=== PATIENT | male | born 1940 | race Caucasian/White ===

== ENCOUNTER 2016-09-30 01:44 | Inpatient (IN) ==
[2016-09-30] MEDS ORDERED: ALBUTEROL/IPRATROPIUM 3 ML NEB RESP TX STA ×2 (01:56→01:58)
[2016-09-30] MEDS ORDERED: LORazepam 2 MG/1 ML VIAL IV STA ×2 (01:56→01:58)
[2016-09-30] MEDS ORDERED: LORazepam 2 MG/1 ML VIAL ONE ×2 (01:58→02:26)
[2016-09-30 02:11] LABS: INR 1.1; PT Patient Result 11.9 SECS; Partial Thromboplastin Time 27.3 SECS (0-40)
[2016-09-30 02:20] LABS: Alanine Aminotransferase 22 U/L (16-61); Albumin 3.8 G/DL (3.4-5.0); Alkaline Phosphatase 91 U/L (45-117); Aspartate Amino Transferase 23 U/L (0-37); Blood Urea Nitrogen 17 MG/DL (7-18); Calcium 9.3 MG/DL (8.5-10.1); Glucose 285 MG/DL (74-106); Osmolality,Calculated 286.7 MOS/KG (273-304); Potassium 3.9 MMOL/L (3.5-5.1); Sodium 138 MMOL/L (136-145); Total Protein 7.8 G/DL (6.4-8.3); Troponin I Only 0.018 NG/ML (0.00-0.045)
[2016-09-30 02:24] LABS: Basophils # 0.1 10*3/uL (0.0-0.2); Basophils % 0.6 % (0.0-0.8); Eosinophils # 0.1 10*3/uL (0.0-0.87); Hematocrit 40.4 VOL% (42.0-52.0); Hemoglobin 13.7 GM/DL (14.0-18.0); Immature Granulocytes % 1.1 %; Lymphocytes # 1.4 10*3/uL (1.4-4.0); Lymphocytes % 16.1 % (21.2-54.2); Mean Corpuscular HGB Conc 33.9 GM/DL (32-36); Mean Corpuscular Hemoglobin 31 PG (27-34); Mean Corpuscular Volume 91.4 FL (87-102); Mean Platelet Volume 12.2 FL (9.6-12.0); Monocytes # 0.9 10*3/uL (0.11-0.8); Monocytes % 10.2 % (1.7-12.7); NRBC # 0.02 10*3/uL; Neutrophils # 6.2 10*3/uL (1.4-7.4); Platelet Count 105 T/CUMM (130-400); Red Blood Count 4.42 MC/CUMM (3.8-5.5); Red Cell Distribution Width 14.6 % (9.3-17.3); White Blood Count 8.8 T/CUMM (4-12)
[2016-09-30] MEDS ORDERED: ALBUTEROL NEB SOLN 5 MG/ML 20 ML/BOTTLE CONT NEB STA (02:27)
[2016-09-30] MEDS ORDERED: ETOMIDATE 20 MG/10 ML VIAL IV STA (02:44)
[2016-09-30] MEDS ORDERED: SUCCINYLCHOLINE 200 MG/10 ML VIAL IV STA (02:45)
[2016-09-30] MEDS ORDERED: PROPOFOL 1,000 MG/100 ML BOTTLE IV ONE ×2 (02:47→04:26)
[2016-09-30] MEDS: PROPOFOL 1,000 MG/100 ML BOTTLE IV SCH ×6 (02:50→22:53)
[2016-09-30] MEDS ORDERED: MORPHINE 2 MG/1 ML SYRINGE ONE (03:13)
[2016-09-30] MEDS ORDERED: ONDANSETRON 4 MG/2 ML VIAL ONE (03:13)
[2016-09-30] MEDS ORDERED: PROPOFOL 200 MG/20 ML VIAL IV STA (03:23)
[2016-09-30] MEDS ORDERED: FUROSEMIDE 40 MG/4 ML VIAL IV STA (03:35)
[2016-09-30] MEDS ORDERED: ACETAMINOPHEN 650 MG SUPP RECTAL STA (03:38)
[2016-09-30] MEDS ORDERED: cefTRIAXone 1,000 MG in SODIUM CHLORIDE 0.9% 100 ML IV STA (03:38)
[2016-09-30] MEDS ORDERED: cefTRIAXone 1,000 MG VIAL ONE (03:41)
[2016-09-30] MEDS ORDERED: ACETAMINOPHEN 650 MG SUPP RECTAL ONE (03:41)
[2016-09-30] MEDS ORDERED: SODIUM CHLORIDE 0.9% 100 ML IV ONE (03:42)
[2016-09-30] MEDS ORDERED: FUROSEMIDE 100 MG/10 ML VIAL ONE (03:42)
[2016-09-30] MEDS ORDERED: SUCCINYLCHOLINE 200 MG/10 ML VIAL ONE (03:55)
[2016-09-30] MEDS ORDERED: ETOMIDATE 20 MG/10 ML VIAL IV ONE (03:55)
[2016-09-30] MEDS ORDERED: PROPOFOL 1,000 MG/100 ML BOTTLE IV SCH (04:00)
--- NOTE | 2016-09-30 04:03 | EKG Report ---
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
--- NOTE | 2016-09-30 04:03 | EKG Report ---
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
--- NOTE | 2016-09-30 04:08 | Emergency Department Note ---
I, Haydee Reveles, am scribing for, and in the presence of, Lisette Hernandez DO 02 :08. IDavid Debra, DO, personally performed the services described in this documentation, ascribed by Haydee Reveles in my presence, and it is both accurate and complete . Arrival - Arrival Chief Complaint: Shortness of Breath Stated Complaint: SOB ED Nursing Triage Note: Patient complains of shortness of breath that has been going on since yesterday. States that his breathing got worse today. Patient has a history of CABG and HTN. Patient denies history of CHF, COPDY or asthma. History of alcohol abuse. Stridor noted upon triage with diminished breath sounds to right side. Patient report dyspnea upon exertion. Dr. Ochoa is patient's bottom brusher. Mode of Arrival: Stretcher Limitations: No Limitations Source: Patient Time Seen by Provider: 09/30/16 01:57 - History of Present Illness HPI Narrative: This is a 75 y/o white male presenting to the ED with c/o SOB that onset yesterday. He states he went to his mailbox and he has had trouble breathing. Pt states his breathing has worsened tonight. Pt has a history of CABG and HTN. He states he does not take care of himself. He is a recovering from alcohol abuse and states Dr. Philippe has taken care of him for this. 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 Pt is wheezing and trouble breathing and experiencing dyspnea upon exertion. Dr. Ochoa is the pt's bottom brusher. He denies fever, chills, nausea, vomiting, diarrhea, abdominal pain, back pain, and dysuria. Consistency: constant Severity: moderate Allergies/Adverse Reactions: Allergies Allergy/AdvReac Type Severity Reaction Status Date / Time No Known Allergies Allergy Verified 01/10/16 09:05 Home Medications: Home Medications Medication Instructions Recorded Confirmed Type Aspirin [Ecotrin] 81 mg PO DAILY 01/10/16 06/13/16 History Celecoxib [Celebrex] 200 mg PO DAILY 01/10/16 06/13/16 History Multivit-Min/FA/Lycopen/Lutein 1 each PO DAILY 01/10/16 06/13/16 History [Centrum Silver Tablet] Omeprazole 20 mg PO DAILY 01/10/16 06/13/16 History Potassium Chloride 10 meq PO DAILY 01/10/16 06/13/16 History Rosuvastatin [Crestor] 10 mg PO DAILY 01/10/16 06/13/16 History Sertraline [Zoloft] 100 mg PO DAILY 01/10/16 06/13/16 History Tamsulosin [Flomax] 0.4 mg PO DAILY 01/10/16 06/13/16 History amLODIPine [Norvasc] 10 mg PO DAILY 01/10/16 06/13/16 History metFORMIN [Glucophage] 500 mg PO BID W/MEALS 01/10/16 06/13/16 History Indomethacin Cap [Indocin Cap] 25 mg PO TID #30 capsule 06/13/16 Rx Ranitidine Tab [Zantac Tab] 150 mg PO TID #30 tablet 06/13/16 Rx predniSONE TAB [PredniSONE] 20 mg PO DAILY #15 tablet 06/13/16 Rx Review of System - Review of System 12 point system: reviewed and no additional remarkable complaints except as stated - Review of System Constitutional: Absent: chills, fever, weakness Eyes: Absent: vision change Head/Ears/Nose/Throat: Absent: nasal drainage Respiratory: Present: respiratory distress, wheezing Cardiovascular: Present: dyspnea on exertion. Absent: chest pain Gastrointestinal: Absent: abdominal pain, nausea, vomiting, diarrhea Genitourinary male: Absent: dysuria Musculoskeletal: Absent: arm pain, back pain, leg pain, neck pain Skin: Absent: rash Neurological: Absent: headache, weakness, confusion, vertigo Psychiatric: Absent: anxiety Endocrine: Absent: fatigue Hematological/Lymphatic: Absent: easy bleeding Allergic/Immunologic: Absent: facial swelling Medical,Surgical,& Family Hx - Medical History Cardio: History of: CAD, Hypertension, Pacemaker Psychological: History of: Depression, Psychiatric/Substance Abuse Tx (ETOH abuse) Endocrine: History of: Diabetes Mellitus (NIDDM), Dyslipidemia Musculoskeletal: History of: Back/Neck Problems (back pain steroid injections) - Surgical History Cardiac Surgeries: Sugical HX of: Cardiac Surgery (triple bypass surgery) - Social History Smoking Status: Never smoker Frequency of Alcohol Use: Frequently Type of Drug Use: None Exam Vital Signs: Vital Signs Temperature 100.1 F H 09/30/16 01:37 Pulse Rate 95 H 09/30/16 02:37 Respiratory Rate 30 H 09/30/16 02:37 Blood Pressure 205/90 09/30/16 01:37 O2 Sat by Pulse Oximetry 89 L 09/30/16 02:37 - General General appearance: alert, in no apparent distress, obese, other (etoh abuse ) - Head Head exam: Present: atraumatic, normocephalic, normal inspection - Eye Eye exam: Present: normal appearance, PERRL, EOMI - ENT ENT exam: Present: normal exam, normal oropharynx, mucous membranes moist, TM's normal bilaterally, normal external ear exam - Neck Neck exam: Present: normal inspection, full ROM, trachea midline. Absent: tenderness - Chest Chest inspection: Present: normal inspection, symmetric chest wall rise. Absent : tenderness - Respiratory Respiratory exam: Present: accessory muscle use, respiratory distress ( mild ), wheezes (mild expiratory wheezing ), other (decreased breath sounds to the left ). Absent: normal lung sounds bilaterally - Cardiovascular Cardiovascular exam: Present: regular rate, normal rhythm, normal heart sounds - Abdominal Exam Abdominal exam: Present: soft, normal bowel sounds, other (obese ). Absent: distention, tenderness - Extremities Exam Extremities exam: Present: normal inspection, full ROM, normal capillary refill. Absent: tenderness, pedal edema, calf tenderness - Back Exam Back exam: Present: normal inspection, full ROM. Absent: tenderness - Neurological Exam Neurological exam: Present: alert, oriented X3, CN II-XII intact, normal gait, reflexes normal - Psychiatric Psychiatric exam: Present: normal affect, normal mood - Skin Skin exam: Present: warm, dry, intact, normal color. Absent: rash Course Course Narrative: pt was subsequently intubated after developing worsening resp distress. discussed with pt before and he agreed to be intubated. Procedures - Intubation Time out performed: Yes sedative: Etomidate Mg Given: 20 paralytic: Succinylcholine Mg Given: 150 Laryngoscope: Indira ET Tube Size: 7.5 Tube Secured Depth (cm): 23 Tube Secured Location: teeth Tube Placement Confirmation: visualized tube passing through cords, equal breath sounds bilaterally, no breath sounds over epigastrium, confirmation by capnometry, confirmation detector color change Patient Tolerated Procedure: well Intubation Complications: none Results - Labs CBC & BMP: 09/30/16 01:48 09/30/16 01:48 Lab Results: I have reviewed the patients labs - Diagnostic Findings Procedure: Chest x-ray: image reviewed by me (ET tube is in place. failure noted. ) Disposition Clinical Impression: Respiratory distress Case discussed with: patient Disposition: Still a Patient Condition: Stable Time of Disposition: 03:50
--- NOTE | 2016-09-30 04:08 | Hospitalist History & Physical ---
Assessment and Plan (1) Acute respiratory failure with hypoxia Status: Acute Assessment and plan: This was a result of acute pulmonary edema. Most likely this was cardiogenic. This gentleman does have a substrate of coronary artery disease. Will repeat EKG in the morning. Do serial cardiac enzymes. Get consultation with cardiology or the patient is here. He is going to be admitted to the CCU Current Visit: Yes (2) Bronchospasm Status: Acute Assessment and plan: This could be cardiac asthma given the fact that the patient states that he does not have asthma. Encounter with some chemicals in the involvement is also possibility. Because I feel that this is cardiac asthma we should note aggressively treat his gentleman with beta-2 agonist for fear of driving the heart in the wrong direction Current Visit: Yes (3) Coronary artery disease Status: Acute Assessment and plan: Patient does have a history of coronary bypass grafting. He denies any chest pain but with acute pulmonary edema and progressive shortness of breath and exercise intolerance is worrisome for possibility of acute coronary syndrome she will be admitted to the CCU be monitored closely and have cardiology see him an echocardiogram will be ordered Current Visit: Yes Qualifiers: Coronary Disease-Associated Artery/Lesion type: bypass graft [place] vs. transplanted heart: [place] Associated angina: angina presence unspecified Qualified Code(s): I25.810 - Atherosclerosis of coronary artery bypass graft(s) without angina pectoris (4) Acute pulmonary edema Status: Acute Assessment and plan: Most likely cardiogenic plan of management as above Current Visit: Yes History of Present Illness History of present illness: Mr. Sibley is a 75 year old male, who by his own declaration to us that he is not taking care of himself well, presented to the ED with c/o SOB that onset yesterday. He states he went to his mailbox and he has had trouble breathing. Pt states his breathing has worsened tonight. Pt has a history of CABG and HTN. He states he does not take care of himself. He is a recovering from alcohol abuse and states Dr. Philippe has taken care of him for this. 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 Pt is wheezing and trouble breathing and experiencing dyspnea upon exertion. 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 He denies fever, chills, nausea, vomiting, diarrhea, abdominal pain, back pain, and dysuria. He also states that he has sleep apnea with a CPAP machine at home that he is not using Home Medications Medication Instructions Recorded Confirmed Type Aspirin [Ecotrin] 81 mg PO DAILY 01/10/16 06/13/16 History Celecoxib [Celebrex] 200 mg PO DAILY 01/10/16 06/13/16 History Multivit-Min/FA/Lycopen/Lutein 1 each PO DAILY 01/10/16 06/13/16 History [Centrum Silver Tablet] Omeprazole 20 mg PO DAILY 01/10/16 06/13/16 History Potassium Chloride 10 meq PO DAILY 01/10/16 06/13/16 History Rosuvastatin [Crestor] 10 mg PO DAILY 01/10/16 06/13/16 History Sertraline [Zoloft] 100 mg PO DAILY 01/10/16 06/13/16 History Tamsulosin [Flomax] 0.4 mg PO DAILY 01/10/16 06/13/16 History amLODIPine [Norvasc] 10 mg PO DAILY 01/10/16 06/13/16 History metFORMIN [Glucophage] 500 mg PO BID W/MEALS 01/10/16 06/13/16 History Indomethacin Cap [Indocin Cap] 25 mg PO TID #30 capsule 06/13/16 Rx Ranitidine Tab [Zantac Tab] 150 mg PO TID #30 tablet 06/13/16 Rx predniSONE TAB [PredniSONE] 20 mg PO DAILY #15 tablet 06/13/16 Rx Allergies Allergy/AdvReac Type Severity Reaction Status Date / Time No Known Allergies Allergy Verified 01/10/16 09:05 Medical,Surgical,& Family Hx - Medical History Cardio: History of: CAD, Hypertension, Pacemaker Psychological: History of: Depression, Psychiatric/Substance Abuse Tx (ETOH abuse) Endocrine: History of: Diabetes Mellitus (NIDDM), Dyslipidemia Musculoskeletal: History of: Back/Neck Problems (back pain steroid injections) - Surgical History Cardiac Surgeries: Sugical HX of: Cardiac Surgery (triple bypass surgery) - Social History Smoking Status: Never smoker Frequency of Alcohol Use: Frequently Type of Drug Use: None Review of systems: 12 point system assessment was done. By the time I came to the bedside the patient was in the process of being intubated. Could hardly speak and breathe at the same time was using accessory muscles. Because of intubation and problems breathing according it much of the history and his complaints. Review of system therefore significant for the chief complaint and history of presenting illness and past medical history Exam - Constitutional Vitals: Period Temp Pulse Resp BP Sys/Willams Pulse Ox Last 24 Hr 100.1 F-100.1 F 89-102 26-32 191-205/90-92 79-93 General appearance: morbidly obese - Head Head exam: Present: normocephalic, atraumatic, other (Right facial plethora) - Eye Eye exam: Present: EOMI Pupils: Present: ANH - ENT ENT exam: Present: normal exam, other (Difficult to see the posterior pharynx) - Neck Neck exam: Present: normal inspection - Respiratory Respiratory exam: Present: other (Patient had respiratory distress breathing about 26 200 breaths a minute with use of accessory muscles there is diffuse wheezing however he told us that he does not have asthma) - Cardiovascular Cardiovascular exam: Present: regular rate and rhythm, other (Sinus control the right bundle branch block is difficult to maintain a baseline on the EKG because of his movement of the chest) - GI/Abdominal GI/Abdominal exam: Present: other (Rotund abdomen nontender no guarding) - Extremities Exam Extremities exam: Present: full ROM, other (No edema no cyanosis) - Neurological Exam Neurological exam: Present: other (Acute respiratory distress patient is quite anxious no focal neurologic deficits noted) - Psychiatric Psychiatric exam: Present: anxious - Skin Skin exam: Present: warm, dry, other (Noted facial plethora) Results - Labs CBC & BMP: 09/30/16 01:48 09/30/16 01:48 Lab Results: I have reviewed the past 24 hour labs
[2016-09-30 06:34] LABS: ABG Base Excess -0.7 MMOL/L (-2.5-2.5); ABG Oxygen Saturation 96.8 % (95-100); ABG PH 7.325 (7.35-7.45); ABG PO2 99.1 MM HG (80-95); ABG TCO2 27.5 MMOL/L (23-27)
[2016-09-30 07:06] LABS: Troponin I Only 0.027 NG/ML (0.00-0.045)
--- NOTE | 2016-09-30 07:43 | Cardiology Consult Note ---
<Eliana Sweet - Last Filed: 09/30/16 07:41> Assessment and Plan - Time spent with patient Time spent with patient: Greater than 30 minutes (1) Respiratory failure Status: Acute Assessment and plan: See plan of care listed below. Current Visit: Yes (2) Hyperlipidemia Status: Chronic Assessment and plan: See plan of care listed below. Current Visit: Yes (3) Hypertension Status: Chronic Assessment and plan: See plan of care listed below. Current Visit: Yes (4) Atrial fibrillation with rapid ventricular response Status: Acute Assessment and plan: See plan of care listed below. Current Visit: Yes (5) Acute pulmonary edema Status: Acute Assessment and plan: See plan of care listed below. Current Visit: Yes (6) Coronary artery disease Status: Chronic Assessment and plan: See plan of care listed below. Current Visit: Yes Qualifiers: Coronary Disease-Associated Artery/Lesion type: bypass graft [place] vs. transplanted heart: [place] heart Associated angina: angina presence unspecified Qualified Code(s): I25.810 - Atherosclerosis of coronary artery bypass graft(s) without angina pectoris (7) Diabetes Status: Chronic Assessment and plan: See plan of care listed below. Current Visit: Yes History of Present Illness - Data of Consult Patient: known to practice within the last 3 years Consult date: 09/30/16 Requesting Physician: Hector Varner - Consult Narrative Reason for consult: Pulmonary edema History of present illness: Manager Drilling: Dr. Ochoa Mr. Sibley is a 75 year old male with known history of coronary artery disease , routinely followed by Dr. Ochoa. Patient presented to [facility] early this morning with complaints of shortness of breath. Patient was then placed on the ventilator. Currently, he is sedated and ventilated in the CCU. Majority of information was obtained from electronic medical record and medical personnel. He has cardiac risk factors significant for advanced age, no history of coronary artery disease, family history of coronary artery disease, hyperlipidemia, hypertension, obesity and diabetes. Patient is a lifetime non-smoker. Patient has past medical history of alcoholism, depression and palpitations. Patient underwent triple bypass in 1998 and [facility] with SPG to distal RCA, SVG to obtuse marginal and RICHTER to LAD. Patient has abdominal pacemaker, underwent pacer/generator change in 2006. Last interrogation was noted to be in 2013. Paste 1.4% of the time. Patient's most recent cardiac catheterization was performed in [address] Tegan Ochoa. At that time he was noted to have severe diffuse small vessel disease and a preserved ejection fraction of 55%. Patient last saw Dr. Ochoa in the cardiovascular clinic October 2013. Patient was in his usual state of health until yesterday when he became extremely short of breath while walking to the mailbox. His breathing progressively worsened throughout the day. Later that evening, he presented to the emergency department where he was intubated. Upon arrival to the emergency department, patient was noted to be in atrial fibrillation with rapid ventricular response, heart rate 120. Chest x-ray revealed pulmonary edema. BNP 500. Troponin negative 2 checks. Echocardiogram pending. Patient has no prior history of CHF. Most recent ejection fraction is noted to be 55%. Received 80 mg of Lasix IV in the emergency department. Patient was then admitted under hospitalist service and housed in the CCU. Cardiology has been consulted to further assist in patient's care. Patient was seen and examined in the cardiac care unit. Currently, sedated and ventilated. Unable to obtain review of systems. Suspect the cause of patient' s pulmonary edema could be secondary to atrial fibrillation with rapid ventricular response or worsening of patient's underlying coronary artery disease. Will discuss this case with Dr. Ochoa and await further recommendations. Assessment/plan: 1. PULMONARY EDEMA - Echocardiogram results pending. I have added 40 mg IV Lasix twice daily. Suspect the cause of patient's pulmonary edema could be secondary to atrial fibrillation with rapid ventricular response or worsening of patient's underlying coronary artery disease. Will discuss this case with Dr. Ochoa and await further recommendations. Daily weights. Strict I's and O' s. 2. ATRIAL FIBRILLATION WITH RAPID VENTRICULAR RESPONSE - This appears to be a new onset. Rate is now controlled. Will reinitiate patient's beta-adama and further discuss with Dr. Ochoa about the need for anticoagulation. 3. CORONARY ARTERY DISEASE - Beta-adama, lipid-lowering agent and aspirin have been continued. 4. DIABETES - Sliding scale insulin. Management per attending. 5. HYPERTENSION - Will reinitiate patient's home medications. Will adjust as needed throughout his hospital stay. 6. HYPERLIPIDEMIA - Continue current plan of care with lipid lowering agent. Lipid panel in a.m. 7. RESPIRATORY FAILURE - Management per pulmonary. Weaning protocol as tolerated. Further plan and addendum to follow per Dr. Cano. CC: Zora Wilder MD - Home Medications and Allergies Home Medications: Home Medications Medication Instructions Recorded Confirmed Type Aspirin [Ecotrin] 81 mg PO DAILY 01/10/16 06/13/16 History Celecoxib [Celebrex] 200 mg PO DAILY 01/10/16 06/13/16 History Multivit-Min/FA/Lycopen/Lutein 1 each PO DAILY 01/10/16 06/13/16 History [Centrum Silver Tablet] Omeprazole 20 mg PO DAILY 01/10/16 06/13/16 History Potassium Chloride 10 meq PO DAILY 01/10/16 06/13/16 History Rosuvastatin [Crestor] 10 mg PO DAILY 01/10/16 06/13/16 History Sertraline [Zoloft] 100 mg PO DAILY 01/10/16 06/13/16 History Tamsulosin [Flomax] 0.4 mg PO DAILY 01/10/16 06/13/16 History amLODIPine [Norvasc] 10 mg PO DAILY 01/10/16 06/13/16 History metFORMIN [Glucophage] 500 mg PO BID W/MEALS 01/10/16 06/13/16 History Indomethacin Cap [Indocin Cap] 25 mg PO TID #30 capsule 06/13/16 Rx Ranitidine Tab [Zantac Tab] 150 mg PO TID #30 tablet 06/13/16 Rx predniSONE TAB [PredniSONE] 20 mg PO DAILY #15 tablet 06/13/16 Rx Allergies/Adverse Reactions: Allergies Allergy/AdvReac Type Severity Reaction Status Date / Time No Known Allergies Allergy Verified 01/10/16 09:05 ROS unobtainable: due to endotracheal tube Medical,Surgical,& Family Hx - Medical History Cardio: History of: CAD, Hypertension, Pacemaker (Abdominal pacemaker) Psychological: History of: Depression, Psychiatric/Substance Abuse Tx (ETOH abuse) HEENT: Comment Only: HEENT Problems (Patient on vent no family present) Endocrine: History of: Diabetes Mellitus (NIDDM), Dyslipidemia Respiratory: Comment Only: Respiratory Problems (Patient on vent no family present) Gastrointestinal: Comment Only: GI Problems (Patient on vent no family present) Musculoskeletal: History of: Back/Neck Problems (back pain steroid injections) Comment Only: Musculoskeletal Problems (Patient on vent no family present) - Surgical History Cardiac Surgeries: Sugical HX of: Cardiac Surgery (triple bypass surgery) - Family History Family History: Reports;: Family Heart Disease - Social History Smoking Status: Never smoker Type of Drug Use: Unknown Physical Examination Vital Signs Temp Pulse Resp BP Pulse Ox 100.1 F H 102 H 26 H 191/92 79 L 09/30/16 01:37 09/30/16 01:37 09/30/16 01:37 09/30/16 01:37 09/30/16 01:37 General: Present: Other (Sedated and ventilated.) Neck: Present: Supple Neck, Midline Trachea Cardiac: Present: Irregularly Regular, No Murmur Lungs: Present: Bibasilar Rales, Ventilated Respirations Abdomen: Present: Soft, Active Bowel Sounds Extremities: Present: No Clubbing, No Cyanosis, No Edema, Normal Upper Extr. Pulses, Normal Lower Extr. Pulses Result/EKG - Labs CBC & BMP: 09/30/16 01:48 09/30/16 01:48 Lab Results: I have reviewed the past 24 hour labs Labs: Laboratory Results - last 24 hr 09/30/16 09/30/16 09/30/16 01:48 01:48 01:48 WBC 8.8 RBC 4.42 Hgb 13.7 L Hct 40.4 L MCV 91.4 MCH 31 MCHC 33.9 RDW 14.6 Plt Count 105 L MPV 12.2 H Neut % (Auto) 71.0 Lymph % (Auto) 16.1 L [place] % (Auto) 10.2 Eos % (Auto) 1.0 Baso % (Auto) 0.6 Neut # (Auto) 6.2 Lymph # (Auto) 1.4 [place] # (Auto) 0.9 H Eos # (Auto) 0.1 Baso # (Auto) 0.1 Immature Gran % 1.1 Nucleated RBC % 0.2 Immature Gran # 0.10 Nucleated RBCs # 0.02 INR 1.1 PT Patient/Control Mix 11.9 Circ Anticoag PTT 27.3 ABG pH ABG pCO2 ABG pO2 ABG HCO3 ABG Total CO2 ABG O2 Saturation ABG Base Excess Sodium 138 Potassium 3.9 Chloride 100 Carbon Dioxide 22 Anion Gap 19.9 H BUN 17 Creatinine 1.30 GFR Calculation 72 BUN/Creatinine Ratio 13.00 Glucose 285 H Calculated Osmolality 286.7 Lactic Acid Calcium 9.3 Total Bilirubin 1.70 H AST 23 ALT 22 Alkaline Phosphatase 91 Total Creatine Kinase 164 CK-MB (CK-2) 3.2 Troponin I 0.018 B-Natriuretic Peptide Total Protein 7.8 Albumin 3.8 Globulin 4.0 H Albumin/Globulin Ratio 0.9 L 09/30/16 09/30/16 09/30/16 01:48 01:48 06:24 WBC RBC Hgb Hct MCV MCH MCHC RDW Plt Count MPV Neut % (Auto) Lymph % (Auto) [place] % (Auto) Eos % (Auto) Baso % (Auto) Neut # (Auto) Lymph # (Auto) [place] # (Auto) Eos # (Auto) Baso # (Auto) Immature Gran % Nucleated RBC % Immature Gran # Nucleated RBCs # INR PT Patient/Control Mix Circ Anticoag PTT ABG pH ABG pCO2 ABG pO2 ABG HCO3 ABG Total CO2 ABG O2 Saturation ABG Base Excess Sodium Potassium Chloride Carbon Dioxide Anion Gap BUN Creatinine GFR Calculation BUN/Creatinine Ratio Glucose Calculated Osmolality Lactic Acid 4.3 H Calcium Total Bilirubin AST ALT Alkaline Phosphatase Total Creatine Kinase 133 CK-MB (CK-2) 2.5 Troponin I 0.027 B-Natriuretic Peptide 500 H Total Protein Albumin Globulin Albumin/Globulin Ratio 09/30/16 06:30 WBC RBC Hgb Hct MCV MCH MCHC RDW Plt Count MPV Neut % (Auto) Lymph % (Auto) [place] % (Auto) Eos % (Auto) Baso % (Auto) Neut # (Auto) Lymph # (Auto) [place] # (Auto) Eos # (Auto) Baso # (Auto) Immature Gran % Nucleated RBC % Immature Gran # Nucleated RBCs # INR PT Patient/Control Mix Circ Anticoag PTT ABG pH 7.325 L ABG pCO2 51.0 H ABG pO2 99.1 H ABG HCO3 26.0 ABG Total CO2 27.5 H ABG O2 Saturation 96.8 ABG Base Excess -0.7 Sodium Potassium Chloride Carbon Dioxide Anion Gap BUN Creatinine GFR Calculation BUN/Creatinine Ratio Glucose Calculated Osmolality Lactic Acid Calcium Total Bilirubin AST ALT Alkaline Phosphatase Total Creatine Kinase CK-MB (CK-2) Troponin I B-Natriuretic Peptide Total Protein Albumin Globulin Albumin/Globulin Ratio - EKG EKG results: interpreted by me EKG shows: atrial fibrillation <Tegan Ochoa - Last Filed: 09/30/16 08:53> Assessment and Plan - Time spent with patient Time spent with patient: Greater than 30 minutes (discussion with family, chart review, documentation and orders) (1) Alcoholism Status: Chronic Current Visit: Yes (2) Obesity (BMI 30-39.9) Status: Chronic Current Visit: Yes (3) Bradycardia Status: Chronic Assessment and plan: at last know interrogation of his abdominal cardiac pacmaker he was paced 1.4% of the time. His atrial lead has been bad for a prolonged period of time. Discussion at his last visit about explant of abdominal pacer and replace in the subclavian approach in the future. I will try to identify his pacer type and interrogate. This may play a role in rather conservative treatment of his afib with RVR to try and avoid significant bradycardia. Current Visit: Yes (4) Acute pulmonary edema Status: Acute Assessment and plan: The patient certainly has diastolic dysfunction this may be a manifestation of his A. fib with RVR. We will try to diurese and control his rate. Given his coronary artery disease and he is now 18 years post coronary bypass grafting he certainly may have recurrent or progressive disease and need further evaluation invasively. Current Visit: Yes (5) Atrial fibrillation with rapid ventricular response Status: Acute Assessment and plan: Right control and anticoagulation for now. Careful to prevent bradycardia. Current Visit: Yes (6) Coronary artery disease Status: Chronic Assessment and plan: Known coronary disease with previous coronary bypass grafting clearly in 1998 with 3 vessels. The JACOB was used. Current Visit: Yes Qualifiers: Coronary Disease-Associated Artery/Lesion type: bypass graft [place] vs. transplanted heart: [place] heart Associated angina: angina presence unspecified Qualified Code(s): I25.810 - Atherosclerosis of coronary artery bypass graft(s) without angina pectoris (7) Hyperlipidemia Status: Chronic Current Visit: Yes (8) Hypertension Status: Chronic Current Visit: Yes History of Present Illness - Consult Narrative History of present illness: Mr. Sibley is a 75 year old male patient that I have seen in the past however he is been lost to follow-up since 2013. I have talked with his son-in-law more than one occasion about how he is doing and he states that he has been doing okay they have apparently not had a lot of interaction with him since the while his is . He has a history of severe alcoholism as well as coronary artery disease. He did quit drinking for a while but I think after his he restarted his alcohol intake and has avoided his family because of this. The patient came to the emergency room with the above history of present illness. He is currently on the ventilator. He had an elevated lactate level and associated elevated anion gap. Patient had a mildly elevated BNP. Is not documented that he had chest pain. He has known coronary disease and had coronary artery bypass grafting in the past as described above in [place] in 1998. To my knowledge this atrial fibrillation is new is unclear if this is the primary problem or secondary to his respiratory distress. I reviewed his chest x-ray appears to be consistent with pulmonary edema and cardiomegaly. He needs a complete workup and evaluation for worsening cardiac status. CC: Zora Wilder MD Medical,Surgical,& Family Hx - Medical History Cardio: History of: Pacemaker (Abdominal pacemaker with know bad atrial lead chronically) - Surgical History Cardiac Surgeries: Sugical HX of: Cardiac Surgery - Social History Frequency of Alcohol Use: Frequently (with history of alcoholism and recent repeat admission for "detox") Marital Status: Lives With:: Alone Functional capacity: independent ambulation Physical Examination Vital Signs Temp Pulse Resp BP Pulse Ox 100.1 F H 102 H 26 H 191/92 79 L 09/30/16 01:37 09/30/16 01:37 09/30/16 01:37 09/30/16 01:37 09/30/16 01:37 General: Present: Other Cardiac: Absent: S3, S4 Extremities: Absent: Edema Result/EKG - Labs CBC & BMP: 09/30/16 01:48 09/30/16 01:48 Labs: Laboratory Results - last 24 hr 09/30/16 09/30/16 09/30/16 01:48 01:48 01:48 WBC 8.8 RBC 4.42 Hgb 13.7 L Hct 40.4 L MCV 91.4 MCH 31 MCHC 33.9 RDW 14.6 Plt Count 105 L MPV 12.2 H Neut % (Auto) 71.0 Lymph % (Auto) 16.1 L [place] % (Auto) 10.2 Eos % (Auto) 1.0 Baso % (Auto) 0.6 Neut # (Auto) 6.2 Lymph # (Auto) 1.4 [place] # (Auto) 0.9 H Eos # (Auto) 0.1 Baso # (Auto) 0.1 Immature Gran % 1.1 Nucleated RBC % 0.2 Immature Gran # 0.10 Nucleated RBCs # 0.02 INR 1.1 PT Patient/Control Mix 11.9 Circ Anticoag PTT 27.3 ABG pH ABG pCO2 ABG pO2 ABG HCO3 ABG Total CO2 ABG O2 Saturation ABG Base Excess Sodium 138 Potassium 3.9 Chloride 100 Carbon Dioxide 22 Anion Gap 19.9 H BUN 17 Creatinine 1.30 GFR Calculation 72 BUN/Creatinine Ratio 13.00 Glucose 285 H Calculated Osmolality 286.7 Lactic Acid Calcium 9.3 Total Bilirubin 1.70 H AST 23 ALT 22 Alkaline Phosphatase 91 Total Creatine Kinase 164 CK-MB (CK-2) 3.2 Troponin I 0.018 B-Natriuretic Peptide Total Protein 7.8 Albumin 3.8 Globulin 4.0 H Albumin/Globulin Ratio 0.9 L 09/30/16 09/30/16 09/30/16 01:48 01:48 06:24 WBC RBC Hgb Hct MCV MCH MCHC RDW Plt Count MPV Neut % (Auto) Lymph % (Auto) [place] % (Auto) Eos % (Auto) Baso % (Auto) Neut # (Auto) Lymph # (Auto) [place] # (Auto) Eos # (Auto) Baso # (Auto) Immature Gran % Nucleated RBC % Immature Gran # Nucleated RBCs # INR PT Patient/Control Mix Circ Anticoag PTT ABG pH ABG pCO2 ABG pO2 ABG HCO3 ABG Total CO2 ABG O2 Saturation ABG Base Excess Sodium Potassium Chloride Carbon Dioxide Anion Gap BUN Creatinine GFR Calculation BUN/Creatinine Ratio Glucose Calculated Osmolality Lactic Acid 4.3 H Calcium Total Bilirubin AST ALT Alkaline Phosphatase Total Creatine Kinase 133 CK-MB (CK-2) 2.5 Troponin I 0.027 B-Natriuretic Peptide 500 H Total Protein Albumin Globulin Albumin/Globulin Ratio 09/30/16 06:30 WBC RBC Hgb Hct MCV MCH MCHC RDW Plt Count MPV Neut % (Auto) Lymph % (Auto) [place] % (Auto) Eos % (Auto) Baso % (Auto) Neut # (Auto) Lymph # (Auto) [place] # (Auto) Eos # (Auto) Baso # (Auto) Immature Gran % Nucleated RBC % Immature Gran # Nucleated RBCs # INR PT Patient/Control Mix Circ Anticoag PTT ABG pH 7.325 L ABG pCO2 51.0 H ABG pO2 99.1 H ABG HCO3 26.0 ABG Total CO2 27.5 H ABG O2 Saturation 96.8 ABG Base Excess -0.7 Sodium Potassium Chloride Carbon Dioxide Anion Gap BUN Creatinine GFR Calculation BUN/Creatinine Ratio Glucose Calculated Osmolality Lactic Acid Calcium Total Bilirubin AST ALT Alkaline Phosphatase Total Creatine Kinase CK-MB (CK-2) Troponin I B-Natriuretic Peptide Total Protein Albumin Globulin Albumin/Globulin Ratio - EKG EKG results: interpreted by me EKG shows: atrial fibrillation
[2016-09-30] MEDS: AZITHROMYCIN INJ 500 MG in SODIUM CHLORIDE 0.9% 250 ML IV SCH (08:04)
[2016-09-30] MEDS ORDERED: FUROSEMIDE 40 MG/4 ML VIAL IV ONE ×2 (08:26→17:28)
[2016-09-30] MEDS: CARVEDILOL 6.25 MG TABLET PO SCH ×2 (08:30→21:34)
[2016-09-30] MEDS: ASPIRIN EC 81 MG TABLET PO SCH (08:30)
[2016-09-30] MEDS: POTASSIUM CHLORIDE 20 MEQ TABLET PO SCH (08:30)
[2016-09-30] MEDS ORDERED: metOLazone 5 MG TABLET PO SCH (09:00)
[2016-09-30] MEDS ORDERED: LISINOPRIL 5 MG TABLET PO SCH (09:00)
--- NOTE | 2016-09-30 09:16 | Pulmonology Consult Note ---
Assessment and Plan (1) Coronary artery disease Status: Chronic Current Visit: Yes Qualifiers: Coronary Disease-Associated Artery/Lesion type: bypass graft [place] vs. transplanted heart: [place] heart Associated angina: angina presence unspecified Qualified Code(s): I25.810 - Atherosclerosis of coronary artery bypass graft(s) without angina pectoris (2) Acute pulmonary edema Status: Acute Current Visit: Yes (3) Respiratory failure Status: Acute Assessment and plan: Secondary to pulmonary edema and volume overload, likely from medicaiton noncompliance and heart failure. Will optimize his vent settings but will need continued diuresis as well. Would opt for a higher PEEP strategy to improve his oxygenation for now. Once he is diuresed should be extubatable quickly.Will continue to monitor and assist with this Current Visit: Yes History of Present Illness History of present illness: Mr. Sibley is a 75 year old male with history of CAD s/p CABG, CHF and etoh abuse. He presented to the ED last night with shortness of breath. He was intubated for worsening respiratory failure. No family present to provide further history. Per the H&P, he endorsed poor compliance with medication recently and hadn't "been taking care of myself" Home Medications Medication Instructions Recorded Confirmed Type Aspirin [Ecotrin] 81 mg PO DAILY 01/10/16 06/13/16 History Celecoxib [Celebrex] 200 mg PO DAILY 01/10/16 06/13/16 History Multivit-Min/FA/Lycopen/Lutein 1 each PO DAILY 01/10/16 06/13/16 History [Centrum Silver Tablet] Omeprazole 20 mg PO DAILY 01/10/16 06/13/16 History Potassium Chloride 10 meq PO DAILY 01/10/16 06/13/16 History Rosuvastatin [Crestor] 10 mg PO DAILY 01/10/16 06/13/16 History Sertraline [Zoloft] 100 mg PO DAILY 01/10/16 06/13/16 History Tamsulosin [Flomax] 0.4 mg PO DAILY 01/10/16 06/13/16 History amLODIPine [Norvasc] 10 mg PO DAILY 01/10/16 06/13/16 History metFORMIN [Glucophage] 500 mg PO BID W/MEALS 01/10/16 06/13/16 History Indomethacin Cap [Indocin Cap] 25 mg PO TID #30 capsule 06/13/16 Rx Ranitidine Tab [Zantac Tab] 150 mg PO TID #30 tablet 06/13/16 Rx predniSONE TAB [PredniSONE] 20 mg PO DAILY #15 tablet 06/13/16 Rx Allergies Allergy/AdvReac Type Severity Reaction Status Date / Time No Known Allergies Allergy Verified 01/10/16 09:05 ROS unobtainable: due to endotracheal tube Exam (Pulmonay) H&P - Constitutional Vitals: Period Temp Pulse Resp BP Sys/Willams Pulse Ox Last 24 Hr 98.4 F-100.1 F 86-102 12-32 131-205/68-92 79-95 - Head Head exam: Present: normal inspection - Respiratory Respiratory exam: Present: rhonchi. Absent: accessory muscle use - Cardiovascular Cardiovascular exam: Present: regular rate and rhythm - GI/Abdominal GI/Abdominal exam: Present: normal bowel sounds, soft Medical,Surgical,& Family Hx - Medical History Cardio: History of: CAD, Hypertension, Pacemaker (Abdominal pacemaker with know bad atrial lead chronically) Psychological: History of: Depression, Psychiatric/Substance Abuse Tx (ETOH abuse) HEENT: Comment Only: HEENT Problems (Patient on vent no family present) Endocrine: History of: Diabetes Mellitus (NIDDM), Dyslipidemia Respiratory: Comment Only: Respiratory Problems (Patient on vent no family present) Gastrointestinal: Comment Only: GI Problems (Patient on vent no family present) Musculoskeletal: History of: Back/Neck Problems (back pain steroid injections) Comment Only: Musculoskeletal Problems (Patient on vent no family present) - Surgical History Cardiac Surgeries: Sugical HX of: Cardiac Surgery - Family History Family History: Reports;: Family Heart Disease - Social History Smoking Status: Never smoker Frequency of Alcohol Use: Frequently (with history of alcoholism and recent repeat admission for "detox") Type of Drug Use: Unknown Results - Labs CBC & BMP: 09/30/16 01:48 09/30/16 01:48 Labs: 7.32/51/99
[2016-09-30 09:31] LABS: ABG Base Excess 1.1 MMOL/L (-2.5-2.5); ABG HCO3 26.8 MMOL/L (20-26); ABG Oxygen Saturation 92.8 % (95-100); ABG PCO2 46.6 MM HG (35-48); ABG PH 7.377 (7.35-7.45); ABG TCO2 28.2 MMOL/L (23-27)
--- NOTE | 2016-09-30 09:42 | XRay Report ---
Portable chest Date: 09/30/2016 Clinical history: Shortness of breath Comparison: 06/13/2016 Technique: Portable AP sitting chest Findings: Progressive cardiomegaly in patient with prior median sternotomy. More prominent pulmonary vasculature with progressive diffuse parenchymal findings and small pleural effusions. Degenerative changes are noted. Impression: Progressive cardiomegaly with findings consistent with moderate pulmonary edema with associated atelectasis and chronic scarring in patient with prior median sternotomy. Small pleural effusions. PROCEDURE INTERPRETED AT [facility] DEPARTMENT OF RADIOLOGY Final Report Signed by: Dr. Elvira Valles
--- NOTE | 2016-09-30 09:47 | XRay Report ---
Portable chest Date: 09/30/2016 Clinical history: Tube placement Comparison: 09/30/2016 Technique: Portable AP supine chest Findings: Stable cardiomegaly with prior median sternotomy. Insertion of endotracheal tube is in satisfactory position. Reduced parenchymal findings in the lungs with small pleural effusions. Stable mediastinum and osseous structures. Impression: Endotracheal tube in satisfactory position. Status post median sternotomy with reduced atelectasis/edema with persistent small pleural effusions and underlying chronic scarring. PROCEDURE INTERPRETED AT [facility] DEPARTMENT OF RADIOLOGY Final Report Signed by: Dr. Elvira Valles
[2016-09-30] MEDS: APIXABAN 5 MG TABLET PO SCH ×2 (09:56→21:45)
[2016-09-30] MEDS: MAGNESIUM OXIDE 400 MG TABLET PO SCH ×2 (09:56→21:45)
[2016-09-30] MEDS: ASCORBIC ACID 500 MG TABLET PO SCH ×2 (09:56→21:45)
[2016-09-30] MEDS: FAMOTIDINE 8 MG/ML 50 ML/BOTTLE PO SCH ×2 (10:23→21:45)
[2016-09-30] MEDS: INSULIN REGULAR 100 UNIT/ML SUBCUT SCH ×2 (11:59→17:55)
[2016-09-30] MEDS ORDERED: DEXTROSE 50% 25 GM/50 ML VIAL IV PRN (12:45)
[2016-09-30] MEDS ORDERED: GLUCAGON 1 MG VIAL IM PRN (12:45)
[2016-09-30] MEDS ORDERED: FUROSEMIDE 40 MG/4 ML VIAL ONE (14:46)
[2016-09-30] MEDS: FUROSEMIDE 40 MG/4 ML VIAL IV SCH (15:19)
[2016-09-30] MEDS ORDERED: SODIUM CHLORIDE 0.9% 250 ML IV ONE ×2 (15:42→16:17)
[2016-09-30] MEDS: cefTRIAXone 2,000 MG in SODIUM CHLORIDE 0.9% 100 ML IV SCH (16:45)
--- NOTE | 2016-09-30 19:44 | ECHO Report ---
Al Sibley Exam Date: 09/30/2016 10:53 Referring Physician: Technologist: Giovana Gan Age: 75 Ht (in): 70 Wt (lb): 255 Gender: M Exam Location: [facility] Echo Indications: acute pul. HTN, acute resp failure, bronchospasm, CAD BP: 131 / 73 HR: 90 Rhythm: Other Technical Quality: average IMPRESSIONS EF 60% with mild LVH. Diastolic parameters are equivocal. Tricuspid regurgitation velocities suggest a PAP of 25 mmHg. There is a small posterior pericardial effusion. Mild mitral valve regurgitation. There is 3 chamber cardiac enlargement MEASUREMENTS (Male / Female) Normal Values 2D ECHO LV Diastolic Diameter PLAX 5.5 cm 4.2 - 5.9 / 3.9 - 5.3 cm LV Systolic Diameter PLAX 3.0 cm LV Fractional Shortening PLAX 45.9 % IVS Diastolic Thickness 1.3 cm 0.6 - 1.0 / 0.6 - 0.9 cm LVPW Diastolic Thickness 1.6 cm 0.6 - 1.0 / 0.6 - 0.9 cm RV Internal Dim ED PLAX 3.8 cm Aortic Root Diameter 2.4 cm LA Systolic Diameter LX 5.0 cm 3.0 - 4.0 / 2.7 - 3.8 cm DOPPLER TR Peak Velocity 191.0 cm/s TR Peak Gradient 14.6 mmHg FINDINGS Left Ventricle EF 60% with mild LVH. No clear RWMA. There is flattening of the IVS in systole suggesting right sided overload. Diastolic parameters are equivocal. Right Ventricle Mild - moderately increased right ventricular size. Right Atrium The right atrium is mildly enlarged. Left Atrium Moderately increased left atrial diameter. Mitral Valve Mild mitral valve sclerosis. Mild mitral valve regurgitation. Aortic Valve Mild aortic valve sclerosis without stenosis or regurgitation. Tricuspid Valve Morphologically normal tricuspid valve. Trace - mild tricuspid valve regurgitation. Tricuspid regurgitation velocities suggest a PAP of 25 mmHg. Pulmonic Valve Morphologically normal pulmonic valve. Pericardium There is a small posterior pericardial effusion Aorta Normal size aortic root and proximal ascending aorta. Tegan Ochoa (Electronically Signed) Final Date: 30 Sep 2016 19:43
[2016-09-30] MEDS ORDERED: SODIUM CHLORIDE 0.9% 1,000 ML IV ONE (21:37)
[2016-10-01] MEDS: INSULIN REGULAR 100 UNIT/ML SUBCUT SCH ×2 (00:18→06:21)
[2016-10-01] MEDS: PROPOFOL 1,000 MG/100 ML BOTTLE IV SCH ×5 (03:30→22:37)
[2016-10-01 05:06] LABS: Basophils % 0.6 % (0.0-0.8); Eosinophils # 0.2 10*3/uL (0.0-0.87); Eosinophils % 3.7 % (0.00-10.9); Hematocrit 39.9 VOL% (42.0-52.0); Hemoglobin 12.7 GM/DL (14.0-18.0); Immature Granulocytes % 0.6 %; Immature Granulocytes Absolute 0.04 #; Lymphocytes # 1.4 10*3/uL (1.4-4.0); Lymphocytes % 22.2 % (21.2-54.2); Mean Corpuscular HGB Conc 31.8 GM/DL (32-36); Mean Corpuscular Hemoglobin 30 PG (27-34); Mean Platelet Volume 12.4 FL (9.6-12.0); Monocytes # 0.6 10*3/uL (0.11-0.8); Monocytes % 10.3 % (1.7-12.7); Neutrophils # 3.9 10*3/uL (1.4-7.4); Neutrophils % 62.6 % (38.7-73.9); Platelet Count 97 T/CUMM (130-400); Red Cell Distribution Width 15.6 % (9.3-17.3); White Blood Count 6.2 T/CUMM (4-12)
[2016-10-01 05:28] LABS: Calcium 8.2 MG/DL (8.5-10.1); Magnesium 2.1 MG/DL (1.8-2.4); Osmolality,Calculated 288.5 MOS/KG (273-304); Potassium 3.9 MMOL/L (3.5-5.1)
[2016-10-01] MEDS: LORazepam 2 MG/1 ML VIAL IV PRN ×3 (05:33→22:28)
[2016-10-01 05:55] LABS: Phosphorous 4.3 MG/DL (2.5-4.9); Prealbumin 17.1 MG/DL (20-40)
[2016-10-01 06:48] LABS: Hypochromasia Slight; Macrocytosis 1+; Polychromasia Slight
--- NOTE | 2016-10-01 07:24 | EKG Report ---
Stationary ECG Study [facility] ER Test Date: 09/30/2016 2:56:06 AM Pat Name: MARLENE ZHANG Department: Room: 122 Gender: M Ballast Inspector: : 1940 Requested by: Lisette Hernandez Order Number: [id number] Reading MD: DAVID MICHELLE Intervals [place]ullen Rate: 120 P: 999 [place]: 0 QRS: 129 QRSD: 145 T: 51 QT: 353 QTc: 424 Interpretive Statements ATRIAL FIBRILLATION WITH RAPID VENTRICULAR RESPONSE RIGHT BUNDLE BRANCH BLOCK LEFT POSTERIOR FASCICULAR BLOCK Electronically Signed On 10-02-16 20:21:36 CDT by DAVID MICHELLE [email or web address]
--- NOTE | 2016-10-01 07:53 | Cardiology Progress Note ---
Assessment and Plan (1) Alcoholism Status: Chronic Current Visit: Yes (2) Obesity (BMI 30-39.9) Status: Chronic Current Visit: Yes (3) Bradycardia Status: Chronic Assessment and plan: He is currently paced. Will interrogate device today. Current Visit: Yes (4) Acute pulmonary edema Status: Acute Assessment and plan: The patient certainly has diastolic dysfunction this may be a manifestation of his A. fib with RVR. We will try to diurese and control his rate. Given his coronary artery disease and he is now 18 years post coronary bypass grafting he certainly may have recurrent or progressive disease and need further evaluation invasively. Current Visit: Yes (5) Atrial fibrillation with rapid ventricular response Status: Acute Assessment and plan: Currently paced Current Visit: Yes (6) Coronary artery disease Status: Chronic Assessment and plan: Known coronary disease with previous coronary bypass grafting clearly in 1998 with 3 vessels. The JACOB was used. 2 sets of biomarkers are negative Current Visit: Yes Qualifiers: Coronary Disease-Associated Artery/Lesion type: bypass graft [place] vs. transplanted heart: [place] heart Associated angina: angina presence unspecified Qualified Code(s): I25.810 - Atherosclerosis of coronary artery bypass graft(s) without angina pectoris (7) Hyperlipidemia Status: Chronic Current Visit: Yes (8) Hypertension Status: Chronic Current Visit: Yes (9) Acute renal insufficiency Status: Acute Current Visit: Yes (10) Pericardial effusion Status: Acute Current Visit: Yes Cardiology - PN: Subj Interval history: Mr. Sibley remains intubated. He is paced this morning. His chest x-ray is underpenetrated but still shows what may be some layering pulmonary edema. Transthoracic echo yesterday shows small posterior pericardial effusion. Today on his chest x-ray he appears to have an enlarged or double cardiac silhouette. This is concerning for worsening effusion. I will repeat a simple 2D to assess his effusion today. He is positive fluid balance from yesterday. His ejection fraction was normal he had normal right-sided pressures but 3 chamber cardiac enlargement. The left ventricle is small with LVH. Both atria and the right ventricle were enlarged. Exam (Progress Note) - Constitutional Vitals: Period Temp Pulse Resp BP Sys/Willams Pulse Ox Last 24 Hr 96.4 F-98.1 F 64-101 13-26 83-186/43-82 90-100 General appearance: morbidly obese - Head Head exam: Present: normal inspection - Eye Eye exam: Present: EOMI Pupils: Present: ANH - Neck Neck exam: Present: normal inspection - Respiratory Respiratory exam: Present: clear to auscultation bilaterally (No wheezing today) - Cardiovascular Cardiovascular exam: Present: regular rate and rhythm (He is paced) - GI/Abdominal GI/Abdominal exam: Present: normal bowel sounds - Extremities Exam Extremities exam: Present: normal inspection. Absent: edema - Back Exam Back exam: Present: normal inspection - Skin Skin exam: Present: normal color, warm, dry Result/EKG - Labs CBC & BMP: 10/01/16 04:40 10/01/16 04:40 Labs: Laboratory Results - last 24 hr 09/30/16 09/30/16 09/30/16 09:20 11:00 17:36 WBC RBC Hgb Hct MCV MCH MCHC RDW Plt Count MPV Neut % (Auto) Lymph % (Auto) [place] % (Auto) Eos % (Auto) Baso % (Auto) Neut # (Auto) Lymph # (Auto) [place] # (Auto) Eos # (Auto) Baso # (Auto) Immature Gran % Nucleated RBC % Immature Gran # Nucleated RBCs # Polychromasia Hypochromasia Macrocytosis Morphology Comment ABG pH 7.377 ABG pCO2 46.6 ABG pO2 68.0 L ABG HCO3 26.8 H ABG Total CO2 28.2 H ABG O2 Saturation 92.8 L ABG Base Excess 1.1 Sodium Potassium Chloride Carbon Dioxide Anion Gap BUN Creatinine GFR Calculation BUN/Creatinine Ratio Glucose POC Glucose 327 H 310 H Calculated Osmolality Calcium Phosphorus Magnesium Prealbumin Triglycerides Cholesterol LDL Cholesterol VLDL Cholesterol HDL Cholesterol Heart Disease Risk Ratio 10/01/16 10/01/16 10/01/16 00:08 04:40 04:40 WBC 6.2 RBC 4.20 Hgb 12.7 L Hct 39.9 L MCV 95.0 MCH 30 MCHC 31.8 L RDW 15.6 Plt Count 97 L MPV 12.4 H Neut % (Auto) 62.6 Lymph % (Auto) 22.2 [place] % (Auto) 10.3 Eos % (Auto) 3.7 Baso % (Auto) 0.6 Neut # (Auto) 3.9 Lymph # (Auto) 1.4 [place] # (Auto) 0.6 Eos # (Auto) 0.2 Baso # (Auto) 0.0 Immature Gran % 0.6 Nucleated RBC % 0.0 Immature Gran # 0.04 Nucleated RBCs # 0.00 Polychromasia Slight Hypochromasia Slight Macrocytosis 1+ Morphology Comment ABG pH ABG pCO2 ABG pO2 ABG HCO3 ABG Total CO2 ABG O2 Saturation ABG Base Excess Sodium 139 Potassium 3.9 Chloride 102 Carbon Dioxide 23 Anion Gap 17.9 H BUN 31 H Creatinine 2.40 H GFR Calculation 35 BUN/Creatinine Ratio 12.00 Glucose 181 H POC Glucose 213 H Calculated Osmolality 288.5 Calcium 8.2 L Phosphorus Magnesium 2.1 Prealbumin Triglycerides Cholesterol LDL Cholesterol VLDL Cholesterol HDL Cholesterol Heart Disease Risk Ratio 10/01/16 10/01/16 10/01/16 04:40 04:40 06:12 WBC RBC Hgb Hct MCV MCH MCHC RDW Plt Count MPV Neut % (Auto) Lymph % (Auto) [place] % (Auto) Eos % (Auto) Baso % (Auto) Neut # (Auto) Lymph # (Auto) [place] # (Auto) Eos # (Auto) Baso # (Auto) Immature Gran % Nucleated RBC % Immature Gran # Nucleated RBCs # Polychromasia Hypochromasia Macrocytosis Morphology Comment ABG pH ABG pCO2 ABG pO2 ABG HCO3 ABG Total CO2 ABG O2 Saturation ABG Base Excess Sodium Potassium Chloride Carbon Dioxide Anion Gap BUN Creatinine GFR Calculation BUN/Creatinine Ratio Glucose POC Glucose 211 H Calculated Osmolality Calcium Phosphorus 4.3 Magnesium Prealbumin 17.1 L Triglycerides 155 H Cholesterol 128 LDL Cholesterol 56.0 VLDL Cholesterol 31.0 HDL Cholesterol 64 H Heart Disease Risk Ratio 2.00
--- NOTE | 2016-10-01 07:56 | XRay Report ---
XR chest 1V portable Indication: Shortness of breath Comparison: Chest x-ray 09/30/2016 Technique: Portable AP chest was performed. Findings: Haziness is increased bilaterally within the lung bases suggesting dependent atelectasis and/or dependent pleural fluid. Interval insertion of NG tube has occurred. The lower portion of the tube terminates within the gastric fundus. Endotracheal tube is stable. Heart size is stable. Bones and soft tissues demonstrate no significant abnormalities. Impression: 1. Dependent atelectasis and/or dependent pleural fluid are suggested within the lower chest. 2. Interval insertion of NG tube. 10/01/2016 7:53 AM PROCEDURE INTERPRETED AT [facility] DEPARTMENT OF RADIOLOGY Final Report Signed by: Dr. Shashi Martínez
[2016-10-01 08:00] LABS: Allen Test Positive; Pt O2 Delivery Device Ventilator
[2016-10-01 08:01] LABS: ABG Base Excess 1.3 MMOL/L (-2.5-2.5); ABG HCO3 25.3 MMOL/L (20-26); ABG Oxygen Saturation 95.2 % (95-100); ABG PH 7.441 (7.35-7.45); ABG PO2 76.5 MM HG (80-95); ABG TCO2 26.5 MMOL/L (23-27)
[2016-10-01] MEDS: FUROSEMIDE 40 MG/4 ML VIAL IV SCH (09:25)
[2016-10-01] MEDS: ASCORBIC ACID 500 MG TABLET PO SCH ×2 (09:27→21:34)
[2016-10-01] MEDS: MAGNESIUM OXIDE 400 MG TABLET PO SCH ×2 (09:28→21:33)
[2016-10-01] MEDS: ASPIRIN EC 81 MG TABLET PO SCH (09:28)
[2016-10-01] MEDS: POTASSIUM CHLORIDE 20 MEQ TABLET PO SCH (09:28)
[2016-10-01] MEDS: INSULIN LISPRO 100 UNIT/ML SUBCUT SCH ×4 (09:29→21:34)
[2016-10-01] MEDS: FAMOTIDINE 8 MG/ML 50 ML/BOTTLE PO SCH ×2 (09:29→21:34)
[2016-10-01] MEDS: APIXABAN 5 MG TABLET PO SCH ×2 (09:29→21:34)
[2016-10-01] MEDS: CARVEDILOL 6.25 MG TABLET PO SCH ×2 (09:34→21:35)
[2016-10-01] MEDS: AZITHROMYCIN INJ 500 MG in SODIUM CHLORIDE 0.9% 250 ML IV SCH (09:34)
[2016-10-01] MEDS: SODIUM CHLORIDE 0.45% 1,000 ML IV SCH ×2 (10:17→20:30)
--- NOTE | 2016-10-01 10:19 | Hospitalist Progress Note ---
Assessment and Plan (1) Acute respiratory failure with hypoxia Status: Acute Assessment and plan: 1)acute respiratory failure- due to pulmonary edema. he has high O2 requirements and is on PEEP of 10. Despite positive fluid balance, his lung exam is improved. He has had hypotension following lasix. I think he is intravascualrly dry. Perhaps he is developing ARDS? hold lasix this morning. begin IVF. He is covered for CAP also, though no fever, cultures negative so far. Dr Anaya has seen him- will follow up on his note. 2)a fib- rate ok. some diastolic dysfunction related to rhythm. 3)SUSAN- creatinine rising with diuresis 4)nutrition- tolerated initiation of tube feeds, but last residual high. 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 If he does not tolerate may need TPN. KUB pending. 5)hypotension- relative- home meds list prednisone- add hydrocortisone to regimen to cover adrenal insufficiency. home meds not confirmed, but he was on it last admission. monitor glucose. 6)hyperglycemia- no known history of diabetes- increase accucheck frequency to q4h and increase to high intensity SSI. check hgba1c. 7)ppx- pepcid, SCDs- platelets low. Current Visit: Yes (2) Acute pulmonary edema Status: Acute Current Visit: Yes (3) Hyperlipidemia Status: Chronic Current Visit: Yes (4) Hypertension Status: Chronic Current Visit: Yes (5) Atrial fibrillation with rapid ventricular response Status: Acute Current Visit: Yes (6) Diabetes Status: Chronic Current Visit: Yes (7) Alcoholism Status: Chronic Current Visit: Yes (8) Obesity (BMI 30-39.9) Status: Chronic Current Visit: Yes (9) Acute renal insufficiency Status: Acute Current Visit: Yes (10) Pericardial effusion Status: Acute Current Visit: Yes Hospitalist: Subjective Interval history: Mr Sibley required further boluses last night when his BP dropped after lasix and he is in positive fluid balance. He has had little UOP and his creatinine has climbed. He is on FIO2 of 70%. He does not have dependent peripheral edema. His lung exam is much better today. His CXR shows small effusion with atelectasis at left base. Exam - Constitutional Vitals: Period Temp Pulse Resp BP Sys/Willams Pulse Ox Last 24 Hr 96.4 F-98.1 F 64-72 12-26 83-145/43-82 90-100 General appearance: no acute distress (sedated), over weight - Respiratory Respiratory exam: Present: rales (much improved exam today with clearing anteriorly and few rales posterior encinas.) - Cardiovascular Cardiovascular exam: Present: regular rate and rhythm - GI/Abdominal GI/Abdominal exam: Present: normal bowel sounds, soft. Absent: tenderness - Extremities Exam Extremities exam: Absent: edema - Skin Skin exam: Present: warm, dry Results - Labs CBC & BMP: 10/01/16 04:40 10/01/16 04:40 Lab Results: I have reviewed the past 24 hour labs
[2016-10-01] MEDS: HYDROCORTISONE 100 MG VIAL IV SCH ×2 (10:38→18:11)
--- NOTE | 2016-10-01 11:06 | XRay Report ---
XR KUB Indication: Increased residuals. Comparison: Flat and erect images of the abdomen September 29, 2011. Technique: Supine AP image of the abdomen was obtained. Findings: Lung bases are clear. There is no evidence of organomegaly. Bowel gas pattern is unremarkable. Renal contours are bilaterally symmetric. Bones and soft tissues demonstrate no significant abnormalities. Pacemaker generator in the left upper abdomen is unchanged in position. Multiple calcified phleboliths are present bilaterally within the pelvis. Impression: 1. No active process is demonstrated within the abdomen or pelvis. 10/01/2016 11:03 AM PROCEDURE INTERPRETED AT [facility] DEPARTMENT OF RADIOLOGY Final Report Signed by: Dr. Shashi Martínez
--- NOTE | 2016-10-01 12:59 | Ultrasound Report ---
US renal Bilateral Indication: Rule out obstruction. Comparison: None. Technique: Using transcutaneous probe, routine renal ultrasound was performed. Ultrasound images were captured and stored. Findings: Right kidney measures 11.3 cm in craniocaudal dimension. Left kidney measures 12.4 cm in craniocaudal dimension. Neither kidney demonstrates evidence of hydronephrosis or perinephric fluid. No solid masses are clearly demonstrated. Impression: 1. No evidence of hydronephrosis or findings to suggest obstruction. 10/01/2016 12:14 PM PROCEDURE INTERPRETED AT [facility] DEPARTMENT OF RADIOLOGY Final Report Signed by: Dr. Shashi Martínez
--- NOTE | 2016-10-01 14:06 | Pulmonology Progress Note ---
Pulmonary - PN: Subj Interval history: This 75-year-old man apparently has history of alcohol abuse. History of coronary artery disease congestive heart failure. Came in with respiratory failure is on the ventilator. The chest x-ray looks wet with increased interstitial markings and pleural effusions however his creatinine has gone up from about 1.2-2.4 and 1 day after trying to diurese him and his weight really has not fallen. Urine output is low. He has not had fever. He is on empiric antibiotics and may have had aspiration pneumonia. He still has a widened A-a O2 difference and may well have ARDS. Exam (Progress Note) - Constitutional Vitals: Period Temp Pulse Resp BP Sys/Willams Pulse Ox Last 24 Hr 97.4 F-98.1 F 64-72 13-26 83-145/43-79 91-100 Exam: Patient sedated on the ventilator. Vital signs normal. Pupils react to light. Orotracheal tube in place. Neck is supple. Chest reveals some rales. He does have some jugular venous distention. Heart normal rate and rhythm no murmurs. Abdomen soft no masses. Bowel sounds present. Extremities no clubbing cyanosis or edema. Calves nontender Results - Labs CBC & BMP: 10/01/16 04:40 10/01/16 04:40 Lab Results: I have reviewed the past 24 hour labs - Diagnostic Findings Procedure: Chest x-ray: image reviewed by me (Increased interstitial markings and small pleural effusions. ET tube good position. Little change from yesterday.) Assessment and Plan (1) Acute respiratory failure with hypoxia Status: Acute Assessment and plan: ABGs acceptable. Still requiring relatively high PEEP. Certainly may be an element of ARDS. Not clear whether he had aspiration or not. Current Visit: Yes (2) Coronary artery disease Status: Chronic Assessment and plan: As normal LV ejection fraction. Current Visit: Yes Qualifiers: Coronary Disease-Associated Artery/Lesion type: bypass graft [place] vs. transplanted heart: [place] heart Associated angina: angina presence unspecified Qualified Code(s): I25.810 - Atherosclerosis of coronary artery bypass graft(s) without angina pectoris (3) Acute pulmonary edema Status: Acute Assessment and plan: Not clear whether this is cardiac or noncardiac. Normal LV ejection fraction and failure to respond to diuretics would point toward noncardiac. Current Visit: Yes (4) Acute renal insufficiency Status: Acute Assessment and plan: Creatinine is risen to 2.4. We will cut back on diuretics. Agree with adding Solu-Cortef in patient with history of taking oral prednisone. Current Visit: Yes
--- NOTE | 2016-10-01 15:53 | ECHO Report ---
Al Sibley 10/01/2016 Exam Date: 09:16 Referring Physician: Giovana Gan Technologist: ELIJAH Age: 75 Ht (in): Wt (lb): MExam Location: [facility] Gender: Echo [id number]: evaluate PEIndications: BP: 51358 / 55 HR: 67 SinusRhythm: averageTechnical Quality: IMPRESSIONS This is a limited study to rule out worsening pericardial effusion. The patient continues to have no significant change from yesterday except there is a septal bounce most likely because he is paced. Has no significant pericardial effusion he has 3 chamber enlargement. Ejection fraction remains unchanged. MEASUREMENTS (Male / Female) Normal Values FINDINGS Left Ventricle Right Ventricle Right Atrium Left Atrium Mitral Valve Aortic Valve Tricuspid Valve Pulmonic Valve Pericardium Aorta Tegan Ochoa (Electronically Signed) 01 Oct 2016 15:52Final Date:
[2016-10-01] MEDS: cefTRIAXone 2,000 MG in SODIUM CHLORIDE 0.9% 100 ML IV SCH (17:55)
[2016-10-02] MEDS: INSULIN LISPRO 100 UNIT/ML SUBCUT SCH ×6 (02:30→21:16)
[2016-10-02] MEDS: HYDROCORTISONE 100 MG VIAL IV SCH ×4 (02:30→21:11)
[2016-10-02] MEDS: PROPOFOL 1,000 MG/100 ML BOTTLE IV SCH ×5 (03:53→22:28)
[2016-10-02 05:14] LABS: ABG Base Excess -1.5 MMOL/L (-2.5-2.5); ABG HCO3 22.8 MMOL/L (20-26); ABG Oxygen Saturation 95.9 % (95-100); ABG PCO2 36.9 MM HG (35-48); ABG PH 7.408 (7.35-7.45); ABG PO2 82.1 MM HG (80-95); ABG TCO2 23.9 MMOL/L (23-27); Allen Test Positive; Pt O2 Delivery Device Ventilator
[2016-10-02 05:17] LABS: Basophils % 0.2 % (0.0-0.8); Hematocrit 34.9 VOL% (42.0-52.0); Hemoglobin 11.7 GM/DL (14.0-18.0); Immature Granulocytes Absolute 0.06 #; Lymphocytes # 0.4 10*3/uL (1.4-4.0); Lymphocytes % 6.9 % (21.2-54.2); Mean Corpuscular HGB Conc 33.5 GM/DL (32-36); Mean Corpuscular Hemoglobin 31 PG (27-34); Mean Corpuscular Volume 93.3 FL (87-102); Mean Platelet Volume 13.1 FL (9.6-12.0); Monocytes # 0.3 10*3/uL (0.11-0.8); Monocytes % 4.9 % (1.7-12.7); Platelet Count 104 T/CUMM (130-400); Red Blood Count 3.74 MC/CUMM (3.8-5.5); Red Cell Distribution Width 15.2 % (9.3-17.3); White Blood Count 5.8 T/CUMM (4-12)
[2016-10-02 05:53] LABS: Calcium 7.6 MG/DL (8.5-10.1); Calcium 7.8 MG/DL (8.5-10.1); Magnesium 2.5 MG/DL (1.8-2.4); Osmolality,Calculated 287.5 MOS/KG (273-304); Osmolality,Calculated 290.4 MOS/KG (273-304); Potassium 4.1 MMOL/L (3.5-5.1)
--- NOTE | 2016-10-02 06:08 | XRay Report ---
XR chest 1V portable Indication: Intubation. Comparison: Chest x-ray 10/01/2016. Technique: Portable AP chest was performed. Findings: The heart is minimally enlarged, stable. Prior sternotomy is again demonstrated. Multiple tubes and medical support devices appear stable. Pulmonary vasculature demonstrates no specific abnormality. Hilar structures demonstrate fairly symmetric appearance. The lungs change in appearance the lung parenchyma has occurred. There may be minimal airspace opacification in the right cardiophrenic angle. The appearance of the left cardiophrenic angle as well as haziness overlying each hemidiaphragm remain present. The upper lungs are clear. Bones and soft tissues demonstrate no significant interval change. Impression: 1. Haziness noted bilaterally within the lung bases may in part be influenced by chest wall soft tissues and represent beam attenuation. Other considerations could include minimal dependent pleural fluid and/or atelectatic change. 2. More focal opacity of the left cardiophrenic angle likely reflects a component of left lower lobe atelectatic change. 3. Minimal airspace opacification in the right cardiophrenic angle may reflect minimal edema or atelectasis. 10/02/2016 6:04 AM PROCEDURE INTERPRETED AT [facility] DEPARTMENT OF RADIOLOGY Final Report Signed by: Dr. Shashi Martínez
[2016-10-02] MEDS: SODIUM CHLORIDE 0.45% 1,000 ML IV SCH ×2 (06:13→16:29)
[2016-10-02] MEDS: LORazepam 2 MG/1 ML VIAL IV PRN (06:14)
--- NOTE | 2016-10-02 07:10 | Pulmonology Progress Note ---
Pulmonary - PN: Subj Interval history: This 75-year-old man apparently has history of alcohol abuse. History of coronary artery disease congestive heart failure. Came in with respiratory failure is on the ventilator. The chest x-ray looks wet with increased interstitial markings and pleural effusions however his creatinine has gone up from about 1.2-2.4 and 1 day after trying to diurese him and his weight really has not fallen. Urine output is low. He has not had fever. He is on empiric antibiotics and may have had aspiration pneumonia. He still has a widened A-a O2 difference and may well have ARDS. 10/02/2016 PO2 now is in the 80s on 70% with 10 of PEEP. It does appear that the patient has ARDS. He did respond well to diuretics and his creatinine [place]. He has been given some IV fluids and his chest x-ray is actually better. When patient wakes up he is combative. Difficult to wean under the circumstances. We will start him on Haldol which hopefully will calm him down without suppressing his respirations. When we get ready to do CPAP trials, would like to change from propofol to Precedex along with Haldol. May be an element of alcohol withdrawal Exam (Progress Note) - Constitutional Vitals: Period Temp Pulse Resp BP Sys/Willams Pulse Ox Last 24 Hr 96.9 F-97.8 F 65-74 16-25 92-134/51-89 92-98 Exam: Patient waving his hands despite being on propofol, on the ventilator. Vital signs normal. Pupils react to light. Orotracheal tube in place. Neck is supple. Chest reveals some rales. He does have some jugular venous distention. Heart normal rate and rhythm no murmurs. Abdomen soft no masses. Bowel sounds present. Extremities no clubbing cyanosis or edema. Calves nontender Results - Labs CBC & BMP: 10/02/16 04:40 10/02/16 04:40 Lab Results: I have reviewed the past 24 hour labs Assessment and Plan (1) Acute respiratory failure with hypoxia Status: Acute Assessment and plan: ABGs acceptable. Still requiring relatively high PEEP. Certainly may be an element of ARDS. Not clear whether he had aspiration or not. 10/02/2016 ABGs do fit the criteria for ARDS. Still requiring fairly high PEEP. Will try to reduce PEEP and FiO2 to reach a point where we can start CPAP. Current Visit: Yes (2) Coronary artery disease Status: Chronic Assessment and plan: has normal LV ejection fraction. 10/02/2016 no active angina. Current Visit: Yes Qualifiers: Coronary Disease-Associated Artery/Lesion type: bypass graft [place] vs. transplanted heart: [place] heart Associated angina: angina presence unspecified Qualified Code(s): I25.810 - Atherosclerosis of coronary artery bypass graft(s) without angina pectoris (3) Acute pulmonary edema Status: Acute Assessment and plan: Not clear whether this is cardiac or noncardiac. Normal LV ejection fraction and failure to respond to diuretics would point toward noncardiac. 10/02/2016 this appears to be primarily noncardiac (ARDS). Might take a couple of days to get his PEEP levels down to where we can do weaning trials. Current Visit: Yes (4) Acute renal insufficiency Status: Acute Assessment and plan: Creatinine is risen to 2.4. We will cut back on diuretics. Agree with adding Solu-Cortef in patient with history of taking oral prednisone. 10/02/2016 creatinine remains at 2.4 today. Holding diuretics and giving Solu- Cortef with some IV fluids seems to be effective. Weight has not gone up. Chest x-ray actually looks better. Current Visit: Yes
[2016-10-02] MEDS: AZITHROMYCIN INJ 500 MG in SODIUM CHLORIDE 0.9% 250 ML IV SCH (08:20)
[2016-10-02] MEDS: HALOPERIDOL 5 MG/ML AMP IV PRN ×2 (09:04→21:12)
[2016-10-02] MEDS: ASPIRIN EC 81 MG TABLET PO SCH (09:04)
[2016-10-02] MEDS: CARVEDILOL 6.25 MG TABLET PO SCH ×2 (09:05→21:15)
[2016-10-02] MEDS: APIXABAN 5 MG TABLET PO SCH (09:05)
[2016-10-02] MEDS: MAGNESIUM OXIDE 400 MG TABLET PO SCH ×2 (09:05→21:13)
[2016-10-02] MEDS: ASCORBIC ACID 500 MG TABLET PO SCH ×2 (09:05→21:12)
[2016-10-02] MEDS: POTASSIUM CHLORIDE 20 MEQ TABLET PO SCH (09:05)
[2016-10-02] MEDS: FAMOTIDINE 8 MG/ML 50 ML/BOTTLE PO SCH ×2 (09:15→09:26)
[2016-10-02] MEDS ORDERED: ceFAZolin 1,000 MG VIAL IRRIG ONE (10:18)
--- NOTE | 2016-10-02 10:25 | Cardiology Progress Note ---
Assessment and Plan (1) Alcoholism Status: Chronic Current Visit: Yes (2) Obesity (BMI 30-39.9) Status: Chronic Current Visit: Yes (3) Bradycardia Status: Chronic Assessment and plan: He is currently paced intermittently. As per HPI Current Visit: Yes (4) Atrial fibrillation with rapid ventricular response Status: Acute Assessment and plan: Currently paced intermittently Current Visit: Yes (5) Coronary artery disease Status: Chronic Assessment and plan: Known coronary disease with previous coronary bypass grafting clearly in 1998 with 3 vessels. The JACOB was used. 2 sets of biomarkers are negative Current Visit: Yes Qualifiers: Coronary Disease-Associated Artery/Lesion type: bypass graft [place] vs. transplanted heart: [place] heart Associated angina: angina presence unspecified Qualified Code(s): I25.810 - Atherosclerosis of coronary artery bypass graft(s) without angina pectoris (6) Hyperlipidemia Status: Chronic Current Visit: Yes (7) Hypertension Status: Chronic Current Visit: Yes (8) Acute renal insufficiency Status: Acute Current Visit: Yes (9) Pericardial effusion Status: Acute Current Visit: Yes Cardiology - PN: Subj Interval history: Mr. Sibley continues to require high flow O2 he is sedated. He is somewhat agitated when he awakens. I spent a significant amount of time on 2 different occasions briefly talking with the patient's son-in-law Dr. Graham. The patient has no next of kin except his daughter Karol Graham. He had verbalized in the past to Dr. Graham but he wanted Dr. Graham to be his medical decision-maker. I have seen and examined the patient and also discussed with the [employer] liability claims representative about interrogation of his pacemaker. I discussed with Dr. Beasley. Also discussed with surgery. This patient had epicardial leads placed at the time of coronary bypass grafting clear like in 1998 he subsequent had a generator change in 2006. I do not have the records from internal medicine clinic is have not seen the patient since 2013 but my memory suggest that there was problems with the atrial lead at that time. We do not have those records I will try to obtain them. The patient's generator tripped GREY in June. He continues to have some V pacing we do not see any atrial pacing however. Because he is GREY we would not see any and is not possible to interrogate this lead. His pacemaker is in the left upper quadrant on his abdominal wall is very difficult to palpate. I think he needs to have his generator change as we are some 4 months out from the time he tripped GREY and he is a danger of having complete failure of his device and he does require some pacing. I think we should have a coordinated effort with general surgery to help reach the current generator. At that time anticipate checking the leads if they are in fact fine we could do a generator change and close the pocket. If his atrial lead is not functioning I would recommend that we These leads abandon this site and perform a subclavian in the standard fashion on the nondominant side. I discussed with Dr. Beasley the [employer] liability claims representative and Dr. Vicente. I also discussed in detail with Dr. Graham. Exam (Progress Note) - Constitutional Vitals: Period Temp Pulse Resp BP Sys/Willams Pulse Ox Last 24 Hr 97.2 F-97.8 F 65-74 16-24 100-128/51-82 92-98 General appearance: morbidly obese - Head Head exam: Present: normal inspection - ENT ENT exam: Present: other (Intubated) - Neck Neck exam: Present: normal inspection - Respiratory Respiratory exam: Present: clear to auscultation bilaterally - Cardiovascular Cardiovascular exam: Present: irregular rhythm (atrial fibrillation (has been paroxysmal)) - GI/Abdominal GI/Abdominal exam: Present: normal bowel sounds - Back Exam Back exam: Present: normal inspection - Neurological Exam Neurological exam: Present: other (sedated) Result/EKG - Labs CBC & BMP: 10/02/16 04:40 10/02/16 04:40 Labs: Laboratory Results - last 24 hr 10/01/16 10/01/16 10/01/16 04:33 15:13 17:48 WBC RBC Hgb Hct MCV MCH MCHC RDW Plt Count MPV Neut % (Auto) Lymph % (Auto) [place] % (Auto) Eos % (Auto) Baso % (Auto) Neut # (Auto) Lymph # (Auto) [place] # (Auto) Eos # (Auto) Baso # (Auto) Immature Gran % Nucleated RBC % Immature Gran # Nucleated RBCs # ABG pH ABG pCO2 ABG pO2 ABG HCO3 ABG Total CO2 ABG O2 Saturation ABG Base Excess FiO2 Sodium Potassium Chloride Carbon Dioxide Anion Gap BUN Creatinine GFR Calculation BUN/Creatinine Ratio Glucose POC Glucose 229 H 284 H Hemoglobin A1c 11.8 H Calculated Osmolality Calcium Magnesium 10/01/16 10/02/16 10/02/16 21:20 02:10 04:40 WBC 5.8 RBC 3.74 L Hgb 11.7 L Hct 34.9 L MCV 93.3 MCH 31 MCHC 33.5 RDW 15.2 Plt Count 104 L MPV 13.1 H Neut % (Auto) 87.0 H Lymph % (Auto) 6.9 L [place] % (Auto) 4.9 Eos % (Auto) 0.0 Baso % (Auto) 0.2 Neut # (Auto) 5.0 Lymph # (Auto) 0.4 L [place] # (Auto) 0.3 Eos # (Auto) 0.0 Baso # (Auto) 0.0 Immature Gran % 1.0 Nucleated RBC % 0.0 Immature Gran # 0.06 Nucleated RBCs # 0.00 ABG pH ABG pCO2 ABG pO2 ABG HCO3 ABG Total CO2 ABG O2 Saturation ABG Base Excess FiO2 Sodium Potassium Chloride Carbon Dioxide Anion Gap BUN Creatinine GFR Calculation BUN/Creatinine Ratio Glucose POC Glucose 290 H 332 H Hemoglobin A1c Calculated Osmolality Calcium Magnesium 10/02/16 10/02/16 10/02/16 04:40 04:40 04:50 WBC RBC Hgb Hct MCV MCH MCHC RDW Plt Count MPV Neut % (Auto) Lymph % (Auto) [place] % (Auto) Eos % (Auto) Baso % (Auto) Neut # (Auto) Lymph # (Auto) [place] # (Auto) Eos # (Auto) Baso # (Auto) Immature Gran % Nucleated RBC % Immature Gran # Nucleated RBCs # ABG pH 7.408 ABG pCO2 36.9 ABG pO2 82.1 ABG HCO3 22.8 ABG Total CO2 23.9 ABG O2 Saturation 95.9 ABG Base Excess -1.5 FiO2 70.00 Sodium 133 L 132 L Potassium 4.1 4.1 Chloride 98 98 Carbon Dioxide 23 22 Anion Gap 16.1 H 16.1 H BUN 44 H D 43 H Creatinine 2.40 H 2.40 H GFR Calculation 35 35 BUN/Creatinine Ratio 18.00 17.00 Glucose 347 H 333 H POC Glucose Hemoglobin A1c Calculated Osmolality 290.4 287.5 Calcium 7.6 L 7.8 L Magnesium 2.5 H 10/02/16 10/02/16 06:06 09:59 WBC RBC Hgb Hct MCV MCH MCHC RDW Plt Count MPV Neut % (Auto) Lymph % (Auto) [place] % (Auto) Eos % (Auto) Baso % (Auto) Neut # (Auto) Lymph # (Auto) [place] # (Auto) Eos # (Auto) Baso # (Auto) Immature Gran % Nucleated RBC % Immature Gran # Nucleated RBCs # ABG pH ABG pCO2 ABG pO2 ABG HCO3 ABG Total CO2 ABG O2 Saturation ABG Base Excess FiO2 Sodium Potassium Chloride Carbon Dioxide Anion Gap BUN Creatinine GFR Calculation BUN/Creatinine Ratio Glucose POC Glucose 351 H 414 H Hemoglobin A1c Calculated Osmolality Calcium Magnesium
--- NOTE | 2016-10-02 10:55 | Hospitalist Progress Note ---
Assessment and Plan (1) Acute respiratory failure with hypoxia Status: Acute Assessment and plan: 1)acute respiratory failure- ARDS. On steroids, antibiotics to cover in case of aspiration. Dr Anaya weaning PEEP. Nebs.High FIO2 requirement. 2)afib- rate ok, now primarily paced as heart rate has slowed down. anticoagulation per cardiology. platelets 104. 3)SUSAN- creatinine has come down since yesterday once diuretics held and he was given IVF. 4)nutrition- tolerating tube feeds 5)hypotension- resolved. It was due to hypovolemia. 6)hyperglycemia- on SSI. no history of diabetes. Despite SSI, glucose 441 this morning. Add lantus and increase to high intensity SSI. watch once steroids tapered. 7)ppx- pepcid, SCDs. platelets low. 8)potential adrenal insufficiency- steroids on home meds list, so I started hydrocortisone yesterday. BP better. decrease to 50mg q8h today. further tapering to take into consideration pulmonary needs also. Current Visit: Yes (2) Acute pulmonary edema Status: Acute Current Visit: Yes (3) Hyperlipidemia Status: Chronic Current Visit: Yes (4) Hypertension Status: Chronic Current Visit: Yes (5) Atrial fibrillation with rapid ventricular response Status: Acute Current Visit: Yes (6) Diabetes Status: Chronic Current Visit: Yes (7) Alcoholism Status: Chronic Current Visit: Yes (8) Obesity (BMI 30-39.9) Status: Chronic Current Visit: Yes (9) Acute renal insufficiency Status: Acute Current Visit: Yes (10) Pericardial effusion Status: Acute Current Visit: Yes Hospitalist: Subjective Interval history: Mr Sibley has made some improvements since yesterday. His UOP increased with IVF bolus and increased IVF rate. His oxygenation is improved and his PEEP has been weaned. His heart rate has slowed down after volume resuscitation. No fever. He is combative when his diprivan is decreased. He is day 3 without alcohol and may be withdrawing. He is back to tolerating tube feeds. Exam - Constitutional Vitals: Period Temp Pulse Resp BP Sys/Willams Pulse Ox Last 24 Hr 97.2 F-97.8 F 65-74 16-24 100-128/51-82 92-98 General appearance: normal weight, over weight - Eye Eye exam: Present: EOMI. Absent: scleral icterus - Respiratory Respiratory exam: Present: clear to auscultation bilaterally (anterior encinas) - Cardiovascular Cardiovascular exam: Present: regular rate and rhythm - GI/Abdominal GI/Abdominal exam: Present: normal bowel sounds, soft - Extremities Exam Extremities exam: Absent: edema Results - Labs CBC & BMP: 10/02/16 04:40 10/02/16 04:40 Lab Results: I have reviewed the past 24 hour labs
[2016-10-02] MEDS ORDERED: INSULIN GLARGINE 100 UNIT/ML SUBCUT SCH (11:30)
--- NOTE | 2016-10-02 15:18 | General Surgery Consult Note ---
Assessment and Plan (1) Pacemaker Status: Acute Assessment and plan: Pacemakers requiring access by cardiology. He has been requested that general surgery assisted the procedure considering the placement of the device in the left upper quadrant. He agreed to do so. The family will be attempted to be contacted to discuss risks and benefits as well as to obtain consent. Current Visit: Yes History of Present Illness Chief complaint: Pacemaker in abd wall History of present illness: Mr. 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 Can Dr. Henao has been consulted for assistance in the procedure. And the patient is intubated and there is no family at bedside. Apparently he has been living at that can which is being contacted and Mrs. Graham. Home Medications Medication Instructions Recorded Confirmed Type Aspirin [Ecotrin] 81 mg PO DAILY 01/10/16 06/13/16 History Celecoxib [Celebrex] 200 mg PO DAILY 01/10/16 06/13/16 History Multivit-Min/FA/Lycopen/Lutein 1 each PO DAILY 01/10/16 06/13/16 History [Centrum Silver Tablet] Omeprazole 20 mg PO DAILY 01/10/16 06/13/16 History Potassium Chloride 10 meq PO DAILY 01/10/16 06/13/16 History Rosuvastatin [Crestor] 10 mg PO DAILY 01/10/16 06/13/16 History Sertraline [Zoloft] 100 mg PO DAILY 01/10/16 06/13/16 History Tamsulosin [Flomax] 0.4 mg PO DAILY 01/10/16 06/13/16 History amLODIPine [Norvasc] 10 mg PO DAILY 01/10/16 06/13/16 History metFORMIN [Glucophage] 500 mg PO BID W/MEALS 01/10/16 06/13/16 History Indomethacin Cap [Indocin Cap] 25 mg PO TID #30 capsule 06/13/16 Rx Ranitidine Tab [Zantac Tab] 150 mg PO TID #30 tablet 06/13/16 Rx predniSONE TAB [PredniSONE] 20 mg PO DAILY #15 tablet 06/13/16 Rx Allergies Allergy/AdvReac Type Severity Reaction Status Date / Time No Known Allergies Allergy Verified 01/10/16 09:05 Medical,Surgical,& Family Hx - Medical History Cardio: History of: CAD, Hypertension, Pacemaker (Abdominal pacemaker with know bad atrial lead chronically) Psychological: History of: Depression, Psychiatric/Substance Abuse Tx (ETOH abuse) HEENT: Comment Only: HEENT Problems (Patient on vent no family present) Endocrine: History of: Diabetes Mellitus (NIDDM), Dyslipidemia Respiratory: Comment Only: Respiratory Problems (Patient on vent no family present) Gastrointestinal: Comment Only: GI Problems (Patient on vent no family present) Musculoskeletal: History of: Back/Neck Problems (back pain steroid injections) Comment Only: Musculoskeletal Problems (Patient on vent no family present) - Surgical History Cardiac Surgeries: Sugical HX of: Cardiac Surgery - Family History Family History: Reports;: Family Heart Disease - Social History Smoking Status: Never smoker Frequency of Alcohol Use: Frequently (with history of alcoholism and recent repeat admission for "detox") Type of Drug Use: Unknown Exam - Constitutional Vitals: Period Temp Pulse Resp BP Sys/Willams Pulse Ox Last 24 Hr 97.3 F-98.3 F 65-78 16-23 100-128/53-82 91-97 General appearance: other (Intubated and sedated) - Head Head exam: Present: normal inspection, other (NG tube and endotracheal tube in place) - Respiratory Respiratory exam: Present: rales (Bilateral) - Cardiovascular Cardiovascular exam: Present: irregular rhythm - GI/Abdominal GI/Abdominal exam: Present: hypoactive bowel sounds, soft, other (Foreign body likely had a pacemaker palpable in the left upper quadrant). Absent: firm - Extremities Exam Extremities exam: Absent: calf tenderness, edema - Neurological Exam Neurological exam: Present: alert, oriented X3 Speech: Present: normal - Skin Skin exam: Present: normal color, warm Results - Labs CBC & BMP: 10/02/16 04:40 10/02/16 04:40 - Diagnostic Findings Procedure: KUB x-ray: image reviewed by me, report reviewed by me (Pacemaker noted in the left upper quadrant)
[2016-10-02] MEDS: cefTRIAXone 2,000 MG in SODIUM CHLORIDE 0.9% 100 ML IV SCH (18:01)
[2016-10-03] MEDS: INSULIN LISPRO 100 UNIT/ML SUBCUT SCH ×7 (00:15→20:35)
[2016-10-03] MEDS: PROPOFOL 1,000 MG/100 ML BOTTLE IV SCH ×6 (01:42→23:16)
[2016-10-03] MEDS: SODIUM CHLORIDE 0.45% 1,000 ML IV SCH ×2 (02:21→13:15)
[2016-10-03 03:10] LABS: ABG Base Excess -1.8 MMOL/L (-2.5-2.5); ABG Oxygen Saturation 87.8 % (95-100); ABG PCO2 39.4 MM HG (35-48); ABG PH 7.384 (7.35-7.45); ABG PO2 55.6 MM HG (80-95); ABG TCO2 24.2 MMOL/L (23-27); Allen Test Positive; Pt O2 Delivery Device Ventilator
[2016-10-03] MEDS: HYDROCORTISONE 100 MG VIAL IV SCH ×3 (04:12→20:35)
[2016-10-03 05:31] LABS: Basophils % 0.3 % (0.0-0.8); Eosinophils % 0.2 % (0.00-10.9); Hemoglobin 11.8 GM/DL (14.0-18.0); Immature Granulocytes % 0.5 %; Immature Granulocytes Absolute 0.03 #; Lymphocytes # 0.7 10*3/uL (1.4-4.0); Lymphocytes % 10.5 % (21.2-54.2); Mean Corpuscular HGB Conc 32.8 GM/DL (32-36); Mean Corpuscular Hemoglobin 30 PG (27-34); Mean Corpuscular Volume 92.8 FL (87-102); Mean Platelet Volume 12.4 FL (9.6-12.0); Monocytes # 0.6 10*3/uL (0.11-0.8); Monocytes % 9.2 % (1.7-12.7); NRBC # 0.02 10*3/uL; Neutrophils # 5.1 10*3/uL (1.4-7.4); Neutrophils % 79.3 % (38.7-73.9); Platelet Count 120 T/CUMM (130-400); Red Blood Count 3.88 MC/CUMM (3.8-5.5); Red Cell Distribution Width 15.2 % (9.3-17.3); White Blood Count 6.4 T/CUMM (4-12)
[2016-10-03 06:09] LABS: Calcium 7.9 MG/DL (8.5-10.1); Osmolality,Calculated 294.2 MOS/KG (273-304); Potassium 4.4 MMOL/L (3.5-5.1)
[2016-10-03 06:10] LABS: Calcium 7.8 MG/DL (8.5-10.1); Magnesium 3.1 MG/DL (1.8-2.4); Osmolality,Calculated 296.1 MOS/KG (273-304); Potassium 4.4 MMOL/L (3.5-5.1)
--- NOTE | 2016-10-03 06:49 | XRay Report ---
XR chest 1V portable Indication: Intubation. Comparison: Chest x-ray 10/02/2016. Technique: Portable AP chest was performed. Findings: The cardiomediastinal silhouette has changed little since comparison study. Mild cardiomegaly is again present. Multiple tubes and medical support devices appear stable. Scattered airspace opacities in the lung bases changed little since comparison study. Central vasculature is minimally prominent. Partial atelectasis of the left lower lobe is suggested. Bones and soft tissues are stable. Impression: 1. There has been little change in the appearance of the chest since comparison study. 10/03/2016 6:41 AM PROCEDURE INTERPRETED AT [facility] Final Report Signed by: Dr. Shashi Martínez
--- NOTE | 2016-10-03 07:06 | Pulmonology Progress Note ---
Pulmonary - PN: Subj Interval history: This 75-year-old man apparently has history of alcohol abuse. History of coronary artery disease congestive heart failure. Came in with respiratory failure is on the ventilator. The chest x-ray looks wet with increased interstitial markings and pleural effusions however his creatinine has gone up from about 1.2-2.4 and 1 day after trying to diurese him and his weight really has not fallen. Urine output is low. He has not had fever. He is on empiric antibiotics and may have had aspiration pneumonia. He still has a widened A-a O2 difference and may well have ARDS. 10/02/2016 PO2 now is in the 80s on 70% with 10 of PEEP. It does appear that the patient has ARDS. He did respond well to diuretics and his creatinine [place]. He has been given some IV fluids and his chest x-ray is actually better. When patient wakes up he is combative. Difficult to wean under the circumstances. We will start him on Haldol which hopefully will calm him down without suppressing his respirations. When we get ready to do CPAP trials, would like to change from propofol to Precedex along with Haldol. May be an element of alcohol withdrawal 10/03/2016 PO2 is 55 on 60% with 8 of PEEP. Will increase the PEEP back to 10. Difficult to do CPAP at this level. He also gets combative when he wakes up. Probably having some alcohol withdrawal. He was started on Haldol yesterday. I am going to try changing him from propofol to Precedex today. Weaning trials can be attempted while on Precedex. Exam (Progress Note) - Constitutional Vitals: Period Temp Pulse Resp BP Sys/Willams Pulse Ox Last 24 Hr 97.2 F-98.3 F 65-78 16-26 89-128/45-73 90-94 Exam: Patient sedated, on the ventilator. Vital signs normal. Pupils react to light. Orotracheal tube in place. Neck is supple. Chest reveals some rales. He does have some jugular venous distention. Heart normal rate and rhythm no murmurs. Abdomen soft no masses. Bowel sounds present. Extremities no clubbing cyanosis or edema. Calves nontender Results - Labs CBC & BMP: 10/03/16 04:46 10/03/16 04:46 Lab Results: I have reviewed the past 24 hour labs - Diagnostic Findings Procedure: Chest x-ray: image reviewed by me (Chest x-ray looks a little bit better this morning.) Assessment and Plan (1) Acute respiratory failure with hypoxia Status: Acute Assessment and plan: ABGs acceptable. Still requiring relatively high PEEP. Certainly may be an element of ARDS. Not clear whether he had aspiration or not. 10/02/2016 ABGs do fit the criteria for ARDS. Still requiring fairly high PEEP. Will try to reduce PEEP and FiO2 to reach a point where we can start CPAP. 10/03/2016 PO2 55 on 60% with 8 of PEEP. Would like to get his PO2 in the 60s. Will increase PEEP to 10. Current Visit: Yes (2) Coronary artery disease Status: Chronic Assessment and plan: has normal LV ejection fraction. 10/02/2016 no active angina. Current Visit: Yes Qualifiers: Coronary Disease-Associated Artery/Lesion type: bypass graft [place] vs. transplanted heart: [place] heart Associated angina: angina presence unspecified Qualified Code(s): I25.810 - Atherosclerosis of coronary artery bypass graft(s) without angina pectoris (3) Acute pulmonary edema Status: Acute Assessment and plan: Not clear whether this is cardiac or noncardiac. Normal LV ejection fraction and failure to respond to diuretics would point toward noncardiac. 10/02/2016 this appears to be primarily noncardiac (ARDS). Might take a couple of days to get his PEEP levels down to where we can do weaning trials. 10/03/2016 patient has ARDS. Probably not cardiogenic pulmonary edema. Current Visit: Yes (4) Acute renal insufficiency Status: Acute Assessment and plan: Creatinine is risen to 2.4. We will cut back on diuretics. Agree with adding Solu-Cortef in patient with history of taking oral prednisone. 10/02/2016 creatinine remains at 2.4 today. Holding diuretics and giving Solu- Cortef with some IV fluids seems to be effective. Weight has not gone up. Chest x-ray actually looks better. 10/03/2016 creatinine stable at 2.4 Current Visit: Yes (5) Diabetes Status: Chronic Assessment and plan: Glucoses are running in the 300s. We will increase sliding scale, also increased baseline insulin Current Visit: Yes
--- NOTE | 2016-10-03 08:18 | Event Note ---
The patient needs a new pacemaker. He has an abdominal pacemaker with epicardial leads. However the atrial lead is not functioning. I discussed the case with Dr. Ochoa and with Dr. Graham, his wradze-[id number]. We are going to plan for a dual-chamber pacemaker implant in the left upper chest in the usual manner and abandon use of the abdominal pacemaker for now. The abdominal device can be explanted at a later time if necessary.
--- NOTE | 2016-10-03 08:34 | Cardiology Progress Note ---
Assessment and Plan (1) Alcoholism Status: Chronic Current Visit: Yes (2) Obesity (BMI 30-39.9) Status: Chronic Current Visit: Yes (3) Bradycardia Status: Chronic Assessment and plan: He is currently paced intermittently. As per HPI Current Visit: Yes (4) Atrial fibrillation with rapid ventricular response Status: Acute Assessment and plan: Currently paced intermittently Current Visit: Yes (5) Coronary artery disease Status: Chronic Assessment and plan: Known coronary disease with previous coronary bypass grafting clearly in 1998 with 3 vessels. Current Visit: Yes Qualifiers: Coronary Disease-Associated Artery/Lesion type: bypass graft [place] vs. transplanted heart: [place] heart Associated angina: angina presence unspecified Qualified Code(s): I25.810 - Atherosclerosis of coronary artery bypass graft(s) without angina pectoris (6) Hyperlipidemia Status: Chronic Current Visit: Yes (7) Hypertension Status: Chronic Current Visit: Yes (8) Acute renal insufficiency Status: Acute Current Visit: Yes (9) Pericardial effusion Status: Acute Current Visit: Yes Cardiology - PN: Subj Interval history: The patient has had no significant change overnight. I discussed with Dr. Beasley about the pacemaker is noted help is appreciated. The patient is requiring pacemaker more as he has become more ill. We will try to minimize morbidity while the patient is acutely ill. Plan is to place a subclavian pacemaker and deactivate the device with epicardial leads previously placed. This may need to be explanted at some point. Exam (Progress Note) - Constitutional Vitals: Period Temp Pulse Resp BP Sys/Willams Pulse Ox Last 24 Hr 97.2 F-98.3 F 65-78 16-26 89-128/45-73 90-93 General appearance: morbidly obese - Eye Eye exam: Present: EOMI - Respiratory Respiratory exam: Present: rhonchi - Cardiovascular Cardiovascular exam: Present: irregular rhythm - GI/Abdominal GI/Abdominal exam: Present: normal bowel sounds - Neurological Exam Neurological exam: Present: other (Sedated but arousable) Result/EKG - Labs CBC & BMP: 10/03/16 04:46 10/03/16 04:46 Labs: Laboratory Results - last 24 hr 10/02/16 10/02/16 10/02/16 09:59 12:49 14:21 WBC RBC Hgb Hct MCV MCH MCHC RDW Plt Count MPV Neut % (Auto) Lymph % (Auto) [place] % (Auto) Eos % (Auto) Baso % (Auto) Neut # (Auto) Lymph # (Auto) [place] # (Auto) Eos # (Auto) Baso # (Auto) Immature Gran % Nucleated RBC % Immature Gran # Nucleated RBCs # ABG pH ABG pCO2 ABG pO2 ABG HCO3 ABG Total CO2 ABG O2 Saturation ABG Base Excess FiO2 Sodium Potassium Chloride Carbon Dioxide Anion Gap BUN Creatinine GFR Calculation BUN/Creatinine Ratio Glucose POC Glucose 414 H 376 H 363 H Calculated Osmolality Calcium Magnesium 10/02/16 10/03/16 10/03/16 19:59 00:08 02:50 WBC RBC Hgb Hct MCV MCH MCHC RDW Plt Count MPV Neut % (Auto) Lymph % (Auto) [place] % (Auto) Eos % (Auto) Baso % (Auto) Neut # (Auto) Lymph # (Auto) [place] # (Auto) Eos # (Auto) Baso # (Auto) Immature Gran % Nucleated RBC % Immature Gran # Nucleated RBCs # ABG pH 7.384 ABG pCO2 39.4 ABG pO2 55.6 L ABG HCO3 23.0 ABG Total CO2 24.2 ABG O2 Saturation 87.8 L ABG Base Excess -1.8 FiO2 60.00 Sodium Potassium Chloride Carbon Dioxide Anion Gap BUN Creatinine GFR Calculation BUN/Creatinine Ratio Glucose POC Glucose 381 H 350 H Calculated Osmolality Calcium Magnesium 10/03/16 10/03/16 10/03/16 04:03 04:46 04:46 WBC 6.4 RBC 3.88 Hgb 11.8 L Hct 36.0 L MCV 92.8 MCH 30 MCHC 32.8 RDW 15.2 Plt Count 120 L MPV 12.4 H Neut % (Auto) 79.3 H Lymph % (Auto) 10.5 L [place] % (Auto) 9.2 Eos % (Auto) 0.2 Baso % (Auto) 0.3 Neut # (Auto) 5.1 Lymph # (Auto) 0.7 L [place] # (Auto) 0.6 Eos # (Auto) 0.0 Baso # (Auto) 0.0 Immature Gran % 0.5 Nucleated RBC % 0.3 Immature Gran # 0.03 Nucleated RBCs # 0.02 ABG pH ABG pCO2 ABG pO2 ABG HCO3 ABG Total CO2 ABG O2 Saturation ABG Base Excess FiO2 Sodium 135 L Potassium 4.4 Chloride 100 Carbon Dioxide 22 Anion Gap 17.4 H BUN 58 H Creatinine 2.40 H GFR Calculation 35 BUN/Creatinine Ratio 24.00 H Glucose 299 H POC Glucose 316 H Calculated Osmolality 296.1 Calcium 7.8 L Magnesium 3.1 H 10/03/16 04:46 WBC RBC Hgb Hct MCV MCH MCHC RDW Plt Count MPV Neut % (Auto) Lymph % (Auto) [place] % (Auto) Eos % (Auto) Baso % (Auto) Neut # (Auto) Lymph # (Auto) [place] # (Auto) Eos # (Auto) Baso # (Auto) Immature Gran % Nucleated RBC % Immature Gran # Nucleated RBCs # ABG pH ABG pCO2 ABG pO2 ABG HCO3 ABG Total CO2 ABG O2 Saturation ABG Base Excess FiO2 Sodium 134 L Potassium 4.4 Chloride 99 Carbon Dioxide 22 Anion Gap 17.4 H BUN 58 H Creatinine 2.40 H GFR Calculation 35 BUN/Creatinine Ratio 24.00 H Glucose 294 H POC Glucose Calculated Osmolality 294.2 Calcium 7.9 L Magnesium
[2016-10-03] MEDS: FAMOTIDINE 8 MG/ML 50 ML/BOTTLE PO SCH (08:46)
[2016-10-03] MEDS: POTASSIUM CHLORIDE 20 MEQ TABLET PO SCH (08:46)
[2016-10-03] MEDS: MAGNESIUM OXIDE 400 MG TABLET PO SCH ×2 (08:46→20:35)
[2016-10-03] MEDS: ASCORBIC ACID 500 MG TABLET PO SCH ×2 (08:46→20:35)
[2016-10-03] MEDS: ASPIRIN EC 81 MG TABLET PO SCH (08:46)
[2016-10-03] MEDS: CARVEDILOL 6.25 MG TABLET PO SCH ×2 (08:46→20:35)
[2016-10-03] MEDS: INSULIN GLARGINE 100 UNIT/ML SUBCUT SCH (08:46)
[2016-10-03] MEDS ORDERED: LIDOCAINE 1%/EPI INJ 20 ML VIAL ONE (08:59)
[2016-10-03] MEDS ORDERED: ceFAZolin 1,000 MG VIAL ONE (09:00)
[2016-10-03] MEDS ORDERED: TISSUE ADHESIVE 1 EACH APPLICATOR TOP ONE (09:00)
--- NOTE | 2016-10-03 10:11 | Hospitalist Progress Note ---
Assessment and Plan (1) Acute respiratory failure with hypoxia Status: Acute Assessment and plan: 1)acute respiratory failure due to ARDS- on steroids, antibiotics. Dr Anaya adjusting vent to optimize oxygenation. 2)afib- paced most of hte time now with failing abdominal pacemaker that has passed "end of life"signal by a few months. New pacer to be placed today. platelets 104, not anticoagulated per cardiology 3)SUSAN-creatinine stable at 2.4, this may be his baseline. UOP better now after hydration. 4)nutrition- tolerating tube feeds 5)hypotension- resolved for a few days. 6)hyperglycemia- lantus added yesterday with increase in SSI to high intensity but blood sugars remain in 300s. Increase lantus and increase frequency of accuchecks. decreasing steroids. 7)ppx- SCDs, pepcid 8)potential adrenal insufficiency- on hydrocortisone, decrease dose today. Current Visit: Yes (2) Acute pulmonary edema Status: Acute Current Visit: Yes (3) Hyperlipidemia Status: Chronic Current Visit: Yes (4) Hypertension Status: Chronic Current Visit: Yes (5) Atrial fibrillation with rapid ventricular response Status: Acute Current Visit: Yes (6) Diabetes Status: Chronic Current Visit: Yes (7) Alcoholism Status: Chronic Current Visit: Yes (8) Obesity (BMI 30-39.9) Status: Chronic Current Visit: Yes (9) Acute renal insufficiency Status: Acute Current Visit: Yes (10) Pericardial effusion Status: Acute Current Visit: Yes Hospitalist: Subjective Interval history: Mr Sibley is on vent, agitated when sedation decreased, requiring high FIO2 and PEEP, not ready for CPAP. Dr Anaya changing him to Presedex. He is going to have new pacemaker placed today. Tolerating tube feeds. Exam - Constitutional Vitals: Period Temp Pulse Resp BP Sys/Willams Pulse Ox Last 24 Hr 97.2 F-98.3 F 65-68 16-26 89-128/45-73 90-93 General appearance: mild distress (when sedation decreased, moves all 4, but left arm weaker on today's exam), over weight - Eye Eye exam: Present: EOMI. Absent: scleral icterus - Respiratory Respiratory exam: Present: rales, rhonchi - Cardiovascular Cardiovascular exam: Present: regular rate and rhythm (paced on tele ) - GI/Abdominal GI/Abdominal exam: Present: normal bowel sounds, soft. Absent: tenderness - Extremities Exam Extremities exam: Absent: edema - Neurological Exam Neurological exam: Present: alert - Skin Skin exam: Present: warm, dry Results - Labs CBC & BMP: 10/03/16 04:46 10/03/16 04:46 Lab Results: I have reviewed the past 24 hour labs
[2016-10-03] MEDS ORDERED: PROPOFOL 1,000 MG/100 ML BOTTLE IV ONE (11:20)
--- NOTE | 2016-10-03 11:35 | Cardiac Pacemaker ---
- Preoperative diagnosis Date of Procedure:: 10/03/16 Preoperative Diagnosis: Documented nonreversible symptomatic bradycardia due to , sinus node dysfunction, third degree atrioventricular block Procedure: Patient has a history of a pacemaker with epicardial leads that is placed in the abdomen. This was done years ago at the time of cardiac surgery. This device has reached GREY/EOL. He is now undergoing placement of a new dual- chamber pacemaker in the left upper chest using a subclavian route. Procedures performed 1. Percutaneous left subclavian venotomy with sheath placement 2. Placement of atrial and ventricular leads with threshold testing 3. Placement of dual-chamber permanent (note, this is an MRI compatible pacemaker system) After informed consent was obtained was taken to catheter prepped and draped in usual sterile manner. The patient was already intubated on a ventilator at the time of this procedure and we simply continued his existing sedation for this case. We placed 2 J-tipped wires in the left subclavian vein using a modified Seldinger technique in the usual fashion. With then a pocket approximately 2 cm below the left clavicular border using blunt and sharp dissection as well as electrocautery. We then pulled our leads into the pocket from below. Using safe sheaths, we placed a Medtronic 5076-58 centimeter ventricular lead into the right ventricular apex and secured it with a helical coil. Serial number on the ventricular lead is [id number]. Excellent capture and sensing thresholds were achieved. We then used a Medtronic 5076-52 centimeter lead in the atrium. Serial number on the atrial lead was [id number]. Excellent capture and sensing thresholds were achieved. After the sheaths had been removed, we sutured the leads to the pocket floor using Ethibond suture. We then rinsed the pocket with antibiotic solution and then connected the leads to a Medtronic Adapta DR pacemaker model ADDR01. Serial number on the pacemaker is [id number]. After the device give been connected to the leads, it was placed in the pocket and sutured pocket floor with Ethibond suture. We then closed the pocket 3 layers using Vicryl suture. We then applied a topical adhesive followed by Steri-Strips and a dressing. There were no apparent complications during the procedure. The patient remained stable throughout the procedure and will now be transferred back to his room for recovery. During the case, we also reduce the outputs on the epicardial/abdominal pacemaker and there was no evidence of any interference from this device. Anesthesia: other Surgeon / Physician: Mario Beasley Estimated blood loss: minimal Condition: stable Disposition: ICU/CCU - Medications / Follow-up
--- NOTE | 2016-10-03 12:12 | XRay Report ---
XR chest 1V portable Indication: Lead placement Comparison: Chest x-ray 10/03/2016. Technique: Portable AP chest was performed. Findings: There has been interval insertion of cardiac pacemaker leads appearing to terminate in the region of the right atrium and right ventricle. Heart size is minimally enlarged, stable. Endotracheal tube and NG tube appear stable. The lung parenchyma demonstrates little change from comparison. If any change is some improvement in visualization of the left hemidiaphragm. Impression: 1. Stable chest status post placement of cardiac pacemaker. There may be some minimal improvement in aeration in the left lung base. 10/03/2016 12:08 PM PROCEDURE INTERPRETED AT [facility] DEPARTMENT OF RADIOLOGY Final Report Signed by: Dr. Shashi Martínez
[2016-10-03] MEDS: AZITHROMYCIN INJ 500 MG in SODIUM CHLORIDE 0.9% 250 ML IV SCH (13:14)
--- NOTE | 2016-10-03 13:14 | EKG Report ---
Stationary ECG Study 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
[2016-10-03] MEDS: cefTRIAXone 2,000 MG in SODIUM CHLORIDE 0.9% 100 ML IV SCH (17:52)
[2016-10-04] MEDS: INSULIN LISPRO 100 UNIT/ML SUBCUT SCH ×9 (02:24→23:40)
[2016-10-04] MEDS: PROPOFOL 1,000 MG/100 ML BOTTLE IV SCH ×5 (02:26→21:49)
[2016-10-04] MEDS: SODIUM CHLORIDE 0.45% 1,000 ML IV SCH ×3 (03:12→18:01)
[2016-10-04 03:56] LABS: Allen Test Positive; Pt O2 Delivery Device Ventilator
[2016-10-04 03:58] LABS: ABG Base Excess -2.9 MMOL/L (-2.5-2.5); ABG HCO3 21.9 MMOL/L (20-26); ABG Oxygen Saturation 92.6 % (95-100); ABG PCO2 37.4 MM HG (35-48); ABG PH 7.375 (7.35-7.45); ABG PO2 67.5 MM HG (80-95); ABG TCO2 19.3 MMOL/L (23-27)
[2016-10-04] MEDS: HYDROCORTISONE 100 MG VIAL IV SCH (05:00)
[2016-10-04 05:26] LABS: Basophils % 0.2 % (0.0-0.8); Eosinophils % 0.2 % (0.00-10.9); Hemoglobin 10.7 GM/DL (14.0-18.0); Immature Granulocytes % 0.7 %; Immature Granulocytes Absolute 0.04 #; Lymphocytes # 0.8 10*3/uL (1.4-4.0); Mean Corpuscular HGB Conc 32.4 GM/DL (32-36); Mean Corpuscular Hemoglobin 31 PG (27-34); Mean Corpuscular Volume 95.1 FL (87-102); Mean Platelet Volume 12.1 FL (9.6-12.0); Monocytes # 0.8 10*3/uL (0.11-0.8); Monocytes % 13.7 % (1.7-12.7); Neutrophils # 4.4 10*3/uL (1.4-7.4); Neutrophils % 72.2 % (38.7-73.9); Platelet Count 103 T/CUMM (130-400); Red Blood Count 3.47 MC/CUMM (3.8-5.5); Red Cell Distribution Width 15.2 % (9.3-17.3); White Blood Count 6.1 T/CUMM (4-12)
[2016-10-04 06:01] LABS: Calcium 6.9 MG/DL (8.5-10.1); Magnesium 2.9 MG/DL (1.8-2.4); Osmolality,Calculated 282.7 MOS/KG (273-304); Potassium 3.9 MMOL/L (3.5-5.1)
--- NOTE | 2016-10-04 06:13 | XRay Report ---
XR chest 1V portable Indication: Intubation Comparison: Chest x-ray 10/03/2016 Technique: Portable AP chest was performed. Findings: Multiple tubes and medical support devices appear stable. Heart size remains minimally enlarged. Worsened opacification of the left cardiophrenic angle suggests worsening left lower lobe atelectasis. Fine linear interstitial markings are present bilaterally within the lung bases with scattered airspace opacities additional superimposed. Upper lungs remain clear. Bones and soft tissues are stable. Impression: 1. Worsened left lower lobe atelectasis is suggested. 2. Faint bibasilar interstitial stranding with superimposed scattered airspace opacity suggests minimal edema and/or atelectasis. 10/04/2016 6:10 AM PROCEDURE INTERPRETED AT [facility] DEPARTMENT OF RADIOLOGY Final Report Signed by: Dr. Shashi Martínez
--- NOTE | 2016-10-04 06:47 | Pulmonology Progress Note ---
Pulmonary - PN: Subj Interval history: This 75-year-old man apparently has history of alcohol abuse. History of coronary artery disease congestive heart failure. Came in with respiratory failure is on the ventilator. The chest x-ray looks wet with increased interstitial markings and pleural effusions however his creatinine has gone up from about 1.2-2.4 and 1 day after trying to diurese him and his weight really has not fallen. Urine output is low. He has not had fever. He is on empiric antibiotics and may have had aspiration pneumonia. He still has a widened A-a O2 difference and may well have ARDS. 10/02/2016 PO2 now is in the 80s on 70% with 10 of PEEP. It does appear that the patient has ARDS. He did respond well to diuretics and his creatinine [place]. He has been given some IV fluids and his chest x-ray is actually better. When patient wakes up he is combative. Difficult to wean under the circumstances. We will start him on Haldol which hopefully will calm him down without suppressing his respirations. When we get ready to do CPAP trials, would like to change from propofol to Precedex along with Haldol. May be an element of alcohol withdrawal 10/03/2016 PO2 is 55 on 60% with 8 of PEEP. Will increase the PEEP back to 10. Difficult to do CPAP at this level. He also gets combative when he wakes up. Probably having some alcohol withdrawal. He was started on Haldol yesterday. I am going to try changing him from propofol to Precedex today. Weaning trials can be attempted while on Precedex. 10/04/16 PO2 is in the 60s on 60% and 10 of PEEP. Cannot really back off at this point. He has ARDS. He is starting to produce urine. He had his pacemaker changed out yesterday. There may be an element of alcohol abuse/withdrawal involved so going careful with holding sedation for weaning trials. Exam (Progress Note) - Constitutional Vitals: Period Temp Pulse Resp BP Sys/Willams Pulse Ox Last 24 Hr 97.3 F-98.1 F 55-77 15-21 89-126/48-83 90-100 Exam: Patient sedated, on the ventilator. Vital signs normal. Pupils react to light. Orotracheal tube in place. Neck is supple. Chest reveals some rales. He does have some jugular venous distention. Heart normal rate and rhythm no murmurs. Abdomen soft no masses. Bowel sounds present. Extremities no clubbing cyanosis or edema. Calves nontender. Little change from yesterday. Results - Labs CBC & BMP: 10/04/16 05:04 10/04/16 05:04 Lab Results: I have reviewed the past 24 hour labs - Diagnostic Findings Procedure: Chest x-ray: image reviewed by me (Chest x-ray does look slightly better. Still has bilateral infiltrates. ET tube good position.) Assessment and Plan (1) Acute respiratory failure with hypoxia Status: Acute Assessment and plan: ABGs acceptable. Still requiring relatively high PEEP. Certainly may be an element of ARDS. Not clear whether he had aspiration or not. 10/02/2016 ABGs do fit the criteria for ARDS. Still requiring fairly high PEEP. Will try to reduce PEEP and FiO2 to reach a point where we can start CPAP. 10/03/2016 PO2 55 on 60% with 8 of PEEP. Would like to get his PO2 in the 60s. Will increase PEEP to 10. 10/04/16 PO2 in the 60s on 60% with 10 of PEEP. Not ready to do CPAP as yet. Need to repeat down a little further. Patient has ARDS. Current Visit: Yes (2) Coronary artery disease Status: Chronic Assessment and plan: has normal LV ejection fraction. 10/02/2016 no active angina. Current Visit: Yes Qualifiers: Coronary Disease-Associated Artery/Lesion type: bypass graft [place] vs. transplanted heart: [place] heart Associated angina: angina presence unspecified Qualified Code(s): I25.810 - Atherosclerosis of coronary artery bypass graft(s) without angina pectoris (3) Acute pulmonary edema Status: Acute Assessment and plan: Not clear whether this is cardiac or noncardiac. Normal LV ejection fraction and failure to respond to diuretics would point toward noncardiac. 10/02/2016 this appears to be primarily noncardiac (ARDS). Might take a couple of days to get his PEEP levels down to where we can do weaning trials. 10/03/2016 patient has ARDS. Probably not cardiogenic pulmonary edema. 10/04/16 he has responded to diuretics. Starting to make more urine. Current Visit: Yes (4) Acute renal insufficiency Status: Acute Assessment and plan: Creatinine is risen to 2.4. We will cut back on diuretics. Agree with adding Solu-Cortef in patient with history of taking oral prednisone. 10/02/2016 creatinine remains at 2.4 today. Holding diuretics and giving Solu- Cortef with some IV fluids seems to be effective. Weight has not gone up. Chest x-ray actually looks better. 10/03/2016 creatinine stable at 2.4 negative 10/04/16 creatinine down to 1.8. Will diurese a little. Reduce IV fluids a little Current Visit: Yes (5) Diabetes Status: Chronic Assessment and plan: Glucoses are running in the 300s. We will increase sliding scale, also increased baseline insulin 10/05/15 glucoses in low 200s. Current Visit: Yes
[2016-10-04] MEDS ORDERED: FUROSEMIDE 40 MG/4 ML VIAL IV ONE (06:50)
--- NOTE | 2016-10-04 07:19 | EKG Report ---
Stationary ECG Study [facility] Test Date: 10/04/2016 7:17:27 AM Pat Name: MARLENE ZHANG Department: Room: 122 Gender: M Computator: JAYDA : 1940 Requested by: Miracle Martin Order Number: [id number] Reading MD: MARIA ELENA CHAVIS Intervals [place] Rate: 60 P: 999 CO: 0 QRS: -41 QRSD: 164 T: 119 QT: 475 QTc: 475 Interpretive Statements ELECTRONIC VENTRICULAR PACEMAKER Electronically Signed On 10-04-16 09:10:56 CDT by MARIA ELENA CHAVIS [id number]
--- NOTE | 2016-10-04 08:15 | Cardiology Progress Note ---
Assessment and Plan - Time spent with patient Time spent with patient: Less than 30 minutes (1) Alcoholism Status: Chronic Current Visit: Yes (2) Obesity (BMI 30-39.9) Status: Chronic Current Visit: Yes (3) Bradycardia Status: Chronic Assessment and plan: He is currently paced. Current Visit: Yes (4) Coronary artery disease Status: Chronic Assessment and plan: Known coronary disease with previous coronary bypass grafting clearly in 1998 with 3 vessels. Current Visit: Yes Qualifiers: Coronary Disease-Associated Artery/Lesion type: bypass graft [place] vs. transplanted heart: [place] heart Associated angina: angina presence unspecified Qualified Code(s): I25.810 - Atherosclerosis of coronary artery bypass graft(s) without angina pectoris (5) Hyperlipidemia Status: Chronic Current Visit: Yes (6) Hypertension Status: Chronic Current Visit: Yes (7) Acute renal insufficiency Status: Acute Current Visit: Yes (8) Pericardial effusion Status: Acute Current Visit: Yes (9) Atrial fibrillation Status: Acute Current Visit: Yes Qualifiers: Atrial fibrillation type: paroxysmal Qualified Code(s): I48.0 - Paroxysmal atrial fibrillation Cardiology - PN: Subj Interval history: Mr. Sibley status post dual-chamber pacemaker placement yesterday. He is currently paced. He is making urine and his vital signs are stable. The patient is still requiring a significant amount of FiO2. His creatinine is declining as we would like to see. No real change in his chest x-ray that I can appreciate except is slightly better penetrated today. Pacing leads look good. Exam (Progress Note) - Constitutional Vitals: Period Temp Pulse Resp BP Sys/Willams Pulse Ox Last 24 Hr 97.3 F-97.9 F 55-77 15-20 89-126/48-83 90-100 General appearance: normal weight - Head Head exam: Present: normal inspection - Eye Eye exam: Present: EOMI Pupils: Present: ANH - Respiratory Respiratory exam: Present: clear to auscultation bilaterally - Cardiovascular Cardiovascular exam: Present: regular rate and rhythm - GI/Abdominal GI/Abdominal exam: Present: normal bowel sounds - Neurological Exam Neurological exam: Present: other (sedated) - Skin Skin exam: Present: normal color, warm Result/EKG - Labs CBC & BMP: 10/04/16 05:04 10/04/16 05:04 Labs: Laboratory Results - last 24 hr 10/03/16 10/03/16 10/03/16 12:49 14:19 17:35 WBC RBC Hgb Hct MCV MCH MCHC RDW Plt Count MPV Neut % (Auto) Lymph % (Auto) [place] % (Auto) Eos % (Auto) Baso % (Auto) Neut # (Auto) Lymph # (Auto) [place] # (Auto) Eos # (Auto) Baso # (Auto) Immature Gran % Nucleated RBC % Immature Gran # Nucleated RBCs # ABG pH ABG pCO2 ABG pO2 ABG HCO3 ABG Total CO2 ABG O2 Saturation ABG Base Excess FiO2 Sodium Potassium Chloride Carbon Dioxide Anion Gap BUN Creatinine GFR Calculation BUN/Creatinine Ratio Glucose POC Glucose 343 H 299 H 263 H Calculated Osmolality Calcium Magnesium 10/03/16 10/03/16 10/04/16 20:06 23:10 02:13 WBC RBC Hgb Hct MCV MCH MCHC RDW Plt Count MPV Neut % (Auto) Lymph % (Auto) [place] % (Auto) Eos % (Auto) Baso % (Auto) Neut # (Auto) Lymph # (Auto) [place] # (Auto) Eos # (Auto) Baso # (Auto) Immature Gran % Nucleated RBC % Immature Gran # Nucleated RBCs # ABG pH ABG pCO2 ABG pO2 ABG HCO3 ABG Total CO2 ABG O2 Saturation ABG Base Excess FiO2 Sodium Potassium Chloride Carbon Dioxide Anion Gap BUN Creatinine GFR Calculation BUN/Creatinine Ratio Glucose POC Glucose 256 H 230 H 240 H Calculated Osmolality Calcium Magnesium 10/04/16 10/04/16 10/04/16 03:35 05:01 05:04 WBC RBC Hgb Hct MCV MCH MCHC RDW Plt Count MPV Neut % (Auto) Lymph % (Auto) [place] % (Auto) Eos % (Auto) Baso % (Auto) Neut # (Auto) Lymph # (Auto) [place] # (Auto) Eos # (Auto) Baso # (Auto) Immature Gran % Nucleated RBC % Immature Gran # Nucleated RBCs # ABG pH 7.375 ABG pCO2 37.4 ABG pO2 67.5 L ABG HCO3 21.9 ABG Total CO2 19.3 L ABG O2 Saturation 92.6 L ABG Base Excess -2.9 L FiO2 60.00 Sodium 131 L Potassium 3.9 Chloride 98 Carbon Dioxide 19 L Anion Gap 17.9 H BUN 56 H Creatinine 1.80 H GFR Calculation 50 BUN/Creatinine Ratio 31.00 H Glucose 188 H POC Glucose 255 H Calculated Osmolality 282.7 Calcium 6.9 L Magnesium 2.9 H 10/04/16 05:04 WBC 6.1 RBC 3.47 L Hgb 10.7 L Hct 33.0 L MCV 95.1 MCH 31 MCHC 32.4 RDW 15.2 Plt Count 103 L MPV 12.1 H Neut % (Auto) 72.2 Lymph % (Auto) 13.0 L [place] % (Auto) 13.7 H Eos % (Auto) 0.2 Baso % (Auto) 0.2 Neut # (Auto) 4.4 Lymph # (Auto) 0.8 L [place] # (Auto) 0.8 Eos # (Auto) 0.0 Baso # (Auto) 0.0 Immature Gran % 0.7 Nucleated RBC % 0.0 Immature Gran # 0.04 Nucleated RBCs # 0.00 ABG pH ABG pCO2 ABG pO2 ABG HCO3 ABG Total CO2 ABG O2 Saturation ABG Base Excess FiO2 Sodium Potassium Chloride Carbon Dioxide Anion Gap BUN Creatinine GFR Calculation BUN/Creatinine Ratio Glucose POC Glucose Calculated Osmolality Calcium Magnesium - EKG EKG results: interpreted by me (atrial fibrillation with ventricular pacing)
[2016-10-04] MEDS: INSULIN GLARGINE 100 UNIT/ML SUBCUT SCH (08:51)
[2016-10-04] MEDS: MAGNESIUM OXIDE 400 MG TABLET PO SCH ×2 (08:52→21:48)
[2016-10-04] MEDS: CARVEDILOL 6.25 MG TABLET PO SCH ×2 (08:52→21:48)
[2016-10-04] MEDS: ASCORBIC ACID 500 MG TABLET PO SCH ×2 (08:52→21:48)
[2016-10-04] MEDS: ASPIRIN EC 81 MG TABLET PO SCH (08:52)
[2016-10-04] MEDS: POTASSIUM CHLORIDE 20 MEQ TABLET PO SCH (08:52)
[2016-10-04] MEDS: FAMOTIDINE 8 MG/ML 50 ML/BOTTLE PO SCH (08:53)
[2016-10-04] MEDS: APIXABAN 2.5 MG TABLET PO SCH ×2 (08:56→21:48)
--- NOTE | 2016-10-04 09:53 | Hospitalist Progress Note ---
Assessment and Plan (1) Acute respiratory failure with hypoxia Status: Acute Assessment and plan: 1)acute respiratory failure due to ARDS- on steroids, antibiotics. Dr Anaya adjusting vent to optimize oxygenation. change to solumedrol and taper as he improves. GIving lasix this morning now that he is no longer dehydrated/septic. 2)afib- new pacer working well, not anticoagulated per cardiology 3)SUSAN-creatinine now 1.8- it has come down this morning. this may be his baseline. UOP better now after hydration. giving lasix this morning. 4)nutrition- tolerating tube feeds 5)hypotension- resolved for the last 4 days. 6)hyperglycemia- lantus increased yesterday and on SSI high intensity q3h and consequently his blood sugars are down to 250s. Increase lantus to 35 U today. Will likely not need as much once steroids off. 7)ppx- SCDs, pepcid 8)potential adrenal insufficiency-out of window for secondary adrenal insufficiency. Use steroids for ARDS. Current Visit: Yes (2) Acute pulmonary edema Status: Acute Current Visit: Yes (3) Hyperlipidemia Status: Chronic Current Visit: Yes (4) Hypertension Status: Chronic Current Visit: Yes (5) Atrial fibrillation with rapid ventricular response Status: Acute Current Visit: Yes (6) Diabetes Status: Chronic Current Visit: Yes (7) Alcoholism Status: Chronic Current Visit: Yes (8) Obesity (BMI 30-39.9) Status: Chronic Current Visit: Yes (9) Acute renal insufficiency Status: Acute Current Visit: Yes (10) Pericardial effusion Status: Acute Current Visit: Yes Hospitalist: Subjective Interval history: Mr Sibley is stable on vent still requiring high FIO2 (60%) and PEEP of 10 with sats 92%. Paced rhythm on tele. UOP improved. Tolerating tube feeds. Comfortably sedated at my exam. Exam - Constitutional Vitals: Period Temp Pulse Resp BP Sys/Willams Pulse Ox Last 24 Hr 97.3 F-97.9 F 55-77 15-21 89-126/48-83 90-100 General appearance: no acute distress, over weight - Head Head exam: Present: normocephalic, atraumatic - Eye Eye exam: Present: EOMI. Absent: scleral icterus Pupils: Present: ANH - Respiratory Respiratory exam: Present: rales (at bases bilaterally) - Cardiovascular Cardiovascular exam: Present: regular rate and rhythm - GI/Abdominal GI/Abdominal exam: Present: normal bowel sounds, soft. Absent: tenderness - Extremities Exam Extremities exam: Present: edema (some puffiness in hands and LE) - Neurological Exam Neurological exam: Absent: alert (sedated, still some agitation when diprivan decreased per nurses) Results - Labs CBC & BMP: 10/04/16 05:04 10/04/16 05:04 Lab Results: I have reviewed the past 24 hour labs
[2016-10-04] MEDS ORDERED: INSULIN GLARGINE 100 UNIT/ML SUBCUT SCH (10:03)
[2016-10-04] MEDS: methylPREDNISolone SOD SUC 40 MG/1 ML VIAL IV SCH ×2 (10:24→21:48)
[2016-10-04] MEDS ORDERED: INSULIN GLARGINE 100 UNIT/ML SUBCUT ONE (10:30)
[2016-10-04] MEDS: cefTRIAXone 2,000 MG in SODIUM CHLORIDE 0.9% 100 ML IV SCH (18:00)
[2016-10-05] MEDS: PROPOFOL 1,000 MG/100 ML BOTTLE IV SCH ×7 (01:04→22:14)
[2016-10-05] MEDS: INSULIN LISPRO 100 UNIT/ML SUBCUT SCH ×7 (02:58→21:01)
[2016-10-05 05:57] LABS: Hematocrit 34.8 VOL% (42.0-52.0); Hemoglobin 11.6 GM/DL (14.0-18.0); Immature Granulocytes % 1.1 %; Immature Granulocytes Absolute 0.05 #; Lymphocytes # 0.5 10*3/uL (1.4-4.0); Lymphocytes % 10.1 % (21.2-54.2); Mean Corpuscular HGB Conc 33.3 GM/DL (32-36); Mean Corpuscular Hemoglobin 31 PG (27-34); Mean Corpuscular Volume 93.8 FL (87-102); Mean Platelet Volume 12.3 FL (9.6-12.0); Monocytes # 0.4 10*3/uL (0.11-0.8); Monocytes % 7.8 % (1.7-12.7); Neutrophils # 3.8 10*3/uL (1.4-7.4); Red Blood Count 3.71 MC/CUMM (3.8-5.5); Red Cell Distribution Width 14.9 % (9.3-17.3); White Blood Count 4.6 T/CUMM (4-12)
[2016-10-05 05:58] LABS: Platelet Count 102 T/CUMM (130-400)
[2016-10-05 06:19] LABS: Hypochromasia Slight; Ovalocytes Slight; Platelet Estimate Decreased
[2016-10-05 06:26] LABS: Calcium 7.8 MG/DL (8.5-10.1); Osmolality,Calculated 295.2 MOS/KG (273-304); Potassium 4.1 MMOL/L (3.5-5.1)
--- NOTE | 2016-10-05 07:06 | Cardiology Progress Note ---
Assessment and Plan (1) Alcoholism Status: Chronic Current Visit: Yes (2) Obesity (BMI 30-39.9) Status: Chronic Current Visit: Yes (3) Bradycardia Status: Chronic Assessment and plan: He is currently paced. Current Visit: Yes (4) Coronary artery disease Status: Chronic Assessment and plan: Known coronary disease with previous coronary bypass grafting clearly in 1998 with 3 vessels. Current Visit: Yes Qualifiers: Coronary Disease-Associated Artery/Lesion type: bypass graft [place] vs. transplanted heart: [place] heart Associated angina: angina presence unspecified Qualified Code(s): I25.810 - Atherosclerosis of coronary artery bypass graft(s) without angina pectoris (5) Hyperlipidemia Status: Chronic Current Visit: Yes (6) Hypertension Status: Chronic Current Visit: Yes (7) Acute renal insufficiency Status: Acute Assessment and plan: Creatinine is slowly improving Current Visit: Yes (8) Pericardial effusion Status: Acute Current Visit: Yes (9) Atrial fibrillation Status: Acute Assessment and plan: He is not in A. fib at this time Current Visit: Yes Qualifiers: Atrial fibrillation type: paroxysmal Qualified Code(s): I48.0 - Paroxysmal atrial fibrillation Cardiology - PN: Subj Interval history: Mr. Sibley remains on high flow O2 60% with tense centimeters water of PEEP. He is primarily paced but has intermittent rhythm looks like it is sinus. The pacer seems to be functioning well he is postop day 2 status post placement of the sub-clavian pacemaker. The intra-abdominal pacemaker with epicardial leads remains and appears to be adequately suppressed Exam (Progress Note) - Constitutional Vitals: Period Temp Pulse Resp BP Sys/[place] Pulse Ox Last 24 Hr 97.4 F-98.4 F 55-69 15-28 110-146/60-87 91-96 General appearance: morbidly obese - Head Head exam: Present: normal inspection - Eye Pupils: Present: ANH - ENT ENT exam: Present: other (ET tube is in place) - Respiratory Respiratory exam: Present: clear to auscultation bilaterally (His lungs are quite clear on the vent) - Cardiovascular Cardiovascular exam: Present: regular rate and rhythm (Tones are distant. Cannot delineate much and ambient noise of the ICU.) - GI/Abdominal GI/Abdominal exam: Present: normal bowel sounds - Neurological Exam Neurological exam: Present: other (Sedated) - Psychiatric Psychiatric exam: Present: other (Sedated) Result/EKG - Labs CBC & BMP: 10/05/16 05:28 10/05/16 05:28 Labs: Laboratory Results - last 24 hr 10/04/16 10/04/16 10/04/16 07:21 11:19 14:09 WBC RBC Hgb Hct MCV MCH MCHC RDW Plt Count MPV Neut % (Auto) Lymph % (Auto) [place] % (Auto) Eos % (Auto) Baso % (Auto) Neut # (Auto) Lymph # (Auto) [place] # (Auto) Eos # (Auto) Baso # (Auto) Immature Gran % Nucleated RBC % Immature Gran # Nucleated RBCs # Platelet Estimate Hypochromasia Ovalocytes Morphology Comment Sodium Potassium Chloride Carbon Dioxide Anion Gap BUN Creatinine GFR Calculation BUN/Creatinine Ratio Glucose POC Glucose 245 H 194 H 230 H Calculated Osmolality Calcium 10/04/16 10/04/16 10/04/16 17:39 20:43 23:40 WBC RBC Hgb Hct MCV MCH MCHC RDW Plt Count MPV Neut % (Auto) Lymph % (Auto) [place] % (Auto) Eos % (Auto) Baso % (Auto) Neut # (Auto) Lymph # (Auto) [place] # (Auto) Eos # (Auto) Baso # (Auto) Immature Gran % Nucleated RBC % Immature Gran # Nucleated RBCs # Platelet Estimate Hypochromasia Ovalocytes Morphology Comment Sodium Potassium Chloride Carbon Dioxide Anion Gap BUN Creatinine GFR Calculation BUN/Creatinine Ratio Glucose POC Glucose 254 H 280 H 252 H Calculated Osmolality Calcium 10/05/16 10/05/16 10/05/16 02:50 05:03 05:28 WBC 4.6 RBC 3.71 L Hgb 11.6 L Hct 34.8 L MCV 93.8 MCH 31 MCHC 33.3 RDW 14.9 Plt Count 102 L MPV 12.3 H Neut % (Auto) 81.0 H Lymph % (Auto) 10.1 L [place] % (Auto) 7.8 Eos % (Auto) 0.0 Baso % (Auto) 0.0 Neut # (Auto) 3.8 Lymph # (Auto) 0.5 L [place] # (Auto) 0.4 Eos # (Auto) 0.0 Baso # (Auto) 0.0 Immature Gran % 1.1 Nucleated RBC % 0.0 Immature Gran # 0.05 Nucleated RBCs # 0.00 Platelet Estimate Decreased Hypochromasia Slight Ovalocytes Slight Morphology Comment Sodium Potassium Chloride Carbon Dioxide Anion Gap BUN Creatinine GFR Calculation BUN/Creatinine Ratio Glucose POC Glucose 279 H 280 H Calculated Osmolality Calcium 10/05/16 05:28 WBC RBC Hgb Hct MCV MCH MCHC RDW Plt Count MPV Neut % (Auto) Lymph % (Auto) [place] % (Auto) Eos % (Auto) Baso % (Auto) Neut # (Auto) Lymph # (Auto) [place] # (Auto) Eos # (Auto) Baso # (Auto) Immature Gran % Nucleated RBC % Immature Gran # Nucleated RBCs # Platelet Estimate Hypochromasia Ovalocytes Morphology Comment Sodium 134 L Potassium 4.1 Chloride 98 Carbon Dioxide 21 Anion Gap 19.1 H BUN 67 H Creatinine 1.80 H GFR Calculation 50 BUN/Creatinine Ratio 37.00 H Glucose 260 H POC Glucose Calculated Osmolality 295.2 Calcium 7.8 L
[2016-10-05 07:52] LABS: Pt O2 Delivery Device Ventilator
[2016-10-05 07:53] LABS: ABG Base Excess -0.7 MMOL/L (-2.5-2.5); ABG HCO3 23.3 MMOL/L (20-26); ABG Oxygen Saturation 90.8 % (95-100); ABG PCO2 36.3 MM HG (35-48); ABG PH 7.425 (7.35-7.45); ABG PO2 59.8 MM HG (80-95); ABG TCO2 24.4 MMOL/L (23-27)
--- NOTE | 2016-10-05 08:30 | Pulmonology Progress Note ---
Pulmonary - PN: Subj Interval history: This is a 75-year-old male with heart failure and adult respiratory distress syndrome. He is starting to improve from a pulmonary standpoint and weaning trials are being begun. He has required high levels of PEEP. Today's chest x-ray shows cardiomegaly. A small amount of fluid in the major fissures bilaterally Microbiology. No positive cultures ABGs. Mechanical ventilation. FiO2 60%. PH 7.425, PCO2 36.3, PO2 59.8 bicarb 23.3. Lab. Electrolytes are normal. Creatinine is 1.8 with a BUN of 67. White blood cell count is 4600. H&H 11.6/34.8 and platelets are 102,000. Physical exam. Vital signs. See below Face. Symmetrical. Lips and tongue are normal. Neck. Symmetrical. No meningismus. Lymphatics. No submandibular cervical supraclavicular adenopathy Chest. Mild loose large airway congestion. Heart. Lateral PMI Abdomen. Nondistended. Only rare bowel sounds Extremities nothing to suggest deep venous thrombophlebitis Neurologic is unchanged from previous descriptions The remainder the physical exam is negative. Plan. Continue present red Exam (Progress Note) - Constitutional Vitals: Period Temp Pulse Resp BP Sys/Willams Pulse Ox Last 24 Hr 97.8 F-98.4 F 55-69 15- 110-146/60-87 91-96 Results - Labs CBC & BMP: 10/05/16 05:28 10/05/16 05:28
[2016-10-05] MEDS ORDERED: INSULIN GLARGINE 100 UNIT/ML SUBCUT SCH ×2 (09:00→10:53)
[2016-10-05] MEDS: ASCORBIC ACID 500 MG TABLET PO SCH ×2 (09:22→21:05)
[2016-10-05] MEDS: POTASSIUM CHLORIDE 20 MEQ TABLET PO SCH (09:23)
[2016-10-05] MEDS: APIXABAN 2.5 MG TABLET PO SCH ×2 (09:23→21:05)
[2016-10-05] MEDS: FAMOTIDINE 8 MG/ML 50 ML/BOTTLE PO SCH (09:24)
[2016-10-05] MEDS: ASPIRIN EC 81 MG TABLET PO SCH (09:24)
[2016-10-05] MEDS: MAGNESIUM OXIDE 400 MG TABLET PO SCH ×2 (09:24→21:05)
[2016-10-05] MEDS: CARVEDILOL 6.25 MG TABLET PO SCH ×2 (09:24→21:05)
--- NOTE | 2016-10-05 11:00 | Hospitalist Progress Note ---
Assessment and Plan (1) Acute respiratory failure with hypoxia Status: Acute Assessment and plan: 1)acute respiratory failure due to ARDS- on steroids, antibiotics. Dr Anaya adjusting vent to optimize oxygenation. Decrease solumedrol, repeat lasix this morning now that he is no longer dehydrated/septic, nad has peripheral edema. edema is noncardiogenic. 2)afib- new pacer working well, not anticoagulated per cardiology 3)SUSAN-creatinine now 1.8- his baseline most likely. 4)nutrition- tolerating tube feeds 5)hypotension- resolved for the last 5 days. 6)hyperglycemia- glucose remains high despite initiating and increasing lantus, SSI, and q3h SSI. Increase lantus to 45U daily, conitnue SSI at q3h. give 10 more of lantus now to reach 45 for today. watch with decrease in steroids. 7)ppx- SCDs, pepcid Current Visit: Yes (2) Acute pulmonary edema Status: Acute Current Visit: Yes (3) Hyperlipidemia Status: Chronic Current Visit: Yes (4) Hypertension Status: Chronic Current Visit: Yes (5) Atrial fibrillation with rapid ventricular response Status: Acute Current Visit: Yes (6) Diabetes Status: Chronic Current Visit: Yes (7) Alcoholism Status: Chronic Current Visit: Yes (8) Obesity (BMI 30-39.9) Status: Chronic Current Visit: Yes (9) Acute renal insufficiency Status: Acute Current Visit: Yes (10) Pericardial effusion Status: Acute Current Visit: Yes Hospitalist: Subjective Interval history: Mr Sibley is stable on vent, still requiring increased FIO2 and PEEP. sedated comfortably. He has started CPAP trials. Exam - Constitutional Vitals: Period Temp Pulse Resp BP Sys/Willams Pulse Ox Last 24 Hr 97.8 F-98.4 F 55-69 15-28 110-137/60-81 91-96 General appearance: no acute distress, morbidly obese - Eye Eye exam: Present: EOMI. Absent: scleral icterus Pupils: Present: ANH - Respiratory Respiratory exam: Present: rales (at bases) - Cardiovascular Cardiovascular exam: Present: regular rate and rhythm - GI/Abdominal GI/Abdominal exam: Present: normal bowel sounds, soft. Absent: tenderness - Extremities Exam Extremities exam: Present: edema (hands and LE puffy) Results - Labs CBC & BMP: 10/05/16 05:28 10/05/16 05:28 Lab Results: I have reviewed the past 24 hour labs
[2016-10-05] MEDS ORDERED: INSULIN GLARGINE 100 UNIT/ML SUBCUT ONE (11:01)
--- NOTE | 2016-10-05 11:01 | XRay Report ---
Exam: XR chest 1V portable Indication: Intubated, respiratory failure Comparison study: 10/04/2016 Findings: Endotracheal tube is in similar position. Esophagogastric tube travels below the field of view. Left chest pacemaker device is in similar position. Median sternotomy wiring is again noted. Conus medullaris enlarged, similar to prior. There is no focal consolidation. There are patchy basilar opacities right worse than left which are slightly worsened from prior. There is no pneumothorax. Impression: Stable position of endotracheal and esophagogastric tubes. Slight worsening of right basilar opacities may represent developing atelectasis and/or pleural fluid. Developing infectious/inflammatory infiltrates are difficult to exclude. No pneumothorax. PROCEDURE INTERPRETED AT [facility] DEPARTMENT OF RADIOLOGY Final Report Signed by: Ashok Foster
[2016-10-05] MEDS: methylPREDNISolone SOD SUC 40 MG/1 ML VIAL IV SCH ×3 (11:17→22:15)
[2016-10-05] MEDS: MULTIVITAMIN LIQUID (CENTRUM) 60 ML BOTTLE PER TUBE SCH (11:18)
[2016-10-05] MEDS: SODIUM CHLORIDE 0.45% 1,000 ML IV SCH (14:54)
[2016-10-05] MEDS: LORazepam 2 MG/1 ML VIAL IV PRN (16:20)
[2016-10-05] MEDS: FUROSEMIDE 40 MG/4 ML VIAL IV SCH (17:19)
[2016-10-05] MEDS: cefTRIAXone 2,000 MG in SODIUM CHLORIDE 0.9% 100 ML IV SCH (17:22)
[2016-10-06] MEDS: INSULIN LISPRO 100 UNIT/ML SUBCUT SCH ×8 (00:34→21:11)
[2016-10-06] MEDS: PROPOFOL 1,000 MG/100 ML BOTTLE IV SCH ×6 (01:40→21:02)
[2016-10-06 04:39] LABS: Hematocrit 36.6 VOL% (42.0-52.0); Hemoglobin 12.3 GM/DL (14.0-18.0); Immature Granulocytes Absolute 0.05 #; Lymphocytes # 0.4 10*3/uL (1.4-4.0); Lymphocytes % 9.2 % (21.2-54.2); Mean Corpuscular HGB Conc 33.6 GM/DL (32-36); Mean Corpuscular Hemoglobin 31 PG (27-34); Mean Corpuscular Volume 92.2 FL (87-102); Mean Platelet Volume 12.2 FL (9.6-12.0); Monocytes # 0.5 10*3/uL (0.11-0.8); Monocytes % 10.4 % (1.7-12.7); Neutrophils # 3.8 10*3/uL (1.4-7.4); Neutrophils % 79.4 % (38.7-73.9); Platelet Count 121 T/CUMM (130-400); Red Blood Count 3.97 MC/CUMM (3.8-5.5); Red Cell Distribution Width 14.8 % (9.3-17.3); White Blood Count 4.8 T/CUMM (4-12)
[2016-10-06 05:03] LABS: Calcium 8.5 MG/DL (8.5-10.1); Potassium 4.3 MMOL/L (3.5-5.1)
[2016-10-06 07:17] LABS: ABG Base Excess 1.1 MMOL/L (-2.5-2.5); ABG HCO3 25.7 MMOL/L (20-26); ABG Oxygen Saturation 92.6 % (95-100); ABG PCO2 40.6 MM HG (35-48); ABG PH 7.419 (7.35-7.45); ABG PO2 65.6 MM HG (80-95); ABG TCO2 26.9 MMOL/L (23-27); Allen Test Positive; Pt O2 Delivery Device Ventilator
[2016-10-06] MEDS: FUROSEMIDE 40 MG/4 ML VIAL IV SCH ×2 (08:11→15:41)
--- NOTE | 2016-10-06 08:35 | Cardiology Progress Note ---
Assessment and Plan (1) Alcoholism Status: Chronic Current Visit: Yes (2) Obesity (BMI 30-39.9) Status: Chronic Current Visit: Yes (3) Bradycardia Status: Chronic Assessment and plan: He is currently paced. Current Visit: Yes (4) Coronary artery disease Status: Chronic Assessment and plan: Known coronary disease with previous coronary bypass grafting clearly in 1998 with 3 vessels. Current Visit: Yes Qualifiers: Coronary Disease-Associated Artery/Lesion type: bypass graft [place] vs. transplanted heart: [place] heart Associated angina: angina presence unspecified Qualified Code(s): I25.810 - Atherosclerosis of coronary artery bypass graft(s) without angina pectoris (5) Hyperlipidemia Status: Chronic Current Visit: Yes (6) Hypertension Status: Chronic Current Visit: Yes (7) Acute renal insufficiency Status: Acute Assessment and plan: Creatinine is slowly improving. There is no real change today Current Visit: Yes (8) Pericardial effusion Status: Acute Current Visit: Yes (9) Atrial fibrillation Status: Acute Assessment and plan: He is not in A. fib at this time. Current Visit: Yes Qualifiers: Atrial fibrillation type: paroxysmal Qualified Code(s): I48.0 - Paroxysmal atrial fibrillation Cardiology - PN: Subj Interval history: The patient appears to be in and out of atrial fibrillation. He is intermittently paced. The new the transplanted pacemaker appears to be functioning well without interference from the old abdominal pacemaker. I would recommend that we continue this until he gets off the respirator and then consider removal or not of his abdominal pacemaker. He will eventually . It was GREY in June. Of course now it is not being used it could have some battery capability for significant amount of time. I do not think there is anything to be gained at this time from removal until he is well and extubated. The patient is on the ventilator still requiring 60% FiO2 10 cm water PEEP. Cardio vascular standpoint not much to change. Exam (Progress Note) - Constitutional Vitals: Period Temp Pulse Resp BP Sys/Willams Pulse Ox Last 24 Hr 96.7 F-99.6 F 54-68 15-29 109-160/52-81 92-100 General appearance: morbidly obese - Head Head exam: Present: normal inspection - Eye Eye exam: Present: other (Mild exophthalmos) Pupils: Present: ANH - Respiratory Respiratory exam: Present: clear to auscultation bilaterally (Lungs are actually pretty clear on the ventilator) - Cardiovascular Cardiovascular exam: Present: irregular rhythm (His rhythm is slightly irregular is intermittently paced. Sometimes P waves are seen but they are not consistently seen.) - GI/Abdominal GI/Abdominal exam: Present: normal bowel sounds - Back Exam Back exam: Present: normal inspection - Neurological Exam Neurological exam: Present: other (sedated) - Psychiatric Psychiatric exam: Present: other (sedated) - Skin Skin exam: Present: normal color, warm, dry Result/EKG - Labs CBC & BMP: 10/06/16 03:39 10/06/16 03:39 Labs: Laboratory Results - last 24 hr 10/05/16 10/05/16 10/05/16 07:21 11:06 14:24 WBC RBC Hgb Hct MCV MCH MCHC RDW Plt Count MPV Neut % (Auto) Lymph % (Auto) [place] % (Auto) Eos % (Auto) Baso % (Auto) Neut # (Auto) Lymph # (Auto) [place] # (Auto) Eos # (Auto) Baso # (Auto) Immature Gran % Nucleated RBC % Immature Gran # Nucleated RBCs # ABG pH ABG pCO2 ABG pO2 ABG HCO3 ABG Total CO2 ABG O2 Saturation ABG Base Excess FiO2 Sodium Potassium Chloride Carbon Dioxide Anion Gap BUN Creatinine GFR Calculation BUN/Creatinine Ratio Glucose POC Glucose 284 H 259 H 256 H Calculated Osmolality Calcium 10/05/16 10/05/16 10/06/16 17:10 20:29 02:14 WBC RBC Hgb Hct MCV MCH MCHC RDW Plt Count MPV Neut % (Auto) Lymph % (Auto) [place] % (Auto) Eos % (Auto) Baso % (Auto) Neut # (Auto) Lymph # (Auto) [place] # (Auto) Eos # (Auto) Baso # (Auto) Immature Gran % Nucleated RBC % Immature Gran # Nucleated RBCs # ABG pH ABG pCO2 ABG pO2 ABG HCO3 ABG Total CO2 ABG O2 Saturation ABG Base Excess FiO2 Sodium Potassium Chloride Carbon Dioxide Anion Gap BUN Creatinine GFR Calculation BUN/Creatinine Ratio Glucose POC Glucose 270 H 242 H 292 H Calculated Osmolality Calcium 10/06/16 10/06/16 10/06/16 03:39 03:39 04:51 WBC 4.8 RBC 3.97 Hgb 12.3 L Hct 36.6 L MCV 92.2 MCH 31 MCHC 33.6 RDW 14.8 Plt Count 121 L MPV 12.2 H Neut % (Auto) 79.4 H Lymph % (Auto) 9.2 L [place] % (Auto) 10.4 Eos % (Auto) 0.0 Baso % (Auto) 0.0 Neut # (Auto) 3.8 Lymph # (Auto) 0.4 L [place] # (Auto) 0.5 Eos # (Auto) 0.0 Baso # (Auto) 0.0 Immature Gran % 1.0 Nucleated RBC % 0.0 Immature Gran # 0.05 Nucleated RBCs # 0.00 ABG pH ABG pCO2 ABG pO2 ABG HCO3 ABG Total CO2 ABG O2 Saturation ABG Base Excess FiO2 Sodium 136 Potassium 4.3 Chloride 98 Carbon Dioxide 26 Anion Gap 16.3 H BUN 82 H D Creatinine 1.90 H GFR Calculation 47 BUN/Creatinine Ratio 43.00 H Glucose 237 H POC Glucose 244 H Calculated Osmolality 304.0 Calcium 8.5 10/06/16 10/06/16 07:10 08:00 WBC RBC Hgb Hct MCV MCH MCHC RDW Plt Count MPV Neut % (Auto) Lymph % (Auto) [place] % (Auto) Eos % (Auto) Baso % (Auto) Neut # (Auto) Lymph # (Auto) [place] # (Auto) Eos # (Auto) Baso # (Auto) Immature Gran % Nucleated RBC % Immature Gran # Nucleated RBCs # ABG pH 7.419 ABG pCO2 40.6 ABG pO2 65.6 L ABG HCO3 25.7 ABG Total CO2 26.9 ABG O2 Saturation 92.6 L ABG Base Excess 1.1 FiO2 60.00 Sodium Potassium Chloride Carbon Dioxide Anion Gap BUN Creatinine GFR Calculation BUN/Creatinine Ratio Glucose POC Glucose 258 H Calculated Osmolality Calcium
[2016-10-06] MEDS: LORazepam 2 MG/1 ML VIAL IV PRN (09:52)
--- NOTE | 2016-10-06 09:56 | XRay Report ---
Exam: XR chest 1V portable Indication: Intubated, respiratory failure Comparison study: 10/05/2016 radiograph Findings: Endotracheal esophagogastric tubes are in similar position. Again, the esophagogastric tube travels below the field of view. Left-sided pacemaker device and wire leads appear unchanged. Cardiac silhouette is mildly enlarged, similar to prior. Right more so than left basilar opacities are similar to slightly increased from prior likely representing atelectasis and pleural effusions. There is no pneumothorax. Impression: Stable position of endotracheal and esophagogastric tubes. Slight worsening of basilar opacities, right more so than left, may represent atelectasis/infiltrates and pleural effusions. PROCEDURE INTERPRETED AT [facility] DEPARTMENT OF RADIOLOGY Final Report Signed by: Ashok Foster
--- NOTE | 2016-10-06 10:09 | Hospitalist Progress Note ---
Assessment and Plan (1) Acute respiratory failure with hypoxia Status: Acute Assessment and plan: 1)acute respiratory failure due to ARDS- on steroids, antibiotics. Oxygenation improved over last few days but pO2 still low for FIO2 of 60. I discussed this case with Dr Madrid who recommends continuing low doses of steroids for now so I will leave dose as it is. Continue IV lasix BID this to address peripheral edema. His pulmonary edema is noncardiogenic. No fever, no WBC, no positive cultures. He has had 7 days of ceftriaxone- stop today. 2)afib- new pacer working well, not anticoagulated per cardiology 3)SUSAN-creatinine now 1.9- his baseline most likely. 4)nutrition- tolerating tube feeds 5)hyperglycemia- glucose remains high despite initiating and increasing lantus, SSI, and q3h SSI. Increase lantus to 55U daily, conitnue SSI at q3h. give 10 more of lantus now to reach 55 for today. watch once steroids decreased 7)ppx- SCDs, pepcid Current Visit: Yes (2) Acute pulmonary edema Status: Acute Current Visit: Yes (3) Hyperlipidemia Status: Chronic Current Visit: Yes (4) Hypertension Status: Chronic Current Visit: Yes (5) Atrial fibrillation with rapid ventricular response Status: Acute Current Visit: Yes (6) Diabetes Status: Chronic Current Visit: Yes (7) Alcoholism Status: Chronic Current Visit: Yes (8) Obesity (BMI 30-39.9) Status: Chronic Current Visit: Yes (9) Acute renal insufficiency Status: Acute Current Visit: Yes (10) Pericardial effusion Status: Acute Current Visit: Yes Hospitalist: Subjective Interval history: Mr Sibley is stable on the vent and CPAPed for 3 hours yesterday. He is tolerating his tube feeds, has good UOP. He is more alert on less Diprivan and occasionally requires additional Ativan when he gets agitated. No fever. Exam - Constitutional Vitals: Period Temp Pulse Resp BP Sys/Willams Pulse Ox Last 24 Hr 96.7 F-99.6 F 54-64 15-29 109-160/52-78 92-99 General appearance: mild distress (frustrated while trying to communicate with us, we can't understand what he is gesturing to. ), morbidly obese - Head Head exam: Present: normocephalic, atraumatic - Eye Eye exam: Present: EOMI. Absent: scleral icterus Pupils: Present: ANH - Respiratory Respiratory exam: Present: clear to auscultation bilaterally - Cardiovascular Cardiovascular exam: Present: regular rate and rhythm - GI/Abdominal GI/Abdominal exam: Present: normal bowel sounds, soft. Absent: tenderness - Extremities Exam Extremities exam: Present: edema (less than yesterday.) Results - Labs CBC & BMP: 10/06/16 03:39 10/06/16 03:39 Lab Results: I have reviewed the past 24 hour labs
[2016-10-06] MEDS: SODIUM CHLORIDE 0.45% 1,000 ML IV SCH (10:11)
[2016-10-06] MEDS ORDERED: FUROSEMIDE 40 MG/4 ML VIAL IV ONE (10:12)
[2016-10-06] MEDS ORDERED: INSULIN GLARGINE 100 UNIT/ML SUBCUT ONE (10:13)
[2016-10-06] MEDS ORDERED: INSULIN GLARGINE 100 UNIT/ML SUBCUT SCH (10:14)
[2016-10-06] MEDS: MAGNESIUM OXIDE 400 MG TABLET PO SCH ×2 (10:35→21:11)
[2016-10-06] MEDS: ASCORBIC ACID 500 MG TABLET PO SCH ×2 (10:35→21:11)
[2016-10-06] MEDS: ASPIRIN EC 81 MG TABLET PO SCH (10:35)
[2016-10-06] MEDS: APIXABAN 2.5 MG TABLET PO SCH ×2 (10:35→21:11)
[2016-10-06] MEDS: POTASSIUM CHLORIDE 20 MEQ TABLET PO SCH (10:36)
[2016-10-06] MEDS: FAMOTIDINE 8 MG/ML 50 ML/BOTTLE PO SCH (10:36)
[2016-10-06] MEDS: MULTIVITAMIN LIQUID (CENTRUM) 60 ML BOTTLE PER TUBE SCH (10:36)
[2016-10-06] MEDS: CARVEDILOL 6.25 MG TABLET PO SCH ×2 (10:36→21:12)
[2016-10-06] MEDS: methylPREDNISolone SOD SUC 40 MG/1 ML VIAL IV SCH ×2 (13:01→21:01)
[2016-10-06] MEDS: ALBUTEROL/IPRATROPIUM 3 ML NEB RESP TX SCH ×3 (13:45→19:25)
--- NOTE | 2016-10-06 14:14 | Pulmonology Progress Note ---
Pulmonary - PN: Subj Interval history: This is a 75-year-old male with heart failure and adult respiratory distress syndrome. He is starting to improve from a pulmonary standpoint and weaning trials are being begun. He has required high levels of PEEP. Today's chest x-ray shows cardiomegaly. A small amount of fluid in the major fissures bilaterally Microbiology. No positive cultures ABGs. Mechanical ventilation. FiO2 60%. PH 7.425, PCO2 36.3, PO2 59.8 bicarb 23.3. Lab. Electrolytes are normal. Creatinine is 1.8 with a BUN of 67. White blood cell count is 4600. H&H 11.6/34.8 and platelets are 102,000. 10/06/2016. Chest x-ray shows cardiomegaly. There is a background of increased interstitial markings which are most prominent from the mid lung encinas inferiorly. These areas contain confluent areas of alveolar filling. ABGs on FiO2 of 60% show a pH of 7.419, PCO2 40.6, PO2 65.6 and a bicarb of 25.7. CBC is stable. Electrolytes are normal. Creatinine is 1.90 with a BUN of 82. There are no positive cultures. This patient had a stable night. His adult respiratory distress syndrome is at a plateau at the present time. Physical exam. Vital signs. See below Face. Symmetrical. Lips and tongue are normal. Neck. Symmetrical. No meningismus. Lymphatics. No submandibular cervical supraclavicular adenopathy Chest. Mild loose large airway congestion. Heart. Lateral PMI Abdomen. Nondistended. Only rare bowel sounds Extremities nothing to suggest deep venous thrombophlebitis Neurologic is unchanged from previous descriptions The remainder the physical exam is negative. Plan. Continue present regimen. No ventilator changes were made. Exam (Progress Note) - Constitutional Vitals: Period Temp Pulse Resp BP Sys/[place] Pulse Ox Last 24 Hr 97.2 F-99.6 F 52-64 15-25 109-160/52-78 92-99 Results - Labs CBC & BMP: 10/06/16 03:39 10/06/16 03:39
[2016-10-07] MEDS: PROPOFOL 1,000 MG/100 ML BOTTLE IV SCH ×5 (00:11→23:18)
[2016-10-07] MEDS: ALBUTEROL/IPRATROPIUM 3 ML NEB RESP TX SCH ×7 (00:45→23:39)
[2016-10-07] MEDS: INSULIN LISPRO 100 UNIT/ML SUBCUT SCH ×9 (03:24→23:27)
[2016-10-07 03:53] LABS: ABG Base Excess 5.3 MMOL/L (-2.5-2.5); ABG HCO3 29.8 MMOL/L (20-26); ABG PCO2 43.2 MM HG (35-48); ABG PH 7.456 (7.35-7.45); ABG PO2 107.6 MM HG (80-95); ABG TCO2 31.1 MMOL/L (23-27); Allen Test Positive; Pt O2 Delivery Device Ventilator
[2016-10-07 04:33] LABS: Hematocrit 35.4 VOL% (42.0-52.0); Hemoglobin 12.7 GM/DL (14.0-18.0); Immature Granulocytes % 1.3 %; Immature Granulocytes Absolute 0.06 #; Lymphocytes # 0.4 10*3/uL (1.4-4.0); Lymphocytes % 8.2 % (21.2-54.2); Mean Corpuscular HGB Conc 35.9 GM/DL (32-36); Mean Corpuscular Hemoglobin 33 PG (27-34); Mean Corpuscular Volume 91.9 FL (87-102); Mean Platelet Volume 12.2 FL (9.6-12.0); Monocytes # 0.7 10*3/uL (0.11-0.8); Monocytes % 14.1 % (1.7-12.7); Neutrophils # 3.6 10*3/uL (1.4-7.4); Neutrophils % 76.4 % (38.7-73.9); Platelet Count 133 T/CUMM (130-400); Red Blood Count 3.85 MC/CUMM (3.8-5.5); Red Cell Distribution Width 14.9 % (9.3-17.3); White Blood Count 4.7 T/CUMM (4-12)
[2016-10-07 08:07] LABS: Calcium 8.4 MG/DL (8.5-10.1); Osmolality,Calculated 308.7 MOS/KG (273-304); Potassium 4.3 MMOL/L (3.5-5.1)
[2016-10-07] MEDS ORDERED: LACTULOSE 20 GM/30 ML UDCUP PO PRN (08:30)
[2016-10-07 08:42] LABS: Magnesium 3.4 MG/DL (1.8-2.4); Phosphorous 5.4 MG/DL (2.5-4.9); Prealbumin 41.8 MG/DL (20-40)
--- NOTE | 2016-10-07 08:48 | Pulmonology Progress Note ---
Pulmonary - PN: Subj Interval history: This 75-year-old man apparently has history of alcohol abuse. History of coronary artery disease congestive heart failure. Came in with respiratory failure is on the ventilator. The chest x-ray looks wet with increased interstitial markings and pleural effusions however his creatinine has gone up from about 1.2-2.4 and 1 day after trying to diurese him and his weight really has not fallen. Urine output is low. He has not had fever. He is on empiric antibiotics and may have had aspiration pneumonia. He still has a widened A-a O2 difference and may well have ARDS. 10/02/2016 PO2 now is in the 80s on 70% with 10 of PEEP. It does appear that the patient has ARDS. He did respond well to diuretics and his creatinine domingo. He has been given some IV fluids and his chest x-ray is actually better. When patient wakes up he is combative. Difficult to wean under the circumstances. We will start him on Haldol which hopefully will calm him down without suppressing his respirations. When we get ready to do CPAP trials, would like to change from propofol to Precedex along with Haldol. May be an element of alcohol withdrawal 10/03/2016 PO2 is 55 on 60% with 8 of PEEP. Will increase the PEEP back to 10. Difficult to do CPAP at this level. He also gets combative when he wakes up. Probably having some alcohol withdrawal. He was started on Haldol yesterday. I am going to try changing him from propofol to Precedex today. Weaning trials can be attempted while on Precedex. 10/04/16 PO2 is in the 60s on 60% and 10 of PEEP. Cannot really back off at this point. He has ARDS. He is starting to produce urine. He had his pacemaker changed out yesterday. There may be an element of alcohol abuse/withdrawal involved so going careful with holding sedation for weaning trials. 10/07/2016 ABGs improved. Will reduce PEEP. Will try to wean with less propofol. Give Haldol regularly. Exam (Progress Note) - Constitutional Vitals: Period Temp Pulse Resp BP Sys/Willams Pulse Ox Last 24 Hr 97.5 F-99.1 F 54-70 10-28 106-167/52-89 93-100 Exam: Patient sedated, on the ventilator. Vital signs normal. Pupils react to light. Orotracheal tube in place. Neck is supple. Chest reveals some rales. He does have some jugular venous distention. Heart normal rate and rhythm no murmurs. Abdomen soft no masses. Bowel sounds present. Extremities no clubbing cyanosis or edema. Calves nontender. Patient does get combative when propofol is held. Results - Labs CBC & BMP: 10/07/16 04:22 10/07/16 04:22 Lab Results: I have reviewed the past 24 hour labs Assessment and Plan (1) Acute respiratory failure with hypoxia Status: Acute Assessment and plan: ABGs acceptable. Still requiring relatively high PEEP. Certainly may be an element of ARDS. Not clear whether he had aspiration or not. 10/02/2016 ABGs do fit the criteria for ARDS. Still requiring fairly high PEEP. Will try to reduce PEEP and FiO2 to reach a point where we can start CPAP. 10/03/2016 PO2 55 on 60% with 8 of PEEP. Would like to get his PO2 in the 60s. Will increase PEEP to 10. 10/04/16 PO2 in the 60s on 60% with 10 of PEEP. Not ready to do CPAP as yet. Need to repeat down a little further. Patient has ARDS. 10/07/2016 PO2 is improved. Will reduce PEEP a little. If ABGs look okay on 60% and 8 of PEEP we may start CPAP later today. Current Visit: Yes (2) Coronary artery disease Status: Chronic Assessment and plan: has normal LV ejection fraction. 10/02/2016 no active angina. Current Visit: Yes Qualifiers: Coronary Disease-Associated Artery/Lesion type: bypass graft [place] vs. transplanted heart: [place] heart Associated angina: angina presence unspecified Qualified Code(s): I25.810 - Atherosclerosis of coronary artery bypass graft(s) without angina pectoris (3) Acute pulmonary edema Status: Acute Assessment and plan: Not clear whether this is cardiac or noncardiac. Normal LV ejection fraction and failure to respond to diuretics would point toward noncardiac. 10/02/2016 this appears to be primarily noncardiac (ARDS). Might take a couple of days to get his PEEP levels down to where we can do weaning trials. 10/03/2016 patient has ARDS. Probably not cardiogenic pulmonary edema. 10/04/16 he has responded to diuretics. Starting to make more urine. 10/07/2016 x-ray has improved somewhat. Current Visit: Yes (4) Acute renal insufficiency Status: Acute Assessment and plan: Creatinine is risen to 2.4. We will cut back on diuretics. Agree with adding Solu-Cortef in patient with history of taking oral prednisone. 10/02/2016 creatinine remains at 2.4 today. Holding diuretics and giving Solu- Cortef with some IV fluids seems to be effective. Weight has not gone up. Chest x-ray actually looks better. 10/03/2016 creatinine stable at 2.4 negative 10/04/16 creatinine down to 1.8. Will diurese a little. Reduce IV fluids a little 10/07/2016 creatinine is around 1.8 still. Current Visit: Yes (5) Diabetes Status: Chronic Assessment and plan: Glucoses are running in the 300s. We will increase sliding scale, also increased baseline insulin 10/04/16 glucoses in low 200s. 10/07/2016 increase insulin a little. Current Visit: Yes
--- NOTE | 2016-10-07 08:59 | Cardiology Progress Note ---
Assessment and Plan (1) Respiratory failure Status: Acute Assessment and plan: See plan of care listed below. Current Visit: Yes (2) Hyperlipidemia Status: Chronic Assessment and plan: See plan of care listed below. Current Visit: Yes (3) Hypertension Status: Chronic Assessment and plan: See plan of care listed below. Current Visit: Yes (4) Atrial fibrillation with rapid ventricular response Status: Acute Assessment and plan: See plan of care listed below. Current Visit: Yes (5) Acute pulmonary edema Status: Acute Assessment and plan: See plan of care listed below. Current Visit: Yes (6) Coronary artery disease Status: Chronic Assessment and plan: See plan of care listed below. Current Visit: Yes Qualifiers: Coronary Disease-Associated Artery/Lesion type: bypass graft [place] vs. transplanted heart: [place] heart Associated angina: angina presence unspecified Qualified Code(s): I25.810 - Atherosclerosis of coronary artery bypass graft(s) without angina pectoris (7) Diabetes Status: Chronic Assessment and plan: See plan of care listed below. Current Visit: Yes (8) Pacemaker Status: Acute Assessment and plan: See plan of care listed below. Current Visit: Yes (9) Pericardial effusion Status: Acute Assessment and plan: See plan of care listed below. Current Visit: Yes (10) Alcoholism Status: Chronic Assessment and plan: See plan of care listed below. Current Visit: Yes (11) Obesity (BMI 30-39.9) Status: Chronic Assessment and plan: See plan of care listed below. Current Visit: Yes (12) Acute renal insufficiency Status: Acute Assessment and plan: See plan of care listed below. Current Visit: Yes Cardiology - PN: Subj Interval history: Salvage Winder And Inspector: Dr. Ochoa Mr. Sibley is a 75 year old male with known history of coronary artery disease , routinely followed by Dr. Ochoa. Patient presented to [facility] early this morning with complaints of shortness of breath. Patient was then placed on the ventilator. Currently, he is sedated and ventilated in the CCU. Majority of information was obtained from electronic medical record and medical personnel. He has cardiac risk factors significant for advanced age, no history of coronary artery disease, family history of coronary artery disease, hyperlipidemia, hypertension, obesity and diabetes. Patient has past medical history of alcoholism, depression and palpitations. Patient underwent triple bypass in 1998 and [facility] with SVG to distal RCA, SVG to obtuse marginal and RICHTER to LAD. Patient has abdominal pacemaker, underwent pacer/generator change in 2006. Last interrogation was noted to be in 2013. Paste 1.4% of the time. Patient's most recent cardiac catheterization was performed in [address] Tegan Ochoa. At that time he was noted to have severe diffuse small vessel disease and a preserved ejection fraction of 55%. Patient presented to [facility] with shortness of breath. Chest x-ray was consistent with pulmonary edema. Subsequently, he required intubation and was then transferred to the cardiac care unit for close observation. Echocardiogram this admission revealed ejection fraction of 60% with mild LVH. Small posterior pericardial effusion noted. Mild MR and 3 chamber cardiac enlargement noted. October 03, 2016 patient underwent placement of permanent dual-chamber pacemaker. The new the transplanted pacemaker appears to be functioning well without interference from the old abdominal pacemaker. Dr. Ochoa recommends that we continue this until he gets off the respirator and then consider removal or not of his abdominal pacemaker. It will eventually . It was in near end of life in June. Of course now it is not being used it could have some battery capability for significant amount of time. Patient continues to be sedated and ventilated in the cardiac care unit. October UPDATE - Patient was seen and examined in the cardiac care unit. Remains sedated and ventilated. Patient has been going in and out of atrial fibrillation with a controlled ventricular response. Intermittently pacing. Currently, patient is atrial fibrillation with a heart rate of 69. Left upper chest pacer pocket incision looks good. Creatinine is improving, today 1.8. Vital signs stable. Further plan and recommendations to follow per Dr. Huitron. Assessment/plan: 1. PULMONARY EDEMA - Echocardiogram revealed preserved ejection fraction, 60%. Chest x-ray improving. Continue to diurese with Lasix, monitor creatinine closely. Daily weights. Strict I's and O's. 2. ATRIAL FIBRILLATION WITH RAPID VENTRICULAR RESPONSE - This appears to be a new onset. Paroxysmal. Rate controlled. Currently anticoagulated with Eliquis. Intermittently pacing. Continue current plan of care with beta- adama and Eliquis. 3. CORONARY ARTERY DISEASE - Stable at present. History of CABG 1998 with SVG to distal RCA, SVG to obtuse marginal and RICHTER to LAD. Cardiac biomarkers negative 2. Continue beta-adama, lipid-lowering agent and aspirin. When patient's status improves, he will need a complete workup and evaluation for his worsening cardiac status. 4. DIABETES - Sliding scale insulin. Management per attending. 5. HYPERTENSION - Clinically stable at present. Continue current plan of care at this time and will adjust as needed throughout his hospital stay. 6. HYPERLIPIDEMIA - Continue current plan of care with lipid lowering agent. 7. RESPIRATORY FAILURE - Management per pulmonary. Weaning protocol as tolerated. 8. RENAL INSUFFICIENCY - Improving. Creatinine today 1.8. Will continue to monitor creatinine closely as patient is being diuresed. Daily BMP. 9. ALCOHOLISM - Clinically stable. Continue current plan of care with as needed Ativan. 10. OBESITY - We will licensed mental health counselor patient on importance of weight loss once he is extubated from the ventilator. 11. PERICARDIAL EFFUSION - Small posterior pericardial effusion was noted on echocardiogram this admission. This is clinically stable at present. No clinical evidence of tamponade at this time. Hemodynamically stable. Continue current plan of care. 12. STATUS POST PACEMAKER - Clinically stable. Intermittently pacing. Further plan and addendum to follow per Dr. Huitron. Exam (Progress Note) - Constitutional Vitals: Period Temp Pulse Resp BP Sys/Willams Pulse Ox Last 24 Hr 97.5 F-99.1 F 54-70 10-28 106-167/52-89 93-100 Exam: General: Appears comfortable on the ventilator. Sedated. Obese. HEENT: PERRL, normocephalic, atraumatic. Mucous membranes moist. No jaundice noted. Conjunctiva moist and clear, sclerae anicteric Neck: No JVD/HJR, no thyromegaly or lymphadenopathy noted. No carotid bruit appreciated Cardiac: Irregular rhythm. No murmur rub or gallop. Lungs: Coarse ventilator lung sounds. Abdomen: Soft, bowel sounds normoactive. Nnondistended. Extremities: No clubbing, cyanosis noted. No edema noted. Upper extremity pulses 2+. Lower extremity pulses 2+. Capillary refill less than 3 seconds. Skin: No unusual lesions or rashes. No skin breakdown appreciated. Neuro: Unable to fully assess as patient is sedated on the ventilator. Result/EKG - Labs CBC & BMP: 10/07/16 04:22 10/07/16 04:22 Lab Results: I have reviewed the past 24 hour labs Labs: Laboratory Results - last 24 hr 10/06/16 10/06/16 10/06/16 13:00 15:34 17:55 WBC RBC Hgb Hct MCV MCH MCHC RDW Plt Count MPV Neut % (Auto) Lymph % (Auto) Dawson % (Auto) Eos % (Auto) Baso % (Auto) Neut # (Auto) Lymph # (Auto) Dawson # (Auto) Eos # (Auto) Baso # (Auto) Immature Gran % Nucleated RBC % Immature Gran # Nucleated RBCs # ABG pH ABG pCO2 ABG pO2 ABG HCO3 ABG Total CO2 ABG O2 Saturation ABG Base Excess FiO2 Sodium Potassium Chloride Carbon Dioxide Anion Gap BUN Creatinine GFR Calculation BUN/Creatinine Ratio Glucose POC Glucose 221 H 270 H 242 H Calculated Osmolality Calcium Phosphorus Magnesium Prealbumin 10/06/16 10/06/16 10/07/16 20:04 23:43 03:05 WBC RBC Hgb Hct MCV MCH MCHC RDW Plt Count MPV Neut % (Auto) Lymph % (Auto) Dawson % (Auto) Eos % (Auto) Baso % (Auto) Neut # (Auto) Lymph # (Auto) Dawson # (Auto) Eos # (Auto) Baso # (Auto) Immature Gran % Nucleated RBC % Immature Gran # Nucleated RBCs # ABG pH 7.456 H ABG pCO2 43.2 ABG pO2 107.6 H ABG HCO3 29.8 H ABG Total CO2 31.1 H ABG O2 Saturation 98.0 ABG Base Excess 5.3 H FiO2 60.00 Sodium Potassium Chloride Carbon Dioxide Anion Gap BUN Creatinine GFR Calculation BUN/Creatinine Ratio Glucose POC Glucose 262 H 241 H Calculated Osmolality Calcium Phosphorus Magnesium Prealbumin 10/07/16 10/07/16 10/07/16 04:22 04:22 04:22 WBC 4.7 RBC 3.85 Hgb 12.7 L Hct 35.4 L MCV 91.9 MCH 33 MCHC 35.9 RDW 14.9 Plt Count 133 MPV 12.2 H Neut % (Auto) 76.4 H Lymph % (Auto) 8.2 L Dawson % (Auto) 14.1 H Eos % (Auto) 0.0 Baso % (Auto) 0.0 Neut # (Auto) 3.6 Lymph # (Auto) 0.4 L Dawson # (Auto) 0.7 Eos # (Auto) 0.0 Baso # (Auto) 0.0 Immature Gran % 1.3 Nucleated RBC % 0.0 Immature Gran # 0.06 Nucleated RBCs # 0.00 ABG pH ABG pCO2 ABG pO2 ABG HCO3 ABG Total CO2 ABG O2 Saturation ABG Base Excess FiO2 Sodium 138 Potassium 4.3 Chloride 97 L Carbon Dioxide 29 Anion Gap 16.3 H BUN 89 H Creatinine 1.80 H GFR Calculation 51 BUN/Creatinine Ratio 49.00 H Glucose 226 H POC Glucose Calculated Osmolality 308.7 H Calcium 8.4 L Phosphorus 5.4 H Magnesium 3.4 H Prealbumin 41.8 H 10/07/16 10/07/16 05:57 08:35 WBC RBC Hgb Hct MCV MCH MCHC RDW Plt Count MPV Neut % (Auto) Lymph % (Auto) Dawson % (Auto) Eos % (Auto) Baso % (Auto) Neut # (Auto) Lymph # (Auto) Dawson # (Auto) Eos # (Auto) Baso # (Auto) Immature Gran % Nucleated RBC % Immature Gran # Nucleated RBCs # ABG pH ABG pCO2 ABG pO2 ABG HCO3 ABG Total CO2 ABG O2 Saturation ABG Base Excess FiO2 Sodium Potassium Chloride Carbon Dioxide Anion Gap BUN Creatinine GFR Calculation BUN/Creatinine Ratio Glucose POC Glucose 239 H 228 H Calculated Osmolality Calcium Phosphorus Magnesium Prealbumin
[2016-10-07 09:30] LABS: ABG Base Excess 4.6 MMOL/L (-2.5-2.5); ABG HCO3 28.5 MMOL/L (20-26); ABG PCO2 44.5 MM HG (35-48); ABG PH 7.431 (7.35-7.45); ABG TCO2 25.6 MMOL/L (23-27); Allen Test Positive; Pt O2 Delivery Device Ventilator
[2016-10-07] MEDS: INSULIN GLARGINE 100 UNIT/ML SUBCUT SCH (09:33)
[2016-10-07] MEDS: FUROSEMIDE 40 MG/4 ML VIAL IV SCH ×2 (09:33→15:05)
--- NOTE | 2016-10-07 09:38 | Hospitalist Progress Note ---
Assessment and Plan (1) Acute respiratory failure with hypoxia Status: Acute Assessment and plan: 1)acute respiratory failure due to ARDS- on steroids, antibiotics. PEEP decreased with ABG pending. Continue IV lasix BID this to address peripheral edema. His pulmonary edema is noncardiogenic. No fever, no WBC, no positive cultures. He has had 7 days of ceftriaxone- stop today. 2)afib- new pacer working well, not anticoagulated per cardiology 3)SUSAN-creatinine now 1.8- his baseline most likely. 4)nutrition- tolerating tube feeds 5)hyperglycemia- glucose remains high despite initiating and increasing lantus, SSI, and q3h SSI. Increase lantus to 60U daily, continue SSI at q3h. watch once steroids decreased 7)ppx- SCDs, pepcid Current Visit: Yes (2) Acute pulmonary edema Status: Acute Current Visit: Yes (3) Hyperlipidemia Status: Chronic Current Visit: Yes (4) Hypertension Status: Chronic Current Visit: Yes (5) Atrial fibrillation with rapid ventricular response Status: Acute Current Visit: Yes (6) Diabetes Status: Chronic Current Visit: Yes (7) Alcoholism Status: Chronic Current Visit: Yes (8) Obesity (BMI 30-39.9) Status: Chronic Current Visit: Yes (9) Acute renal insufficiency Status: Acute Current Visit: Yes (10) Pericardial effusion Status: Acute Current Visit: Yes Hospitalist: Subjective Interval history: Mr Sibley is stable on the vent. Dr Anaya was able to decrease his PEEP this morning. He did CPAP for 8 hours yesterday. He is intermittently agitated and combative. At the time I saw him he was calm and nodded his head and followed commands. Exam - Constitutional Vitals: Period Temp Pulse Resp BP Sys/Willams Pulse Ox Last 24 Hr 97.5 F-99.1 F 54-70 10-30 106-167/52-89 93-100 General appearance: no acute distress, over weight - Head Head exam: Present: normocephalic, atraumatic - Eye Eye exam: Present: EOMI. Absent: scleral icterus - Respiratory Respiratory exam: Present: clear to auscultation bilaterally - Cardiovascular Cardiovascular exam: Present: regular rate and rhythm - GI/Abdominal GI/Abdominal exam: Present: normal bowel sounds, soft. Absent: tenderness - Extremities Exam Extremities exam: Present: edema (improved) Results - Labs CBC & BMP: 10/07/16 04:22 10/07/16 04:22 Lab Results: I have reviewed the past 24 hour labs
[2016-10-07 09:39] LABS: Free T4 (Free Thyroxine) 0.69 NG/DL (0.76-1.46); Thyroid Stimulating Hormone 0.4 uIU/ml (0.358-3.74)
[2016-10-07] MEDS: HALOPERIDOL 5 MG/ML AMP IV SCH ×3 (09:55→21:45)
[2016-10-07] MEDS: ASPIRIN EC 81 MG TABLET PO SCH (09:55)
[2016-10-07] MEDS: POTASSIUM CHLORIDE 20 MEQ TABLET PO SCH (09:55)
[2016-10-07] MEDS: FAMOTIDINE 8 MG/ML 50 ML/BOTTLE PO SCH (09:55)
[2016-10-07] MEDS: APIXABAN 2.5 MG TABLET PO SCH ×2 (09:55→21:44)
[2016-10-07] MEDS: MAGNESIUM OXIDE 400 MG TABLET PO SCH ×2 (09:55→21:45)
[2016-10-07] MEDS: MULTIVITAMIN LIQUID (CENTRUM) 60 ML BOTTLE PER TUBE SCH (09:55)
[2016-10-07] MEDS: CARVEDILOL 6.25 MG TABLET PO SCH ×2 (09:55→21:45)
[2016-10-07] MEDS: methylPREDNISolone SOD SUC 40 MG/1 ML VIAL IV SCH ×2 (09:56→23:21)
[2016-10-07] MEDS: ASCORBIC ACID 500 MG TABLET PO SCH ×2 (09:56→21:49)
[2016-10-07] MEDS: LORazepam 2 MG/1 ML VIAL IV PRN (14:10)
[2016-10-08] MEDS: ALBUTEROL/IPRATROPIUM 3 ML NEB RESP TX SCH ×6 (02:32→23:06)
[2016-10-08] MEDS: INSULIN LISPRO 100 UNIT/ML SUBCUT SCH ×7 (03:04→21:51)
[2016-10-08] MEDS: HALOPERIDOL 5 MG/ML AMP IV SCH ×4 (03:04→18:47)
[2016-10-08 04:03] LABS: Allen Test Positive; Pt O2 Delivery Device Ventilator
[2016-10-08 04:07] LABS: ABG Base Excess 9.5 MMOL/L (-2.5-2.5); ABG HCO3 33.8 MMOL/L (20-26); ABG Oxygen Saturation 95.1 % (95-100); ABG PCO2 44.3 MM HG (35-48); ABG PO2 72.6 MM HG (80-95); ABG TCO2 35.1 MMOL/L (23-27)
[2016-10-08] MEDS: PROPOFOL 1,000 MG/100 ML BOTTLE IV SCH ×3 (05:27→19:49)
[2016-10-08 07:09] LABS: Basophils % 0.2 % (0.0-0.8); Hematocrit 39.5 VOL% (42.0-52.0); Hemoglobin 13.2 GM/DL (14.0-18.0); Immature Granulocytes % 0.9 %; Immature Granulocytes Absolute 0.05 #; Lymphocytes # 0.4 10*3/uL (1.4-4.0); Mean Corpuscular HGB Conc 33.4 GM/DL (32-36); Mean Corpuscular Hemoglobin 31 PG (27-34); Mean Corpuscular Volume 92.1 FL (87-102); Mean Platelet Volume 11.8 FL (9.6-12.0); Monocytes # 0.8 10*3/uL (0.11-0.8); Monocytes % 14.8 % (1.7-12.7); Neutrophils # 4.2 10*3/uL (1.4-7.4); Neutrophils % 76.1 % (38.7-73.9); Platelet Count 148 T/CUMM (130-400); Red Blood Count 4.29 MC/CUMM (3.8-5.5); Red Cell Distribution Width 14.8 % (9.3-17.3); White Blood Count 5.5 T/CUMM (4-12)
--- NOTE | 2016-10-08 07:24 | XRay Report ---
XR chest 1V portable Indication: Ventilator Comparison: Chest x-ray dated October 06, 2016 Technique: Single frontal view of the chest. Findings: Endotracheal tube stable in positioning. Continued cardiomegaly status post sternotomy. Cardiac pacemaker apparatus again noted. Considering change in technique, there has been no significant change in bilateral mid and lower lung atelectasis/consolidation as well as bilateral pleural fluid. Visualized osseous and surrounding soft tissue structures appear grossly unchanged. IMPRESSION: No significant interval change. PROCEDURE INTERPRETED AT [facility] DEPARTMENT OF RADIOLOGY Final Report Signed by: Dr Jack Ann
--- NOTE | 2016-10-08 07:32 | Pulmonology Progress Note ---
Pulmonary - PN: Subj Interval history: This 75-year-old man apparently has history of alcohol abuse. History of coronary artery disease congestive heart failure. Came in with respiratory failure is on the ventilator. The chest x-ray looks wet with increased interstitial markings and pleural effusions however his creatinine has gone up from about 1.2-2.4 and 1 day after trying to diurese him and his weight really has not fallen. Urine output is low. He has not had fever. He is on empiric antibiotics and may have had aspiration pneumonia. He still has a widened A-a O2 difference and may well have ARDS. 10/02/2016 PO2 now is in the 80s on 70% with 10 of PEEP. It does appear that the patient has ARDS. He did respond well to diuretics and his creatinine domingo. He has been given some IV fluids and his chest x-ray is actually better. When patient wakes up he is combative. Difficult to wean under the circumstances. We will start him on Haldol which hopefully will calm him down without suppressing his respirations. When we get ready to do CPAP trials, would like to change from propofol to Precedex along with Haldol. May be an element of alcohol withdrawal 10/03/2016 PO2 is 55 on 60% with 8 of PEEP. Will increase the PEEP back to 10. Difficult to do CPAP at this level. He also gets combative when he wakes up. Probably having some alcohol withdrawal. He was started on Haldol yesterday. I am going to try changing him from propofol to Precedex today. Weaning trials can be attempted while on Precedex. 10/04/16 PO2 is in the 60s on 60% and 10 of PEEP. Cannot really back off at this point. He has ARDS. He is starting to produce urine. He had his pacemaker changed out yesterday. There may be an element of alcohol abuse/withdrawal involved so going careful with holding sedation for weaning trials. 10/07/2016 ABGs improved. Will reduce PEEP. Will try to wean with less propofol. Give Haldol regularly. 10/08/2016 ABGs acceptable. Still requiring a good bit of oxygen and PEEP. He still is being combative when propofol is held. Will increase Haldol to 5 mg every 6 hours. Proceed with weaning. It does appear that this will take a while. May want to consider LTAC referral. Exam (Progress Note) - Constitutional Vitals: Period Temp Pulse Resp BP Sys/Willams Pulse Ox Last 24 Hr 97.2 F-98.6 F 60-75 15-30 124-161/62-85 89-97 Exam: Patient sedated, on the ventilator. Vital signs normal. Pupils react to light. Orotracheal tube in place. Neck is supple. Chest reveals some rales. He does have some jugular venous distention. Heart normal rate and rhythm no murmurs. Abdomen soft no masses. Bowel sounds present. Extremities no clubbing cyanosis or edema. Calves nontender. Results - Labs CBC & BMP: 10/08/16 06:43 10/07/16 04:22 Lab Results: I have reviewed the past 24 hour labs - Diagnostic Findings Procedure: Chest x-ray: image reviewed by me (Interstitial edema both lower lobes) Assessment and Plan (1) Acute respiratory failure with hypoxia Status: Acute Assessment and plan: ABGs acceptable. Still requiring relatively high PEEP. Certainly may be an element of ARDS. Not clear whether he had aspiration or not. 10/02/2016 ABGs do fit the criteria for ARDS. Still requiring fairly high PEEP. Will try to reduce PEEP and FiO2 to reach a point where we can start CPAP. 10/03/2016 PO2 55 on 60% with 8 of PEEP. Would like to get his PO2 in the 60s. Will increase PEEP to 10. 10/04/16 PO2 in the 60s on 60% with 10 of PEEP. Not ready to do CPAP as yet. Need to repeat down a little further. Patient has ARDS. 10/07/2016 PO2 is improved. Will reduce PEEP a little. If ABGs look okay on 60% and 8 of PEEP we may start CPAP later today. 10/08/2016 trying to get PEEP and FiO2 down to where we can proceed with CPAP. PO2 was 72 earlier this morning. We can accept a PO2 of around 60. Current Visit: Yes (2) Coronary artery disease Status: Chronic Assessment and plan: has normal LV ejection fraction. 10/02/2016 no active angina. 10/08/2016 no EKG changes. Current Visit: Yes Qualifiers: Coronary Disease-Associated Artery/Lesion type: bypass graft [place] vs. transplanted heart: [place] heart Associated angina: angina presence unspecified Qualified Code(s): I25.810 - Atherosclerosis of coronary artery bypass graft(s) without angina pectoris (3) Acute pulmonary edema Status: Acute Assessment and plan: Not clear whether this is cardiac or noncardiac. Normal LV ejection fraction and failure to respond to diuretics would point toward noncardiac. 10/02/2016 this appears to be primarily noncardiac (ARDS). Might take a couple of days to get his PEEP levels down to where we can do weaning trials. 10/03/2016 patient has ARDS. Probably not cardiogenic pulmonary edema. 10/04/16 he has responded to diuretics. Starting to make more urine. 10/07/2016 x-ray has improved somewhat. 10/08/2016 chest x-ray looks a little wet. Current Visit: Yes (4) Acute renal insufficiency Status: Acute Assessment and plan: Creatinine is risen to 2.4. We will cut back on diuretics. Agree with adding Solu-Cortef in patient with history of taking oral prednisone. 10/02/2016 creatinine remains at 2.4 today. Holding diuretics and giving Solu- Cortef with some IV fluids seems to be effective. Weight has not gone up. Chest x-ray actually looks better. 10/03/2016 creatinine stable at 2.4 negative 10/04/16 creatinine down to 1.8. Will diurese a little. Reduce IV fluids a little 10/07/2016 creatinine is around 1.8 still. 10/08/2016 need to recheck renal function. Current Visit: Yes (5) Diabetes Status: Chronic Assessment and plan: Glucoses are running in the 300s. We will increase sliding scale, also increased baseline insulin 10/04/16 glucoses in low 200s. 10/07/2016 increase insulin a little. 10/08/2016 glucose is a little better. Current Visit: Yes
[2016-10-08 07:40] LABS: Calcium 9.5 MG/DL (8.5-10.1); Magnesium 3.6 MG/DL (1.8-2.4); Osmolality,Calculated 320.8 MOS/KG (273-304); Potassium 4.1 MMOL/L (3.5-5.1)
--- NOTE | 2016-10-08 08:02 | Cardiology Progress Note ---
Assessment and Plan (1) Respiratory failure Status: Acute Assessment and plan: See plan of care listed below. Current Visit: Yes (2) Hyperlipidemia Status: Chronic Assessment and plan: See plan of care listed below. Current Visit: Yes (3) Hypertension Status: Chronic Assessment and plan: See plan of care listed below. Current Visit: Yes (4) Atrial fibrillation with rapid ventricular response Status: Acute Assessment and plan: See plan of care listed below. Current Visit: Yes (5) Acute pulmonary edema Status: Acute Assessment and plan: See plan of care listed below. Current Visit: Yes (6) Coronary artery disease Status: Chronic Assessment and plan: See plan of care listed below. Current Visit: Yes Qualifiers: Coronary Disease-Associated Artery/Lesion type: bypass graft [place] vs. transplanted heart: [place] heart Associated angina: angina presence unspecified Qualified Code(s): I25.810 - Atherosclerosis of coronary artery bypass graft(s) without angina pectoris (7) Diabetes Status: Chronic Assessment and plan: See plan of care listed below. Current Visit: Yes (8) Pacemaker Status: Acute Assessment and plan: See plan of care listed below. Current Visit: Yes (9) Pericardial effusion Status: Acute Assessment and plan: See plan of care listed below. Current Visit: Yes (10) Alcoholism Status: Chronic Assessment and plan: See plan of care listed below. Current Visit: Yes (11) Obesity (BMI 30-39.9) Status: Chronic Assessment and plan: See plan of care listed below. Current Visit: Yes (12) Acute renal insufficiency Status: Acute Assessment and plan: See plan of care listed below. Current Visit: Yes Cardiology - PN: Subj Interval history: Engineering Analyst: Dr. Ochoa Mr. Sibley is a 75 year old male with known history of coronary artery disease , routinely followed by Dr. Ochoa. Patient presented to [facility] early this morning with complaints of shortness of breath. Patient was then placed on the ventilator. Currently, he is sedated and ventilated in the CCU. Majority of information was obtained from electronic medical record and medical personnel. He has cardiac risk factors significant for advanced age, no history of coronary artery disease, family history of coronary artery disease, hyperlipidemia, hypertension, obesity and diabetes. Patient has past medical history of alcoholism, depression and palpitations. Patient underwent triple bypass in 1998 and [facility] with SVG to distal RCA, SVG to obtuse marginal and RICHTER to LAD. Patient has abdominal pacemaker, underwent pacer/generator change in 2006. Last interrogation was noted to be in 2013. Paste 1.4% of the time. Patient's most recent cardiac catheterization was performed in [address] Tegan Ochoa. At that time he was noted to have severe diffuse small vessel disease and a preserved ejection fraction of 55%. Patient presented to [facility] with shortness of breath. Chest x-ray was consistent with pulmonary edema. Subsequently, he required intubation and was then transferred to the cardiac care unit for close observation. Echocardiogram this admission revealed ejection fraction of 60% with mild LVH. Small posterior pericardial effusion noted. Mild MR and 3 chamber cardiac enlargement noted. October 03, 2016 patient underwent placement of permanent dual-chamber pacemaker. The new the transplanted pacemaker appears to be functioning well without interference from the old abdominal pacemaker. Dr. Ochoa recommends that we continue this until he gets off the respirator and then consider removal or not of his abdominal pacemaker. It will eventually . It was in near end of life in June. Of course now it is not being used it could have some battery capability for significant amount of time. Patient continues to be sedated and ventilated in the cardiac care unit. October UPDATE - Patient was seen and examined in the cardiac care unit. Patient is currently on CPAP trial, tolerating well. Sedation is being held. Patient is awake and alert and able to follow commands appropriately. Patient is currently in atrial fibrillation with a controlled ventricular response, heart rate in the 60s. Intermittently pacing. Left upper chest pacer pocket incision looks good. Creatinine is unchanged from yesterday at 1.8. According to patient's I's and O's, weight is down 2 pounds overnight. Patient is diuresing well with IV Lasix. Vital signs stable. Further plan and recommendations to follow per Dr. Huitron. Assessment/plan: 1. PULMONARY EDEMA - Echocardiogram revealed preserved ejection fraction, 60%. Chest x-ray was reviewed. Continue to diurese with Lasix, monitor creatinine closely. Daily weights. Strict I's and O's. 2. ATRIAL FIBRILLATION WITH RAPID VENTRICULAR RESPONSE - This appears to be a new onset. Paroxysmal. Rate controlled. Currently anticoagulated with Eliquis. Intermittently pacing. Continue current plan of care with beta- adama and Eliquis. 3. CORONARY ARTERY DISEASE - Stable at present. History of CABG 1998 with SVG to distal RCA, SVG to obtuse marginal and RICHTER to LAD. Cardiac biomarkers negative 2. Continue beta-adama, lipid-lowering agent and aspirin. When patient's status improves, he will need a complete workup and evaluation for his worsening cardiac status. 4. DIABETES - Sliding scale insulin. Management per attending. 5. HYPERTENSION - Clinically stable at present. Continue current plan of care at this time and will adjust as needed throughout his hospital stay. 6. HYPERLIPIDEMIA - Continue current plan of care with lipid lowering agent. 7. RESPIRATORY FAILURE - ARDS is suspected. Management per pulmonary. Weaning protocol as tolerated. 8. RENAL INSUFFICIENCY - Improving. Creatinine today 1.8. Will continue to monitor creatinine closely as patient is being diuresed. Daily BMP. 9. ALCOHOLISM - Clinically stable. Continue current plan of care with as needed Ativan. 10. OBESITY - We will pastoral counselor patient on importance of weight loss once he is extubated from the ventilator. 11. PERICARDIAL EFFUSION - Small posterior pericardial effusion was noted on echocardiogram this admission. This is clinically stable at present. No clinical evidence of tamponade at this time. Hemodynamically stable. Continue current plan of care. 12. STATUS POST PACEMAKER - Clinically stable. Intermittently pacing. Further plan and addendum to follow per Dr. Huitron. Exam (Progress Note) - Constitutional Vitals: Period Temp Pulse Resp BP Sys/Willams Pulse Ox Last 24 Hr 97.2 F-98.6 F 60-75 15-30 124-161/62-85 89-97 Exam: General: Appears comfortable on the ventilator. Currently on CPAP trial, sedation Hua patient is awake and alert and able to follow commands. Obese. HEENT: PERRL, normocephalic, atraumatic. Mucous membranes moist. No jaundice noted. Conjunctiva moist and clear, sclerae anicteric Neck: No JVD/HJR, no thyromegaly or lymphadenopathy noted. Cardiac: Irregular rhythm. No murmur rub or gallop. Chest wall: Pacer pocket looks good. Lungs: Coarse ventilator lung sounds. Abdomen: Soft, bowel sounds normoactive. Nnondistended. Extremities: No clubbing, cyanosis noted. No edema noted. Upper extremity pulses 2+. Lower extremity pulses 2+. Capillary refill less than 3 seconds. Skin: No unusual lesions or rashes. No skin breakdown appreciated. Neuro: Patient is currently on hold for CPAP trial, patient is awake and alert and able to follow all commands. Result/EKG - Labs CBC & BMP: 10/08/16 06:43 10/08/16 06:43 Lab Results: I have reviewed the past 24 hour labs Labs: Laboratory Results - last 24 hr 10/07/16 10/07/16 10/07/16 04:22 04:22 08:35 WBC RBC Hgb Hct MCV MCH MCHC RDW Plt Count MPV Neut % (Auto) Lymph % (Auto) [place] % (Auto) Eos % (Auto) Baso % (Auto) Neut # (Auto) Lymph # (Auto) [place] # (Auto) Eos # (Auto) Baso # (Auto) Immature Gran % Nucleated RBC % Immature Gran # Nucleated RBCs # ABG pH ABG pCO2 ABG pO2 ABG HCO3 ABG Total CO2 ABG O2 Saturation ABG Base Excess FiO2 Sodium 138 Potassium 4.3 Chloride 97 L Carbon Dioxide 29 Anion Gap 16.3 H BUN 89 H Creatinine 1.80 H GFR Calculation 51 BUN/Creatinine Ratio 49.00 H Glucose 226 H POC Glucose 228 H Calculated Osmolality 308.7 H Calcium 8.4 L Phosphorus 5.4 H Magnesium 3.4 H Prealbumin 41.8 H Free T4 TSH 3rd Generation 10/07/16 10/07/16 10/07/16 09:30 11:13 13:55 WBC RBC Hgb Hct MCV MCH MCHC RDW Plt Count MPV Neut % (Auto) Lymph % (Auto) [place] % (Auto) Eos % (Auto) Baso % (Auto) Neut # (Auto) Lymph # (Auto) [place] # (Auto) Eos # (Auto) Baso # (Auto) Immature Gran % Nucleated RBC % Immature Gran # Nucleated RBCs # ABG pH 7.431 ABG pCO2 44.5 ABG pO2 101.0 H ABG HCO3 28.5 H ABG Total CO2 25.6 ABG O2 Saturation 98.0 ABG Base Excess 4.6 H FiO2 60.00 Sodium Potassium Chloride Carbon Dioxide Anion Gap BUN Creatinine GFR Calculation BUN/Creatinine Ratio Glucose POC Glucose 223 H 186 H Calculated Osmolality Calcium Phosphorus Magnesium Prealbumin Free T4 TSH 3rd Generation 10/07/16 10/07/16 10/07/16 16:05 21:32 23:23 WBC RBC Hgb Hct MCV MCH MCHC RDW Plt Count MPV Neut % (Auto) Lymph % (Auto) [place] % (Auto) Eos % (Auto) Baso % (Auto) Neut # (Auto) Lymph # (Auto) [place] # (Auto) Eos # (Auto) Baso # (Auto) Immature Gran % Nucleated RBC % Immature Gran # Nucleated RBCs # ABG pH ABG pCO2 ABG pO2 ABG HCO3 ABG Total CO2 ABG O2 Saturation ABG Base Excess FiO2 Sodium Potassium Chloride Carbon Dioxide Anion Gap BUN Creatinine GFR Calculation BUN/Creatinine Ratio Glucose POC Glucose 176 H 161 H 180 H Calculated Osmolality Calcium Phosphorus Magnesium Prealbumin Free T4 TSH 3rd Generation 10/07/16 10/08/16 10/08/16 Unknown 02:59 03:45 WBC RBC Hgb Hct MCV MCH MCHC RDW Plt Count MPV Neut % (Auto) Lymph % (Auto) [place] % (Auto) Eos % (Auto) Baso % (Auto) Neut # (Auto) Lymph # (Auto) [place] # (Auto) Eos # (Auto) Baso # (Auto) Immature Gran % Nucleated RBC % Immature Gran # Nucleated RBCs # ABG pH 7.500 H ABG pCO2 44.3 ABG pO2 72.6 L ABG HCO3 33.8 H ABG Total CO2 35.1 H ABG O2 Saturation 95.1 ABG Base Excess 9.5 H FiO2 70.00 Sodium Potassium Chloride Carbon Dioxide Anion Gap BUN Creatinine GFR Calculation BUN/Creatinine Ratio Glucose POC Glucose 184 H Calculated Osmolality Calcium Phosphorus Magnesium Prealbumin Free T4 0.69 L TSH 3rd Generation 0.400 10/08/16 10/08/16 10/08/16 06:14 06:43 06:43 WBC 5.5 RBC 4.29 Hgb 13.2 L Hct 39.5 L MCV 92.1 MCH 31 MCHC 33.4 RDW 14.8 Plt Count 148 MPV 11.8 Neut % (Auto) 76.1 H Lymph % (Auto) 8.0 L [place] % (Auto) 14.8 H Eos % (Auto) 0.0 Baso % (Auto) 0.2 Neut # (Auto) 4.2 Lymph # (Auto) 0.4 L [place] # (Auto) 0.8 Eos # (Auto) 0.0 Baso # (Auto) 0.0 Immature Gran % 0.9 Nucleated RBC % 0.0 Immature Gran # 0.05 Nucleated RBCs # 0.00 ABG pH ABG pCO2 ABG pO2 ABG HCO3 ABG Total CO2 ABG O2 Saturation ABG Base Excess FiO2 Sodium 144 Potassium 4.1 Chloride 100 Carbon Dioxide 33 H Anion Gap 15.1 H BUN 96 H Creatinine 1.80 H GFR Calculation 50 BUN/Creatinine Ratio 53.00 H Glucose 181 H POC Glucose 164 H Calculated Osmolality 320.8 H Calcium 9.5 Phosphorus Magnesium 3.6 H Prealbumin Free T4 TSH 3rd Generation
[2016-10-08 08:18] LABS: Allen Test Positive; Pt O2 Delivery Device Ventilator
[2016-10-08 08:19] LABS: ABG Base Excess 7.3 MMOL/L (-2.5-2.5); ABG Oxygen Saturation 95.7 % (95-100); ABG PCO2 51.9 MM HG (35-48); ABG PH 7.419 (7.35-7.45); ABG PO2 83.5 MM HG (80-95); ABG TCO2 28.9 MMOL/L (23-27)
[2016-10-08] MEDS: LORazepam 2 MG/1 ML VIAL IV PRN ×2 (09:30→17:15)
[2016-10-08] MEDS: MULTIVITAMIN LIQUID (CENTRUM) 60 ML BOTTLE PER TUBE SCH (09:51)
[2016-10-08] MEDS: FUROSEMIDE 40 MG/4 ML VIAL IV SCH (09:51)
[2016-10-08] MEDS: ASPIRIN EC 81 MG TABLET PO SCH (09:51)
[2016-10-08] MEDS: INSULIN GLARGINE 100 UNIT/ML SUBCUT SCH (09:52)
[2016-10-08] MEDS: MAGNESIUM OXIDE 400 MG TABLET PO SCH ×2 (09:52→21:57)
[2016-10-08] MEDS: POTASSIUM CHLORIDE 20 MEQ TABLET PO SCH (09:52)
[2016-10-08] MEDS: APIXABAN 2.5 MG TABLET PO SCH ×2 (09:52→21:57)
[2016-10-08] MEDS: ASCORBIC ACID 500 MG TABLET PO SCH ×2 (09:52→21:56)
[2016-10-08] MEDS: CARVEDILOL 6.25 MG TABLET PO SCH ×2 (09:52→21:57)
[2016-10-08] MEDS: FAMOTIDINE 8 MG/ML 50 ML/BOTTLE PO SCH (09:52)
[2016-10-08] MEDS: methylPREDNISolone SOD SUC 40 MG/1 ML VIAL IV SCH ×2 (11:11→21:57)
--- NOTE | 2016-10-08 12:23 | Hospitalist Progress Note ---
Hospitalist: Subjective Interval history: Pt is reportedly less combative. Moves all extremities. Intubated on the vent. No fever. Exam - Constitutional Vitals: Period Temp Pulse Resp BP Sys/Willams Pulse Ox Last 24 Hr 97.2 F-98.6 F 60-74 15-28 124-163/62-85 89-96 Exam: GEN: Sedated and intubated, NAD HEENT: PERRL, sclera clear, ETT in place NECK: no LAD, no JVD, trachea midline CV: RRR no M LUNGS: CTAB nonlabored ABD; soft, NT, ND, +BS EXT: Warm no c/c/e NEURO: moves all extremities to tactile stimulation Results - Labs CBC & BMP: 10/08/16 06:43 10/08/16 06:43 - Impressions 1) Acute respiratory failure with hypoxia Status: Acute Assessment and plan: 1)Acute respiratory failure due to ARDS and +/- CHF exacerbation- on low dose IV q12h and Rocephin dc'd 10/07 after 7 days of treatment - Vent management per Pulm - Probably can change IV lasix to per FT as peripheral edema is resolved and BUN is 90 (also on steroids) - No fever, no WBC, no positive cultures. 2)Acute on chronic diastolic CHF (dilated) with perserved EF - better compensated on exam - Change lasix to po. Watch I and Os. Cardiology following 3)Afib-s/p new pacer working well, on Eliquis per cardiology 4)Acute renal failure on suspected CKD stage 3-creatinine stable around 1.8- was 1.3 on admission 5)Nutrition- Cont tube feeds per nutrition recs 6)Hyperglycemia- likely steroid induced in a patient with known DM. BS better controlled. - Cont Lantus daily and continue SSI at q3h. - watch once steroids decreased - Check HgbA1c 7) Hyperlipidemia Status: Chronic Current Visit: Yes 8) Hypertension Status: Chronic Current Visit: Yes 9) Alcoholism Status: Chronic Current Visit: Yes 10) Obesity (BMI 30-39.9) Status: Chronic Current Visit: Yes 11) Pericardial effusion Status: Acute Current Visit: Yes - Mgt per cardiology. Last ECHO 10/01 12)ppx- SCDs/ Eliquis, pepcid Pt is critically ill on the vent. D/W nurse and d/w daughter Lamar Bonilla ) and updated. All questions answered. It is taking me 41 minutes to evaluate this patient
[2016-10-08] MEDS: FUROSEMIDE 40 MG/5 ML UDCUP PO SCH (15:47)
[2016-10-08] MEDS ORDERED: LORazepam 2 MG/1 ML VIAL IV PRN (17:32)
[2016-10-09] MEDS: INSULIN LISPRO 100 UNIT/ML SUBCUT SCH ×5 (00:33→11:54)
[2016-10-09] MEDS: HALOPERIDOL 5 MG/ML AMP IV SCH ×3 (01:44→13:13)
[2016-10-09] MEDS: ALBUTEROL/IPRATROPIUM 3 ML NEB RESP TX SCH ×3 (03:05→10:45)
[2016-10-09 05:14] LABS: Basophils % 0.2 % (0.0-0.8); Hematocrit 41.9 VOL% (42.0-52.0); Hemoglobin 13.5 GM/DL (14.0-18.0); Immature Granulocytes % 1.2 %; Immature Granulocytes Absolute 0.07 #; Lymphocytes # 0.4 10*3/uL (1.4-4.0); Lymphocytes % 5.9 % (21.2-54.2); Mean Corpuscular HGB Conc 32.2 GM/DL (32-36); Mean Corpuscular Hemoglobin 30 PG (27-34); Mean Corpuscular Volume 93.3 FL (87-102); Mean Platelet Volume 12.1 FL (9.6-12.0); Monocytes # 0.6 10*3/uL (0.11-0.8); Monocytes % 9.7 % (1.7-12.7); Platelet Count 158 T/CUMM (130-400); Red Blood Count 4.49 MC/CUMM (3.8-5.5); Red Cell Distribution Width 14.7 % (9.3-17.3)
[2016-10-09] MEDS: PROPOFOL 1,000 MG/100 ML BOTTLE IV SCH ×2 (05:49→13:21)
[2016-10-09 05:51] LABS: Calcium 9.1 MG/DL (8.5-10.1); Magnesium 3.4 MG/DL (1.8-2.4); Osmolality,Calculated 330.6 MOS/KG (273-304); Potassium 4.3 MMOL/L (3.5-5.1)
--- NOTE | 2016-10-09 07:33 | XRay Report ---
Referring Physician: Sly Anaya MD Exam: XR chest 1V portable Date: October 09, 2016 at 3:21 AM Reason: Ventilator Comparison: Chest one view portable October 08, 2016 Findings: An endotracheal tube, feeding tube and cardiac pacing device are again in place. The distal tip at the endotracheal tube is partially obscured, but it appears to be located at the level of the aortic arch. The cardiac silhouette is again enlarged, and the patient is status post sternotomy. There are opacities within the right mid and lower lung zones and within the left lower lung zone. This could represent pulmonary edema, pneumonia and/or atelectasis. No pneumothorax is identified, but there is moderate right pleural fluid and mild left pleural fluid. The osseous structures appear stable. Impression: There is slight decreased opacification/pleural fluid at the left lower lung zone. The study is otherwise similar to before. PROCEDURE INTERPRETED AT [facility] DEPARTMENT OF RADIOLOGY Final Report Signed by: Dr. Fannie Sykes
--- NOTE | 2016-10-09 07:48 | Hospitalist Progress Note ---
Hospitalist: Subjective Interval history: No new significant overnight events noted/reported. Weaning on vent. No fever. Tolerating tubefeeds. Exam - Constitutional Vitals: Period Temp Pulse Resp BP Sys/Willams Pulse Ox Last 24 Hr 97.4 F-98.4 F 60-73 12-28 118-163/58-85 90-96 Exam: GEN: Sedated and intubated, NAD HEENT: sclera clear, ETT in place NECK: no LAD, no JVD, trachea midline CV: RRR no M LUNGS: CTAB nonlabored, diminished at the bases ABD; soft, NT, ND, +BS EXT: Warm no c/c/e NEURO: moves all extremities to tactile stimulation Results - Labs CBC & BMP: 10/09/16 04:35 10/09/16 04:35 - Impressions 1) Acute respiratory failure with hypoxia Status: Acute Assessment and plan: 1)Acute respiratory failure due to ARDS and +/- CHF exacerbation- on low dose IV q12h and Rocephin dc'd 10/07 after 7 days of treatment - Vent management per Pulm - On Lasix per FT as peripheral edema is resolved and BUN is 100 (also on steroids) - No fever, no WBC, no positive cultures. 2)Acute on chronic diastolic CHF (dilated) with preserved EF - better compensated on exam - Lasix per FT. Watch I and Os. Cardiology following 3) Afib-s/p new pacer working well, on Eliquis per cardiology 4) Acute renal failure on suspected CKD stage 3-creatinine stable around 1.8- 1.9 (was 1.3 on admission) -BUN >100 and Na 146. 5) Nutrition- Cont tube feeds per nutrition recs but ask to increase free water. BUN >100 and Na 146. 6) DM2 uncontrolled with HgbA1c 11.4- recent hyperglycemia likely steroid induced. BS better controlled. - Cont Lantus daily and continue SSI at q3h. - watch once steroids decreased 7) Hyperlipidemia Status: Chronic Current Visit: Yes 8) Hypertension Status: Chronic Current Visit: Yes 9) Alcoholism Status: Chronic Current Visit: Yes 10) Obesity (BMI 30-39.9) Status: Chronic Current Visit: Yes 11) Pericardial effusion Status: Acute Current Visit: Yes - Mgt per cardiology. Last ECHO 10/01 12)ppx- SCDs/ Eliquis, pepcid Pt is critically ill on the vent. D/W nurse today and updated daughter Lamar Bonilla ([phone]) 10/08. All questions answered. It is taking me 36 minutes to evaluate this patient - Diagnostic Findings Procedure: X-ray: other (increased aeration at LL base)
--- NOTE | 2016-10-09 07:53 | Pulmonology Progress Note ---
Pulmonary - PN: Subj Interval history: This 75-year-old man apparently has history of alcohol abuse. History of coronary artery disease congestive heart failure. Came in with respiratory failure is on the ventilator. The chest x-ray looks wet with increased interstitial markings and pleural effusions however his creatinine has gone up from about 1.2-2.4 and 1 day after trying to diurese him and his weight really has not fallen. Urine output is low. He has not had fever. He is on empiric antibiotics and may have had aspiration pneumonia. He still has a widened A-a O2 difference and may well have ARDS. 10/02/2016 PO2 now is in the 80s on 70% with 10 of PEEP. It does appear that the patient has ARDS. He did respond well to diuretics and his creatinine [place]. He has been given some IV fluids and his chest x-ray is actually better. When patient wakes up he is combative. Difficult to wean under the circumstances. We will start him on Haldol which hopefully will calm him down without suppressing his respirations. When we get ready to do CPAP trials, would like to change from propofol to Precedex along with Haldol. May be an element of alcohol withdrawal 10/03/2016 PO2 is 55 on 60% with 8 of PEEP. Will increase the PEEP back to 10. Difficult to do CPAP at this level. He also gets combative when he wakes up. Probably having some alcohol withdrawal. He was started on Haldol yesterday. I am going to try changing him from propofol to Precedex today. Weaning trials can be attempted while on Precedex. 10/04/16 PO2 is in the 60s on 60% and 10 of PEEP. Cannot really back off at this point. He has ARDS. He is starting to produce urine. He had his pacemaker changed out yesterday. There may be an element of alcohol abuse/withdrawal involved so going careful with holding sedation for weaning trials. 10/07/2016 ABGs improved. Will reduce PEEP. Will try to wean with less propofol. Give Haldol regularly. 10/08/2016 ABGs acceptable. Still requiring a good bit of oxygen and PEEP. He still is being combative when propofol is held. Will increase Haldol to 5 mg every 6 hours. Proceed with weaning. It does appear that this will take a while. May want to consider LTAC referral. 10/09/2016 ABGs pending. Patient has been much more comfortable with CPAP since we went up on his Haldol. Patient being evaluated for LTAC transfer. Likely will require tracheostomy in a few days if we do not make further progress with weaning. Exam (Progress Note) - Constitutional Vitals: Period Temp Pulse Resp BP Sys/Willams Pulse Ox Last 24 Hr 97.4 F-98.4 F 60-73 12-28 118-163/58-85 90-96 Exam: Patient more responsive, on the ventilator. Squeezes fingers on command. Vital signs normal. Pupils react to light. Orotracheal tube in place. Neck is supple. Chest reveals some rales. He does have some jugular venous distention. Heart normal rate and rhythm no murmurs. Abdomen soft no masses. Bowel sounds present. Extremities no clubbing cyanosis or edema. Calves nontender. Results - Labs CBC & BMP: 10/09/16 04:35 10/09/16 04:35 Lab Results: I have reviewed the past 24 hour labs - Diagnostic Findings Procedure: Chest x-ray: image reviewed by me (Right lower lobe infiltrate and right pleural effusion.) Assessment and Plan (1) Acute respiratory failure with hypoxia Status: Acute Assessment and plan: ABGs acceptable. Still requiring relatively high PEEP. Certainly may be an element of ARDS. Not clear whether he had aspiration or not. 10/02/2016 ABGs do fit the criteria for ARDS. Still requiring fairly high PEEP. Will try to reduce PEEP and FiO2 to reach a point where we can start CPAP. 10/03/2016 PO2 55 on 60% with 8 of PEEP. Would like to get his PO2 in the 60s. Will increase PEEP to 10. 10/04/16 PO2 in the 60s on 60% with 10 of PEEP. Not ready to do CPAP as yet. Need to repeat down a little further. Patient has ARDS. 10/07/2016 PO2 is improved. Will reduce PEEP a little. If ABGs look okay on 60% and 8 of PEEP we may start CPAP later today. 10/08/2016 trying to get PEEP and FiO2 down to where we can proceed with CPAP. PO2 was 72 earlier this morning. We can accept a PO2 of around 60. 10/09/2016 ABGs are pending. O2 sat 96% on 60% oxygen. Continuing with weaning trials. Current Visit: Yes (2) Coronary artery disease Status: Chronic Assessment and plan: has normal LV ejection fraction. 10/02/2016 no active angina. 10/08/2016 no EKG changes. Current Visit: Yes Qualifiers: Coronary Disease-Associated Artery/Lesion type: bypass graft [place] vs. transplanted heart: [place] heart Associated angina: angina presence unspecified Qualified Code(s): I25.810 - Atherosclerosis of coronary artery bypass graft(s) without angina pectoris (3) Acute pulmonary edema Status: Acute Assessment and plan: Not clear whether this is cardiac or noncardiac. Normal LV ejection fraction and failure to respond to diuretics would point toward noncardiac. 10/02/2016 this appears to be primarily noncardiac (ARDS). Might take a couple of days to get his PEEP levels down to where we can do weaning trials. 10/03/2016 patient has ARDS. Probably not cardiogenic pulmonary edema. 10/04/16 he has responded to diuretics. Starting to make more urine. 10/07/2016 x-ray has improved somewhat. 10/08/2016 chest x-ray looks a little wet. 10/09/2016 diuresing a little. Has ARDS. Current Visit: Yes (4) Acute renal insufficiency Status: Acute Assessment and plan: Creatinine is risen to 2.4. We will cut back on diuretics. Agree with adding Solu-Cortef in patient with history of taking oral prednisone. 10/02/2016 creatinine remains at 2.4 today. Holding diuretics and giving Solu- Cortef with some IV fluids seems to be effective. Weight has not gone up. Chest x-ray actually looks better. 10/03/2016 creatinine stable at 2.4 negative 10/04/16 creatinine down to 1.8. Will diurese a little. Reduce IV fluids a little 10/07/2016 creatinine is around 1.8 still. 10/08/2016 need to recheck renal function. 10/09/2016 renal function stable. Creatinine 1.9 with prerenal azotemia, BUN up to 104. Will reduce Solu-Cortef. Current Visit: Yes (5) Diabetes Status: Chronic Assessment and plan: Glucoses are running in the 300s. We will increase sliding scale, also increased baseline insulin 10/04/16 glucoses in low 200s. 10/07/2016 increase insulin a little. 10/08/2016 glucose is a little better. 10/09/2016 glucoses fairly well controlled. Current Visit: Yes
[2016-10-09] MEDS ORDERED: methylPREDNISolone SOD SUC 40 MG/1 ML VIAL IV SCH (08:00)
[2016-10-09 08:19] LABS: ABG Base Excess 11.6 MMOL/L (-2.5-2.5); ABG HCO3 36.9 MMOL/L (20-26); ABG PCO2 50.1 MM HG (35-48); ABG PH 7.485 (7.35-7.45); ABG PO2 74.3 MM HG (80-95); ABG TCO2 38.4 MMOL/L (23-27); Allen Test Positive; Pt O2 Delivery Device Ventilator
[2016-10-09] MEDS: INSULIN GLARGINE 100 UNIT/ML SUBCUT SCH (09:43)
[2016-10-09] MEDS: APIXABAN 2.5 MG TABLET PO SCH (09:51)
[2016-10-09] MEDS: POTASSIUM CHLORIDE 20 MEQ TABLET PO SCH (09:52)
[2016-10-09] MEDS: ASCORBIC ACID 500 MG TABLET PO SCH (09:52)
[2016-10-09] MEDS: ASPIRIN EC 81 MG TABLET PO SCH (09:52)
[2016-10-09] MEDS: CARVEDILOL 6.25 MG TABLET PO SCH (09:52)
[2016-10-09] MEDS: FAMOTIDINE 8 MG/ML 50 ML/BOTTLE PO SCH (09:53)
[2016-10-09] MEDS: MAGNESIUM OXIDE 400 MG TABLET PO SCH (09:53)
[2016-10-09] MEDS: FUROSEMIDE 40 MG/5 ML UDCUP PO SCH (10:15)
--- NOTE | 2016-10-09 11:20 | Cardiology Progress Note ---
Assessment and Plan (1) Respiratory failure Status: Acute Assessment and plan: See plan of care listed below. Current Visit: Yes (2) Hyperlipidemia Status: Chronic Assessment and plan: See plan of care listed below. Current Visit: Yes (3) Hypertension Status: Chronic Assessment and plan: See plan of care listed below. Current Visit: Yes (4) Atrial fibrillation with rapid ventricular response Status: Acute Assessment and plan: See plan of care listed below. Current Visit: Yes (5) Acute pulmonary edema Status: Acute Assessment and plan: See plan of care listed below. Current Visit: Yes (6) Coronary artery disease Status: Chronic Assessment and plan: See plan of care listed below. Current Visit: Yes Qualifiers: Coronary Disease-Associated Artery/Lesion type: bypass graft [place] vs. transplanted heart: knik heart Associated angina: angina presence unspecified Qualified Code(s): I25.810 - Atherosclerosis of coronary artery bypass graft(s) without angina pectoris (7) Diabetes Status: Chronic Assessment and plan: See plan of care listed below. Current Visit: Yes (8) Pacemaker Status: Acute Assessment and plan: See plan of care listed below. Current Visit: Yes (9) Pericardial effusion Status: Acute Assessment and plan: See plan of care listed below. Current Visit: Yes (10) Alcoholism Status: Chronic Assessment and plan: See plan of care listed below. Current Visit: Yes (11) Obesity (BMI 30-39.9) Status: Chronic Assessment and plan: See plan of care listed below. Current Visit: Yes (12) Acute renal insufficiency Status: Acute Assessment and plan: See plan of care listed below. Current Visit: Yes Cardiology - PN: Subj Interval history: [employer] Manager: Dr. Ochoa Mr. Sibley is a 75 year old male with known history of coronary artery disease , routinely followed by Dr. Ochoa. Patient presented to [facility] early this morning with complaints of shortness of breath. Patient was then placed on the ventilator. Currently, he is sedated and ventilated in the CCU. Majority of information was obtained from electronic medical record and medical personnel. He has cardiac risk factors significant for advanced age, no history of coronary artery disease, family history of coronary artery disease, hyperlipidemia, hypertension, obesity and diabetes. Patient has past medical history of alcoholism, depression and palpitations. Patient underwent triple bypass in 1998 and [facility] with SVG to distal RCA, SVG to obtuse marginal and RICHTER to LAD. Patient has abdominal pacemaker, underwent pacer/generator change in 2006. Last interrogation was noted to be in 2013. Paste 1.4% of the time. Patient's most recent cardiac catheterization was performed in [address] Tegan Ochoa. At that time he was noted to have severe diffuse small vessel disease and a preserved ejection fraction of 55%. Patient presented to [facility] with shortness of breath. Chest x-ray was consistent with pulmonary edema. Subsequently, he required intubation and was then transferred to the cardiac care unit for close observation. Echocardiogram this admission revealed ejection fraction of 60% with mild LVH. Small posterior pericardial effusion noted. Mild MR and 3 chamber cardiac enlargement noted. October 03, 2016 patient underwent placement of permanent dual-chamber pacemaker. The new the transplanted pacemaker appears to be functioning well without interference from the old abdominal pacemaker. Dr. Ochoa recommends that we continue this until he gets off the respirator and then consider removal or not of his abdominal pacemaker. It will eventually . It was in near end of life in June. Of course now it is not being used it could have some battery capability for significant amount of time. Patient continues to be sedated and ventilated in the cardiac care unit. October UPDATE - Patient was seen and examined in the cardiac care unit. Patient remains sedated and ventilated. Nurse is at bedside, she reports that he is able to respond appropriately and follow commands. Patient is currently in atrial fibrillation with a controlled ventricular response, heart rate in the 60s. Intermittently pacing. Left upper chest pacer pocket incision looks good. Creatinine this morning is 1.9. According to patient's I' s and O's, weight is unchanged overnight. Patient is diuresing well with IV Lasix. Blood pressure suboptimally controlled, beta-adama dose has been increased. Vital signs are stable. Patient is being evaluated for LTAC transfer. Likely will require tracheostomy. Further plan and recommendations to follow per Dr. Huitron. Assessment/plan: 1. PULMONARY EDEMA - ARDS in suspected. Echocardiogram revealed preserved ejection fraction, 60%. Chest x-ray was reviewed. Continue to diurese with Lasix, monitor creatinine closely. Daily weights. Strict I's and O's. 2. ATRIAL FIBRILLATION WITH RAPID VENTRICULAR RESPONSE - This appears to be a new onset. Paroxysmal. Rate controlled. Currently anticoagulated with Eliquis. Intermittently pacing. Continue current plan of care with beta- adama and Eliquis. 3. CORONARY ARTERY DISEASE - Stable at present. History of CABG 1998 with SVG to distal RCA, SVG to obtuse marginal and RICHTER to LAD. Cardiac biomarkers negative 2. Continue beta-adama, lipid-lowering agent and aspirin. When patient's status improves, he will need a complete workup and evaluation for his worsening cardiac status. 4. DIABETES - Sliding scale insulin. Management per attending. 5. HYPERTENSION - Suboptimally controlled today. I will increase patient's beta-adama dose. Will further adjust as needed throughout his hospital stay. 6. HYPERLIPIDEMIA - Continue current plan of care with lipid lowering agent. 7. RESPIRATORY FAILURE - ARDS is suspected. Patient is a evaluated for LTAC transfer. Likely will require tracheostomy. Continue weaning per protocol. Management per pulmonary. 8. RENAL INSUFFICIENCY - Creatinine today 1.9. Will continue to monitor creatinine closely as patient is being diuresed. Daily BMP. 9. ALCOHOLISM - Clinically stable. Continue current plan of care with as needed Ativan. 10. OBESITY - We will breastfeeding peer counselor patient on importance of weight loss once he is extubated from the ventilator. 11. PERICARDIAL EFFUSION - Small posterior pericardial effusion was noted on echocardiogram this admission. This is clinically stable at present. No clinical evidence of tamponade at this time. Hemodynamically stable. Continue current plan of care. 12. STATUS POST PACEMAKER - Clinically stable. Intermittently pacing. Further plan and addendum to follow per Dr. Huitron. Exam (Progress Note) - Constitutional Vitals: Period Temp Pulse Resp BP Sys/Willams Pulse Ox Last 24 Hr 97.4 F-98.4 F 60-80 12-33 118-164/58-83 90-96 Exam: General: Appears comfortable on the ventilator. Sedated. Obese. HEENT: PERRL, normocephalic, atraumatic. Mucous membranes moist. No jaundice noted. Conjunctiva moist and clear, sclerae anicteric Neck: No JVD/HJR, no thyromegaly or lymphadenopathy noted. Cardiac: Irregular rhythm. No murmur rub or gallop. Chest wall: Pacer pocket looks good. Lungs: Coarse ventilator lung sounds. Abdomen: Soft, bowel sounds normoactive. Nnondistended. Extremities: No clubbing, cyanosis noted. No edema noted. Upper extremity pulses 2+. Lower extremity pulses 2+. Capillary refill less than 3 seconds. Skin: No unusual lesions or rashes. No skin breakdown appreciated. Neuro: Unable to fully assess as patient is sedated on the ventilator. Result/EKG - Labs CBC & BMP: 10/09/16 04:35 10/09/16 04:35 Lab Results: I have reviewed the past 24 hour labs Labs: Laboratory Results - last 24 hr 10/08/16 10/08/16 10/08/16 06:39 11:14 14:38 WBC RBC Hgb Hct MCV MCH MCHC RDW Plt Count MPV Neut % (Auto) Lymph % (Auto) [place] % (Auto) Eos % (Auto) Baso % (Auto) Neut # (Auto) Lymph # (Auto) [place] # (Auto) Eos # (Auto) Baso # (Auto) Immature Gran % Nucleated RBC % Immature Gran # Nucleated RBCs # ABG pH ABG pCO2 ABG pO2 ABG HCO3 ABG Total CO2 ABG O2 Saturation ABG Base Excess FiO2 Sodium Potassium Chloride Carbon Dioxide Anion Gap BUN Creatinine GFR Calculation BUN/Creatinine Ratio Glucose POC Glucose 213 H 214 H Hemoglobin A1c 11.4 H Calculated Osmolality Calcium Magnesium 10/08/16 10/08/16 10/09/16 17:28 21:25 00:27 WBC RBC Hgb Hct MCV MCH MCHC RDW Plt Count MPV Neut % (Auto) Lymph % (Auto) [place] % (Auto) Eos % (Auto) Baso % (Auto) Neut # (Auto) Lymph # (Auto) [place] # (Auto) Eos # (Auto) Baso # (Auto) Immature Gran % Nucleated RBC % Immature Gran # Nucleated RBCs # ABG pH ABG pCO2 ABG pO2 ABG HCO3 ABG Total CO2 ABG O2 Saturation ABG Base Excess FiO2 Sodium Potassium Chloride Carbon Dioxide Anion Gap BUN Creatinine GFR Calculation BUN/Creatinine Ratio Glucose POC Glucose 182 H 132 H 148 H Hemoglobin A1c Calculated Osmolality Calcium Magnesium 10/09/16 10/09/16 10/09/16 03:18 04:35 04:35 WBC 6.0 RBC 4.49 Hgb 13.5 L Hct 41.9 L MCV 93.3 MCH 30 MCHC 32.2 RDW 14.7 Plt Count 158 MPV 12.1 H Neut % (Auto) 83.0 H Lymph % (Auto) 5.9 L [place] % (Auto) 9.7 Eos % (Auto) 0.0 Baso % (Auto) 0.2 Neut # (Auto) 5.0 Lymph # (Auto) 0.4 L [place] # (Auto) 0.6 Eos # (Auto) 0.0 Baso # (Auto) 0.0 Immature Gran % 1.2 Nucleated RBC % 0.0 Immature Gran # 0.07 Nucleated RBCs # 0.00 ABG pH ABG pCO2 ABG pO2 ABG HCO3 ABG Total CO2 ABG O2 Saturation ABG Base Excess FiO2 Sodium 146 H Potassium 4.3 Chloride 101 Carbon Dioxide 36 H Anion Gap 13.3 BUN 104 H Creatinine 1.90 H GFR Calculation 47 BUN/Creatinine Ratio 54.00 H Glucose 241 H POC Glucose 211 H Hemoglobin A1c Calculated Osmolality 330.6 H Calcium 9.1 Magnesium 3.4 H 10/09/16 10/09/16 10/09/16 06:07 08:10 09:33 WBC RBC Hgb Hct MCV MCH MCHC RDW Plt Count MPV Neut % (Auto) Lymph % (Auto) [place] % (Auto) Eos % (Auto) Baso % (Auto) Neut # (Auto) Lymph # (Auto) [place] # (Auto) Eos # (Auto) Baso # (Auto) Immature Gran % Nucleated RBC % Immature Gran # Nucleated RBCs # ABG pH 7.485 H ABG pCO2 50.1 H ABG pO2 74.3 L ABG HCO3 36.9 H ABG Total CO2 38.4 H ABG O2 Saturation 95.0 ABG Base Excess 11.6 H FiO2 60.00 Sodium Potassium Chloride Carbon Dioxide Anion Gap BUN Creatinine GFR Calculation BUN/Creatinine Ratio Glucose POC Glucose 190 H 180 H Hemoglobin A1c Calculated Osmolality Calcium Magnesium
[2016-10-09] MEDS ORDERED: CARVEDILOL 12.5 MG TABLET PO SCH (11:24)
--- NOTE | 2016-10-09 11:39 | Discharge Summary ---
Hospital Course - Hospital Course Hospital Course: Patient is a 75-year-old male with a history of alcoholism, diabetes mellitus type 2, atrial fibrillation and chronic kidney disease stage III who presented to the hospital 09/30 with a chief complaint of shortness of breath and weakness 1 day. He was found to have acute hypoxic respiratory failure due to ARDS and congestive heart failure exacerbation. He was intubated due to respiratory distress and pulmonology was consulted for vent management. He also was thought to possibly have pneumonia so he was started on IV Rocephin, IV steroids, bronchodilators. Patient's antibiotics were discontinued on 2016 after 7 days of treatment. He was treated for IV Lasix for acute on chronic diastolic/dilated congestive heart failure. Echo was done and showed an EF of greater than 55% but dilated chambers. IV Lasix was able to be converted to oral. Blood and sputum cultures showed no growth. According to cardiology, Dr. cOhoa, "October 03, 2016 patient underwent placement of permanent dual-chamber pacemaker. The new the transplanted pacemaker appears to be functioning well without interference from the old abdominal pacemaker.... and recommends that we continue this until he gets off the respirator and then consider removal or not of his abdominal pacemaker. It will eventually . It was in near end of life in June. Of course now it is not being used it could have some battery capability for significant amount of time." Once extubated, this can be addressed. He was also noted to have a pericardial effusion and a repeat echo showed stability of this. He was treated with Eliquis as anticoagulation for his history of atrial fibrillation. Patient developed acute renal failure on suspected chronic kidney disease stage III, of which creatinine peaked around 2.4. It has improved to 1.8-1.9 ( baseline was around 1.3). Home BPH medications were held since boyer was placed. Patient was treated with tube feeds for nutrition during hospitalization and nutrition was consulted for recommendations for free water replacement. For uncontrolled diabetes, hemoglobin A1c was noted to be 11.4. He was noted to have some hyperglycemia related to steroid use and scheduled insulin was instituted with better control of his blood sugars. Due to slow weaning LTAC was consulted. Once evaluated, bed was available and family agreed, patient was transferred to LTAC for vent weaning, therapy, nutritional support, monitoring of labs. - Time spent with patient Time with patient DS: Greater than 30 minutes (44 minutes) Diagnosis - Discharge Diagnosis (1) Acute pulmonary edema Status: Resolved (2) Acute renal insufficiency Status: Acute (3) Acute respiratory failure with hypoxia Status: Acute (4) Atrial fibrillation Status: Chronic (5) Bronchospasm Status: Acute (6) Pacemaker Status: Acute (7) Pericardial effusion Status: Acute (8) Alcoholism Status: Chronic (9) Bradycardia Status: Chronic (10) Coronary artery disease Status: Chronic (11) Diabetes Status: Chronic (12) Hyperlipidemia Status: Chronic (13) Hypertension Status: Chronic (14) Obesity (BMI 30-39.9) Status: Chronic Specialty Discharge - Follow Up or Referrals Follow up with: Tegan Ochoa DO [Physician] - 1 Month (After discharge from LTAC) md, pcp [Other] - 2 Weeks (After discharge from LTAC) Discharge Plan - Discharge Data Disposition: Disch/Xfer to [facility] Condition at Discharge: Stable Discharge Diet: other (Tube feeds per nutrition recommendations with frequent water replacement) Activity: as per physical therapy - Discharge Medications New Albuterol/Ipratropium Neb [Duoneb] 3 ml RESP TX RT Q4H Apixaban [Eliquis] 2.5 mg PO BID tablet Ascorbic Acid Tab [Vitamin C Tab] 1,000 mg PO BID tablet Carvedilol [Coreg] 12.5 mg PO BID tablet Dextrose 50% [D50] 25 gm IV PRN PRN vial PRN Reason: Hypoglycemia with IV access Furosemide Liquid [Lasix Liquid] 40 mg PO BID DIURETIC Glucagon 1 mg IM PRN PRN vial PRN Reason: Hypoglycemia w/o IV access Haloperidol Inj [Haldol Inj] 5 mg IV Q6H Insulin Lispro [HumaLOG] See Protocol SUBCUT Q3H unit LORazepam INJ [Ativan Inj] 2 mg IV Q4H PRN vial PRN Reason: Agitation Lactulose Liquid [Chronulac] 20 gm PO BID PRN PRN Reason: Constipation Multivitamin Liquid (Centrum) [Centrum Liquid] 15 ml PER TUBE DAILY bottle methylPREDNISolone SOD SUC INJ [SoluMEDROL] 20 mg IV Q24H vial Famotidine Liquid [Pepcid Liquid] 20 mg PO DAILY bottle Insulin Glargine [Lantus] 60 unit SUBCUT DAILY unit Potassium Chloride Cap/Tab [K Dur] 20 meq PO DAILY tablet Continue Aspirin [Ecotrin] 81 mg PO DAILY Discontinued Tamsulosin [Flomax] 0.4 mg PO DAILY Omeprazole 20 mg PO DAILY amLODIPine [Norvasc] 10 mg PO DAILY Sertraline [Zoloft] 100 mg PO DAILY Potassium Chloride 10 meq PO DAILY Rosuvastatin [Crestor] 10 mg PO DAILY metFORMIN [Glucophage] 500 mg PO BID W/MEALS Celecoxib [Celebrex] 200 mg PO DAILY Multivit-Min/FA/Lycopen/Lutein [Centrum Silver Tablet] 1 each PO DAILY Ranitidine Tab [Zantac Tab] 150 mg PO TID #30 tablet Doxepin [SINEquan] 10 mg PO BEDTIME Indomethacin Cap [Indocin Cap] 25 mg PO TID #30 capsule predniSONE TAB [PredniSONE] 20 mg PO DAILY #15 tablet Finasteride 5 mg PO DAILY Dutasteride 0.5 mg PO DAILY - Follow Up or Referral - Forms/Instructions Exam - Constitutional Vitals: Period Temp Pulse Resp BP Sys/Willams Pulse Ox Last 24 Hr 97.4 F-98.4 F 60-80 12-33 118-164/58-83 90-96 Exam: See progress note for today's physical exam Discharge Results Procedures and tests throughout hospitalization: Pending Orders 10/09/16 10:22 Occult Blood, Stool Stat 10/10/16 04:00 XR chest 1V portable IN AM Arterial Blood Gas IN AM BMP w/ Mg [Basic Metabolic Panel w/Mg] IN AM Basic Metabolic Panel MOTH CBC [Comp Blood Count Auto Diff] IN AM Magnesium MOTH Phosphorous MOTH Prealbumin MOTH 10/11/16 04:00 XR chest 1V portable IN AM BMP w/ Mg [Basic Metabolic Panel w/Mg] IN AM CBC [Comp Blood Count Auto Diff] IN AM Labs on day of discharge: Labs from last 24 hours 10/09/16 10/09/16 10/09/16 09:33 08:10 06:07 WBC RBC Hgb Hct MCV MCH MCHC RDW Plt Count MPV Neut % (Auto) Lymph % (Auto) [place] % (Auto) Eos % (Auto) Baso % (Auto) Neut # (Auto) Lymph # (Auto) [place] # (Auto) Eos # (Auto) Baso # (Auto) Immature Gran % Nucleated RBC % Immature Gran # Nucleated RBCs # ABG pH 7.485 H ABG pCO2 50.1 H ABG pO2 74.3 L ABG HCO3 36.9 H ABG Total CO2 38.4 H ABG O2 Saturation 95.0 ABG Base Excess 11.6 H FiO2 60.00 Sodium Potassium Chloride Carbon Dioxide Anion Gap BUN Creatinine GFR Calculation BUN/Creatinine Ratio Glucose POC Glucose 180 H 190 H Hemoglobin A1c Calculated Osmolality Calcium Magnesium 10/09/16 10/09/16 10/09/16 04:35 04:35 03:18 WBC 6.0 RBC 4.49 Hgb 13.5 L Hct 41.9 L MCV 93.3 MCH 30 MCHC 32.2 RDW 14.7 Plt Count 158 MPV 12.1 H Neut % (Auto) 83.0 H Lymph % (Auto) 5.9 L [place] % (Auto) 9.7 Eos % (Auto) 0.0 Baso % (Auto) 0.2 Neut # (Auto) 5.0 Lymph # (Auto) 0.4 L [place] # (Auto) 0.6 Eos # (Auto) 0.0 Baso # (Auto) 0.0 Immature Gran % 1.2 Nucleated RBC % 0.0 Immature Gran # 0.07 Nucleated RBCs # 0.00 ABG pH ABG pCO2 ABG pO2 ABG HCO3 ABG Total CO2 ABG O2 Saturation ABG Base Excess FiO2 Sodium 146 H Potassium 4.3 Chloride 101 Carbon Dioxide 36 H Anion Gap 13.3 BUN 104 H Creatinine 1.90 H GFR Calculation 47 BUN/Creatinine Ratio 54.00 H Glucose 241 H POC Glucose 211 H Hemoglobin A1c Calculated Osmolality 330.6 H Calcium 9.1 Magnesium 3.4 H 10/09/16 10/08/16 10/08/16 00:27 21:25 17:28 WBC RBC Hgb Hct MCV MCH MCHC RDW Plt Count MPV Neut % (Auto) Lymph % (Auto) [place] % (Auto) Eos % (Auto) Baso % (Auto) Neut # (Auto) Lymph # (Auto) [place] # (Auto) Eos # (Auto) Baso # (Auto) Immature Gran % Nucleated RBC % Immature Gran # Nucleated RBCs # ABG pH ABG pCO2 ABG pO2 ABG HCO3 ABG Total CO2 ABG O2 Saturation ABG Base Excess FiO2 Sodium Potassium Chloride Carbon Dioxide Anion Gap BUN Creatinine GFR Calculation BUN/Creatinine Ratio Glucose POC Glucose 148 H 132 H 182 H Hemoglobin A1c Calculated Osmolality Calcium Magnesium 10/08/16 10/08/16 14:38 06:39 WBC RBC Hgb Hct MCV MCH MCHC RDW Plt Count MPV Neut % (Auto) Lymph % (Auto) [place] % (Auto) Eos % (Auto) Baso % (Auto) Neut # (Auto) Lymph # (Auto) [place] # (Auto) Eos # (Auto) Baso # (Auto) Immature Gran % Nucleated RBC % Immature Gran # Nucleated RBCs # ABG pH ABG pCO2 ABG pO2 ABG HCO3 ABG Total CO2 ABG O2 Saturation ABG Base Excess FiO2 Sodium Potassium Chloride Carbon Dioxide Anion Gap BUN Creatinine GFR Calculation BUN/Creatinine Ratio Glucose POC Glucose 214 H Hemoglobin A1c 11.4 H Calculated Osmolality Calcium Magnesium DS: Provider Date of admission: 09/30/16 03:53 Primary care physician: . No PCP Attending physician on admission: Hector Varner MD Consults: 09/30/16 03:58 Consult to Physician [CONS] Routine Comment: On-call physician/respiratory failure/intubated Consulting Provider: Consult to Specialist Group: Pulmonology When should Consulting Provider be notified: In am Person Notified: dr briscoe Date Notified: 09/30/16 Time Notified: 09:00 09/30/16 04:00 Consult to Physician [CONS] Routine Comment: On-call physician/pulmonary edema/abnormal EKG Consulting Provider: Tegan Ochoa Consult to Specialist Group: Cardiology When should Consulting Provider be notified: In am Person Notified: Eliana Sweet Date Notified: 09/30/16 Time Notified: 07:25 09/30/16 06:15 Consult to Dietitian [CONS] Routine Reason for Dietitian: Dietary Consult 09/30/16 12:45 Consult to Dietitian [CONS] Routine Reason for Dietitian: TF-Initiate/Manage 10/08/16 12:21 Consult to Case Mgmt/Social Srvs [CONS] Routine Reason for Case Mgmt/Social Srvs: LTAC 10/09/16 10:23 Consult to Dietitian [CONS] Routine Reason for Dietitian: Other Consult Comment: please increase free water in tubefeeds. Pt w/ high sodium and BUN Discharging clinician: Harriet Valadez MD
[2016-10-09] MEDS: MULTIVITAMIN LIQUID (CENTRUM) 60 ML BOTTLE PER TUBE SCH (11:54)
[2016-10-09 15:00] VITALS: BP 128/73
== END 2016-10-09 14:15 | DRG 207 ==
LOC: N.ED 01:44 → SUATTDRO 03:53 → N.EDINP 03:53 → N.CC 05:47
PROVIDERS: ADMIT Internal Medicine Infectious Disease; ATTEND Pediatrics

== ENCOUNTER 2017-01-10 08:50 | Inpatient (IN) ==
--- NOTE | 2017-01-10 09:18 | CT Report ---
Exam: CT head without intravenous contrast Clinical History: 76-year-old male with altered mental status, confusion and disorientation Technique: Axial computed tomography images of the head/brain without intravenous contrast Comparison: June 13, 2016 Findings: Brain: Mild senescent microangiopathic small vessel ischemic changes are stable in the interim. [place]-white matter distinction maintained. No mass effect. No intra or extra-axial hemorrhage. Ventricles: Unremarkable. No ventriculomegaly. Bones/joints: Calvarium is intact Soft tissues: Unremarkable Sinuses: No active paranasal sinus process Mastoid air cells: Unremarkable visualized. Impression: 1. Stable senescent microangiopathic small vessel ischemic changes. No acute intracranial abnormality PROCEDURE INTERPRETED AT [facility] DEPARTMENT OF RADIOLOGY Final Report Signed by: Shashi Hills
--- NOTE | 2017-01-10 09:21 | Emergency Department Note ---
Jackelin Leslie Hilary, am scribing for, and in the presence of, Hollis Spencer MD 09: 18. Johanna Leslie James D, MD, personally performed the services described in this documentation, ascribed by Gill Benítez in my presence, and it is both accurate and complete . Arrival - Arrival Chief Complaint: Altered Mental Status Stated Complaint: AMS ED Nursing Triage Note: c/o altered mental status that started around 8:00. When patient woke up this morning he was normal. Patient does have some left side facial droop and some right side weakness with right side arm drift. Patient is having hard time keeping his eyes open. Mode of Arrival: Stretcher Limitations: No Limitations Source: RN Notes Reviewed Time Seen by Provider: 01/10/17 09:08 - History of Present Illness HPI Narrative: Pt is a 76 y/o male brought to the ED via EMS for c/o AMS which onset at 0800. According to nurse records when patient woke up this morning he was normal. Pt confirms eating and drinking okay. Pt is a poor historian due to his AMS. No other complaints or problems stated in the ED. Onset (ago): hour(s) Consistency: constant Severity: moderate Severity scale (1-10): 3 Allergies/Adverse Reactions: Allergies Allergy/AdvReac Type Severity Reaction Status Date / Time No Known Allergies Allergy Verified 01/10/17 09:03 Home Medications: Home Medications Medication Instructions Recorded Confirmed Type Albuterol Sulfate [Albuterol Neb] 1 inhaler PO RT Q6H PRN 12/17/16 01/01/17 History Carvedilol [Coreg] 25 mg PO BID 12/17/16 01/01/17 History Docusate Sodium Cap [Colace Cap] 100 mg PO BID 12/17/16 01/01/17 History Erythromycin Base 250 mg PO DAILY W/BREAKFAST 12/17/16 01/01/17 History Furosemide Tab [Lasix Tab] 20 mg PO DAILY 12/17/16 01/01/17 History Haloperidol Tab [Haldol Tab] 2 mg PO BEDTIME 12/17/16 01/01/17 History Insulin Glargine [Lantus] 10 unit SUBCUT AC SUPPER 12/17/16 01/01/17 History Lactulose 40 gm PO BID PRN 12/17/16 01/01/17 History Pantoprazole Tab [Protonix Tab] 40 mg PO BID 12/17/16 01/01/17 History Polyethylene Glycol Powder 17 gm PO DAILY 12/17/16 01/01/17 History [Miralax] Sertraline HCl 150 mg PO BEDTIME 12/17/16 01/01/17 History glyBURIDE MICRONIZED [Glynase] 1.5 mg PO DAILY W/BREAKFAST tablet 01/01/17 Rx Review of System - Review of System ROS unobtainable: due to mental status 12 point system: reviewed and no additional remarkable complaints except as stated Medical,Surgical,& Family Hx - Medical History Cardio: History of: CAD, Hypertension, Pacemaker (Abdominal pacemaker with know bad atrial lead chronically), Cardiovascular Problems (open heart surgery 1997) Psychological: History of: Depression, Psychiatric/Substance Abuse Tx (ETOH abuse) Neurology: History of: Vertigo HEENT: History of: Eye Problem (sarahi cataract surgery x2), Dental Problems (has permanent upper teeth) Comment Only: HEENT Problems (Patient on vent no family present) Endocrine: History of: Diabetes Mellitus (NIDDM), Dyslipidemia Respiratory: History of: COPD, Intubation, Obstructive Sleep Apnea (has cpap at home), Pneumonia Comment Only: Respiratory Problems (Patient on vent no family present) Renal: History of: Renal Problems (pt on vent no family present, renal insufficiency) Gastrointestinal: History of: Hemorrhoids Comment Only: GI Problems (Patient on vent no family present) Musculoskeletal: History of: Back/Neck Problems (back pain steroid injections), Herniated Disk Comment Only: Musculoskeletal Problems (Patient on vent no family present) Other: Comment Only: Miscellaneous Medical Problems (pt on vent no family present) - Surgical History Cardiac Surgeries: Sugical HX of: Cardiac Catheterization, Cardiac Surgery Neurologic Surgeries: Patient denies: Neurologic Surgery Abdominal Surgeries: Surgical HX of: Abdominal Surgery (placed pacemaker 1998), Colonoscopy Orthopedic Surgeries: Surgical HX of;: Implanted Devices (pacemaker) - Family History Family History: Reports;: Family Heart Disease (gradmother-maternal), Family Hypertension, Family Stroke - Social History Smoking Status: Never smoker Frequency of Alcohol Use: Unknown Type of Drug Use: Unknown Exam Physical Examination: GENERAL: This is a chronically ill-appearing white male male in no apparent distress. Follows commands but slow to react. VITAL SIGNS: Temperature: 97.4 Pulse: 76 Respiratory: 22 Blood Pressure: 118/ 60 O2 Sat: 90 HEENT: Head is normocephalic and atraumatic. Pupils are equally round and reactive to light. Extraocular movement are intact. Oropharynx is benign with Dry mucous membranes. NECK: Neck is soft and supple without tenderness. There are no masses. There is no lymphadenopathy. LUNGS: Lungs are clear to auscultation bilaterally. Chest rises symmetrically. There is no chest wall tenderness. CV: Heart is irregularly irregular without murmurs, rubs, or gallops. ABDOMEN: Abdomen is soft, non-tender to palpation. There are no abnormal masses palpated. There is no organomegaly. Bowel sounds are present and active. SKIN: Skin is warm and dry. No rash. EXTREMITIES: Patient has full range of motion without tenderness. There is no pedal edema. NEUROLOGIC: Awake, alert, oriented to person and place. Cranial nerves II through XII are grossly grossly intact. Generalized motor weakness of all extremities approximately 3-4/5. Vital Signs: Vital Signs Temperature 97.4 F L 01/10/17 08:50 Pulse Rate 76 01/10/17 08:50 Respiratory Rate 22 01/10/17 09:15 Blood Pressure 118/60 01/10/17 08:50 O2 Sat by Pulse Oximetry 100 01/10/17 08:50 Course - Consultations Consultation #1: Discussed with hospitalist. Patient will be admitted to their service. Time: 10:21 Results - Labs CBC & BMP: 01/10/17 09:38 01/10/17 09:38 Lab Results: I have reviewed the patients labs Labs: Laboratory Tests 01/10/17 09:15 Urine pH 5.0 Ur Specific [place] 1.014 Urine Nitrate Positive H Urine Urobilinogen < 2.0 H Urine RBC <1 Urine WBC 2 Laboratory Tests 01/10/17 09:38 WBC 6.5 RBC 3.14 L Hgb 9.9 L Hct 30.5 L Plt Count 152 Lymph % (Auto) 14.0 L Lymph # (Auto) 0.9 L Laboratory Tests 01/10/17 01/10/17 09:38 09:38 INR 1.1 Sodium 143 Potassium 3.6 Chloride 107 Carbon Dioxide 31 BUN 17 Total Bilirubin 0.90 ALT 15 L Alkaline Phosphatase 123 H Troponin I < 0.015 Total Protein 6.7 Albumin 3.3 L Albumin/Globulin Ratio 0.9 L Laboratory Tests 01/10/17 09:15 Urine Nitrate Positive H - EKG EKG results: interpreted by ERMD - Impressions EKG: Atrial fib with a rate of 72, right axis deviation, right bundle branch block - Diagnostic Findings Procedure: Chest x-ray: image reviewed by me, report reviewed by me (1. Cardiomegaly with mild interstitial edema CHF 2. Previous sternotomy and cardiac pacing device. 3. Small calcified granuloma right base), CT: report reviewed by me, image reviewed by me (CT HEAD: 1. Stable senescent microangiopathic small vessel ischemic changes No acute intracranial abnormality ) Disposition Clinical Impression: Altered mental status, Chronic atrial fibrillation, Debility, Diabetes mellitus , UTI (urinary tract infection) Case discussed with: patient Disposition: Still a Patient Condition: Stable Time of Disposition: 10:21
--- NOTE | 2017-01-10 09:26 | EKG Report ---
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
--- NOTE | 2017-01-10 09:31 | XRay Report ---
Exam: XR chest 1V portable Date: 01/10/2017 9:09 AM Indication: Altered mental status Comparison: 12/19/2016 Technical: AP Findings: Cardiomegaly is present previous sternotomy with a cardiac pacing device with atrial ventricular leads. Sternotomy wires are present. Oxygen tubing is present. Low volume effusions are present with mild interstitial edema. No pneumothorax Impression: 1. Cardiomegaly with mild interstitial edema CHF 2. Previous sternotomy and cardiac pacing device. 3. Small calcified granuloma right base PROCEDURE INTERPRETED AT [facility] DEPARTMENT OF RADIOLOGY Final Report Signed by: Dr. Mata Oreilly
[2017-01-10 09:36] LABS: Apearance,Urine Slightly Hazy (Clear); Bacteria,Urine Few /HPF (Few); Bilirubin,Urine Negative (Negative); Blood, Urine Negative (Negative); Glucose,Urine (UA) Negative (Negative); Ketones,Urine Negative (Negative); Mucus,Urine Occasional /LPF (Occasional); Nitrite,Urine Positive (Negative); Protein,Urine Negative; RBC,Urine <1 /HPF (0-4); Squamous Epithelial Cell,Urine Occasional /HPF (0-10); Urine Color Yellow (Yellow); Urine Specific Gravity 1.014 (1.001-1.035); Urine Urobilinogen < 2.0 EU/DL (0.2-1.0); WBC,Urine 2 /HPF (0-6)
[2017-01-10 09:45] LABS: Basophils % 0.6 % (0.0-0.8); Eosinophils # 0.3 10*3/uL (0.0-0.87); Eosinophils % 4.8 % (0.00-10.9); Hematocrit 30.5 VOL% (42.0-52.0); Hemoglobin 9.9 GM/DL (14.0-18.0); Immature Granulocytes % 0.5 %; Immature Granulocytes Absolute 0.03 #; Lymphocytes # 0.9 10*3/uL (1.4-4.0); Mean Corpuscular HGB Conc 32.5 GM/DL (32-36); Mean Corpuscular Hemoglobin 32 PG (27-34); Mean Corpuscular Volume 97.1 FL (87-102); Mean Platelet Volume 11.3 FL (9.6-12.0); Monocytes # 0.7 10*3/uL (0.11-0.8); Monocytes % 11.2 % (1.7-12.7); Neutrophils # 4.5 10*3/uL (1.4-7.4); Neutrophils % 68.9 % (38.7-73.9); Platelet Count 152 T/CUMM (130-400); Red Blood Count 3.14 MC/CUMM (3.8-5.5); Red Cell Distribution Width 16.1 % (9.3-17.3); White Blood Count 6.5 T/CUMM (4-12)
[2017-01-10 10:06] LABS: Alanine Aminotransferase 15 U/L (16-61); Albumin 3.3 G/DL (3.4-5.0); Alkaline Phosphatase 123 U/L (45-117); Aspartate Amino Transferase 18 U/L (0-37); Blood Urea Nitrogen 17 MG/DL (7-18); Calcium 8.9 MG/DL (8.5-10.1); Glucose 95 MG/DL (74-106); Potassium 3.6 MMOL/L (3.5-5.1); Sodium 143 MMOL/L (136-145); Total Protein 6.7 G/DL (6.4-8.3); Troponin I Only < 0.015 NG/ML (0.00-0.045)
[2017-01-10 10:12] LABS: INR 1.1; PT Patient Result 12.1 SECS; Partial Thromboplastin Time 26.8 SECS (0-40)
[2017-01-10] MEDS ORDERED: cefTRIAXone 1,000 MG in SODIUM CHLORIDE 0.9% 100 ML IV STA (10:25)
[2017-01-10] MEDS ORDERED: cefTRIAXone 1,000 MG VIAL ONE (10:25)
[2017-01-10] MEDS ORDERED: LACTULOSE 20 GM/30 ML UDCUP PO PRN (10:42)
[2017-01-10] MEDS ORDERED: DEXTROSE 50% 25 GM/50 ML VIAL IV PRN (10:45)
[2017-01-10] MEDS ORDERED: GLUCAGON 1 MG VIAL IM PRN ×2 (10:45→10:49)
[2017-01-10] MEDS ORDERED: DEXTROSE 50% 25 GM/50 ML SYRINGE IV PRN (10:49)
[2017-01-10] MEDS ORDERED: LEVOFLOXACIN INJ 500 MG in PREMIX 1 EACH IV SCH (11:00)
--- NOTE | 2017-01-10 11:28 | Hospitalist History & Physical ---
<Victoria Sheikhda - Last Filed: 01/10/17 11:17> Assessment and Plan (1) Urinary tract infection Status: Resolved Current Visit: No (2) Altered mental status Status: Acute Current Visit: Yes History of Present Illness Chief complaint: Altered mental status History of present illness: This is a chronically ill 76-year-old male that presented to the ED at [facility] via EMS from [facility] further evaluation of altered mental status. Patient has a medical history significant for coronary artery disease, atrial fibrillation, hypertension, depression, alcohol abuse, vertigo, insulin-dependent diabetes mellitus, dyslipidemia, chronic obstructive pulmonary disease, obstructive sleep apnea, pneumonia, hemorrhoids, chronic back pain, herniated disc disease, and gastroesophageal reflux disease. Patient surgical history significant for cardiac catheterization, coronary artery bypass graft, abdominal pacemaker placement, colonoscopy, and tracheostomy. Prior to presentation, the patient was undergoing rehabilitation at [facility] as a result of medical debility secondary to a prolonged hospitalization here at [facility]. During the previous encounter here at [place], the patient had experienced acute respiratory failure requiring prolonged mechanical ventilation and subsequent tracheostomy placement. The patient had been discharged to [facility] on October 09, 2016 for continuation of care. According to EMS report, the patient experienced a change in his mental status this morning around 8:00. The staff reported that the patient was his normal self upon awakening this morning. They noted that the patient was experiencing some left-sided facial droop and right-sided weakness with right-sided arm drift. In addition, they noted that the patient was lethargic. They became alarmed and notified EMS for emergency assistance. The patient was subsequently transported to [facility] for further evaluation. The patient was assessed at the time of ED presentation. The patient was noted to be slightly lethargic however arousable upon verbal stimuli. Labs were obtained which were significant for hemoglobin 9.9, hematocrit 30.9, platelet count 153, prothrombin time 12, ALT 15, alkaline phosphatase 120, albumin 3.3, globulin 3.9. Urinalysis was essentially remarkable for positive findings of nitrate, urine urobilinogen greater than 2.0, urine WBC 2, occasional squamous epithelial cells, few bacteria, and occasional mucus was noted. CT head reported stable senescent microangiopathic small vessel ischemic changes however , no acute intracranial abnormalities were noted. Chest x-ray reported cardiomegaly with mild interstitial edema congestive heart failure, previous sternotomy and cardiac pacing device, and small calcified granuloma is noted at the right base. After brief discussion with both and Dr. Dumont, the patient will be admitted to the hospitalist service for continuation of care. Due to the complexity of the patient's comorbidities, cardiology, and pulmonology consultations have been requested to evaluate and assist during the clinical encounter. Home medications have been reviewed and reconciled. CODE STATUS discussed; the patient is a DO NOT RESUSCITATE. Home Medications Medication Instructions Recorded Confirmed Type Albuterol Sulfate [Albuterol Neb] 1 inhaler PO RT Q6H PRN 12/17/16 01/10/17 History Carvedilol [Coreg] 25 mg PO BID 12/17/16 01/10/17 History Docusate Sodium Cap [Colace Cap] 100 mg PO BID 12/17/16 01/10/17 History Erythromycin Base 250 mg PO DAILY W/BREAKFAST 12/17/16 01/10/17 History Furosemide Tab [Lasix Tab] 20 mg PO DAILY 12/17/16 01/10/17 History Insulin Glargine [Lantus] 10 unit SUBCUT AC SUPPER 12/17/16 01/10/17 History Lactulose 40 gm PO BID PRN 12/17/16 01/10/17 History Pantoprazole Tab [Protonix Tab] 40 mg PO BID 12/17/16 01/10/17 History Polyethylene Glycol Powder 17 gm PO DAILY 12/17/16 01/10/17 History [Miralax] Sertraline HCl 150 mg PO BEDTIME 12/17/16 01/10/17 History glyBURIDE MICRONIZED [Glynase] 1.5 mg PO DAILY W/BREAKFAST tablet 01/01/1712/19 Rx Albuterol Neb [Proventil Neb] 2.5 mg RESP TX Q6H PRN 01/10/17 01/10/17 History Aspirin EC Tab 81 mg PO DAILY 01/10/17 01/10/17 History Quetiapine Fumarate 25 mg PO BEDTIME 01/10/17 01/10/17 History Zaleplon [Sonata] 5 mg PO BEDTIME PRN 01/10/17 01/10/17 History Allergies Allergy/AdvReac Type Severity Reaction Status Date / Time No Known Allergies Allergy Verified 01/10/17 09:03 Medical,Surgical,& Family Hx - Medical History Cardio: History of: CAD, Hypertension, Pacemaker (Abdominal pacemaker with know bad atrial lead chronically), Cardiovascular Problems (open heart surgery 1997) Psychological: History of: Depression, Psychiatric/Substance Abuse Tx (ETOH abuse) Neurology: History of: Vertigo HEENT: History of: Eye Problem (sarahi cataract surgery x2), Dental Problems (has permanent upper teeth) Comment Only: HEENT Problems (Patient on vent no family present) Endocrine: History of: Diabetes Mellitus (NIDDM), Dyslipidemia Respiratory: History of: COPD, Intubation, Obstructive Sleep Apnea (has cpap at home), Pneumonia Comment Only: Respiratory Problems (Patient on vent no family present) Renal: History of: Renal Problems (pt on vent no family present, renal insufficiency) Gastrointestinal: History of: Hemorrhoids Comment Only: GI Problems (Patient on vent no family present) Musculoskeletal: History of: Back/Neck Problems (back pain steroid injections), Herniated Disk Comment Only: Musculoskeletal Problems (Patient on vent no family present) Other: Comment Only: Miscellaneous Medical Problems (pt on vent no family present) - Surgical History Cardiac Surgeries: Sugical HX of: Cardiac Catheterization, Cardiac Surgery Neurologic Surgeries: Patient denies: Neurologic Surgery Abdominal Surgeries: Surgical HX of: Abdominal Surgery (placed pacemaker 1998), Colonoscopy Orthopedic Surgeries: Surgical HX of;: Implanted Devices (pacemaker) - Family History Family History: Reports;: Family Heart Disease (gradmother-maternal), Family Hypertension, Family Stroke - Social History Smoking Status: Never smoker Frequency of Alcohol Use: None (Patient has a medical history significant for alcohol abuse however; the patient has been sober since October of this year after his subsequent hospitalization and extensive current rehab admission.) Type of Drug Use: Unknown Marital Status: Single Lives With:: Alone Functional capacity: wheelchair bound 12 point system: reviewed and no additional remarkable complaints except as stated Exam - Constitutional Vitals: Period Temp Pulse Resp BP Sys/Willams Pulse Ox Last 24 Hr 97.4 F-97.4 F 76-76 22-22 118-118/60-60 90-100 General appearance: no acute distress, morbidly obese - Head Head exam: Present: normal inspection, normocephalic, atraumatic - Eye Eye exam: Present: EOMI. Absent: conjunctival injection, nystagmus Pupils: Present: ANH, normal accommodation - ENT ENT exam: Present: normal exam, normal external ear exam, normal oropharynx - Neck Neck exam: Present: normal inspection. Absent: lymphadenopathy, meningismus, thyromegaly - Respiratory Respiratory exam: Present: clear to auscultation bilaterally. Absent: rales, rhonchi, stridor, wheezes - Cardiovascular Cardiovascular exam: Present: irregular rhythm. Absent: carotid bruit, diastolic murmur, gallop, JVD, rubs, systolic murmur - GI/Abdominal GI/Abdominal exam: Present: normal bowel sounds, soft - Extremities Exam Extremities exam: Present: normal inspection, normal capillary refill, full ROM. Absent: edema - Back Exam Back exam: Present: normal inspection - Neurological Exam Neurological exam: Present: alert, altered, CN II-XII intact, other ( Generalized weakness to bilateral upper and lower extremities) - Psychiatric Psychiatric exam: Present: normal affect - Skin Skin exam: Present: normal color, warm, dry Results - Labs CBC & BMP: 01/10/17 09:38 01/10/17 09:38 Lab Results: I have reviewed the past 24 hour labs <Calderon Dumont - Last Filed: 01/10/17 12:12> History of Present Illness History of present illness: Mr. Sibley is a 76 year old male is being admitted to the hospital with altered mental status. According to the available EMS reports, the patient experienced an alteration of his mental status, left facial droop, and right arm weakness earlier today. He remains confused at the present time but there is no discernible droop of the left side of his face. A CT scan of his head has demonstrated no acute abnormalities. I have interviewed the patient, examined the patient, and reviewed all available laboratory and radiographic test results. I agree with the assessment and plans of nurse practitioner Suzi Sheikh. Patient will be admitted to the hospital for further evaluation and treatment. Cardiology, pulmonary, and neurology have been consulted. Exam - Constitutional Vitals: Period Temp Pulse Resp BP Sys/Willams Pulse Ox Last 24 Hr 97.4 F-97.4 F 76-76 22-22 118-118/60-60 90-100 Results - Labs CBC & BMP: 01/10/17 09:38 01/10/17 09:38
[2017-01-10 11:49] LABS: Ammonia 40 UMOL/L (11-32)
[2017-01-10] MEDS ORDERED: ALBUTEROL 2.5 MG/3 ML NEB RESP TX PRN (12:14)
[2017-01-10] MEDS: INSULIN LISPRO 100 UNIT/ML SUBCUT SCH ×3 (14:52→20:31)
[2017-01-10] MEDS: cefTRIAXone 1,000 MG in SODIUM CHLORIDE 0.9% 100 ML IV SCH (15:00)
--- NOTE | 2017-01-10 17:19 | Cardiology Consult Note ---
Assessment and Plan - Time spent with patient Time spent with patient: Greater than 30 minutes (1) Altered mental status Status: Acute Assessment and plan: Differential diagnoses include some metabolic cause, a TIA, hypoxemia, hypercapnia, hepatic encephalopathy, some other cause Plan/recommendation: EKG every morning x 2 Review home meds, see if some might be causing his symptoms Agree with neuro consult Agree with pulmonary consult We will check ammonia level, if is not already been done We will encourage patient to use his CPAP I will follow along with you. He had an echo done in 10/2016 which showed good LV function. I will defer to neurology if they want to repeat this or not. Thank you for allowing me to participate in this patient's care Current Visit: Yes (2) Obstructive sleep apnea Status: Acute Current Visit: Yes (3) Depression Status: Acute Current Visit: Yes (4) Chronic atrial fibrillation Status: Acute Current Visit: Yes (5) Debility Status: Acute Current Visit: Yes (6) Diabetes mellitus Status: Acute Current Visit: Yes (7) UTI (urinary tract infection) Status: Acute Current Visit: Yes (8) Renal insufficiency Status: Acute Current Visit: No (9) Alcoholism Status: Chronic Current Visit: No (10) Coronary artery disease Status: Chronic Current Visit: No Qualifiers: Coronary Disease-Associated Artery/Lesion type: bypass graft [place] vs. transplanted heart: [place] heart Associated angina: angina presence unspecified Qualified Code(s): I25.810 - Atherosclerosis of coronary artery bypass graft(s) without angina pectoris (11) Hypertension Status: Chronic Current Visit: No (12) Obesity (BMI 30-39.9) Status: Chronic Current Visit: No History of Present Illness - Data of Consult Patient: known to practice within the last 3 years Consult date: 01/10/17 Requesting Physician: Calderon Dumont - Consult Narrative Reason for consult: Evaluate cardiac status, acute mental status changes History of present illness: Mr. Sibley is a 76 year old male PCP:? 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 Tegan Cano This is a chronically ill 76-year-old male that presented to the ED at [facility] via EMS from [facility] further evaluation of altered mental status. Patient has a medical history significant for coronary artery disease, atrial fibrillation, hypertension, depression, alcohol abuse, vertigo, insulin-dependent diabetes mellitus, dyslipidemia, chronic obstructive pulmonary disease, obstructive sleep apnea, pneumonia, hemorrhoids, chronic back pain, herniated disc disease, and gastroesophageal reflux disease. Patient surgical history significant for cardiac catheterization, coronary artery bypass graft, abdominal pacemaker placement, colonoscopy, and tracheostomy. Prior to presentation, the patient was undergoing rehabilitation at [facility] as a result of medical debility secondary to a prolonged hospitalization here at [facility]. During the previous encounter here at [place], the patient had experienced acute respiratory failure requiring prolonged mechanical ventilation and subsequent tracheostomy placement. The patient had been discharged to [facility] on October 09, 2016 for continuation of care. According to EMS report, the patient experienced a change in his mental status this morning around 8:00. The staff reported that the patient was his normal self upon awakening this morning. They noted that the patient was experiencing some left-sided facial droop and right-sided weakness with right-sided arm drift. In addition, they noted that the patient was lethargic. They became alarmed and notified EMS for emergency assistance. The patient was subsequently transported to [facility] for further evaluation. Currently no orthopnea, PND, edema, palpitations, syncope, cough wheezing or phlegm. Review of systems is remarkable for depression but his own therapy. It seems to be treated Does have obstructive sleep apnea, he says he plans to use his CPAP CC: Coretta Field MD - Home Medications and Allergies Home Medications: Home Medications Medication Instructions Recorded Confirmed Type Albuterol Sulfate [Albuterol Neb] 1 inhaler PO RT Q6H PRN 12/17/16 01/10/17 History Carvedilol [Coreg] 25 mg PO BID 12/17/16 01/10/17 History Docusate Sodium Cap [Colace Cap] 100 mg PO BID 12/17/16 01/10/17 History Erythromycin Base 250 mg PO DAILY W/BREAKFAST 12/17/16 01/10/17 History Furosemide Tab [Lasix Tab] 20 mg PO DAILY 12/17/16 01/10/17 History Insulin Glargine [Lantus] 10 unit SUBCUT AC SUPPER 12/17/16 01/10/17 History Lactulose 40 gm PO BID PRN 12/17/16 01/10/17 History Pantoprazole Tab [Protonix Tab] 40 mg PO BID 12/17/16 01/10/17 History Polyethylene Glycol Powder 17 gm PO DAILY 12/17/16 01/10/17 History [Miralax] Sertraline HCl 150 mg PO BEDTIME 12/17/16 01/10/17 History glyBURIDE MICRONIZED [Glynase] 1.5 mg PO DAILY W/BREAKFAST tablet 01/01/1712/19 Rx Albuterol Neb [Proventil Neb] 2.5 mg RESP TX Q6H PRN 01/10/17 01/10/17 History Aspirin EC Tab 81 mg PO DAILY 01/10/17 01/10/17 History Quetiapine Fumarate 25 mg PO BEDTIME 01/10/17 01/10/17 History Zaleplon [Sonata] 5 mg PO BEDTIME PRN 01/10/17 01/10/17 History Allergies/Adverse Reactions: Allergies Allergy/AdvReac Type Severity Reaction Status Date / Time No Known Allergies Allergy Verified 01/10/17 09:03 12 point system: reviewed and no additional remarkable complaints except as stated (A 12 point review of systems is negative except for as mentioned in HPI) Medical,Surgical,& Family Hx - Medical History Cardio: History of: Cardiac Dysrhythmia, CAD, Hypertension, Pacemaker ( Abdominal pacemaker with know bad atrial lead chronically), Cardiovascular Problems (open heart surgery 1997) Psychological: History of: Depression, Psychiatric/Substance Abuse Tx (ETOH abuse) Neurology: History of: Vertigo HEENT: History of: Eye Problem (sarahi cataract surgery x2), Dental Problems (has permanent upper teeth) Comment Only: HEENT Problems (Patient on vent no family present) Endocrine: History of: Diabetes Mellitus (IDDM), Diabetes Mellitus (NIDDM), Dyslipidemia Respiratory: History of: COPD, Intubation, Obstructive Sleep Apnea (has cpap at home), Pneumonia Comment Only: Respiratory Problems (Patient on vent no family present) Renal: History of: Renal Problems (pt on vent no family present, renal insufficiency) Gastrointestinal: History of: Hemorrhoids Comment Only: GI Problems (Patient on vent no family present) Musculoskeletal: History of: Back/Neck Problems (back pain steroid injections), Herniated Disk Comment Only: Musculoskeletal Problems (Patient on vent no family present) Other: Comment Only: Miscellaneous Medical Problems (pt on vent no family present) - Surgical History Cardiac Surgeries: Sugical HX of: Cardiac Catheterization, Cardiac Surgery ( triple bypass) Neurologic Surgeries: Patient denies: Neurologic Surgery Abdominal Surgeries: Surgical HX of: Abdominal Surgery (placed pacemaker 1998), Colonoscopy Orthopedic Surgeries: Surgical HX of;: Implanted Devices (pacemaker) - Family History Family History: Reports;: Family Heart Disease (gradmother-maternal), Family Hypertension, Family Stroke - Social History Smoking Status: Never smoker Frequency of Alcohol Use: None Type of Drug Use: Unknown Physical Examination Vital Signs Temp Pulse Resp BP Pulse Ox 97.4 F L 76 22 118/60 100 01/10/17 08:50 01/10/17 08:50 01/10/17 08:50 01/10/17 08:50 01/10/17 08:50 Exam: HEENT: Pupils equal, reactive to light and accommodation Neck: NoJVD or bruit Lungs clear to auscultation Heart: Regular rhythm rate with normal S1 and S2. Apical S4 Abdomen: No hepatosplenomegaly Spine/extremities: No clubbing, cyanosis, or edema Neuro: Appears to be somewhat dazed. Psych: No depression or anxiety Result/EKG - Labs CBC & BMP: 01/10/17 09:38 01/10/17 09:38 Labs: Laboratory Results - last 24 hr 01/10/17 01/10/17 01/10/17 09:15 09:38 09:38 WBC 6.5 RBC 3.14 L Hgb 9.9 L Hct 30.5 L MCV 97.1 MCH 32 MCHC 32.5 RDW 16.1 Plt Count 152 MPV 11.3 Neut % (Auto) 68.9 Lymph % (Auto) 14.0 L [place] % (Auto) 11.2 Eos % (Auto) 4.8 Baso % (Auto) 0.6 Neut # (Auto) 4.5 Lymph # (Auto) 0.9 L [place] # (Auto) 0.7 Eos # (Auto) 0.3 Baso # (Auto) 0.0 Immature Gran % 0.5 Nucleated RBC % 0.0 Immature Gran # 0.03 Nucleated RBCs # 0.00 Immature Plt Fraction 0.0 INR 1.1 PT Patient/Control Mix 12.1 Circ Anticoag PTT 26.8 Sodium Potassium Chloride Carbon Dioxide Anion Gap BUN Creatinine GFR Calculation BUN/Creatinine Ratio Glucose POC Glucose Hemoglobin A1c Calculated Osmolality Calcium Total Bilirubin AST ALT Alkaline Phosphatase Ammonia Troponin I Total Protein Albumin Globulin Albumin/Globulin Ratio Urine Color Yellow Urine Appearance Slightly hazy Urine pH 5.0 Ur Specific [place] 1.014 Urine Protein Negative Urine Glucose (UA) Negative Urine Ketones Negative Urine Blood Negative Urine Nitrate Positive H Urine Bilirubin Negative Urine Urobilinogen < 2.0 H Urine Leukocytes Negative Urine RBC <1 Urine WBC 2 Ur Squamous Epith Cells Occasional Urine Bacteria Few Urine Mucus Occasional Ur Culture Indicated? Results to follow 01/10/17 01/10/17 01/10/17 09:38 10:53 14:34 WBC RBC Hgb Hct MCV MCH MCHC RDW Plt Count MPV Neut % (Auto) Lymph % (Auto) [place] % (Auto) Eos % (Auto) Baso % (Auto) Neut # (Auto) Lymph # (Auto) [place] # (Auto) Eos # (Auto) Baso # (Auto) Immature Gran % Nucleated RBC % Immature Gran # Nucleated RBCs # Immature Plt Fraction INR PT Patient/Control Mix Circ Anticoag PTT Sodium 143 Potassium 3.6 Chloride 107 Carbon Dioxide 31 Anion Gap 8.6 BUN 17 Creatinine 1.20 GFR Calculation 77 BUN/Creatinine Ratio 14.00 Glucose 95 POC Glucose 82 Hemoglobin A1c 5.4 Calculated Osmolality 286.0 Calcium 8.9 Total Bilirubin 0.90 AST 18 ALT 15 L Alkaline Phosphatase 123 H Ammonia 40 H Troponin I < 0.015 Total Protein 6.7 Albumin 3.3 L Globulin 3.4 Albumin/Globulin Ratio 0.9 L Urine Color Urine Appearance Urine pH Ur Specific [place] Urine Protein Urine Glucose (UA) Urine Ketones Urine Blood Urine Nitrate Urine Bilirubin Urine Urobilinogen Urine Leukocytes Urine RBC Urine WBC Ur Squamous Epith Cells Urine Bacteria Urine Mucus Ur Culture Indicated? Specialty Discharge - Follow Up or Referrals Follow up with: Tegan Ochoa DO [Physician] -
[2017-01-10] MEDS: INSULIN GLARGINE 100 UNIT/ML SUBCUT SCH (19:00)
[2017-01-10] MEDS: LACTULOSE 20 GM/30 ML UDCUP PO SCH ×2 (19:23→21:01)
[2017-01-10] MEDS: PANTOPRAZOLE 40 MG TABLET PO SCH (21:00)
[2017-01-10] MEDS: DOCUSATE SODIUM 100 MG CAPSULE PO SCH (21:01)
[2017-01-10] MEDS: QUEtiapine 25 MG TABLET PO SCH (21:01)
[2017-01-10] MEDS: CARVEDILOL 25 MG TABLET PO SCH (21:01)
[2017-01-10] MEDS: SERTRALINE 50 MG TABLET PO SCH (21:01)
--- NOTE | 2017-01-11 08:57 | EKG Report ---
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
[2017-01-11] MEDS ORDERED: POLYETHYLENE GLYCOL POWDER 17 GM PACK PO SCH (09:00)
[2017-01-11] MEDS: PANTOPRAZOLE 40 MG TABLET PO SCH ×2 (09:38→21:00)
[2017-01-11] MEDS: ASPIRIN EC 81 MG TABLET PO SCH (09:39)
[2017-01-11] MEDS: FUROSEMIDE 20 MG TABLET PO SCH (09:39)
[2017-01-11] MEDS: CARVEDILOL 25 MG TABLET PO SCH ×2 (09:39→21:00)
[2017-01-11] MEDS: LACTULOSE 20 GM/30 ML UDCUP PO SCH ×3 (09:42→21:00)
[2017-01-11] MEDS: DOCUSATE SODIUM 100 MG CAPSULE PO SCH (09:44)
[2017-01-11] MEDS: cefTRIAXone 1,000 MG in SODIUM CHLORIDE 0.9% 100 ML IV SCH (10:30)
--- NOTE | 2017-01-11 10:40 | Pulmonology Consult Note ---
Assessment and Plan (1) COPD (chronic obstructive pulmonary disease) Status: Acute Assessment and plan: Patient has a long history of COPD and will continue with bronchodilator therapy Current Visit: Yes (2) Urinary tract infection Status: Resolved Assessment and plan: The patient has gram-negative rods on his urine and is getting treatment. Current Visit: No (3) Altered mental status Status: Acute Assessment and plan: Patient apparently had some confusion yesterday but he seemed okay today. Current Visit: Yes (4) Chronic atrial fibrillation Status: Acute Assessment and plan: His heart rate is under good control. Current Visit: Yes (5) Debility Status: Acute Assessment and plan: The patient has been extremely ill recently and is getting some improvement with physical therapy. Current Visit: Yes (6) Diabetes mellitus Status: Acute Assessment and plan: His glucose is 138 today. Current Visit: Yes (7) Obstructive sleep apnea Status: Acute Assessment and plan: The patient will continue with CPAP at night. Current Visit: Yes History of Present Illness Chief complaint: Confusion and weakness History of present illness: Mr. Sibley is a 76 year old white male that has had a very complicated past hospital course. He has been at [facility] for quite some time with respiratory failure on the ventilator. He has a long history of multiple problems including COPD, coronary artery disease, hypertension, diabetes, alcohol abuse, sleep apnea, chronic pain problems. He was on the ventilator and had a tracheostomy tube. He ultimately was weaned from the ventilator and went to rehab. He had been doing well and was almost completely his course at rehab. Yesterday he apparently came in because he had some confusion and altered mental status. There was a question of left-sided facial weakness along with some arm weakness. He has evaluated in the emergency room and found to have a UTI. He has been started on some antibiotics. He says his breathing has been doing reasonably well. Overall he has been reasonably stable. Home Medications Medication Instructions Recorded Confirmed Type Albuterol Sulfate [Albuterol Neb] 1 inhaler PO RT Q6H PRN 12/17/16 01/10/17 History Carvedilol [Coreg] 25 mg PO BID 12/17/16 01/10/17 History Docusate Sodium Cap [Colace Cap] 100 mg PO BID 12/17/16 01/10/17 History Erythromycin Base 250 mg PO DAILY W/BREAKFAST 12/17/16 01/10/17 History Furosemide Tab [Lasix Tab] 20 mg PO DAILY 12/17/16 01/10/17 History Insulin Glargine [Lantus] 10 unit SUBCUT AC SUPPER 12/17/16 01/10/17 History Lactulose 40 gm PO BID PRN 12/17/16 01/10/17 History Pantoprazole Tab [Protonix Tab] 40 mg PO BID 12/17/16 01/10/17 History Polyethylene Glycol Powder 17 gm PO DAILY 12/17/16 01/10/17 History [Miralax] Sertraline HCl 150 mg PO BEDTIME 12/17/16 01/10/17 History glyBURIDE MICRONIZED [Glynase] 1.5 mg PO DAILY W/BREAKFAST tablet 01/01/1712/19 Rx Albuterol Neb [Proventil Neb] 2.5 mg RESP TX Q6H PRN 01/10/17 01/10/17 History Aspirin EC Tab 81 mg PO DAILY 01/10/17 01/10/17 History Quetiapine Fumarate 25 mg PO BEDTIME 01/10/17 01/10/17 History Zaleplon [Sonata] 5 mg PO BEDTIME PRN 01/10/17 01/10/17 History Allergies Allergy/AdvReac Type Severity Reaction Status Date / Time No Known Allergies Allergy Verified 01/10/17 09:03 - Constitutional Constitutional: Present: fatigue. Absent: chills, fever(s) - EENT Eyes: Absent: loss of vision Ears: Absent: decreased hearing Nose, mouth and throat: Present: hoarseness, other (He still has trouble with his speech.) - Cardiovascular Cardiovascular: Present: dyspnea on exertion. Absent: chest pain at rest - Respiratory Respiratory: Present: wheezing. Absent: cough, change in phlegm color - Gastrointestinal Gastrointestinal: Present: dysphagia. Absent: abdominal pain, change in bowel habits, nausea, vomiting - Genitourinary Genitourinary: Present: dysuria, urinary frequency - Musculoskeletal Musculoskeletal: Present: arthralgias, muscle weakness - Neurological Neurological: Present: abnormal speech. Absent: focal weakness Exam (Pulmonay) H&P - Constitutional Vitals: Period Temp Pulse Resp BP Sys/Willams Pulse Ox Last 24 Hr 97.2 F-98.1 F 70-81 17-22 98-162/55-78 91-96 General appearance: no acute distress (He is alert and talking this morning. He has only mild respiratory difficulties.), over weight - Head Head exam: Present: normal inspection, normocephalic - Eye Eye exam: Present: EOMI. Absent: scleral icterus Pupils: Present: ANH - ENT ENT exam: Present: normal exam - Neck Neck exam: Present: other (His tracheostomy site is healing.). Absent: lymphadenopathy, thyromegaly - Respiratory Respiratory exam: Present: decreased breath sounds, prolonged expiratory phase, rhonchi - Cardiovascular Cardiovascular exam: Present: regular rate and rhythm. Absent: gallop, systolic murmur - GI/Abdominal GI/Abdominal exam: Present: normal bowel sounds, soft. Absent: organomegaly, tenderness - Extremities Exam Extremities exam: Absent: calf tenderness, edema - Neurological Exam Neurological exam: Present: alert, oriented X3, other (He does have trouble with his speech. He is moving his arms and legs okay.) - Psychiatric Psychiatric exam: Absent: anxious - Skin Skin exam: Present: warm, dry Medical,Surgical,& Family Hx - Medical History Cardio: History of: Cardiac Dysrhythmia, CAD, Hypertension, Pacemaker ( Abdominal pacemaker with know bad atrial lead chronically), Cardiovascular Problems (open heart surgery 1997) Psychological: History of: Depression, Psychiatric/Substance Abuse Tx (ETOH abuse) Neurology: History of: Vertigo HEENT: History of: Eye Problem (sarahi cataract surgery x2), Dental Problems (has permanent upper teeth) Comment Only: HEENT Problems (Patient on vent no family present) Endocrine: History of: Diabetes Mellitus (IDDM), Diabetes Mellitus (NIDDM), Dyslipidemia Respiratory: History of: COPD, Intubation, Obstructive Sleep Apnea (has cpap at home), Pneumonia Comment Only: Respiratory Problems (Patient on vent no family present) Renal: History of: Renal Problems (pt on vent no family present, renal insufficiency) Gastrointestinal: History of: Hemorrhoids Comment Only: GI Problems (Patient on vent no family present) Musculoskeletal: History of: Back/Neck Problems (back pain steroid injections), Herniated Disk Comment Only: Musculoskeletal Problems (Patient on vent no family present) Other: Comment Only: Miscellaneous Medical Problems (pt on vent no family present) - Surgical History Cardiac Surgeries: Sugical HX of: Cardiac Catheterization, Cardiac Surgery ( triple bypass) Neurologic Surgeries: Patient denies: Neurologic Surgery Abdominal Surgeries: Surgical HX of: Abdominal Surgery (placed pacemaker 1998), Colonoscopy Orthopedic Surgeries: Surgical HX of;: Implanted Devices (pacemaker) - Family History Family History: Reports;: Family Heart Disease (gradmother-maternal), Family Hypertension, Family Stroke - Social History Smoking Status: Never smoker Frequency of Alcohol Use: None Type of Drug Use: Unknown Results - Labs CBC & BMP: 01/10/17 09:38 01/10/17 09:38 - Diagnostic Findings Procedure: Chest x-ray: image reviewed by me, report reviewed by me (Chest x- ray shows cardiomegaly but no definite infiltrates.), CT: report reviewed by me (CT of his head shows small vessel disease but no acute changes.) Specialty Discharge - Follow Up or Referrals Follow up with: Tegan Ochoa DO [Physician] -
[2017-01-11] MEDS: INSULIN LISPRO 100 UNIT/ML SUBCUT SCH ×4 (11:27→20:59)
--- NOTE | 2017-01-11 11:33 | Hospitalist Progress Note ---
Assessment and Plan (1) Altered mental status Status: Resolved Assessment and plan: Metabolic encephalopathy related to infection. This has improved with treatment of urinary tract infection. Current Visit: Yes (2) Chronic atrial fibrillation Status: Chronic Current Visit: Yes (3) Diabetes mellitus Status: Chronic Current Visit: Yes Qualifiers: Diabetes mellitus type: type 2 (4) UTI (urinary tract infection) Status: Acute Assessment and plan: Continue Rocephin. Follow-up cultures Current Visit: Yes Qualifiers: Urinary tract infection type: acute cystitis Hematuria presence: without hematuria Qualified Code(s): N30.00 - Acute cystitis without hematuria (5) COPD (chronic obstructive pulmonary disease) Status: Chronic Current Visit: Yes Qualifiers: COPD type: unspecified COPD Qualified Code(s): J44.9 - Chronic obstructive pulmonary disease, unspecified Hospitalist: Subjective Interval history: Patient seen and examined. No acute events overnight. Case discussed with nursing staff. Labs reviewed. He reports improvement. He is conversationally dyspneic. He reports that this is baseline for him. He also reports diarrhea. Exam - Constitutional Vitals: Period Temp Pulse Resp BP Sys/Willams Pulse Ox Last 24 Hr 97.2 F-98.1 F 70-81 17-22 98-162/55-78 91-96 Exam: Constitutional System: Mild distress. No tremulousness. Short of breath with conversation. Head: Normocephalic, atraumatic. Ears, Nose and Throat System: No pain or tenderness. No epistaxis or discharge Eyes System: Pupils equal, round, and reactive. Extraocular muscles intact. Neck: Supple, without adenopathy, No jugular venous distention. No thyromegaly, neck mass, or prior surgery apparent. Respiratory System: Chest clear to auscultation. Tracheostomy scar noted. Cardiovascular System: Heart with irregular rate and rhythm. No murmur. GI System: Abdomen soft, nontender. Normo active bowel sounds present. Musculoskeletal System: limbs with no pedal edema. Full distal pulses. Normal capillary refill. Neurological System: No discernable sensory deficit. No aphasia Psychiatric System: Conversation is rational Results - Labs CBC & BMP: 01/10/17 09:38 01/10/17 09:38 Lab Results: I have reviewed the past 24 hour labs Specialty Discharge - Follow Up or Referrals Follow up with: Tegan Ochoa DO [Physician] -
[2017-01-11] MEDS: ALBUTEROL/IPRATROPIUM 3 ML NEB RESP TX SCH ×2 (13:46→19:37)
--- NOTE | 2017-01-11 15:09 | Cardiology Progress Note ---
Assessment and Plan (1) Altered mental status Status: Resolved Assessment and plan: Differential diagnoses include some metabolic cause, a TIA, hypoxemia, hypercapnia, hepatic encephalopathy, some other cause Plan/recommendation: EKG every morning x 2 Review home meds, see if some might be causing his symptoms Agree with neuro consult Agree with pulmonary consult We will check ammonia level, if is not already been done We will encourage patient to use his CPAP I will follow along with you. He had an echo done in 10/2016 which showed good LV function. I will defer to neurology if they want to repeat this or not. Thank you for allowing me to participate in this patient's care 01/11/17: AMS may be multifactorial. Possibly related to the UTI, but possibly some hepatic encephalopathy with elevated ammonia level Continue treatment with antibiotics Continue using lactulose twice daily, reduce to twice daily because his diarrhea Stop stool softener and MiraLAX Recheck ammonia level in the a.m. Current Visit: Yes (2) Obstructive sleep apnea Status: Acute Current Visit: Yes (3) Depression Status: Acute Current Visit: Yes (4) Chronic atrial fibrillation Status: Chronic Current Visit: Yes (5) Debility Status: Acute Current Visit: Yes (6) Diabetes mellitus Status: Chronic Current Visit: Yes Qualifiers: Diabetes mellitus type: type 2 (7) UTI (urinary tract infection) Status: Acute Current Visit: Yes Qualifiers: Urinary tract infection type: acute cystitis Hematuria presence: without hematuria Qualified Code(s): N30.00 - Acute cystitis without hematuria (8) Renal insufficiency Status: Acute Current Visit: No (9) Alcoholism Status: Chronic Current Visit: No (10) Coronary artery disease Status: Chronic Current Visit: No Qualifiers: Coronary Disease-Associated Artery/Lesion type: bypass graft [place] vs. transplanted heart: [place] heart Associated angina: angina presence unspecified Qualified Code(s): I25.810 - Atherosclerosis of coronary artery bypass graft(s) without angina pectoris (11) Hypertension Status: Chronic Current Visit: No (12) Obesity (BMI 30-39.9) Status: Chronic Current Visit: No (13) Increased ammonia level Status: Acute Current Visit: Yes (14) Hepatic encephalopathy Problem details: ??? Status: Acute Current Visit: Yes Cardiology - PN: Subj Interval history: No chest pain or shortness of breath. Complains of diarrhea. Exam (Progress Note) - Constitutional Vitals: Period Temp Pulse Resp BP Sys/Willams Pulse Ox Last 24 Hr 97.6 F-98.1 F 70-81 20-22 98-147/55-62 91-96 Exam: HEENT: Pupils equal, reactive to light and accommodation Neck: NoJVD or bruit Lungs clear to auscultation Heart: Regular rhythm rate with normal S1 and S2. Apical S4 Abdomen: No hepatosplenomegaly Spine/extremities: No clubbing, cyanosis, or edema Neuro: Nonfocal Psych: No depression or anxiety Seems alert and oriented. Result/EKG - Labs CBC & BMP: 01/10/17 09:38 01/10/17 09:38 Labs: Laboratory Results - last 24 hr 01/10/17 01/11/17 20:13 11:12 POC Glucose 138 H 171 H Specialty Discharge - Follow Up or Referrals Follow up with: Tegan Ochoa DO [Physician] -
[2017-01-11] MEDS: INSULIN GLARGINE 100 UNIT/ML SUBCUT SCH (16:34)
[2017-01-11] MEDS: SERTRALINE 50 MG TABLET PO SCH (21:00)
[2017-01-11] MEDS: QUEtiapine 25 MG TABLET PO SCH (21:00)
[2017-01-12] MEDS: ALBUTEROL/IPRATROPIUM 3 ML NEB RESP TX SCH ×4 (00:22→19:32)
[2017-01-12 04:51] LABS: Calcium 9.1 MG/DL (8.5-10.1)
[2017-01-12] MEDS: INSULIN LISPRO 100 UNIT/ML SUBCUT SCH ×4 (07:20→20:42)
[2017-01-12] MEDS: ASPIRIN EC 81 MG TABLET PO SCH (09:23)
--- NOTE | 2017-01-12 09:23 | EKG Report ---
Stationary ECG Study [facility] Test Date: 01/12/2017 8:40:15 AM Pat Name: MARLENE ZHANG Department: Room: 430 Gender: M [employer]: EWELINA : 1940 Requested by: Elder Arriola Order Number: [id number] Reading MD: ELDER ARRIOLA Intervals [place] Rate: 80 P: 999 AR: 0 QRS: 204 QRSD: 140 T: 70 QT: 448 QTc: 484 Interpretive Statements ATRIAL FIBRILLATION ? With some V pacing INDETERMINATE AXIS RIGHT BUNDLE BRANCH BLOCK INTERPRETATION BASED ON A DEFAULT AGE OF 40 YEARS Electronically Signed On 01-12-17 11:47:51 CDT by ELDER ARRIOLA [email or web address]
[2017-01-12] MEDS: CARVEDILOL 25 MG TABLET PO SCH ×2 (09:24→20:57)
[2017-01-12] MEDS: PANTOPRAZOLE 40 MG TABLET PO SCH ×2 (09:24→20:57)
[2017-01-12] MEDS: FUROSEMIDE 20 MG TABLET PO SCH (09:24)
[2017-01-12] MEDS: LACTULOSE 20 GM/30 ML UDCUP PO SCH ×2 (09:27→20:57)
[2017-01-12] MEDS: cefTRIAXone 1,000 MG in SODIUM CHLORIDE 0.9% 100 ML IV SCH ×2 (09:33→15:00)
--- NOTE | 2017-01-12 10:17 | Pulmonology Progress Note ---
Pulmonary - PN: Subj Interval history: The patient is a 76-year-old white male has had an extremely complicated hospital course in the recent past. He apparently came back in for confusion and possibly a CVA. However his symptoms have cleared fairly well. He still gets a little confused. His ammonia level is elevated despite having loose stools. He does have a history of cirrhosis. He says he coughs some but his breathing is doing okay. He seems to be eating quite well. He looks reasonably comfortable today. He is not having any fever. Exam (Progress Note) - Constitutional Vitals: Period Temp Pulse Resp BP Sys/Willams Pulse Ox Last 24 Hr 97.7 F-98.7 F 70-95 17-26 126-153/57-75 93-99 Exam: General appearance: no acute distress (He is alert and talking this morning. He looks like he is breathing comfortably and seems to be fairly stable.), over weight - Head Head exam: Present: normal inspection, normocephalic - Eye Eye exam: Present: EOMI. Absent: scleral icterus Pupils: Present: ANH - ENT ENT exam: Present: normal exam - Neck Neck exam: Present: other (His tracheostomy site is healing.). Absent: lymphadenopathy, thyromegaly - Respiratory Respiratory exam: Present: He has good air movement bilaterally without any definite wheezing. - Cardiovascular Cardiovascular exam: Present: regular rate and rhythm. Absent: gallop, systolic murmur - GI/Abdominal GI/Abdominal exam: Present: normal bowel sounds, soft. Absent: organomegaly, tenderness - Extremities Exam Extremities exam: Absent: calf tenderness, edema - Neurological Exam Neurological exam: Present: alert, oriented X3, other (He does have trouble with his speech. He is moving his arms and legs okay. He apparently gets confused easily) - Psychiatric Psychiatric exam: Absent: anxious - Skin Skin exam: Present: warm, dry Results - Labs CBC & BMP: 01/10/17 09:38 01/12/17 02:01 Assessment and Plan (1) COPD (chronic obstructive pulmonary disease) Status: Chronic Assessment and plan: Patient has a long history of COPD and will continue with bronchodilator therapy. He is breathing comfortably at present. Current Visit: Yes Qualifiers: COPD type: unspecified COPD Qualified Code(s): J44.9 - Chronic obstructive pulmonary disease, unspecified (2) Altered mental status Status: Resolved Assessment and plan: Patient apparently had some confusion yesterday but he seemed okay today. His confusion apparently comes and goes. His ammonia level is a little elevated. He is getting lactulose. Current Visit: Yes (3) Chronic atrial fibrillation Status: Chronic Assessment and plan: His heart rate is under good control. Current Visit: Yes (4) Debility Status: Acute Assessment and plan: The patient has been extremely ill recently and is getting some improvement with physical therapy. He will need to continue with rehab. Current Visit: Yes (5) Diabetes mellitus Status: Chronic Assessment and plan: His glucose is 89 today. Current Visit: Yes Qualifiers: Diabetes mellitus type: type 2 (6) Obstructive sleep apnea Status: Acute Assessment and plan: The patient will continue with CPAP at night. Current Visit: Yes (7) Urinary tract infection Status: Acute Assessment and plan: The patient has gram-negative rods on his urine and is getting treatment. He seems to be relatively stable Current Visit: Yes (8) Hepatic encephalopathy Problem details: ??? Status: Acute Assessment and plan: He has a long history of alcohol abuse with likely cirrhosis. Some of his confusion may be his encephalopathy. Current Visit: Yes Specialty Discharge - Follow Up or Referrals Follow up with: Tegan Ochoa DO [Physician] -
--- NOTE | 2017-01-12 11:18 | Hospitalist Progress Note ---
Assessment and Plan (1) Altered mental status Status: Resolved Assessment and plan: Metabolic encephalopathy related to infection. This is improving with treatment of urinary tract infection. Hepatic encephalopathy also in the differential. The patient has a history of cirrhosis and has an elevated ammonia level. He is on lactulose at home and I have added Xifaxan. Current Visit: Yes (2) Chronic atrial fibrillation Status: Chronic Assessment and plan: Followed by cardiology. Rate controlled. Current Visit: Yes (3) Diabetes mellitus Status: Chronic Current Visit: Yes Qualifiers: Diabetes mellitus type: type 2 (4) UTI (urinary tract infection) Status: Acute Assessment and plan: Continue Rocephin. Follow-up cultures Current Visit: Yes Qualifiers: Urinary tract infection type: acute cystitis Hematuria presence: without hematuria Qualified Code(s): N30.00 - Acute cystitis without hematuria (5) COPD (chronic obstructive pulmonary disease) Status: Chronic Current Visit: Yes Qualifiers: COPD type: unspecified COPD Qualified Code(s): J44.9 - Chronic obstructive pulmonary disease, unspecified Hospitalist: Subjective Interval history: Patient seen and examined. No acute events overnight. Case discussed with nursing staff. Labs reviewed. Nursing reports the patient continues to have episodes and periods of confusion. His ammonia level has increased despite use of lactulose. I will add Xifaxan. Urine culture not final. Continue Rocephin. Case discussed with Dr. Arriola. The patient denies any complaints. Exam - Constitutional Vitals: Period Temp Pulse Resp BP Sys/Willams Pulse Ox Last 24 Hr 97.7 F-98.7 F 70-95 17-26 126-153/57-75 93-99 Exam: Constitutional System: Mild distress with conversation. No tremulousness. Short of breath with conversation. No distress at rest Head: Normocephalic, atraumatic. Ears, Nose and Throat System: No pain or tenderness. No epistaxis or discharge Eyes System: Pupils equal, round, and reactive. Extraocular muscles intact. Neck: Supple, without adenopathy, No jugular venous distention. No thyromegaly, neck mass, or prior surgery apparent. Respiratory System: Chest clear to auscultation. Tracheostomy scar noted. Cardiovascular System: Heart with irregular rate and rhythm. No murmur. GI System: Abdomen soft, nontender. Normo active bowel sounds present. Musculoskeletal System: limbs with no pedal edema. Full distal pulses. Normal capillary refill. Neurological System: No discernable sensory deficit. No aphasia Psychiatric System: Conversation is rational Results - Labs CBC & BMP: 01/10/17 09:38 01/12/17 02:01 Lab Results: I have reviewed the past 24 hour labs Specialty Discharge - Follow Up or Referrals Follow up with: Tegan Ochoa DO [Physician] -
--- NOTE | 2017-01-12 12:44 | Neurology Consult Note ---
History of Present Illness History of present illness: Mr. Sibley is a 76 year old white male chronically ill patient who has been admitted to the hospital with change in mental status. Patient has had a very complicated past hospital course. He has been at [facility] for quite some time with respiratory failure on the ventilator. He has a long history of multiple problems including COPD, coronary artery disease, hypertension, diabetes, alcohol abuse, sleep apnea, chronic pain problems. He was on the ventilator and had a tracheostomy tube. He ultimately was weaned from the ventilator and went to rehab. He had been doing well and was almost completed his course at rehab. This time he apparently came in because he had some confusion and altered mental status. There was a question of left-sided facial weakness along with some arm weakness. He has evaluated in the emergency room and found to have a UTI. He has been started on some antibiotics. He says his breathing has been doing reasonably well. CT of the head is unremarkable. Ammonia level is high at 86. Home Medications Medication Instructions Recorded Confirmed Type Albuterol Sulfate [Albuterol Neb] 1 inhaler PO RT Q6H PRN 12/17/16 01/10/17 History Carvedilol [Coreg] 25 mg PO BID 12/17/16 01/10/17 History Docusate Sodium Cap [Colace Cap] 100 mg PO BID 12/17/16 01/10/17 History Erythromycin Base 250 mg PO DAILY W/BREAKFAST 12/17/16 01/10/17 History Furosemide Tab [Lasix Tab] 20 mg PO DAILY 12/17/16 01/10/17 History Insulin Glargine [Lantus] 10 unit SUBCUT AC SUPPER 12/17/16 01/10/17 History Lactulose 40 gm PO BID PRN 12/17/16 01/10/17 History Pantoprazole Tab [Protonix Tab] 40 mg PO BID 12/17/16 01/10/17 History Polyethylene Glycol Powder 17 gm PO DAILY 12/17/16 01/10/17 History [Miralax] Sertraline HCl 150 mg PO BEDTIME 12/17/16 01/10/17 History glyBURIDE MICRONIZED [Glynase] 1.5 mg PO DAILY W/BREAKFAST tablet 01/01/1712/19 Rx Albuterol Neb [Proventil Neb] 2.5 mg RESP TX Q6H PRN 01/10/17 01/10/17 History Aspirin EC Tab 81 mg PO DAILY 01/10/17 01/10/17 History Quetiapine Fumarate 25 mg PO BEDTIME 01/10/17 01/10/17 History Zaleplon [Sonata] 5 mg PO BEDTIME PRN 01/10/17 01/10/17 History Allergies Allergy/AdvReac Type Severity Reaction Status Date / Time No Known Allergies Allergy Verified 01/10/17 09:03 12 point system: reviewed and no additional remarkable complaints except as stated Medical,Surgical,& Family Hx - Medical History Cardio: History of: Cardiac Dysrhythmia, CAD, Hypertension, Pacemaker ( Abdominal pacemaker with know bad atrial lead chronically), Cardiovascular Problems (open heart surgery 1997) Psychological: History of: Depression, Psychiatric/Substance Abuse Tx (ETOH abuse) Neurology: History of: Vertigo HEENT: History of: Eye Problem (sarahi cataract surgery x2), Dental Problems (has permanent upper teeth) Comment Only: HEENT Problems (Patient on vent no family present) Endocrine: History of: Diabetes Mellitus (IDDM), Diabetes Mellitus (NIDDM), Dyslipidemia Respiratory: History of: COPD, Intubation, Obstructive Sleep Apnea (has cpap at home), Pneumonia Comment Only: Respiratory Problems (Patient on vent no family present) Renal: History of: Renal Problems (pt on vent no family present, renal insufficiency) Gastrointestinal: History of: Hemorrhoids Comment Only: GI Problems (Patient on vent no family present) Musculoskeletal: History of: Back/Neck Problems (back pain steroid injections), Herniated Disk Comment Only: Musculoskeletal Problems (Patient on vent no family present) Other: Comment Only: Miscellaneous Medical Problems (pt on vent no family present) - Surgical History Cardiac Surgeries: Sugical HX of: Cardiac Catheterization, Cardiac Surgery ( triple bypass) Neurologic Surgeries: Patient denies: Neurologic Surgery Abdominal Surgeries: Surgical HX of: Abdominal Surgery (placed pacemaker 1998), Colonoscopy Orthopedic Surgeries: Surgical HX of;: Implanted Devices (pacemaker) - Family History Family History: Reports;: Family Heart Disease (gradmother-maternal), Family Hypertension, Family Stroke - Social History Smoking Status: Never smoker Frequency of Alcohol Use: None Type of Drug Use: Unknown Exam - Constitutional Vitals: Period Temp Pulse Resp BP Sys/Willams Pulse Ox Last 24 Hr 97.7 F-98.7 F 70-95 17- 126-153/57-75 94-99 Exam: GENERAL: Patient is in no acute distress. NECK: Neck is supple. There is no JVD. No carotid bruits present. No thyroid masses. CVS: First and second heart sounds are normal. There is no S3 present. Regular rate and rhythm. RESPIRATORY: Lungs are clear to auscultation without any rales or rhonchi. ABDOMEN: Soft and non-tender. Bowel sounds are present. There is no hepatosplenomegaly. EXT: There is no palpable edema. Peripheral pulses are present. Skin: No rashes Central Nervous system: General: Alert, awake and Oriented x 3 Speech: Fluent Comprehension: Intact and normal Facial expressions: Normal Cranial Nerves: CN1/Olfactory: Normal CN II/ Optic: Normal, Visual Reveles unreliable CN III, and : ANH & EOMI CN V: Normal & intact CN VII: face is symmetric CNVIII: Normal CN XI/X/XI/XII: Intact and Normal Motor: Bulk and Tone is normal. Strength in the right 3/5 Strength in the left 3/5 Sensory: Grossly intact for all the modalities of PP, LT and temp sense Reflexes: 1+ and symmetrical Cerebellar function: Normal finger to nose and heel to stroud testing. Toes: Equivocal Gait: Able to get up and walk with min to mod assist Results - Labs CBC & BMP: 01/10/17 09:38 01/12/17 02:01 Assessment and Plan (1) Altered mental status Status: Resolved Assessment and plan: This is likely metabolic in origin. No evidence of a stroke, TIAs, epilepsy or seizures Continue supportive management. No new recommendations from neuro standpoint His mental status is back to baseline now Thank you for the consult Sign off please call as needed Current Visit: Yes Specialty Discharge - Follow Up or Referrals Follow up with: Tegan Ochoa DO [Physician] -
[2017-01-12] MEDS: RIFAXIMIN 550 MG TABLET PO SCH ×2 (12:51→20:57)
--- NOTE | 2017-01-12 16:18 | Cardiology Progress Note ---
Assessment and Plan (1) Altered mental status Status: Resolved Assessment and plan: Differential diagnoses include some metabolic cause, a TIA, hypoxemia, hypercapnia, hepatic encephalopathy, some other cause Plan/recommendation: EKG every morning x 2 Review home meds, see if some might be causing his symptoms Agree with neuro consult Agree with pulmonary consult We will check ammonia level, if is not already been done We will encourage patient to use his CPAP I will follow along with you. He had an echo done in 10/2016 which showed good LV function. I will defer to neurology if they want to repeat this or not. Thank you for allowing me to participate in this patient's care 01/11/17: AMS may be multifactorial. Possibly related to the UTI, but possibly some hepatic encephalopathy with elevated ammonia level Continue treatment with antibiotics Continue using lactulose twice daily, reduce to twice daily because his diarrhea Stop stool softener and MiraLAX Recheck ammonia level in the a.m. 01/12/17: Assessment/plan/recommendation: More transient confusion Neuro believes it is metabolic I suppose it could be hepatic encephalopathy, as his ammonia level has increased Dr. Lee says he has a history of cirrhosis, could be due to [place] Agree with a trial of the Xifaxan, 500 mg p.o. twice daily The patient's nurse, Dr. Field, and I conferred care The lactulose apparently does not work well with him Current Visit: Yes (2) Obstructive sleep apnea Status: Acute Current Visit: Yes (3) Depression Status: Acute Current Visit: Yes (4) Chronic atrial fibrillation Status: Chronic Current Visit: Yes (5) Debility Status: Acute Current Visit: Yes (6) Diabetes mellitus Status: Chronic Current Visit: Yes Qualifiers: Diabetes mellitus type: type 2 (7) UTI (urinary tract infection) Status: Acute Current Visit: Yes Qualifiers: Urinary tract infection type: acute cystitis Hematuria presence: without hematuria Qualified Code(s): N30.00 - Acute cystitis without hematuria (8) Renal insufficiency Status: Acute Current Visit: No (9) Alcoholism Status: Chronic Current Visit: No (10) Coronary artery disease Status: Chronic Current Visit: No Qualifiers: Coronary Disease-Associated Artery/Lesion type: bypass graft [place] vs. transplanted heart: [place] heart Associated angina: angina presence unspecified Qualified Code(s): I25.810 - Atherosclerosis of coronary artery bypass graft(s) without angina pectoris (11) Hypertension Status: Chronic Current Visit: No (12) Obesity (BMI 30-39.9) Status: Chronic Current Visit: No (13) Increased ammonia level Status: Acute Current Visit: Yes (14) Hepatic encephalopathy Problem details: ??? Status: Acute Current Visit: Yes Cardiology - PN: Subj Interval history: No chest pain or shortness of breath. Was transiently confused this morning. Exam (Progress Note) - Constitutional Vitals: Period Temp Pulse Resp BP Sys/Willams Pulse Ox Last 24 Hr 97.7 F-98.7 F 68-95 17-26 124-153/57-75 94-99 Exam: HEENT: Pupils equal, reactive to light and accommodation Neck: NoJVD or bruit Lungs clear to auscultation Heart: Regular rhythm rate with normal S1 and S2. Apical S4 Abdomen: No hepatosplenomegaly Spine/extremities: No clubbing, cyanosis, or edema Neuro: Nonfocal Psych: No depression or anxiety Seems alert and oriented. Result/EKG - Labs CBC & BMP: 01/10/17 09:38 01/12/17 02:01 Labs: Laboratory Results - last 24 hr 01/11/17 01/12/17 01/12/17 20:54 02:01 07:43 Sodium 143 Potassium 4.0 Chloride 108 H Carbon Dioxide 30 Anion Gap 9.0 BUN 16 Creatinine 1.20 GFR Calculation 75 BUN/Creatinine Ratio 13.00 Glucose 79 POC Glucose 165 H 89 Calculated Osmolality 284.0 Calcium 9.1 Magnesium 2.0 Ammonia 86 H 01/12/17 11:41 Sodium Potassium Chloride Carbon Dioxide Anion Gap BUN Creatinine GFR Calculation BUN/Creatinine Ratio Glucose POC Glucose 93 Calculated Osmolality Calcium Magnesium Ammonia Specialty Discharge - Follow Up or Referrals Follow up with: Tegan Ochoa DO [Physician] -
[2017-01-12] MEDS: INSULIN GLARGINE 100 UNIT/ML SUBCUT SCH (16:37)
[2017-01-12] MEDS: QUEtiapine 25 MG TABLET PO SCH (20:57)
[2017-01-12] MEDS: SERTRALINE 50 MG TABLET PO SCH (20:57)
[2017-01-13] MEDS: ALBUTEROL/IPRATROPIUM 3 ML NEB RESP TX SCH ×4 (01:10→19:26)
--- NOTE | 2017-01-13 09:26 | Pulmonology Progress Note ---
Pulmonary - PN: Subj Interval history: This 76-year-old white male is a patient that I had an [facility] for couple of months respiratory failure. He has hepatic cirrhosis and a long history of alcoholism. He has not had any alcohol in a couple of months. He was at the [facility] following that doing physical therapy and developed a urinary tract infection. He had decreased level of consciousness which has improved after treating the UTI. However his ammonia level is elevated. It may be worthwhile to have GI to see him. Patient tells me that he is anxious to get back to doing physical therapy. However earlier he would frequently decline doing exercise when they came to get him. Exam (Progress Note) - Constitutional Vitals: Period Temp Pulse Resp BP Sys/Willams Pulse Ox Last 24 Hr 97.8 F-98.0 F 68-95 16-22 124-165/61-95 89-100 Exam: Patient responsive fairly alert. Answers questions. Vital signs normal. Pupils react to light. Throat is clear. Neck supple no bruits. Chest sounds clear. Heart normal rate rhythm no murmurs. Abdomen soft nontender. Liver edge is palpable. Extremities no clubbing cyanosis edema. Calves nontender. Results - Labs CBC & BMP: 01/10/17 09:38 01/12/17 02:01 Lab Results: I have reviewed the past 24 hour labs - Diagnostic Findings Procedure: Chest x-ray: image reviewed by me (May have slight increased interstitial markings) Assessment and Plan (1) Coronary artery disease Status: Chronic Assessment and plan: No signs of active angina Current Visit: No Qualifiers: Coronary Disease-Associated Artery/Lesion type: bypass graft [place] vs. transplanted heart: [place] heart Associated angina: angina presence unspecified Qualified Code(s): I25.810 - Atherosclerosis of coronary artery bypass graft(s) without angina pectoris (2) UTI (urinary tract infection) Status: Acute Assessment and plan: This is been treated with Rocephin and it is sensitive. E. coli grew from the culture. Current Visit: Yes Qualifiers: Urinary tract infection type: acute cystitis Hematuria presence: without hematuria Qualified Code(s): N30.00 - Acute cystitis without hematuria (3) COPD (chronic obstructive pulmonary disease) Status: Chronic Assessment and plan: This appears to be stable. I do not think he has hypercarbia. Current Visit: Yes Qualifiers: COPD type: unspecified COPD Qualified Code(s): J44.9 - Chronic obstructive pulmonary disease, unspecified (4) Hepatic encephalopathy Problem details: ??? Status: Acute Assessment and plan: Likely due to his liver disease exacerbated by the UTI. Would suggest having GI to see him. Current Visit: Yes Specialty Discharge - Follow Up or Referrals Follow up with: Tegan Ochoa DO [Physician] -
[2017-01-13] MEDS: ASPIRIN EC 81 MG TABLET PO SCH (09:31)
[2017-01-13] MEDS: INSULIN LISPRO 100 UNIT/ML SUBCUT SCH ×4 (09:31→20:23)
[2017-01-13] MEDS: FUROSEMIDE 20 MG TABLET PO SCH (09:31)
[2017-01-13] MEDS: RIFAXIMIN 550 MG TABLET PO SCH ×2 (09:31→20:22)
[2017-01-13] MEDS: PANTOPRAZOLE 40 MG TABLET PO SCH ×2 (09:31→20:22)
[2017-01-13] MEDS: CARVEDILOL 25 MG TABLET PO SCH ×2 (09:31→20:22)
[2017-01-13] MEDS: LACTULOSE 20 GM/30 ML UDCUP PO SCH ×2 (09:33→20:22)
[2017-01-13] MEDS: cefTRIAXone 1,000 MG in SODIUM CHLORIDE 0.9% 100 ML IV SCH (11:59)
--- NOTE | 2017-01-13 14:54 | Hospitalist Progress Note ---
Assessment and Plan (1) Altered mental status Status: Acute Assessment and plan: Metabolic encephalopathy related to infection. This is improving with treatment of urinary tract infection-E. coli sensitive to Rocephin. Hepatic encephalopathy also in the differential. The patient has a history of cirrhosis and has an elevated ammonia level. He is on lactulose at home and I have added Xifaxan. Current Visit: Yes (2) Chronic atrial fibrillation Status: Chronic Assessment and plan: Followed by cardiology. Rate controlled. Current Visit: Yes (3) Diabetes mellitus Status: Chronic Current Visit: Yes Qualifiers: Diabetes mellitus type: type 2 (4) UTI (urinary tract infection) Status: Acute Assessment and plan: Continue Rocephin. E. coli sensitive to Rocephin Current Visit: Yes Qualifiers: Urinary tract infection type: acute cystitis Hematuria presence: without hematuria Qualified Code(s): N30.00 - Acute cystitis without hematuria (5) COPD (chronic obstructive pulmonary disease) Status: Chronic Current Visit: Yes Qualifiers: COPD type: unspecified COPD Qualified Code(s): J44.9 - Chronic obstructive pulmonary disease, unspecified Hospitalist: Subjective Interval history: Patient seen and examined. No acute events overnight. Case discussed with nursing staff. Labs reviewed. Case discussed with Dr. Anaya on rounds. Patient appears to be improving. Mental status clearing. Urine culture shows E. coli sensitive to Rocephin. Exam - Constitutional Vitals: Period Temp Pulse Resp BP Sys/Willams Pulse Ox Last 24 Hr 97.6 F-98.2 F 71-95 16-24 128-165/70-95 89-100 Exam: Constitutional System: Mild distress with conversation. No tremulousness. Short of breath with conversation. No distress at rest Head: Normocephalic, atraumatic. Ears, Nose and Throat System: No pain or tenderness. No epistaxis or discharge Eyes System: Pupils equal, round, and reactive. Extraocular muscles intact. Neck: Supple, without adenopathy, No jugular venous distention. Previous tracheostomy scar noted Respiratory System: Chest clear to auscultation. Tracheostomy scar noted. Cardiovascular System: Heart with irregular rate and rhythm. No murmur. GI System: Abdomen soft, nontender. Normo active bowel sounds present. Musculoskeletal System: limbs with no pedal edema. Full distal pulses. Normal capillary refill. Neurological System: No discernable sensory deficit. No aphasia. Pleasant and cooperative Psychiatric System: Conversation is rational Results - Labs CBC & BMP: 01/10/17 09:38 01/12/17 02:01 Lab Results: I have reviewed the past 24 hour labs Specialty Discharge - Follow Up or Referrals Follow up with: Tegan Ochoa DO [Physician] -
--- NOTE | 2017-01-13 15:14 | Cardiology Progress Note ---
Moy Leslie April, RN, am scribing for, and in the presence of, Richard Kenny MD 15:14. Assessment and Plan (1) Altered mental status Status: Acute Current Visit: Yes (2) Increased ammonia level Status: Acute Current Visit: Yes (3) Obstructive sleep apnea Status: Chronic Current Visit: Yes (4) Debility Status: Chronic Current Visit: Yes (5) Pacemaker Status: Chronic Current Visit: Yes (6) Atrial fibrillation Status: Chronic Current Visit: Yes Qualifiers: Atrial fibrillation type: paroxysmal Qualified Code(s): I48.0 - Paroxysmal atrial fibrillation (7) Coronary artery disease Status: Chronic Current Visit: Yes Qualifiers: Coronary Disease-Associated Artery/Lesion type: bypass graft [place] vs. transplanted heart: [place] heart Associated angina: angina presence unspecified Qualified Code(s): I25.810 - Atherosclerosis of coronary artery bypass graft(s) without angina pectoris (8) Diabetes Status: Chronic Current Visit: Yes (9) Hyperlipidemia Status: Chronic Current Visit: Yes (10) Hypertension Status: Chronic Current Visit: Yes (11) Obesity (BMI 30-39.9) Status: Chronic Current Visit: Yes Cardiology - PN: Subj Interval history: Fertilizing Machine Operator: Dr. Tegan Caon Summary: This is a chronically ill 76-year-old male that presented to the ED at [facility] via EMS from [facility] further evaluation of altered mental status. Patient has a medical history significant for coronary artery disease, atrial fibrillation, hypertension, depression, alcohol abuse, vertigo, insulin-dependent diabetes mellitus, dyslipidemia, chronic obstructive pulmonary disease, obstructive sleep apnea, pneumonia, hemorrhoids, chronic back pain, herniated disc disease, and gastroesophageal reflux disease. Patient surgical history significant for cardiac catheterization, coronary artery bypass graft, abdominal pacemaker placement, colonoscopy, and tracheostomy. Prior to presentation, the patient was undergoing rehabilitation at [facility] as a result of medical debility secondary to a prolonged hospitalization here at [facility]. During the previous encounter here at [place], the patient had experienced acute respiratory failure requiring prolonged mechanical ventilation and subsequent tracheostomy placement. The patient had been discharged to [facility] on October 09, 2016 for continuation of care. According to EMS report, the patient experienced a change in his mental status on the morning of January 10. The staff reported that the patient was his normal self upon awakening this morning. They noted that the patient was experiencing some left-sided facial droop and right-sided weakness with right- sided arm drift. In addition, they noted that the patient was lethargic. Dr. Landis was consulted has been evaluating. Ammonia level has been elevated this admission. CT of the head showed no acute intracranial abnormality. January 13, 2017: Mr. Sibley is seen housed and 40s. He denies any chest pain or shortness of breath. He seems tachypneic with speaking and is somewhat hard to understand, but he says this is related to him having had a tracheostomy. He is currently alert and oriented 3, but says he is confused at times. He says he is aware when he is confused. monitor technician currently shows atrial fibrillation with heart rates in the 70s. I have reviewed the chart and discussed the patient's evaluation and management with Sanjana Winter RN. I agree with her assessment and plan and I have evaluated the patient personally and examined him. Exam (Progress Note) - Constitutional Vitals: Period Temp Pulse Resp BP Sys/Willams Pulse Ox Last 24 Hr 97.6 F-98.2 F 68-95 16-24 128-165/70-95 89-100 General appearance: over weight, other (Chronically ill-appearing) - Head Head exam: Absent: abrasion, hematoma - Eye Eye exam: Absent: periorbital swelling, laceration to eyelids - Neck Neck exam: Absent: lymphadenopathy, tenderness - Respiratory Respiratory exam: Present: clear to auscultation bilaterally, other (Oxygen use intermittently via nasal cannula). Absent: accessory muscle use, chest wall tenderness - Cardiovascular Cardiovascular exam: Present: irregular rhythm. Absent: bradycardia, tachycardia - GI/Abdominal GI/Abdominal exam: Present: normal bowel sounds, soft. Absent: distended, tenderness - Extremities Exam Extremities exam: Absent: calf tenderness, edema - Neurological Exam Neurological exam: Present: alert, oriented X3, other (Has intermittent confusion) - Psychiatric Psychiatric exam: Present: normal affect, normal mood - Skin Skin exam: Present: warm, dry Result/EKG - Labs CBC & BMP: 01/10/17 09:38 01/12/17 02:01 Lab Results: I have reviewed the past 24 hour labs Labs: Laboratory Results - last 24 hr 01/12/17 01/12/17 01/12/17 16:48 17:33 20:37 POC Glucose 48 L* 83 116 H 01/13/17 01/13/17 08:17 11:53 POC Glucose 76 116 H - Diagnostic Findings Procedure: Chest x-ray: report reviewed by me - EKG EKG results: interpreted by me EKG shows: atrial fibrillation Specialty Discharge - Follow Up or Referrals Follow up with: Tegan Ochoa DO [Physician] - Efraín Leslie Wesley, MD, personally performed the services described in this documentation, ascribed by Sanjana Winter RN in my presence, and it is both accurate and complete .
[2017-01-13 16:16] LABS: Albumin 3.1 G/DL (3.4-5.0); Bilirubin,Total 0.6 MG/DL (0.2-1.0); Osmolality,Calculated 283.3 MOS/KG (273-304); Potassium 4.1 MMOL/L (3.5-5.1); Total Protein 6.4 G/DL (6.4-8.3)
[2017-01-13] MEDS: INSULIN GLARGINE 100 UNIT/ML SUBCUT SCH (16:50)
[2017-01-13] MEDS: SERTRALINE 50 MG TABLET PO SCH (20:22)
[2017-01-13] MEDS: QUEtiapine 25 MG TABLET PO SCH (20:22)
[2017-01-14] MEDS: ALBUTEROL/IPRATROPIUM 3 ML NEB RESP TX SCH ×4 (00:45→19:55)
[2017-01-14] MEDS: ZALEPLON 5 MG CAPSULE PO PRN ×2 (02:00→21:07)
[2017-01-14] MEDS: LORazepam 2 MG/1 ML VIAL IV PRN ×2 (04:41→21:07)
[2017-01-14 06:18] LABS: Basophils % 0.8 % (0.0-0.8); Eosinophils # 0.4 10*3/uL (0.0-0.87); Eosinophils % 8.1 % (0.00-10.9); Hematocrit 28.8 VOL% (42.0-52.0); Hemoglobin 9.3 GM/DL (14.0-18.0); Immature Granulocytes % 0.4 %; Immature Granulocytes Absolute 0.02 #; Lymphocytes % 18.1 % (21.2-54.2); Mean Corpuscular HGB Conc 32.3 GM/DL (32-36); Mean Corpuscular Hemoglobin 31 PG (27-34); Mean Corpuscular Volume 96.3 FL (87-102); Mean Platelet Volume 12.6 FL (9.6-12.0); Monocytes # 0.6 10*3/uL (0.11-0.8); Monocytes % 11.5 % (1.7-12.7); Neutrophils # 3.2 10*3/uL (1.4-7.4); Neutrophils % 61.1 % (38.7-73.9); Platelet Count 157 T/CUMM (130-400); Red Blood Count 2.99 MC/CUMM (3.8-5.5); Red Cell Distribution Width 15.3 % (9.3-17.3); White Blood Count 5.3 T/CUMM (4-12)
[2017-01-14 06:30] LABS: INR 1.2; PT Patient Result 12.4 SECS
[2017-01-14 07:39] LABS: Hepatitis A Ab IgM Quant 0.03 Index; Hepatitis A Ab IgM Result Negative (Negative); Hepatitis B Core IgM Quant 0.11 Index; Hepatitis B Core IgM Result Negative (Negative); Hepatitis B Surface Ag Quant 0.13 Index; Hepatitis B Surface Ag Result Negative (Negative); Hepatitis C Virus Ab Quant 0.03 Index; Hepatitis C Virus Ab Result Negative (Negative)
--- NOTE | 2017-01-14 09:15 | Pulmonology Progress Note ---
Pulmonary - PN: Subj Interval history: This 76-year-old white male is a patient that I had an [facility] for couple of months respiratory failure. He has hepatic cirrhosis and a long history of alcoholism. He has not had any alcohol in a couple of months. He was at the swing bed following that doing physical therapy and developed a urinary tract infection. He had decreased level of consciousness which has improved after treating the UTI. However his ammonia level is elevated. It may be worthwhile to have GI to see him. Patient tells me that he is anxious to get back to doing physical therapy. However earlier he would frequently decline doing exercise when they came to get him. 01/14/2017 patient is a little more alert. Mental status has improved since treatment of his urinary tract infection. Does have a slightly elevated ammonia level. Probably could be changed to oral antibiotics and discharged to swing bed. Exam (Progress Note) - Constitutional Vitals: Period Temp Pulse Resp BP Sys/Willams Pulse Ox Last 24 Hr 96.4 F-98.5 F 76-88 16-22 118-166/62-77 91-100 Exam: Patient responsive fairly alert. Answers questions. Vital signs normal. Pupils react to light. Throat is clear. Neck supple no bruits. Chest sounds clear. Heart normal rate rhythm no murmurs. Abdomen soft nontender. Liver edge is palpable. Extremities no clubbing cyanosis edema. Calves nontender. Results - Labs CBC & BMP: 01/14/17 04:53 01/13/17 15:15 Lab Results: I have reviewed the past 24 hour labs Assessment and Plan (1) Coronary artery disease Status: Chronic Assessment and plan: No signs of active angina 01/14/2017 no signs of heart failure or chest pain. Current Visit: Yes Qualifiers: Coronary Disease-Associated Artery/Lesion type: bypass graft [place] vs. transplanted heart: [place] heart Associated angina: angina presence unspecified Qualified Code(s): I25.810 - Atherosclerosis of coronary artery bypass graft(s) without angina pectoris (2) UTI (urinary tract infection) Status: Acute Assessment and plan: This is been treated with Rocephin and it is sensitive. E. coli grew from the culture. 01/14/2017 tract infection with E. coli sensitive to the Rocephin. Has been on that now for 4 days. Could be changed to oral antibiotics and take another 3 or 4 days. Current Visit: Yes Qualifiers: Urinary tract infection type: acute cystitis Hematuria presence: without hematuria Qualified Code(s): N30.00 - Acute cystitis without hematuria (3) COPD (chronic obstructive pulmonary disease) Status: Chronic Assessment and plan: This appears to be stable. I do not think he has hypercarbia. 01/14/2017 COPD appears to be stable. Current Visit: Yes Qualifiers: COPD type: unspecified COPD Qualified Code(s): J44.9 - Chronic obstructive pulmonary disease, unspecified (4) Hepatic encephalopathy Problem details: ??? Status: Acute Assessment and plan: Likely due to his liver disease exacerbated by the UTI. Would suggest having GI to see him. 01/14/2017 patient is more alert and oriented. I think the UTI was the principal cause of his acute encephalopathy Current Visit: Yes Specialty Discharge - Follow Up or Referrals Follow up with: Tegan Ochoa DO [Physician] -
[2017-01-14] MEDS ORDERED: TUBERCULIN SKIN TEST 0.1 ML SYRINGE INTRADERM ONE (09:39)
--- NOTE | 2017-01-14 09:42 | Case Mgmt Physician Query Form ---
TB Signs and Symptoms Screening ([place]) INSTRUCTIONS: To be completed annually on residents/staff with a significant Tuberculin Skin Test (TST) upon admission/hire or a prior significant TST. To be completed on all staff at hire. Please respond to each listed symptom with an (X) in either the "YES" or "NO" box. Do you currently have any of the following symptoms: YES NO ( ) (x ) A cough If yes, is it: ( ) Productive ( ) Non- productive ( ) (x ) Hemoptysis (spitting up blood) ( ) (x ) Chest pains ( ) (x ) Weight Loss ( ) (x ) Fever ( ) (x ) Night Sweats ( ) (x ) Weakness ( ) (x ) Loss of Appetite ( ) (x ) Difficulty Breathing If you answered YES" to any of the above questions, how long have symptoms been present? Comments: NESS
[2017-01-14] MEDS: INSULIN LISPRO 100 UNIT/ML SUBCUT SCH ×4 (09:49→21:19)
[2017-01-14] MEDS: ASPIRIN EC 81 MG TABLET PO SCH (09:53)
[2017-01-14] MEDS: LACTULOSE 20 GM/30 ML UDCUP PO SCH ×2 (09:55→21:19)
[2017-01-14] MEDS: CARVEDILOL 25 MG TABLET PO SCH ×2 (10:05→21:07)
[2017-01-14] MEDS: FUROSEMIDE 20 MG TABLET PO SCH (10:06)
[2017-01-14] MEDS: PANTOPRAZOLE 40 MG TABLET PO SCH ×2 (10:07→21:07)
[2017-01-14] MEDS: RIFAXIMIN 550 MG TABLET PO SCH ×2 (10:08→21:07)
[2017-01-14] MEDS: cefTRIAXone 1,000 MG in SODIUM CHLORIDE 0.9% 100 ML IV SCH (11:06)
--- NOTE | 2017-01-14 12:11 | Hospitalist Progress Note ---
Assessment and Plan (1) Altered mental status Status: Acute Assessment and plan: Metabolic encephalopathy related to infection. This is improving with treatment of urinary tract infection-E. coli sensitive to Rocephin. Hepatic encephalopathy also in the differential. The patient has a history of cirrhosis and has an elevated ammonia level. He is on lactulose at home and I have added Xifaxan. Current Visit: Yes (2) Chronic atrial fibrillation Status: Chronic Assessment and plan: Followed by cardiology. Rate controlled. Current Visit: Yes (3) Diabetes mellitus Status: Chronic Current Visit: Yes Qualifiers: Diabetes mellitus type: type 2 (4) UTI (urinary tract infection) Status: Acute Assessment and plan: Continue Rocephin. E. coli sensitive to Rocephin Current Visit: Yes Qualifiers: Urinary tract infection type: acute cystitis Hematuria presence: without hematuria Qualified Code(s): N30.00 - Acute cystitis without hematuria (5) COPD (chronic obstructive pulmonary disease) Status: Chronic Current Visit: Yes Qualifiers: COPD type: unspecified COPD Qualified Code(s): J44.9 - Chronic obstructive pulmonary disease, unspecified (6) Tremor Status: Acute Assessment and plan: Unsure if this is manifestations of seizure versus drug effect versus metabolic effects secondary to cirrhosis and hepatic encephalopathy. We will reconsult neurology. Current Visit: Yes Hospitalist: Subjective Interval history: Patient seen and examined. No acute events overnight. Case discussed with nursing staff. Labs reviewed. The patient has started having some shaking episodes. These were witnessed by me on rounds today. The student nurses and their instructor as well as the charge nurse were at the bedside. We observed the patient have a generalized twitching behavior and restlessness in the upper and lower extremities that was nonpurposeful. He did not appear to lose consciousness but was altered at the time of the event. He was not speaking and appeared confused immediately after. Unsure if this is seizure activity or some type of tremor. Will ask neurology to evaluate. Exam - Constitutional Vitals: Period Temp Pulse Resp BP Sys/Willams Pulse Ox Last 24 Hr 96.4 F-98.8 F 76-88 16-22 118-166/62-78 91-100 Exam: Constitutional System: Mild distress with conversation. Mild tremulousness. Short of breath with conversation. No distress at rest Head: Normocephalic, atraumatic. Ears, Nose and Throat System: No pain or tenderness. No epistaxis or discharge Eyes System: Pupils equal, round, and reactive. Extraocular muscles intact. Neck: Supple, without adenopathy, No jugular venous distention. Previous tracheostomy scar noted Respiratory System: Chest clear to auscultation. Tracheostomy scar noted. Cardiovascular System: Heart with irregular rate and rhythm. No murmur. GI System: Abdomen soft, nontender. Normo active bowel sounds present. Musculoskeletal System: limbs with no pedal edema. Full distal pulses. Normal capillary refill. Neurological System: No discernable sensory deficit. No aphasia. Pleasant and cooperative Psychiatric System: Conversation is rational-but waxes and wanes and has periods of confusion Results - Labs CBC & BMP: 01/14/17 04:53 01/13/17 15:15 Lab Results: I have reviewed the past 24 hour labs Specialty Discharge - Follow Up or Referrals Follow up with: Tegan Ochoa DO [Physician] -
--- NOTE | 2017-01-14 14:42 | Neurology Progress Note ---
Neurology - PN : Subjective Interval history: Patient had a spell this morning where he had shaking spell. Patient reported that he was aware of the surroundings during the spell and that was not a "real spell". I do not know what does he mean by this but he had no urinary or bowel incontinence or tongue biting. No passing out reported either. No post event change in mental status reported. Exam (Progress Note) - Constitutional Vitals: Period Temp Pulse Resp BP Sys/Willams Pulse Ox Last 24 Hr 96.4 F-98.8 F 76-88 16-22 118-166/62-78 91-100 Exam: GENERAL: Patient is in no acute distress. NECK: Neck is supple. There is no JVD. No carotid bruits present. No thyroid masses. CVS: First and second heart sounds are normal. There is no S3 present. Regular rate and rhythm. RESPIRATORY: Lungs are clear to auscultation without any rales or rhonchi. ABDOMEN: Soft and non-tender. Bowel sounds are present. There is no hepatosplenomegaly. EXT: There is no palpable edema. Peripheral pulses are present. Skin: No rashes Central Nervous system: General: Alert, awake and Oriented x 3 Speech: Fluent Comprehension: Intact and normal Facial expressions: Normal Cranial Nerves: CN1/Olfactory: Normal CN II/ Optic: Normal, Visual Reveles unreliable CN III, and : ANH & EOMI CN V: Normal & intact CN VII: face is symmetric CNVIII: Normal CN XI/X/XI/XII: Intact and Normal Motor: Bulk and Tone is normal. Strength in the right 3/5 Strength in the left 3/5 Sensory: Grossly intact for all the modalities of PP, LT and temp sense Reflexes: 1+ and symmetrical Cerebellar function: Normal finger to nose and heel to stroud testing. Toes: Equivocal Gait: Able to get up and walk with min to mod assist Results - Labs CBC & BMP: 01/14/17 04:53 01/13/17 15:15 Assessment and Plan (1) Altered mental status Status: Acute Assessment and plan: I do not hear any clear history of seizures. Spell could be anything ranging from vasovagal phenomena to a possible simple partial seizure (which would be less likely but cannot be excluded entirely.) He has had EEG in the past which were nonconclusive We will go ahead and do another EEG Thank you for re-consultation Current Visit: Yes Specialty Discharge - Follow Up or Referrals Follow up with: Tegan Ochoa DO [Physician] -
--- NOTE | 2017-01-14 16:00 | Cardiology Progress Note ---
Moy Leslie April, RN, am scribing for, and in the presence of, Richard Kenny MD 16:00. Assessment and Plan (1) Altered mental status Status: Acute Current Visit: Yes (2) Increased ammonia level Status: Acute Current Visit: Yes (3) Obstructive sleep apnea Status: Chronic Current Visit: Yes (4) Debility Status: Chronic Current Visit: Yes (5) Pacemaker Status: Chronic Current Visit: Yes (6) Atrial fibrillation Status: Chronic Current Visit: Yes Qualifiers: Atrial fibrillation type: paroxysmal Qualified Code(s): I48.0 - Paroxysmal atrial fibrillation (7) Coronary artery disease Status: Chronic Current Visit: Yes Qualifiers: Coronary Disease-Associated Artery/Lesion type: bypass graft [place] vs. transplanted heart: [place] heart Associated angina: angina presence unspecified Qualified Code(s): I25.810 - Atherosclerosis of coronary artery bypass graft(s) without angina pectoris (8) Diabetes Status: Chronic Current Visit: Yes (9) Hyperlipidemia Status: Chronic Current Visit: Yes (10) Hypertension Status: Chronic Current Visit: Yes (11) Obesity (BMI 30-39.9) Status: Chronic Current Visit: Yes Cardiology - PN: Subj Interval history: Brush Painter: Dr. Tegan Cano Summary: This is a chronically ill 76-year-old male that presented to the ED at [facility] via EMS from [facility] further evaluation of altered mental status. Patient has a medical history significant for coronary artery disease, atrial fibrillation, hypertension, depression, alcohol abuse, vertigo, insulin-dependent diabetes mellitus, dyslipidemia, chronic obstructive pulmonary disease, obstructive sleep apnea, pneumonia, hemorrhoids, chronic back pain, herniated disc disease, and gastroesophageal reflux disease. Patient surgical history significant for cardiac catheterization, coronary artery bypass graft, abdominal pacemaker placement, colonoscopy, and tracheostomy. Prior to presentation, the patient was undergoing rehabilitation at [facility] as a result of medical debility secondary to a prolonged hospitalization here at [facility]. During the previous encounter here at [place], the patient had experienced acute respiratory failure requiring prolonged mechanical ventilation and subsequent tracheostomy placement. The patient had been discharged to [facility] on October 09, 2016 for continuation of care. According to EMS report, the patient experienced a change in his mental status on the morning of January 10. The staff reported that the patient was his normal self upon awakening this morning. They noted that the patient was experiencing some left-sided facial droop and right-sided weakness with right- sided arm drift. In addition, they noted that the patient was lethargic. Dr. Landis was consulted has been evaluating. Ammonia level has been elevated this admission. CT of the head showed no acute intracranial abnormality. January 13, 2017: Mr. Sibley is seen housed on 4 E. He denies any chest pain or shortness of breath. He seems tachypneic with speaking and is somewhat hard to understand, but he says this is related to him having had a tracheostomy. He is currently alert and oriented 3, but says he is confused at times. He says he is aware when he is confused. tube filler currently shows atrial fibrillation with heart rates in the 70s. January 14, 2017: Mr. Sibley is confused this morning. He is pulling at his gown and were not really talk to me. tube filler currently shows atrial fibrillation, rates have been controlled. He is stable from a cardiac standpoint. We will sign off, reconsult if needed this admission. I have discussed in detail the particulars of this case and I have examined the patient and reviewed the patient's chart both current and old. I was directly involved in the patient's evaluation and management and I completely agree with Sanjana Winter RN regarding this patient's evaluation and treatment plan. Exam (Progress Note) - Constitutional Vitals: Period Temp Pulse Resp BP Sys/Willams Pulse Ox Last 24 Hr 96.4 F-98.5 F 76-88 16-22 118-166/62-77 91-100 Exam: General appearance: over weight, other (Chronically ill-appearing) - Head Head exam: Absent: abrasion, hematoma - Eye Eye exam: Absent: periorbital swelling, laceration to eyelids - Neck Neck exam: Absent: lymphadenopathy, tenderness - Respiratory Respiratory exam: Present: clear to auscultation bilaterally, other (Oxygen use intermittently via nasal cannula). Absent: accessory muscle use, chest wall tenderness - Cardiovascular Cardiovascular exam: Present: irregular rhythm. Absent: bradycardia, tachycardia - GI/Abdominal GI/Abdominal exam: Present: normal bowel sounds, soft. Absent: distended, tenderness - Extremities Exam Extremities exam: Absent: calf tenderness, edema - Neurological Exam Neurological exam: Present: alert, confused - Psychiatric Psychiatric exam: Present: normal affect, normal mood Result/EKG - Labs CBC & BMP: 01/14/17 04:53 01/13/17 15:15 Lab Results: I have reviewed the past 24 hour labs Labs: Laboratory Results - last 24 hr 01/13/17 01/13/17 01/13/17 11:53 15:15 15:45 WBC RBC Hgb Hct MCV MCH MCHC RDW Plt Count MPV Neut % (Auto) Lymph % (Auto) [place] % (Auto) Eos % (Auto) Baso % (Auto) Neut # (Auto) Lymph # (Auto) [place] # (Auto) Eos # (Auto) Baso # (Auto) Immature Gran % Nucleated RBC % Immature Gran # Nucleated RBCs # Immature Plt Fraction INR PT Patient/Control Mix Sodium 141 Potassium 4.1 Chloride 104 Carbon Dioxide 30 Anion Gap 11.1 BUN 14 Creatinine 1.20 GFR Calculation 75 BUN/Creatinine Ratio 11.00 Glucose 136 H POC Glucose 116 H 142 H Calculated Osmolality 283.3 Calcium 9.0 Total Bilirubin 0.60 AST 16 ALT 16 Alkaline Phosphatase 147 H Ammonia Total Protein 6.4 Albumin 3.1 L Globulin 3.3 Albumin/Globulin Ratio 0.9 L Hepatitis A IgM Ab Hep Bs Antigen Hep B Core IgM Ab Hepatitis C Antibody 01/13/17 01/14/17 01/14/17 19:38 04:53 04:53 WBC 5.3 RBC 2.99 L Hgb 9.3 L Hct 28.8 L MCV 96.3 MCH 31 MCHC 32.3 RDW 15.3 Plt Count 157 MPV 12.6 H Neut % (Auto) 61.1 Lymph % (Auto) 18.1 L [place] % (Auto) 11.5 Eos % (Auto) 8.1 Baso % (Auto) 0.8 Neut # (Auto) 3.2 Lymph # (Auto) 1.0 L [place] # (Auto) 0.6 Eos # (Auto) 0.4 Baso # (Auto) 0.0 Immature Gran % 0.4 Nucleated RBC % 0.0 Immature Gran # 0.02 Nucleated RBCs # 0.00 Immature Plt Fraction 0.0 INR 1.2 PT Patient/Control Mix 12.4 Sodium Potassium Chloride Carbon Dioxide Anion Gap BUN Creatinine GFR Calculation BUN/Creatinine Ratio Glucose POC Glucose 150 H Calculated Osmolality Calcium Total Bilirubin AST ALT Alkaline Phosphatase Ammonia Total Protein Albumin Globulin Albumin/Globulin Ratio Hepatitis A IgM Ab Hep Bs Antigen Hep B Core IgM Ab Hepatitis C Antibody 01/14/17 01/14/17 01/14/17 04:53 04:53 08:48 WBC RBC Hgb Hct MCV MCH MCHC RDW Plt Count MPV Neut % (Auto) Lymph % (Auto) [place] % (Auto) Eos % (Auto) Baso % (Auto) Neut # (Auto) Lymph # (Auto) [place] # (Auto) Eos # (Auto) Baso # (Auto) Immature Gran % Nucleated RBC % Immature Gran # Nucleated RBCs # Immature Plt Fraction INR PT Patient/Control Mix Sodium Potassium Chloride Carbon Dioxide Anion Gap BUN Creatinine GFR Calculation BUN/Creatinine Ratio Glucose POC Glucose 106 Calculated Osmolality Calcium Total Bilirubin AST ALT Alkaline Phosphatase Ammonia 48 H Total Protein Albumin Globulin Albumin/Globulin Ratio Hepatitis A IgM Ab Negative Hep Bs Antigen Negative Hep B Core IgM Ab Negative Hepatitis C Antibody Negative - EKG EKG results: interpreted by me EKG shows: atrial fibrillation Specialty Discharge - Follow Up or Referrals Follow up with: Tegan Ochoa DO [Physician] - Efraín Leslie Wesley, MD, personally performed the services described in this documentation, ascribed by Sanjana Winter RN in my presence, and it is both accurate and complete [id number] .
[2017-01-14] MEDS: INSULIN GLARGINE 100 UNIT/ML SUBCUT SCH (16:56)
[2017-01-14] MEDS: QUEtiapine 25 MG TABLET PO SCH (21:07)
[2017-01-14] MEDS: ZINC OXIDE PASTE 113 GM TUBE TOP SCH (21:16)
[2017-01-14] MEDS: SERTRALINE 50 MG TABLET PO SCH (21:21)
[2017-01-15] MEDS: ALBUTEROL/IPRATROPIUM 3 ML NEB RESP TX SCH ×2 (00:20→20:01)
[2017-01-15] MEDS: INSULIN LISPRO 100 UNIT/ML SUBCUT SCH ×4 (07:30→20:59)
[2017-01-15] MEDS: CARVEDILOL 25 MG TABLET PO SCH ×2 (08:56→20:51)
[2017-01-15] MEDS: FUROSEMIDE 20 MG TABLET PO SCH (08:56)
[2017-01-15] MEDS: ASPIRIN EC 81 MG TABLET PO SCH (08:56)
[2017-01-15] MEDS: PANTOPRAZOLE 40 MG TABLET PO SCH ×2 (08:57→20:51)
[2017-01-15] MEDS: RIFAXIMIN 550 MG TABLET PO SCH ×2 (08:58→20:51)
--- NOTE | 2017-01-15 08:58 | Pulmonology Progress Note ---
Pulmonary - PN: Subj Interval history: This 76-year-old white male is a patient that I had an [facility] for couple of months respiratory failure. He has hepatic cirrhosis and a long history of alcoholism. He has not had any alcohol in a couple of months. He was at the swing bed following that doing physical therapy and developed a urinary tract infection. He had decreased level of consciousness which has improved after treating the UTI. However his ammonia level is elevated. It may be worthwhile to have GI to see him. Patient tells me that he is anxious to get back to doing physical therapy. However earlier he would frequently decline doing exercise when they came to get him. 01/14/2017 patient is a little more alert. Mental status has improved since treatment of his urinary tract infection. Does have a slightly elevated ammonia level. Probably could be changed to oral antibiotics and discharged to swing bed. 01/15/2017 patient is alert but confused. Reviewing his medications I do not see any medicines that would be causing that. His ammonia level has decreased. He is on Seroquel at bedtime. Need to avoid sleeping pills. Oxygen saturation acceptable nasal oxygen. He tends to pull it off. Exam (Progress Note) - Constitutional Vitals: Period Temp Pulse Resp BP Sys/Willams Pulse Ox Last 24 Hr 97.5 F-98.8 F 80-83 18-24 143-176/60-88 91-96 General appearance: no severe distress Exam: Patient responsive fairly alert. Answers questions. Made some unusual statements stating that he was going to [place] then [place] then [place]. Vital signs normal. Pupils react to light. Throat is clear. Neck supple no bruits. Chest sounds clear. Heart normal rate rhythm no murmurs. Abdomen soft nontender. Liver edge is palpable. Extremities no clubbing cyanosis edema. Calves nontender. Results - Labs CBC & BMP: 01/14/17 04:53 01/13/17 15:15 Lab Results: I have reviewed the past 24 hour labs Assessment and Plan (1) Coronary artery disease Status: Chronic Assessment and plan: No signs of active angina 01/14/2017 no signs of heart failure or chest pain. 01/15/2017 does not appear to be in heart failure not having chest pain. Current Visit: Yes Qualifiers: Coronary Disease-Associated Artery/Lesion type: bypass graft [place] vs. transplanted heart: [place] heart Associated angina: angina presence unspecified Qualified Code(s): I25.810 - Atherosclerosis of coronary artery bypass graft(s) without angina pectoris (2) UTI (urinary tract infection) Status: Acute Assessment and plan: This is been treated with Rocephin and it is sensitive. E. coli grew from the culture. 01/14/2017 tract infection with E. coli sensitive to the Rocephin. Has been on that now for 4 days. Could be changed to oral antibiotics and take another 3 or 4 days. 01/15/2017 should be resolved with current medications. Current Visit: Yes Qualifiers: Urinary tract infection type: acute cystitis Hematuria presence: without hematuria Qualified Code(s): N30.00 - Acute cystitis without hematuria (3) COPD (chronic obstructive pulmonary disease) Status: Chronic Assessment and plan: This appears to be stable. I do not think he has hypercarbia. 01/14/2017 COPD appears to be stable. 01/15/2017 no active bronchospasm. Oxygen saturation acceptable. Tends to pull his oxygen off at times. Current Visit: Yes Qualifiers: COPD type: unspecified COPD Qualified Code(s): J44.9 - Chronic obstructive pulmonary disease, unspecified (4) Hepatic encephalopathy Problem details: ??? Status: Acute Assessment and plan: Likely due to his liver disease exacerbated by the UTI. Would suggest having GI to see him. 01/14/2017 patient is more alert and oriented. I think the UTI was the principal cause of his acute encephalopathy 01/15/2017 he is still having some delirium. Defer to neurology Current Visit: Yes Specialty Discharge - Follow Up or Referrals Follow up with: Tegan Ochoa DO [Physician] -
[2017-01-15] MEDS: LACTULOSE 20 GM/30 ML UDCUP PO SCH ×3 (09:04→20:59)
[2017-01-15] MEDS: ZINC OXIDE PASTE 113 GM TUBE TOP SCH ×2 (09:56→20:58)
--- NOTE | 2017-01-15 14:12 | Hospitalist Progress Note ---
Assessment and Plan - Time spent with patient Time spent with patient: Greater than 30 minutes (1) Altered mental status Status: Acute Assessment and plan: Metabolic encephalopathy related to infection. This is improving with treatment of urinary tract infection-E. coli sensitive to Rocephin. Hepatic encephalopathy also in the differential. The patient has a history of cirrhosis and has an elevated ammonia level. He is on lactulose at home and I have added Xifaxan. Current Visit: Yes (2) Chronic atrial fibrillation Status: Chronic Assessment and plan: Followed by cardiology. Rate controlled. Current Visit: Yes (3) Diabetes mellitus Status: Chronic Current Visit: Yes Qualifiers: Diabetes mellitus type: type 2 (4) UTI (urinary tract infection) Status: Acute Assessment and plan: Continue Rocephin. E. coli sensitive to Rocephin Repeat UA has been ordered Current Visit: Yes Qualifiers: Urinary tract infection type: acute cystitis Hematuria presence: without hematuria Qualified Code(s): N30.00 - Acute cystitis without hematuria (5) COPD (chronic obstructive pulmonary disease) Status: Chronic Assessment and plan: Continue nebulizer treatments as needed. Follow-up repeat chest x-ray. Current Visit: Yes Qualifiers: COPD type: unspecified COPD Qualified Code(s): J44.9 - Chronic obstructive pulmonary disease, unspecified (6) Tremor Status: Acute Assessment and plan: Unsure if this is manifestations of seizure versus drug effect versus metabolic effects secondary to cirrhosis and hepatic encephalopathy. We will reconsult neurology. Consult reviewed. Follow-up EEG. Current Visit: Yes Hospitalist: Subjective Interval history: Mr. Sibley was seen and examined with his nurse at the bedside. He was transferred to room 436 after he fell in room 430. This was done in an effort to keep him posted to the nurses station. He reports trying to get out of bed and falling. No bodily injury noted. He remains confused at times. Neurology and pulmonary notes reviewed. Discharge planning in progress, likely back to swing bed. Family considering permanent placement options. Exam - Constitutional Vitals: Period Temp Pulse Resp BP Sys/Willams Pulse Ox Last 24 Hr 97.3 F-98.6 F 69-83 18-24 125-176/60-97 91-97 Exam: Constitutional System: Mild distress with conversation. Mild tremulousness. Short of breath with conversation. No distress at rest Head: Normocephalic, atraumatic. Ears, Nose and Throat System: No pain or tenderness. No epistaxis or discharge Eyes System: Pupils equal, round, and reactive. Extraocular muscles intact. Neck: Supple, without adenopathy, No jugular venous distention. Previous tracheostomy scar noted Respiratory System: Chest clear to auscultation. Tracheostomy scar noted. Cardiovascular System: Heart with irregular rate and rhythm. No murmur. GI System: Abdomen soft, nontender. Normo active bowel sounds present. Musculoskeletal System: limbs with no pedal edema. Full distal pulses. Normal capillary refill. Neurological System: No discernable sensory deficit. No aphasia. Pleasant and cooperative Psychiatric System: Conversation is rational-but waxes and wanes and has periods of confusion Results - Labs CBC & BMP: 01/14/17 04:53 01/13/17 15:15 Lab Results: I have reviewed the past 24 hour labs Specialty Discharge - Follow Up or Referrals Follow up with: Tegan Ochoa DO [Physician] -
[2017-01-15] MEDS ORDERED: LORazepam 2 MG/1 ML VIAL IV PRN (14:13)
[2017-01-15] MEDS: cefTRIAXone 1,000 MG in SODIUM CHLORIDE 0.9% 100 ML IV SCH (14:47)
[2017-01-15 15:56] LABS: Apearance,Urine CLEAR (Clear); Bilirubin,Urine Negative (Negative); Blood, Urine Negative (Negative); Glucose,Urine (UA) Negative (Negative); Hyaline Casts,Urine 1 /LPF (0-3); Ketones,Urine Negative (Negative); Nitrite,Urine Negative (Negative); Protein,Urine Negative; Urine Color Straw (Yellow); Urine Specific Gravity 1.004 (1.001-1.035); Urine Urobilinogen < 2.0 EU/DL (0.2-1.0); WBC,Urine 1 /HPF (0-6)
[2017-01-15] MEDS: INSULIN GLARGINE 100 UNIT/ML SUBCUT SCH (18:58)
[2017-01-15] MEDS: QUEtiapine 25 MG TABLET PO SCH (20:51)
[2017-01-15] MEDS: SERTRALINE 50 MG TABLET PO SCH (20:52)
[2017-01-16] MEDS: ALBUTEROL/IPRATROPIUM 3 ML NEB RESP TX SCH ×5 (01:18→19:03)
[2017-01-16 05:36] LABS: Basophils # 0.1 10*3/uL (0.0-0.2); Basophils % 0.8 % (0.0-0.8); Eosinophils # 0.4 10*3/uL (0.0-0.87); Eosinophils % 7.3 % (0.00-10.9); Hematocrit 30.5 VOL% (42.0-52.0); Immature Granulocytes % 0.3 %; Immature Granulocytes Absolute 0.02 #; Lymphocytes # 1.3 10*3/uL (1.4-4.0); Lymphocytes % 22.3 % (21.2-54.2); Mean Corpuscular HGB Conc 32.8 GM/DL (32-36); Mean Corpuscular Hemoglobin 31 PG (27-34); Mean Corpuscular Volume 94.4 FL (87-102); Mean Platelet Volume 12.4 FL (9.6-12.0); Monocytes # 0.7 10*3/uL (0.11-0.8); Monocytes % 11.3 % (1.7-12.7); Neutrophils # 3.4 10*3/uL (1.4-7.4); Platelet Count 154 T/CUMM (130-400); Red Blood Count 3.23 MC/CUMM (3.8-5.5); Red Cell Distribution Width 14.8 % (9.3-17.3); White Blood Count 5.9 T/CUMM (4-12)
[2017-01-16 06:12] LABS: Albumin 3.3 G/DL (3.4-5.0); Bilirubin,Total 1.5 MG/DL (0.2-1.0); Calcium 9.4 MG/DL (8.5-10.1); Osmolality,Calculated 280.1 MOS/KG (273-304); Potassium 3.6 MMOL/L (3.5-5.1); Total Protein 6.6 G/DL (6.4-8.3)
--- NOTE | 2017-01-16 08:30 | Pulmonology Progress Note ---
Pulmonary - PN: Subj Interval history: This 76-year-old white male is a patient that I had an [facility] for couple of months respiratory failure. He has hepatic cirrhosis and a long history of alcoholism. He has not had any alcohol in a couple of months. He was at the swing bed following that doing physical therapy and developed a urinary tract infection. He had decreased level of consciousness which has improved after treating the UTI. However his ammonia level is elevated. It may be worthwhile to have GI to see him. Patient tells me that he is anxious to get back to doing physical therapy. However earlier he would frequently decline doing exercise when they came to get him. 01/14/2017 patient is a little more alert. Mental status has improved since treatment of his urinary tract infection. Does have a slightly elevated ammonia level. Probably could be changed to oral antibiotics and discharged to swing bed. 01/15/2017 patient is alert but confused. Reviewing his medications I do not see any medicines that would be causing that. His ammonia level has decreased. He is on Seroquel at bedtime. Need to avoid sleeping pills. Oxygen saturation acceptable nasal oxygen. He tends to pull it off. 01/16/2017 once again alert but confused. Having some difficulty eating but trying. Has had 5 days of IV Rocephin for urinary tract infection. At this point he could be changed to oral medication just needs them for a couple more days. Could go to swing bed any time in my opinion. Exam (Progress Note) - Constitutional Vitals: Period Temp Pulse Resp BP Sys/Willams Pulse Ox Last 24 Hr 97.3 F-98.1 F 71-87 18-24 125-166/75-97 82-99 Exam: Patient responsive fairly alert. Answers questions. Remains a bit confused. Vital signs normal. Pupils react to light. Throat is clear. Neck supple no bruits. Chest sounds clear. Heart normal rate rhythm no murmurs. Abdomen soft nontender. Liver edge is palpable. Extremities no clubbing cyanosis edema. Calves nontender. Results - Labs CBC & BMP: 01/16/17 04:14 01/16/17 04:14 Lab Results: I have reviewed the past 24 hour labs - Diagnostic Findings Procedure: Chest x-ray: image reviewed by me (Looks a little better. Interstitial edema resolving.) Assessment and Plan (1) Coronary artery disease Status: Chronic Assessment and plan: No signs of active angina 01/14/2017 no signs of heart failure or chest pain. 01/15/2017 does not appear to be in heart failure not having chest pain. 01/16/2017 no active heart failure or chest pain. Current Visit: Yes Qualifiers: Coronary Disease-Associated Artery/Lesion type: bypass graft [place] vs. transplanted heart: [place] heart Associated angina: angina presence unspecified Qualified Code(s): I25.810 - Atherosclerosis of coronary artery bypass graft(s) without angina pectoris (2) UTI (urinary tract infection) Status: Acute Assessment and plan: This is been treated with Rocephin and it is sensitive. E. coli grew from the culture. 01/14/2017 tract infection with E. coli sensitive to the Rocephin. Has been on that now for 4 days. Could be changed to oral antibiotics and take another 3 or 4 days. 01/15/2017 should be resolved with current medications. 01/16/2017 could change to oral cephalosporin. Current Visit: Yes Qualifiers: Urinary tract infection type: acute cystitis Hematuria presence: without hematuria Qualified Code(s): N30.00 - Acute cystitis without hematuria (3) COPD (chronic obstructive pulmonary disease) Status: Chronic Assessment and plan: This appears to be stable. I do not think he has hypercarbia. 01/14/2017 COPD appears to be stable. 01/15/2017 no active bronchospasm. Oxygen saturation acceptable. Tends to pull his oxygen off at times. 01/16/2017 no active bronchospasm. Continue low flow oxygen. Would continue this postdischarge as well. Current Visit: Yes Qualifiers: COPD type: unspecified COPD Qualified Code(s): J44.9 - Chronic obstructive pulmonary disease, unspecified (4) Hepatic encephalopathy Problem details: ??? Status: Chronic Assessment and plan: Likely due to his liver disease exacerbated by the UTI. Would suggest having GI to see him. 01/14/2017 patient is more alert and oriented. I think the UTI was the principal cause of his acute encephalopathy 01/15/2017 he is still having some delirium. Defer to neurology 01/16/2017 continues to be confused. However he is alert enough to eat. Current Visit: Yes Specialty Discharge - Follow Up or Referrals Follow up with: Tegan Ochoa DO [Physician] -
[2017-01-16] MEDS: RIFAXIMIN 550 MG TABLET PO SCH ×2 (08:49→21:37)
[2017-01-16] MEDS: LACTULOSE 20 GM/30 ML UDCUP PO SCH ×3 (08:49→21:37)
[2017-01-16] MEDS: ASPIRIN EC 81 MG TABLET PO SCH (08:49)
[2017-01-16] MEDS: CARVEDILOL 25 MG TABLET PO SCH ×2 (08:49→21:37)
[2017-01-16] MEDS: FUROSEMIDE 20 MG TABLET PO SCH (08:49)
[2017-01-16] MEDS: PANTOPRAZOLE 40 MG TABLET PO SCH ×2 (08:49→21:37)
[2017-01-16] MEDS: INSULIN LISPRO 100 UNIT/ML SUBCUT SCH ×4 (08:52→20:40)
--- NOTE | 2017-01-16 09:17 | XRay Report ---
XR chest 1V portable Indication: Shortness of breath Comparison: 10 January 2017 Findings: The heart and mediastinum are stable in size and configuration with cardiac surgery changes. Pacemaker device is unchanged in position. The pulmonary vascularity is increased with bilateral increased interstitial lung density similar to previous. No other lung infiltrates, effusions, pneumothorax or other abnormality is demonstrated. Impression: Findings suggest cardiac decompensation similar to previous. PROCEDURE INTERPRETED AT [facility] DEPARTMENT OF RADIOLOGY Final Report Signed by: Dr. Shree Montero
[2017-01-16] MEDS: cefTRIAXone 1,000 MG in SODIUM CHLORIDE 0.9% 100 ML IV SCH (10:14)
[2017-01-16] MEDS: ZINC OXIDE PASTE 113 GM TUBE TOP SCH ×2 (10:17→21:37)
--- NOTE | 2017-01-16 14:40 | Hospitalist Progress Note ---
Assessment and Plan (1) Altered mental status Status: Acute Assessment and plan: Metabolic encephalopathy related to infection. This is improving with treatment of urinary tract infection-E. coli sensitive to Rocephin. Hepatic encephalopathy also in the differential. The patient has a history of cirrhosis and has an elevated ammonia level. He is on lactulose at home and I have added Xifaxan. Current Visit: Yes (2) Chronic atrial fibrillation Status: Chronic Assessment and plan: Followed by cardiology. Rate controlled. Current Visit: Yes (3) Diabetes mellitus Status: Chronic Current Visit: Yes Qualifiers: Diabetes mellitus type: type 2 (4) UTI (urinary tract infection) Status: Acute Assessment and plan: Continue Rocephin. E. coli sensitive to Rocephin Repeat UA has been ordered Current Visit: Yes Qualifiers: Urinary tract infection type: acute cystitis Hematuria presence: without hematuria Qualified Code(s): N30.00 - Acute cystitis without hematuria (5) COPD (chronic obstructive pulmonary disease) Status: Chronic Assessment and plan: Continue nebulizer treatments as needed. Follow-up repeat chest x-ray. Current Visit: Yes Qualifiers: COPD type: unspecified COPD Qualified Code(s): J44.9 - Chronic obstructive pulmonary disease, unspecified (6) Tremor Status: Acute Assessment and plan: Unsure if this is manifestations of seizure versus drug effect versus metabolic effects secondary to cirrhosis and hepatic encephalopathy. We will reconsult neurology. Consult reviewed. Follow-up EEG. Current Visit: Yes Hospitalist: Subjective Interval history: Patient seen and examined. No acute events overnight. Case discussed with nursing staff. Labs reviewed. Continues to have altered mental status at times. UA and chest x-ray unremarkable. Awaiting [facility]term [facility] in [facility]. Exam - Constitutional Vitals: Period Temp Pulse Resp BP Sys/Willams Pulse Ox Last 24 Hr 97.8 F-98.2 F 71-87 18-22 136-175/75-88 82-99 Exam: Constitutional System: Mild distress with conversation. Mild tremulousness. Short of breath with conversation. No distress at rest Head: Normocephalic, atraumatic. Ears, Nose and Throat System: No pain or tenderness. No epistaxis or discharge Eyes System: Pupils equal, round, and reactive. Extraocular muscles intact. Neck: Supple, without adenopathy, No jugular venous distention. Previous tracheostomy scar noted Respiratory System: Chest clear to auscultation. Tracheostomy scar noted. Cardiovascular System: Heart with irregular rate and rhythm. No murmur. GI System: Abdomen soft, nontender. Normo active bowel sounds present. Musculoskeletal System: limbs with no pedal edema. Full distal pulses. Normal capillary refill. Neurological System: No discernable sensory deficit. No aphasia. Pleasant and cooperative Psychiatric System: Conversation is rational-but waxes and wanes and has periods of confusion Results - Labs CBC & BMP: 01/16/17 04:14 01/16/17 04:14 Lab Results: I have reviewed the past 24 hour labs Specialty Discharge - Follow Up or Referrals Follow up with: Tegan Ochoa DO [Physician] -
[2017-01-16] MEDS: INSULIN GLARGINE 100 UNIT/ML SUBCUT SCH (17:04)
[2017-01-16] MEDS: SERTRALINE 50 MG TABLET PO SCH (21:37)
[2017-01-16] MEDS: QUEtiapine 25 MG TABLET PO SCH (21:37)
[2017-01-17] MEDS: ALBUTEROL/IPRATROPIUM 3 ML NEB RESP TX SCH ×3 (00:16→13:48)
[2017-01-17] MEDS: LACTULOSE 20 GM/30 ML UDCUP PO SCH (08:42)
[2017-01-17] MEDS: PANTOPRAZOLE 40 MG TABLET PO SCH (08:43)
[2017-01-17] MEDS: FUROSEMIDE 20 MG TABLET PO SCH (08:43)
[2017-01-17] MEDS: ZINC OXIDE PASTE 113 GM TUBE TOP SCH (08:43)
[2017-01-17] MEDS: INSULIN LISPRO 100 UNIT/ML SUBCUT SCH ×2 (08:43→13:53)
[2017-01-17] MEDS: ASPIRIN EC 81 MG TABLET PO SCH (08:43)
[2017-01-17] MEDS: CARVEDILOL 25 MG TABLET PO SCH (08:43)
[2017-01-17] MEDS: RIFAXIMIN 550 MG TABLET PO SCH (08:43)
--- NOTE | 2017-01-17 08:46 | Pulmonology Progress Note ---
Pulmonary - PN: Subj Interval history: This 76-year-old white male is a patient that I had an [facility] for couple of months respiratory failure. He has hepatic cirrhosis and a long history of alcoholism. He has not had any alcohol in a couple of months. He was at the swing bed following that doing physical therapy and developed a urinary tract infection. He had decreased level of consciousness which has improved after treating the UTI. However his ammonia level is elevated. It may be worthwhile to have GI to see him. Patient tells me that he is anxious to get back to doing physical therapy. However earlier he would frequently decline doing exercise when they came to get him. 01/14/2017 patient is a little more alert. Mental status has improved since treatment of his urinary tract infection. Does have a slightly elevated ammonia level. Probably could be changed to oral antibiotics and discharged to swing bed. 01/15/2017 patient is alert but confused. Reviewing his medications I do not see any medicines that would be causing that. His ammonia level has decreased. He is on Seroquel at bedtime. Need to avoid sleeping pills. Oxygen saturation acceptable nasal oxygen. He tends to pull it off. 01/16/2017 once again alert but confused. Having some difficulty eating but trying. Has had 5 days of IV Rocephin for urinary tract infection. At this point he could be changed to oral medication just needs them for a couple more days. Could go to swing bed any time in my opinion. 01/17/2017 patient seems to be a little bit more with it today. Finishing Rocephin. Ready to go to snf. Discussed case with patient's son-in- law today. Exam (Progress Note) - Constitutional Vitals: Period Temp Pulse Resp BP Sys/Willams Pulse Ox Last 24 Hr 97.6 F-98.6 F 78-91 18-24 137-167/73-86 92-98 Exam: Patient responsive fairly alert. Answers questions. Remains a bit confused. Vital signs normal. Pupils react to light. Throat is clear. Neck supple no bruits. Chest sounds clear. Heart normal rate rhythm no murmurs. Abdomen soft nontender. Liver edge is palpable. Extremities no clubbing cyanosis edema. Calves nontender. Results - Labs CBC & BMP: 01/16/17 04:14 01/16/17 04:14 Lab Results: I have reviewed the past 24 hour labs Assessment and Plan (1) Coronary artery disease Status: Chronic Assessment and plan: No signs of active angina 01/14/2017 no signs of heart failure or chest pain. 01/15/2017 does not appear to be in heart failure not having chest pain. 01/16/2017 no active heart failure or chest pain. 01/17/2017 denies chest pain. Current Visit: Yes Qualifiers: Coronary Disease-Associated Artery/Lesion type: bypass graft [place] vs. transplanted heart: [place] heart Associated angina: angina presence unspecified Qualified Code(s): I25.810 - Atherosclerosis of coronary artery bypass graft(s) without angina pectoris (2) UTI (urinary tract infection) Status: Acute Assessment and plan: This is been treated with Rocephin and it is sensitive. E. coli grew from the culture. 01/14/2017 tract infection with E. coli sensitive to the Rocephin. Has been on that now for 4 days. Could be changed to oral antibiotics and take another 3 or 4 days. 01/15/2017 should be resolved with current medications. 01/16/2017 could change to oral cephalosporin. 01/17/2017 stopping Rocephin. Finished 1 week Current Visit: Yes Qualifiers: Urinary tract infection type: acute cystitis Hematuria presence: without hematuria Qualified Code(s): N30.00 - Acute cystitis without hematuria (3) COPD (chronic obstructive pulmonary disease) Status: Chronic Assessment and plan: This appears to be stable. I do not think he has hypercarbia. 01/14/2017 COPD appears to be stable. 01/15/2017 no active bronchospasm. Oxygen saturation acceptable. Tends to pull his oxygen off at times. 01/16/2017 no active bronchospasm. Continue low flow oxygen. Would continue this postdischarge as well. 01/17/2017 about back to baseline. Check room air O2 sat. Current Visit: Yes Qualifiers: COPD type: unspecified COPD Qualified Code(s): J44.9 - Chronic obstructive pulmonary disease, unspecified (4) Hepatic encephalopathy Problem details: ??? Status: Chronic Assessment and plan: Likely due to his liver disease exacerbated by the UTI. Would suggest having GI to see him. 01/14/2017 patient is more alert and oriented. I think the UTI was the principal cause of his acute encephalopathy 01/15/2017 he is still having some delirium. Defer to neurology 01/16/2017 continues to be confused. However he is alert enough to eat. Current Visit: Yes Specialty Discharge - Follow Up or Referrals Follow up with: Tegan Ochoa DO [Physician] -
--- NOTE | 2017-01-17 11:29 | Discharge Summary ---
<Valencia Jefferson - Last Filed: 01/17/17 10:52> Hospital Course - Hospital Course Hospital Course: Mr Sibley 76 y/o w/PMHx of COPD, CAD, HTN, DM, RITO, alcohol abuse and chronic back pain presented to the ED 01/10/17 for further evaluation on altered mental status, left facial droop and right arm weakness earlier in the day. IN ED was noted to be lethargic but arousable with verbal stimuli. Urinalysis positive for UTI. Head CT: nothing acute noted, Ammonia 40. Hospital Medicine consulted for admission, consulted neuro, pulmonary, cardiology, started on antibiotic therapy for UTI. Throughout hospitalization care: Metabolic encephalopathy improved with treatment of urinary tract infection with Rocephin with a final urine culture of escherichia coli and appropriately sensitive. Hepatic encephalopathy associated cirrhosis with increased level of ammonia and was started on Xifaxan because Lactulose was not efficiently effective in treating elevated ammonia level. Final blood cultures pending but no growth noted on day of discharge. Cardiology: noted no signs of active angina, no signs of heart failure. Chronic atrial fib with controlled rate and stable. Continue medical management. Pulmonary consulted for treating long standing COPD: continued bronchodilator therapy with improvements of breathing and airway and remains stable. Continue current medical management. Neurology feels symptoms were metabolic in origin and there is no evidence of stroke, TIA, epilepsy or seizures, recommended no addition in care and continue support management. repeated EEG. Today 01/17/17 patient is stable and symptoms improved. He will be discharge to Swing bed for further rehabilitation and care. He will need to follow up with Cardiology as instructed. He will need to follow up with Pulmonary as instructed. He will need to follow up with primary care physician. further recommendations with care and discharge planning to follow as per Dr Cordoba. Specialty Discharge - Follow Up or Referrals Follow up with: Tegan Ochoa DO [Physician] - Discharge Plan - Discharge Data Disposition: Swing Bed, [facility], [facility] - Discharge Medications New Zinc Oxide Paste [Desitin Paste] 1 applic TOP BID applic Continue Quetiapine Fumarate 25 mg PO BEDTIME Aspirin EC Tab 81 mg PO DAILY Albuterol Neb [Proventil Neb] 2.5 mg RESP TX Q6H PRN PRN Reason: Shortness Of Breath/Wheezing Carvedilol [Coreg] 25 mg PO BID Albuterol Sulfate [Albuterol Neb] 1 inhaler PO RT Q6H PRN PRN Reason: Shortness Of Breath/Wheezing Pantoprazole Tab [Protonix Tab] 40 mg PO BID Furosemide Tab [Lasix Tab] 20 mg PO DAILY Docusate Sodium Cap [Colace Cap] 100 mg PO BID Insulin Glargine [Lantus] 10 unit SUBCUT AC SUPPER Erythromycin Base 250 mg PO DAILY W/BREAKFAST Sertraline HCl 150 mg PO BEDTIME Polyethylene Glycol Powder [Miralax] 17 gm PO DAILY Lactulose 40 gm PO BID PRN PRN Reason: Constipation Discontinued Zaleplon [Sonata] 5 mg PO BEDTIME PRN PRN Reason: Insomnia glyBURIDE MICRONIZED [Glynase] 1.5 mg PO DAILY W/BREAKFAST tablet - Follow Up or Referral Follow Up: Tegan Ochoa DO [Physician] - - Forms/Instructions Exam - Constitutional Vitals: Period Temp Pulse Resp BP Sys/Willams Pulse Ox Last 24 Hr 97.6 F-98.6 F 78-91 18-24 137-167/73-86 91-98 Discharge Results Procedures and tests throughout hospitalization: Pending Orders 01/10/17 18:00 Blood Culture Stat Labs on day of discharge: Labs from last 24 hours 01/17/17 01/17/17 01/16/17 11:07 08:13 19:34 POC Glucose 87 81 85 01/16/17 12:09 POC Glucose 105 Preliminary micro results at discharge 01/10/17 18:00 Blood Culture - Preliminary Blood No growth at 3 days 01/10/17 18:00 Blood Culture - Preliminary Blood No growth at 3 days DS: Provider Date of admission: 01/10/17 10:39 Primary care physician: . No PCP Attending physician on admission: Calderon Dumont Consults: 01/10/17 10:45 Consult to Occupational Therapy [CONS] Routine Reason for Occupational Therapy: Weakness Evaluate and Treat Consult to Physical Therapy [CONS] Routine Reason for Physical Therapy: Evaluate and Treat 01/10/17 10:47 Consult to Physician [CONS] Routine Comment: Consulting Provider: Courtney Montaño When should Consulting Provider be notified: Now 01/10/17 10:48 Consult to Physician [CONS] Routine Comment: Consulting Provider: Sly Anaya Consulting Provider Notified: Yes When should Consulting Provider be notified: Now Person Notified: Date Notified: 01/10/17 Time Notified: 14:49 01/10/17 12:12 Consult to Physician [CONS] Routine Comment: AMS, left facial droop, right arm weakness Consulting Provider: Cliff Landis Consulting Provider Notified: Yes Consult to Specialist Group: Neurology When should Consulting Provider be notified: Now Person Notified: Date Notified: 01/10/17 Time Notified: 14:00 01/10/17 13:40 Consult to Dietitian [CONS] Routine Reason for Dietitian: Dietary Consult 01/13/17 14:51 Consult to Case Mgmt/Social Srvs [CONS] Routine Reason for Case Mgmt/Social Srvs: Swingbed/SNF/Intermediate Consult Comment: was at [facility] Discharging clinician: Valencia Jefferson NP <Idalia Cordoba - Last Filed: 01/17/17 11:58> Discharge Plan - Discharge Data Condition at Discharge: Stable Discharge Diet: diabetic diet Activity: resume usual activities as tolerated Hygiene: no restrictions - Forms/Instructions Additional Discharge Instructions: follow up with PCM in 1-2 weeks Discharge Results - Impressions Patient seen and examined. He is hemodynamically and clinically stable. Vitals stable G: confused; knows name Lungs: unlabored respirations, clear no w/r/r Heart: RRR no m/g/r Abdomen: bs+, soft, nd, nt Ex no c/c/e Labs: reviewed Active Issues: 1. Toxic-metabolic encephalopathy: 2nd to elevated ammonia level and E. coli UTI. Completed rocephin. Will be discharged on lactulose 2. Cirrhosis 3. E. coli UTI: s/p rocephin 4. Chronic RF: o2 saturations adequate on 3L of oxygen 5. COPD: stable 6. Chronic a-fib: now in NSR; rate controlled 7. h/o DM: sugars controlled; will discharge on lantus Patient has reached his maximal hospital therapy; will discharge to rehab center.
[2017-01-17 12:31] VITALS: BP 156/69
== END 2017-01-17 14:25 | DRG 689 ==
LOC: N.ED 08:50 → N.EDINP 10:39 → SUATTDRO 10:39 → N.EDINP 12:58 → N.4E 13:07
PROVIDERS: ATTEND Internal Medicine

== ENCOUNTER 2017-06-04 20:10 | Inpatient (IN) ==
[2017-06-04] MEDS ORDERED: ONDANSETRON 4 MG/2 ML VIAL IV STA ×2 (20:39→22:40)
[2017-06-04] MEDS ORDERED: LEVOFLOXACIN INJ 750 MG in PREMIX 1 EACH IV STA (20:39)
[2017-06-04] MEDS ORDERED: methylPREDNISolone SOD SUC 125 MG/2 ML VIAL IV STA (20:39)
[2017-06-04] MEDS ORDERED: ALBUTEROL NEB SOLN 5 MG/ML 20 ML/BOTTLE RESP TX SCH (21:00)
[2017-06-04] MEDS ORDERED: ONDANSETRON 4 MG/2 ML VIAL ONE ×2 (21:03→22:40)
[2017-06-04] MEDS ORDERED: methylPREDNISolone SOD SUC 125 MG/2 ML VIAL ONE (21:03)
[2017-06-04] MEDS ORDERED: LEVOFLOXACIN INJ 150 ML IV ONE (21:03)
[2017-06-04] MEDS ORDERED: ACETAMINOPHEN/CODEINE 120-12 MG/5 ML 12.5 ML UDCUP PO STA (21:19)
[2017-06-04] MEDS ORDERED: ACETAMINOPHEN/CODEINE 120-12 MG/5 ML 12.5 ML UDCUP ONE (21:22)
[2017-06-04 22:03] LABS: Basophils % 0.3 % (0.0-0.8); Eosinophils % 0.8 % (0.00-10.9); Hematocrit 33.8 VOL% (42.0-52.0); Hemoglobin 10.9 GM/DL (14.0-18.0); Immature Granulocytes % 0.8 %; Immature Granulocytes Absolute 0.03 #; Lymphocytes # 0.4 10*3/uL (1.4-4.0); Lymphocytes % 10.9 % (21.2-54.2); Mean Corpuscular HGB Conc 32.2 GM/DL (32-36); Mean Corpuscular Hemoglobin 27 PG (27-34); Mean Corpuscular Volume 82.6 FL (87-102); Mean Platelet Volume 12.5 FL (9.6-12.0); Monocytes # 0.7 10*3/uL (0.11-0.8); Monocytes % 17.3 % (1.7-12.7); Neutrophils # 2.8 10*3/uL (1.4-7.4); Neutrophils % 69.9 % (38.7-73.9); Red Blood Count 4.09 MC/CUMM (3.8-5.5); White Blood Count 3.9 T/CUMM (4-12)
[2017-06-04 22:16] LABS: Platelet Count 86 T/CUMM (130-400)
[2017-06-04 22:21] LABS: Alanine Aminotransferase 16 U/L (16-61); Albumin 3.5 G/DL (3.4-5.0); Alkaline Phosphatase 94 U/L (45-117); Aspartate Amino Transferase 21 U/L (0-37); Blood Urea Nitrogen 16 MG/DL (7-18); Glucose 82 MG/DL (74-106); Osmolality,Calculated 272.8 MOS/KG (273-304); Potassium 3.8 MMOL/L (3.5-5.1); Sodium 137 MMOL/L (136-145); Total Protein 6.6 G/DL (6.4-8.3); Troponin I Only 0.027 NG/ML (0.00-0.045)
[2017-06-04] MEDS ORDERED: METOPROLOL TARTRATE 50 MG TABLET PO STA (22:37)
[2017-06-04 22:38] LABS: Band Neutrophils 1 % (0-10); Eosinophils 2 % (0-10); INR 1.3; PT Patient Result 13.1 SECS; Partial Thromboplastin Time 27.2 SECS (0-40); Segmented Neutrophils 72 % (50-85); Total Cells Counted 100
[2017-06-04 22:39] LABS: Hypochromasia Slight; Lymphocytes 9 % (20-55); Platelet Estimate Decreased
[2017-06-04 22:40] LABS: Ovalocytes Few
[2017-06-04] MEDS ORDERED: METOCLOPRAMIDE 10 MG/2 ML VIAL IV STA (22:40)
[2017-06-04] MEDS ORDERED: METOPROLOL TARTRATE 50 MG TABLET ONE (22:40)
[2017-06-04] MEDS ORDERED: METOCLOPRAMIDE 10 MG/2 ML VIAL ONE (22:40)
[2017-06-04] MEDS ORDERED: FUROSEMIDE 40 MG/4 ML VIAL IV STA (23:14)
[2017-06-04 23:24] LABS: Apearance,Urine CLEAR (Clear); Bilirubin,Urine Negative (Negative); Blood, Urine Negative (Negative); Glucose,Urine (UA) Negative (Negative); Hyaline Casts,Urine 1 /LPF (0-3); Ketones,Urine Negative (Negative); Mucus,Urine Occasional /LPF (Occasional); Nitrite,Urine Negative (Negative); Protein,Urine 100 MG/DL; RBC,Urine 1 /HPF (0-4); Squamous Epithelial Cell,Urine Occasional /HPF (0-10); Urine Color Yellow (Yellow); WBC,Urine 1 /HPF (0-6)
[2017-06-05] MEDS ORDERED: FUROSEMIDE 40 MG/4 ML VIAL ONE (00:07)
[2017-06-05] MEDS ORDERED: ALBUTEROL 2.5 MG/3 ML NEB RESP TX PRN (00:35)
[2017-06-05] MEDS ORDERED: ACETAMINOPHEN 325 MG TABLET PO PRN (00:40)
[2017-06-05] MEDS ORDERED: GLUCAGON 1 MG VIAL IM PRN (00:40)
[2017-06-05] MEDS ORDERED: DEXTROSE 50% 25 GM/50 ML VIAL IV PRN (00:40)
[2017-06-05] MEDS ORDERED: ZALEPLON 5 MG CAPSULE PO PRN (00:48)
[2017-06-05] MEDS ORDERED: hydrALAZINE 20 MG/1 ML VIAL IV PRN (01:17)
[2017-06-05] MEDS: ALBUTEROL/IPRATROPIUM 3 ML NEB RESP TX SCH ×4 (01:26→19:48)
[2017-06-05] MEDS: OSELTAMIVIR 75 MG CAPSULE PO SCH ×3 (02:13→20:46)
[2017-06-05] MEDS: guaiFENesin 200 MG/10 ML UDCUP PO PRN ×2 (02:46→07:48)
[2017-06-05 05:23] LABS: Hematocrit 35.1 VOL% (42.0-52.0); Hemoglobin 11.2 GM/DL (14.0-18.0); Immature Granulocytes % 0.4 %; Immature Granulocytes Absolute 0.01 #; Lymphocytes # 0.1 10*3/uL (1.4-4.0); Lymphocytes % 4.6 % (21.2-54.2); Mean Corpuscular HGB Conc 31.9 GM/DL (32-36); Mean Corpuscular Hemoglobin 27 PG (27-34); Mean Corpuscular Volume 83.4 FL (87-102); Mean Platelet Volume 12.2 FL (9.6-12.0); Monocytes # 0.1 10*3/uL (0.11-0.8); Monocytes % 3.5 % (1.7-12.7); Neutrophils # 2.6 10*3/uL (1.4-7.4); Neutrophils % 91.5 % (38.7-73.9); Platelet Count 80 T/CUMM (130-400); Red Blood Count 4.21 MC/CUMM (3.8-5.5); Red Cell Distribution Width 21.9 % (9.3-17.3); White Blood Count 2.9 T/CUMM (4-12)
[2017-06-05 05:52] LABS: Albumin 3.5 G/DL (3.4-5.0); Bilirubin,Total 1.4 MG/DL (0.2-1.0); Calcium 8.5 MG/DL (8.5-10.1); Osmolality,Calculated 280.8 MOS/KG (273-304); Potassium 3.8 MMOL/L (3.5-5.1); Total Protein 7.1 G/DL (6.4-8.3)
[2017-06-05 05:55] LABS: % Iron Saturation 6.8 % (18-50); Ferritin 56.5 ng/ml (26-388)
[2017-06-05 06:01] LABS: Folate 15.9 NG/ML (5.4-24.0); Vitamin B12 292 PG/ML (211-911)
[2017-06-05 06:13] LABS: Band Neutrophils 1 % (0-10); Giant Platelets Few; Hypochromasia 1+; Lymphocytes 6 % (20-55); Ovalocytes Slight; Platelet Estimate Decreased; Segmented Neutrophils 89 % (50-85); Total Cells Counted 100
[2017-06-05 07:22] LABS: Sedimentation Rate-Westergren 22 MM/HR (0-20)
[2017-06-05] MEDS ORDERED: POLYVINYL ALCOHOL 1.4% OPH SOLN 15 ML BOTTLE BOTH EYES PRN (08:50)
[2017-06-05] MEDS ORDERED: predniSONE 20 MG TABLET PO SCH (09:00)
[2017-06-05] MEDS: BENZONATATE 100 MG CAPSULE PO PRN ×2 (09:18→20:46)
[2017-06-05] MEDS: PANTOPRAZOLE 40 MG TABLET PO SCH (09:18)
[2017-06-05] MEDS: CARVEDILOL 25 MG TABLET PO SCH ×2 (09:19→16:45)
[2017-06-05] MEDS: ASPIRIN EC 81 MG TABLET PO SCH (09:19)
[2017-06-05] MEDS: POTASSIUM CHLORIDE 20 MEQ TABLET PO SCH (09:19)
[2017-06-05 09:23] LABS: Hemoglobin A1 (Alkaline) 97.6 % (96.5-98.5); Hemoglobin A2 (Alkaline) 2.4 % (1.5-3.5)
[2017-06-05] MEDS: FUROSEMIDE 20 MG/2 ML VIAL IV SCH ×2 (09:24→16:42)
[2017-06-05] MEDS: CEFEPIME 1,000 MG in SYRINGE 1 EACH IV SCH ×2 (09:27→20:47)
[2017-06-05] MEDS: INSULIN LISPRO 100 UNIT/ML SUBCUT SCH ×4 (09:31→20:46)
[2017-06-05] MEDS: ONDANSETRON 4 MG/2 ML VIAL IV PRN (19:33)
[2017-06-05] MEDS: DORNASE ALFA 2.5 MG/2.5 ML VIAL RESP TX SCH (19:48)
[2017-06-05] MEDS: SERTRALINE 50 MG TABLET PO SCH (20:46)
[2017-06-05] MEDS: LEVOFLOXACIN INJ 750 MG in PREMIX 1 EACH IV SCH (20:47)
[2017-06-06] MEDS: ALBUTEROL/IPRATROPIUM 3 ML NEB RESP TX SCH ×4 (00:43→19:13)
[2017-06-06] MEDS: ONDANSETRON 4 MG/2 ML VIAL IV PRN (02:16)
[2017-06-06 05:21] LABS: Hematocrit 33.3 VOL% (42.0-52.0); Hemoglobin 10.9 GM/DL (14.0-18.0); Immature Granulocytes % 0.4 %; Immature Granulocytes Absolute 0.03 #; Lymphocytes # 0.4 10*3/uL (1.4-4.0); Lymphocytes % 5.6 % (21.2-54.2); Mean Corpuscular HGB Conc 32.7 GM/DL (32-36); Mean Corpuscular Hemoglobin 27 PG (27-34); Mean Corpuscular Volume 82.4 FL (87-102); Mean Platelet Volume 11.8 FL (9.6-12.0); Monocytes # 0.7 10*3/uL (0.11-0.8); Monocytes % 9.5 % (1.7-12.7); Neutrophils # 5.8 10*3/uL (1.4-7.4); Neutrophils % 84.5 % (38.7-73.9); Platelet Count 88 T/CUMM (130-400); Red Blood Count 4.04 MC/CUMM (3.8-5.5); Red Cell Distribution Width 22.2 % (9.3-17.3); White Blood Count 6.8 T/CUMM (4-12)
[2017-06-06 05:54] LABS: Osmolality,Calculated 280.8 MOS/KG (273-304); Potassium 4.1 MMOL/L (3.5-5.1)
[2017-06-06 06:11] LABS: Platelet Estimate Decreased
[2017-06-06] MEDS: DORNASE ALFA 2.5 MG/2.5 ML VIAL RESP TX SCH ×2 (07:35→19:13)
[2017-06-06] MEDS: CARVEDILOL 25 MG TABLET PO SCH ×2 (09:02→16:40)
[2017-06-06] MEDS: PANTOPRAZOLE 40 MG TABLET PO SCH (09:03)
[2017-06-06] MEDS: ASPIRIN EC 81 MG TABLET PO SCH (09:03)
[2017-06-06] MEDS: POTASSIUM CHLORIDE 20 MEQ TABLET PO SCH (09:03)
[2017-06-06] MEDS: OSELTAMIVIR 75 MG CAPSULE PO SCH ×2 (09:03→21:36)
[2017-06-06] MEDS: FUROSEMIDE 20 MG/2 ML VIAL IV SCH ×2 (09:04→16:40)
[2017-06-06] MEDS: CEFEPIME 1,000 MG in SYRINGE 1 EACH IV SCH ×2 (09:05→21:42)
[2017-06-06] MEDS: methylPREDNISolone SOD SUC 40 MG/1 ML VIAL IV SCH ×2 (09:05→21:38)
[2017-06-06] MEDS: VANCOMYCIN INJ 1,500 MG in SODIUM CHLORIDE 0.9% 500 ML IV SCH ×2 (09:06→21:44)
[2017-06-06] MEDS: INSULIN LISPRO 100 UNIT/ML SUBCUT SCH ×4 (10:02→21:48)
[2017-06-06] MEDS: DEXTROMETHORPHAN ER 6 MG/ML 90 ML/BOTTLE PO PRN ×2 (10:45→14:18)
[2017-06-06] MEDS: BENZONATATE 100 MG CAPSULE PO PRN (14:18)
[2017-06-06] MEDS: LEVOFLOXACIN INJ 750 MG in PREMIX 1 EACH IV SCH (16:41)
[2017-06-06] MEDS: SERTRALINE 50 MG TABLET PO SCH (21:35)
[2017-06-06] MEDS: INSULIN GLARGINE 100 UNIT/ML SUBCUT SCH (21:49)
[2017-06-07] MEDS: ALBUTEROL/IPRATROPIUM 3 ML NEB RESP TX SCH ×5 (00:21→23:53)
[2017-06-07 06:15] LABS: Hematocrit 35.7 VOL% (42.0-52.0); Hemoglobin 11.4 GM/DL (14.0-18.0); Immature Granulocytes Absolute 0.07 #; Lymphocytes # 0.3 10*3/uL (1.4-4.0); Lymphocytes % 4.4 % (21.2-54.2); Mean Corpuscular HGB Conc 31.9 GM/DL (32-36); Mean Corpuscular Hemoglobin 27 PG (27-34); Mean Corpuscular Volume 83.4 FL (87-102); Monocytes # 0.3 10*3/uL (0.11-0.8); Monocytes % 4.3 % (1.7-12.7); Neutrophils # 6.5 10*3/uL (1.4-7.4); Neutrophils % 90.3 % (38.7-73.9); Platelet Count 99 T/CUMM (130-400); Red Blood Count 4.28 MC/CUMM (3.8-5.5); Red Cell Distribution Width 22.9 % (9.3-17.3); White Blood Count 7.2 T/CUMM (4-12)
[2017-06-07 06:38] LABS: Band Neutrophils 1 % (0-10); Giant Platelets Few; Hypochromasia 1+; Lymphocytes 2 % (20-55); Ovalocytes Slight; Platelet Estimate Decreased; Segmented Neutrophils 95 % (50-85); Total Cells Counted 100
[2017-06-07 06:44] LABS: Calcium 8.2 MG/DL (8.5-10.1); Magnesium 2.2 MG/DL (1.8-2.4); Osmolality,Calculated 287.7 MOS/KG (273-304); Potassium 4.3 MMOL/L (3.5-5.1)
[2017-06-07] MEDS: DORNASE ALFA 2.5 MG/2.5 ML VIAL RESP TX SCH ×2 (06:50→19:40)
[2017-06-07] MEDS: INSULIN LISPRO 100 UNIT/ML SUBCUT SCH ×4 (08:58→21:06)
[2017-06-07] MEDS: ASPIRIN EC 81 MG TABLET PO SCH (08:59)
[2017-06-07] MEDS: PANTOPRAZOLE 40 MG TABLET PO SCH (08:59)
[2017-06-07] MEDS: POTASSIUM CHLORIDE 20 MEQ TABLET PO SCH (09:00)
[2017-06-07] MEDS: FUROSEMIDE 20 MG/2 ML VIAL IV SCH ×2 (09:00→16:54)
[2017-06-07] MEDS: CARVEDILOL 25 MG TABLET PO SCH ×2 (09:00→16:54)
[2017-06-07] MEDS: methylPREDNISolone SOD SUC 40 MG/1 ML VIAL IV SCH ×2 (09:00→20:48)
[2017-06-07] MEDS: CEFEPIME 1,000 MG in SYRINGE 1 EACH IV SCH ×2 (09:01→21:00)
[2017-06-07] MEDS: VANCOMYCIN INJ 1,500 MG in SODIUM CHLORIDE 0.9% 500 ML IV SCH ×2 (09:01→21:03)
[2017-06-07] MEDS: OSELTAMIVIR 75 MG CAPSULE PO SCH ×2 (13:07→21:05)
[2017-06-07] MEDS: DEXTROMETHORPHAN ER 6 MG/ML 90 ML/BOTTLE PO PRN (13:07)
[2017-06-07] MEDS: MAGNESIUM HYDROXIDE SUSP 30 ML UDCUP PO PRN (13:07)
[2017-06-07] MEDS: guaiFENesin 200 MG/10 ML UDCUP PO PRN ×2 (16:51→22:55)
[2017-06-07] MEDS: LEVOFLOXACIN INJ 750 MG in PREMIX 1 EACH IV SCH (16:53)
[2017-06-07] MEDS: BENZONATATE 100 MG CAPSULE PO PRN (21:05)
[2017-06-07] MEDS: SERTRALINE 50 MG TABLET PO SCH (21:05)
[2017-06-07] MEDS: INSULIN GLARGINE 100 UNIT/ML SUBCUT SCH (21:06)
[2017-06-08 05:30] LABS: Hematocrit 34.7 VOL% (42.0-52.0); Hemoglobin 11.2 GM/DL (14.0-18.0); Immature Granulocytes % 0.6 %; Immature Granulocytes Absolute 0.05 #; Lymphocytes # 0.4 10*3/uL (1.4-4.0); Lymphocytes % 5.6 % (21.2-54.2); Mean Corpuscular HGB Conc 32.3 GM/DL (32-36); Mean Corpuscular Hemoglobin 27 PG (27-34); Mean Corpuscular Volume 83.6 FL (87-102); Mean Platelet Volume 11.7 FL (9.6-12.0); Monocytes # 0.5 10*3/uL (0.11-0.8); Monocytes % 6.7 % (1.7-12.7); Neutrophils # 6.9 10*3/uL (1.4-7.4); Neutrophils % 87.1 % (38.7-73.9); Platelet Count 86 T/CUMM (130-400); Red Blood Count 4.15 MC/CUMM (3.8-5.5); Red Cell Distribution Width 22.9 % (9.3-17.3); White Blood Count 7.9 T/CUMM (4-12)
[2017-06-08 06:03] LABS: Calcium 8.1 MG/DL (8.5-10.1); Magnesium 2.4 MG/DL (1.8-2.4); Osmolality,Calculated 284.7 MOS/KG (273-304); Potassium 4.1 MMOL/L (3.5-5.1)
[2017-06-08 06:43] LABS: Burr Cells Slight; Giant Platelets Few; Hypochromasia 1+; Ovalocytes Slight; Platelet Estimate Decreased
[2017-06-08] MEDS: ALBUTEROL/IPRATROPIUM 3 ML NEB RESP TX SCH ×3 (07:33→20:28)
[2017-06-08] MEDS ORDERED: VANCOMYCIN INJ 1,500 MG in SODIUM CHLORIDE 0.9% 500 ML IV SCH (09:00)
[2017-06-08] MEDS: guaiFENesin 200 MG/10 ML UDCUP PO PRN (09:23)
[2017-06-08] MEDS: PANTOPRAZOLE 40 MG TABLET PO SCH (09:30)
[2017-06-08] MEDS: POTASSIUM CHLORIDE 20 MEQ TABLET PO SCH (09:30)
[2017-06-08] MEDS: INSULIN LISPRO 100 UNIT/ML SUBCUT SCH ×4 (09:31→22:30)
[2017-06-08] MEDS: CARVEDILOL 25 MG TABLET PO SCH ×2 (09:31→18:25)
[2017-06-08] MEDS: ASPIRIN EC 81 MG TABLET PO SCH (09:31)
[2017-06-08] MEDS: OSELTAMIVIR 75 MG CAPSULE PO SCH ×2 (09:31→22:02)
[2017-06-08] MEDS: CEFEPIME 1,000 MG in SYRINGE 1 EACH IV SCH ×2 (09:32→22:02)
[2017-06-08] MEDS: FUROSEMIDE 20 MG/2 ML VIAL IV SCH ×2 (09:32→15:38)
[2017-06-08] MEDS: methylPREDNISolone SOD SUC 40 MG/1 ML VIAL IV SCH ×2 (09:32→22:01)
[2017-06-08] MEDS: DORNASE ALFA 2.5 MG/2.5 ML VIAL RESP TX SCH ×2 (13:10→20:43)
[2017-06-08] MEDS: BENZONATATE 100 MG CAPSULE PO PRN (13:31)
[2017-06-08] MEDS: guaiFENesin 200 MG/10 ML UDCUP PO SCH ×3 (13:31→22:06)
[2017-06-08 14:06] LABS: INR 1.2; PT Patient Result 12.6 SECS; Partial Thromboplastin Time 25.4 SECS (0-40)
[2017-06-08 14:12] LABS: Albumin 3.6 G/DL (3.4-5.0); Bilirubin,Direct 0.34 MG/DL (0.0-0.20); Bilirubin,Indirect 0.5 MG/DL (0.0-1.0); Bilirubin,Total 0.8 MG/DL (0.2-1.0); Total Protein 6.8 G/DL (6.4-8.3)
[2017-06-08] MEDS: VANCOMYCIN INJ 1,500 MG in SODIUM CHLORIDE 0.9% 500 ML IV SCH (16:10)
[2017-06-08] MEDS: LEVOFLOXACIN INJ 750 MG in PREMIX 1 EACH IV SCH (18:25)
[2017-06-08] MEDS: SERTRALINE 50 MG TABLET PO SCH (22:01)
[2017-06-08] MEDS: MAGNESIUM HYDROXIDE SUSP 30 ML UDCUP PO PRN (22:07)
[2017-06-08] MEDS: INSULIN GLARGINE 100 UNIT/ML SUBCUT SCH (22:08)
[2017-06-09] MEDS: ALBUTEROL/IPRATROPIUM 3 ML NEB RESP TX SCH ×4 (00:51→20:33)
[2017-06-09 06:01] LABS: Calcium 8.1 MG/DL (8.5-10.1); Magnesium 2.5 MG/DL (1.8-2.4); Osmolality,Calculated 287.8 MOS/KG (273-304); Potassium 4.2 MMOL/L (3.5-5.1)
[2017-06-09] MEDS: DORNASE ALFA 2.5 MG/2.5 ML VIAL RESP TX SCH ×2 (07:02→20:40)
[2017-06-09] MEDS: INSULIN LISPRO 100 UNIT/ML SUBCUT SCH ×4 (07:50→21:35)
[2017-06-09] MEDS: guaiFENesin 200 MG/10 ML UDCUP PO SCH ×5 (08:19→21:34)
[2017-06-09] MEDS: VANCOMYCIN INJ 1,500 MG in SODIUM CHLORIDE 0.9% 500 ML IV SCH (08:19)
[2017-06-09] MEDS: CEFEPIME 1,000 MG in SYRINGE 1 EACH IV SCH (08:19)
[2017-06-09] MEDS: FUROSEMIDE 20 MG/2 ML VIAL IV SCH ×2 (08:20→16:24)
[2017-06-09] MEDS: methylPREDNISolone SOD SUC 40 MG/1 ML VIAL IV SCH (08:20)
[2017-06-09] MEDS: POTASSIUM CHLORIDE 20 MEQ TABLET PO SCH (09:42)
[2017-06-09] MEDS: PANTOPRAZOLE 40 MG TABLET PO SCH (09:42)
[2017-06-09] MEDS: OSELTAMIVIR 75 MG CAPSULE PO SCH ×2 (09:42→21:35)
[2017-06-09] MEDS: CARVEDILOL 25 MG TABLET PO SCH ×2 (09:42→16:24)
[2017-06-09] MEDS: ASPIRIN EC 81 MG TABLET PO SCH (09:42)
[2017-06-09] MEDS ORDERED: VANCOMYCIN INJ 1,000 MG in SODIUM CHLORIDE 0.9% 250 ML IV SCH (13:00)
[2017-06-09] MEDS: MAGNESIUM HYDROXIDE SUSP 30 ML UDCUP PO PRN (14:36)
[2017-06-09] MEDS ORDERED: LEVOFLOXACIN INJ 750 MG in PREMIX 1 EACH IV SCH (18:00)
[2017-06-09] MEDS: SERTRALINE 50 MG TABLET PO SCH (21:35)
[2017-06-09] MEDS: INSULIN GLARGINE 100 UNIT/ML SUBCUT SCH (21:36)
[2017-06-10] MEDS: ALBUTEROL/IPRATROPIUM 3 ML NEB RESP TX SCH ×2 (01:48→07:07)
[2017-06-10] MEDS ORDERED: VANCOMYCIN INJ 1,500 MG in SODIUM CHLORIDE 0.9% 500 ML IV SCH (03:00)
[2017-06-10] MEDS: guaiFENesin 200 MG/10 ML UDCUP PO SCH ×2 (05:58→09:03)
[2017-06-10 06:14] LABS: Hematocrit 34.2 VOL% (42.0-52.0); Hemoglobin 11.3 GM/DL (14.0-18.0); Immature Granulocytes % 0.6 %; Immature Granulocytes Absolute 0.04 #; Lymphocytes # 0.8 10*3/uL (1.4-4.0); Mean Corpuscular Hemoglobin 27 PG (27-34); Mean Platelet Volume 11.5 FL (9.6-12.0); Monocytes % 13.6 % (1.7-12.7); Neutrophils # 5.4 10*3/uL (1.4-7.4); Neutrophils % 74.8 % (38.7-73.9); Red Blood Count 4.17 MC/CUMM (3.8-5.5); Red Cell Distribution Width 22.5 % (9.3-17.3); White Blood Count 7.2 T/CUMM (4-12)
[2017-06-10 06:15] LABS: Platelet Count 79 T/CUMM (130-400)
[2017-06-10 06:35] LABS: Platelet Estimate Decreased
[2017-06-10 06:37] LABS: Calcium 8.2 MG/DL (8.5-10.1); Osmolality,Calculated 284.8 MOS/KG (273-304); Potassium 4.3 MMOL/L (3.5-5.1)
[2017-06-10] MEDS: DORNASE ALFA 2.5 MG/2.5 ML VIAL RESP TX SCH (07:12)
[2017-06-10] MEDS: INSULIN LISPRO 100 UNIT/ML SUBCUT SCH ×2 (07:36→15:48)
[2017-06-10 07:53] VITALS: BP 181/105
[2017-06-10] MEDS ORDERED: POLYETHYLENE GLYCOL POWDER 17 GM PACK PO PRN (08:37)
[2017-06-10] MEDS: PANTOPRAZOLE 40 MG TABLET PO SCH (08:46)
[2017-06-10] MEDS: CARVEDILOL 25 MG TABLET PO SCH (08:46)
[2017-06-10] MEDS: OSELTAMIVIR 75 MG CAPSULE PO SCH (08:46)
[2017-06-10] MEDS: BENZONATATE 100 MG CAPSULE PO PRN (08:46)
[2017-06-10] MEDS: ASPIRIN EC 81 MG TABLET PO SCH (08:46)
[2017-06-10] MEDS: FUROSEMIDE 20 MG/2 ML VIAL IV SCH (08:47)
[2017-06-10] MEDS: POTASSIUM CHLORIDE 20 MEQ TABLET PO SCH (08:47)
[2017-06-10] MEDS ORDERED: methylPREDNISolone SOD SUC 40 MG/1 ML VIAL IV SCH (09:00)
[2017-06-10] MEDS ORDERED: amLODIPine 10 MG TABLET PO SCH (09:00)
== END 2017-06-10 11:35 | disposition home health service (06) | DRG 871 ==
LOC: EDBD → EDUNIT# → N.ED 20:10 → N.EDINP 06-05 00:31 → SUATTDRO 06-05 00:31 → N.2E 06-05 00:55
PROVIDERS: ADMIT Internal Medicine; ATTEND Family Medicine

== ENCOUNTER 2017-06-30 04:22 | Inpatient (IN) ==
[2017-06-30] MEDS ORDERED: FUROSEMIDE 100 MG/10 ML VIAL IV STA (04:45)
[2017-06-30] MEDS ORDERED: MORPHINE 2 MG/1 ML SYRINGE IV STA (04:45)
[2017-06-30] MEDS ORDERED: ONDANSETRON 4 MG/2 ML VIAL IV STA (04:45)
[2017-06-30] MEDS ORDERED: methylPREDNISolone SOD SUC 125 MG/2 ML VIAL IV STA (04:45)
[2017-06-30] MEDS ORDERED: NITROGLYCERIN 2% OINT 1 INCH/GM PACK TOP STA (04:45)
[2017-06-30] MEDS ORDERED: ALBUTEROL 2.5 MG/3 ML NEB RESP TX SCH (05:00)
[2017-06-30 05:12] LABS: ABG HCO3 22.5 MMOL/L (20-26); ABG Oxygen Saturation 87.9 % (95-100); ABG PCO2 48.4 MM HG (35-48); ABG PH 7.314 (7.35-7.45); ABG PO2 60.5 MM HG (80-95); ABG TCO2 22.2 MMOL/L (23-27); Allen Test Positive
[2017-06-30 05:19] LABS: Basophils % 0.3 % (0.0-0.8); Eosinophils # 0.3 10*3/uL (0.0-0.87); Eosinophils % 5.2 % (0.00-10.9); Hematocrit 37.7 VOL% (42.0-52.0); Hemoglobin 12.3 GM/DL (14.0-18.0); Immature Granulocytes % 0.7 %; Immature Granulocytes Absolute 0.04 #; Lymphocytes # 0.9 10*3/uL (1.4-4.0); Mean Corpuscular HGB Conc 32.6 GM/DL (32-36); Mean Corpuscular Hemoglobin 29 PG (27-34); Mean Corpuscular Volume 87.5 FL (87-102); Mean Platelet Volume 12.1 FL (9.6-12.0); Monocytes # 0.6 10*3/uL (0.11-0.8); Monocytes % 9.5 % (1.7-12.7); Neutrophils % 69.3 % (38.7-73.9); Platelet Count 143 T/CUMM (130-400); Red Blood Count 4.31 MC/CUMM (3.8-5.5); Red Cell Distribution Width 23.5 % (9.3-17.3); White Blood Count 5.8 T/CUMM (4-12)
[2017-06-30 05:23] LABS: INR 1.2; PT Patient Result 12.2 SECS
[2017-06-30 05:27] LABS: Lactic Acid 0.6 MMOL/L (0.4-2.0)
[2017-06-30] MEDS ORDERED: FUROSEMIDE 20 MG/2 ML VIAL ONE (05:28)
[2017-06-30] MEDS ORDERED: MORPHINE 2 MG/1 ML SYRINGE ONE (05:28)
[2017-06-30] MEDS ORDERED: FUROSEMIDE 40 MG/4 ML VIAL ONE (05:28)
[2017-06-30] MEDS ORDERED: ONDANSETRON 4 MG/2 ML VIAL ONE (05:28)
[2017-06-30] MEDS ORDERED: methylPREDNISolone SOD SUC 125 MG/2 ML VIAL ONE (05:28)
[2017-06-30] MEDS ORDERED: NITROGLYCERIN 2% OINT 1 INCH/GM PACK TOP ONE (05:29)
[2017-06-30 05:38] LABS: Troponin I Only < 0.015 NG/ML (0.00-0.045)
[2017-06-30 05:53] LABS: Giant Platelets Few; Hypochromasia 1+; Ovalocytes Slight; Platelet Estimate Normal
[2017-06-30 05:55] LABS: Albumin 3.8 G/DL (3.4-5.0); Bilirubin,Total 0.9 MG/DL (0.2-1.0); Calcium 8.9 MG/DL (8.5-10.1); Osmolality,Calculated 291.3 MOS/KG (273-304); Potassium 4.3 MMOL/L (3.5-5.1); Total Protein 7.4 G/DL (6.4-8.3)
[2017-06-30] MEDS ORDERED: DEXTROSE 50% 25 GM/50 ML VIAL IV PRN ×2 (06:15)
[2017-06-30] MEDS ORDERED: MORPHINE 2 MG/1 ML SYRINGE IV PRN (06:15)
[2017-06-30] MEDS ORDERED: MAGNESIUM SULF RIDER 2 GM in PREMIX 1 EACH IV PRN (06:15)
[2017-06-30] MEDS ORDERED: MAGNESIUM SULF RIDER 4 GM in PREMIX 1 EACH IV PRN (06:15)
[2017-06-30] MEDS ORDERED: GLUCAGON 1 MG VIAL IM PRN ×2 (06:15)
[2017-06-30] MEDS ORDERED: ALBUTEROL 2.5 MG/3 ML NEB RESP TX PRN (06:15)
[2017-06-30] MEDS ORDERED: LEVOFLOXACIN 750 MG TABLET PO SCH (07:00)
[2017-06-30 07:26] LABS: Apearance,Urine CLEAR (Clear); Bacteria,Urine Occasional /HPF (Few); Bilirubin,Urine Negative (Negative); Blood, Urine Negative (Negative); Glucose,Urine (UA) Negative (Negative); Ketones,Urine Negative (Negative); Mucus,Urine Occasional /LPF (Occasional); Nitrite,Urine Negative (Negative); Protein,Urine 30 MG/DL; RBC,Urine 1 /HPF (0-4); Squamous Epithelial Cell,Urine Occasional /HPF (0-10); Urine Color Yellow (Yellow); Urine Specific Gravity 1.015 (1.001-1.035); Urine Urobilinogen < 2.0 EU/DL (0.2-1.0); WBC,Urine 1 /HPF (0-6)
[2017-06-30] MEDS: ALBUTEROL/IPRATROPIUM 3 ML NEB RESP TX SCH ×3 (08:24→18:55)
[2017-06-30] MEDS: ENOXAPARIN 40 MG/0.4 ML SYRINGE SUBCUT SCH (08:30)
[2017-06-30] MEDS: PANTOPRAZOLE 40 MG TABLET PO SCH (08:30)
[2017-06-30] MEDS: FUROSEMIDE 40 MG/4 ML VIAL IV SCH ×2 (08:31→16:58)
[2017-06-30] MEDS: INSULIN REGULAR 100 UNIT/ML SUBCUT SCH ×4 (08:43→21:25)
[2017-06-30] MEDS ORDERED: methylPREDNISolone SOD SUC 40 MG/1 ML VIAL IV SCH (13:00)
[2017-06-30 15:27] LABS: Apearance,Urine CLEAR (Clear); Bilirubin,Urine Negative (Negative); Blood, Urine Negative (Negative); Glucose,Urine (UA) Negative (Negative); Hyaline Casts,Urine 22 /LPF (0-3); Ketones,Urine Negative (Negative); Mucus,Urine Occasional /LPF (Occasional); Nitrite,Urine Negative (Negative); Protein,Urine Negative; Squamous Epithelial Cell,Urine Occasional /HPF (0-10); Urine Color Yellow (Yellow); Urine Specific Gravity 1.008 (1.001-1.035); Urine Urobilinogen < 2.0 EU/DL (0.2-1.0); WBC,Urine 1 /HPF (0-6)
[2017-07-01] MEDS: ALBUTEROL/IPRATROPIUM 3 ML NEB RESP TX SCH ×4 (00:42→20:00)
[2017-07-01 03:43] LABS: Hematocrit 30.2 VOL% (42.0-52.0); Hemoglobin 9.8 GM/DL (14.0-18.0); Immature Granulocytes % 0.5 %; Immature Granulocytes Absolute 0.02 #; Lymphocytes # 0.3 10*3/uL (1.4-4.0); Mean Corpuscular HGB Conc 32.5 GM/DL (32-36); Mean Corpuscular Hemoglobin 29 PG (27-34); Mean Corpuscular Volume 87.8 FL (87-102); Mean Platelet Volume 11.9 FL (9.6-12.0); Monocytes # 0.4 10*3/uL (0.11-0.8); Monocytes % 7.9 % (1.7-12.7); Neutrophils # 3.8 10*3/uL (1.4-7.4); Neutrophils % 84.6 % (38.7-73.9); Platelet Count 116 T/CUMM (130-400); Red Blood Count 3.44 MC/CUMM (3.8-5.5); Red Cell Distribution Width 22.2 % (9.3-17.3); White Blood Count 4.4 T/CUMM (4-12)
[2017-07-01 04:17] LABS: Calcium 8.3 MG/DL (8.5-10.1); Osmolality,Calculated 290.8 MOS/KG (273-304); Potassium 4.3 MMOL/L (3.5-5.1)
[2017-07-01 04:25] LABS: Anisocytosis 1+; Poikilocytosis 2+
[2017-07-01] MEDS: INSULIN REGULAR 100 UNIT/ML SUBCUT SCH ×4 (07:42→20:28)
[2017-07-01] MEDS ORDERED: POLYVINYL ALCOHOL 1.4% OPH SOLN 15 ML BOTTLE BOTH EYES PRN (07:55)
[2017-07-01] MEDS: CARVEDILOL 25 MG TABLET PO SCH ×2 (08:52→20:28)
[2017-07-01] MEDS: amLODIPine 10 MG TABLET PO SCH (08:52)
[2017-07-01] MEDS: ENOXAPARIN 40 MG/0.4 ML SYRINGE SUBCUT SCH (08:53)
[2017-07-01] MEDS: PANTOPRAZOLE 40 MG TABLET PO SCH (08:53)
[2017-07-01] MEDS: POTASSIUM CHLORIDE 20 MEQ TABLET PO SCH (08:53)
[2017-07-01] MEDS: ASPIRIN EC 81 MG TABLET PO SCH (08:53)
[2017-07-01] MEDS: FUROSEMIDE 40 MG/4 ML VIAL IV SCH ×2 (08:54→16:15)
[2017-07-01] MEDS ORDERED: INFLUENZA VIRUS VACCINE 0.5 ML SYRINGE IM ONE (09:58)
[2017-07-01] MEDS: SERTRALINE 100 MG TABLET PO SCH (20:28)
[2017-07-02] MEDS: ALBUTEROL/IPRATROPIUM 3 ML NEB RESP TX SCH ×4 (00:38→19:19)
[2017-07-02 05:45] LABS: Calcium 8.3 MG/DL (8.5-10.1); Osmolality,Calculated 288.5 MOS/KG (273-304); Potassium 3.9 MMOL/L (3.5-5.1)
[2017-07-02 05:55] LABS: Risk Ratio 3.25; VLDL CHOLESTEROL 14.4 MG/DL
[2017-07-02] MEDS: CARVEDILOL 25 MG TABLET PO SCH ×2 (08:19→21:18)
[2017-07-02] MEDS: amLODIPine 10 MG TABLET PO SCH (08:19)
[2017-07-02] MEDS: FUROSEMIDE 40 MG/4 ML VIAL IV SCH ×2 (08:19→16:58)
[2017-07-02] MEDS: PANTOPRAZOLE 40 MG TABLET PO SCH (08:19)
[2017-07-02] MEDS: ENOXAPARIN 40 MG/0.4 ML SYRINGE SUBCUT SCH (08:19)
[2017-07-02] MEDS: POTASSIUM CHLORIDE 20 MEQ TABLET PO SCH (08:19)
[2017-07-02] MEDS: ASPIRIN EC 81 MG TABLET PO SCH (08:19)
[2017-07-02] MEDS: INSULIN REGULAR 100 UNIT/ML SUBCUT SCH ×4 (08:33→20:00)
[2017-07-02] MEDS: DOCUSATE SODIUM 100 MG CAPSULE PO SCH ×2 (11:30→21:18)
[2017-07-02 11:33] LABS: Troponin I Only < 0.015 NG/ML (0.00-0.045)
[2017-07-02] MEDS: SERTRALINE 100 MG TABLET PO SCH (21:17)
[2017-07-02] MEDS: APIXABAN 5 MG TABLET PO SCH (21:17)
[2017-07-03] MEDS: ALBUTEROL/IPRATROPIUM 3 ML NEB RESP TX SCH ×4 (00:10→19:07)
[2017-07-03 06:29] LABS: Basophils % 0.7 % (0.0-0.8); Eosinophils # 0.2 10*3/uL (0.0-0.87); Hematocrit 31.3 VOL% (42.0-52.0); Hemoglobin 10.1 GM/DL (14.0-18.0); Immature Granulocytes % 0.2 %; Immature Granulocytes Absolute 0.01 #; Lymphocytes # 1.2 10*3/uL (1.4-4.0); Lymphocytes % 27.8 % (21.2-54.2); Mean Corpuscular HGB Conc 32.3 GM/DL (32-36); Mean Corpuscular Hemoglobin 28 PG (27-34); Mean Corpuscular Volume 87.4 FL (87-102); Mean Platelet Volume 11.9 FL (9.6-12.0); Monocytes # 0.4 10*3/uL (0.11-0.8); Monocytes % 9.6 % (1.7-12.7); Neutrophils # 2.4 10*3/uL (1.4-7.4); Neutrophils % 56.7 % (38.7-73.9); Platelet Count 136 T/CUMM (130-400); Red Blood Count 3.58 MC/CUMM (3.8-5.5); Red Cell Distribution Width 23.1 % (9.3-17.3); White Blood Count 4.2 T/CUMM (4-12)
[2017-07-03 06:47] LABS: Hypochromasia 1+; Microcytosis 1+
[2017-07-03 06:48] LABS: Ovalocytes Few; Platelet Estimate Adequate
[2017-07-03 07:03] LABS: Calcium 8.5 MG/DL (8.5-10.1); Osmolality,Calculated 289.5 MOS/KG (273-304); Potassium 3.7 MMOL/L (3.5-5.1)
[2017-07-03 07:05] LABS: Troponin I Only < 0.015 NG/ML (0.00-0.045)
[2017-07-03] MEDS: INSULIN REGULAR 100 UNIT/ML SUBCUT SCH ×4 (07:18→21:29)
[2017-07-03] MEDS: CARVEDILOL 25 MG TABLET PO SCH ×2 (08:22→16:47)
[2017-07-03] MEDS: FUROSEMIDE 40 MG/4 ML VIAL IV SCH ×2 (08:22→16:41)
[2017-07-03] MEDS: amLODIPine 10 MG TABLET PO SCH ×2 (08:22→09:47)
[2017-07-03] MEDS: APIXABAN 5 MG TABLET PO SCH ×2 (08:22→21:29)
[2017-07-03] MEDS: DOCUSATE SODIUM 100 MG CAPSULE PO SCH ×2 (08:22→21:29)
[2017-07-03] MEDS: PANTOPRAZOLE 40 MG TABLET PO SCH (08:22)
[2017-07-03] MEDS: POTASSIUM CHLORIDE 20 MEQ TABLET PO SCH (08:22)
[2017-07-03] MEDS: ASPIRIN EC 81 MG TABLET PO SCH ×2 (08:22→09:47)
[2017-07-03] MEDS ORDERED: CIPROFLOXACIN 500 MG TABLET PO SCH (10:30)
[2017-07-03] MEDS: MEROPENEM 1,000 MG in SYRINGE 1 EACH IV SCH (16:34)
[2017-07-03] MEDS: SERTRALINE 100 MG TABLET PO SCH (21:29)
[2017-07-04] MEDS: ALBUTEROL/IPRATROPIUM 3 ML NEB RESP TX SCH ×4 (00:34→19:09)
[2017-07-04] MEDS: MEROPENEM 1,000 MG in SYRINGE 1 EACH IV SCH ×2 (03:45→15:16)
[2017-07-04 05:32] LABS: Basophils % 0.6 % (0.0-0.8); Eosinophils # 0.3 10*3/uL (0.0-0.87); Eosinophils % 5.1 % (0.00-10.9); Hematocrit 31.6 VOL% (42.0-52.0); Hemoglobin 10.5 GM/DL (14.0-18.0); Immature Granulocytes % 0.8 %; Immature Granulocytes Absolute 0.04 #; Lymphocytes # 1.2 10*3/uL (1.4-4.0); Lymphocytes % 23.6 % (21.2-54.2); Mean Corpuscular HGB Conc 33.2 GM/DL (32-36); Mean Corpuscular Hemoglobin 29 PG (27-34); Mean Corpuscular Volume 86.3 FL (87-102); Monocytes # 0.6 10*3/uL (0.11-0.8); Monocytes % 11.5 % (1.7-12.7); Neutrophils # 2.9 10*3/uL (1.4-7.4); Neutrophils % 58.4 % (38.7-73.9); Platelet Count 149 T/CUMM (130-400); Red Blood Count 3.66 MC/CUMM (3.8-5.5); Red Cell Distribution Width 22.6 % (9.3-17.3); White Blood Count 4.9 T/CUMM (4-12)
[2017-07-04 05:53] LABS: Elliptocytes Few; Platelet Estimate Normal; Poikilocytosis Slight
[2017-07-04 06:01] LABS: Calcium 8.8 MG/DL (8.5-10.1); Osmolality,Calculated 291.3 MOS/KG (273-304); Potassium 3.7 MMOL/L (3.5-5.1)
[2017-07-04] MEDS: APIXABAN 5 MG TABLET PO SCH ×2 (09:36→21:02)
[2017-07-04] MEDS: FUROSEMIDE 40 MG/4 ML VIAL IV SCH ×2 (09:36→15:22)
[2017-07-04] MEDS: amLODIPine 10 MG TABLET PO SCH (09:36)
[2017-07-04] MEDS: ASPIRIN EC 81 MG TABLET PO SCH (09:37)
[2017-07-04] MEDS: PANTOPRAZOLE 40 MG TABLET PO SCH (09:37)
[2017-07-04] MEDS: DOCUSATE SODIUM 100 MG CAPSULE PO SCH ×2 (09:37→21:02)
[2017-07-04] MEDS: CARVEDILOL 25 MG TABLET PO SCH ×2 (09:37→21:02)
[2017-07-04] MEDS: POTASSIUM CHLORIDE 20 MEQ TABLET PO SCH (09:37)
[2017-07-04] MEDS: INSULIN REGULAR 100 UNIT/ML SUBCUT SCH ×4 (09:57→21:02)
[2017-07-04] MEDS: SERTRALINE 100 MG TABLET PO SCH (21:01)
[2017-07-05] MEDS: ALBUTEROL/IPRATROPIUM 3 ML NEB RESP TX SCH ×4 (00:34→21:23)
[2017-07-05] MEDS: MEROPENEM 1,000 MG in SYRINGE 1 EACH IV SCH ×2 (02:37→15:05)
[2017-07-05] MEDS: amLODIPine 10 MG TABLET PO SCH (09:28)
[2017-07-05] MEDS: FUROSEMIDE 40 MG/4 ML VIAL IV SCH ×2 (09:28→15:08)
[2017-07-05] MEDS: DOCUSATE SODIUM 100 MG CAPSULE PO SCH ×2 (09:29→22:06)
[2017-07-05] MEDS: PANTOPRAZOLE 40 MG TABLET PO SCH (09:29)
[2017-07-05] MEDS: APIXABAN 5 MG TABLET PO SCH ×2 (09:29→22:06)
[2017-07-05] MEDS: CARVEDILOL 25 MG TABLET PO SCH ×2 (09:29→16:53)
[2017-07-05] MEDS: POTASSIUM CHLORIDE 20 MEQ TABLET PO SCH (09:29)
[2017-07-05] MEDS: ASPIRIN EC 81 MG TABLET PO SCH (09:30)
[2017-07-05] MEDS: INSULIN REGULAR 100 UNIT/ML SUBCUT SCH ×4 (12:09→22:06)
[2017-07-05] MEDS: SERTRALINE 100 MG TABLET PO SCH (22:06)
[2017-07-06] MEDS: ALBUTEROL/IPRATROPIUM 3 ML NEB RESP TX SCH ×4 (01:50→21:12)
[2017-07-06] MEDS: MEROPENEM 1,000 MG in SYRINGE 1 EACH IV SCH ×2 (03:40→15:13)
[2017-07-06 04:54] LABS: Basophils # 0.1 10*3/uL (0.0-0.2); Basophils % 0.8 % (0.0-0.8); Eosinophils # 0.3 10*3/uL (0.0-0.87); Eosinophils % 4.2 % (0.00-10.9); Hematocrit 31.8 VOL% (42.0-52.0); Hemoglobin 10.7 GM/DL (14.0-18.0); Immature Granulocytes % 1.8 %; Immature Granulocytes Absolute 0.11 #; Lymphocytes # 1.3 10*3/uL (1.4-4.0); Lymphocytes % 20.2 % (21.2-54.2); Mean Corpuscular HGB Conc 33.6 GM/DL (32-36); Mean Corpuscular Hemoglobin 29 PG (27-34); Mean Platelet Volume 11.4 FL (9.6-12.0); Monocytes # 0.8 10*3/uL (0.11-0.8); Monocytes % 12.3 % (1.7-12.7); Neutrophils # 3.8 10*3/uL (1.4-7.4); Neutrophils % 60.7 % (38.7-73.9); Platelet Count 168 T/CUMM (130-400); Red Blood Count 3.74 MC/CUMM (3.8-5.5); Red Cell Distribution Width 21.7 % (9.3-17.3); White Blood Count 6.2 T/CUMM (4-12)
[2017-07-06 05:23] LABS: Calcium 8.6 MG/DL (8.5-10.1); Osmolality,Calculated 290.3 MOS/KG (273-304); Potassium 3.7 MMOL/L (3.5-5.1)
[2017-07-06] MEDS: INSULIN REGULAR 100 UNIT/ML SUBCUT SCH ×4 (08:40→21:28)
[2017-07-06] MEDS: FUROSEMIDE 40 MG/4 ML VIAL IV SCH ×2 (08:42→15:17)
[2017-07-06] MEDS: DOCUSATE SODIUM 100 MG CAPSULE PO SCH ×2 (08:43→21:27)
[2017-07-06] MEDS: CARVEDILOL 25 MG TABLET PO SCH ×2 (08:43→16:28)
[2017-07-06] MEDS: POTASSIUM CHLORIDE 20 MEQ TABLET PO SCH (08:43)
[2017-07-06] MEDS: ASPIRIN EC 81 MG TABLET PO SCH (08:43)
[2017-07-06] MEDS: APIXABAN 5 MG TABLET PO SCH ×2 (08:43→21:27)
[2017-07-06] MEDS: PANTOPRAZOLE 40 MG TABLET PO SCH (08:43)
[2017-07-06] MEDS: amLODIPine 10 MG TABLET PO SCH (09:18)
[2017-07-06] MEDS: SERTRALINE 100 MG TABLET PO SCH (21:27)
[2017-07-07] MEDS: ALBUTEROL/IPRATROPIUM 3 ML NEB RESP TX SCH ×2 (01:40→07:41)
[2017-07-07] MEDS: MEROPENEM 1,000 MG in SYRINGE 1 EACH IV SCH (04:02)
[2017-07-07 07:40] VITALS: BP 138/70
[2017-07-07] MEDS ORDERED: FUROSEMIDE 40 MG TABLET PO SCH (09:00)
[2017-07-07] MEDS: INSULIN REGULAR 100 UNIT/ML SUBCUT SCH (09:10)
[2017-07-07] MEDS: DOCUSATE SODIUM 100 MG CAPSULE PO SCH (09:11)
[2017-07-07] MEDS: CARVEDILOL 25 MG TABLET PO SCH (09:11)
[2017-07-07] MEDS: APIXABAN 5 MG TABLET PO SCH (09:11)
[2017-07-07] MEDS: POTASSIUM CHLORIDE 20 MEQ TABLET PO SCH (09:11)
[2017-07-07] MEDS: PANTOPRAZOLE 40 MG TABLET PO SCH (09:11)
[2017-07-07] MEDS: ASPIRIN EC 81 MG TABLET PO SCH (09:11)
[2017-07-07] MEDS: amLODIPine 10 MG TABLET PO SCH (09:11)
[2017-07-07] MEDS ORDERED: INFLUENZA VIRUS VACCINE 0.5 ML SYRINGE IM ONE (12:00)
== END 2017-07-07 12:28 | disposition home health service (06) | DRG 189 ==
LOC: EDUNIT# → N.ED 04:22 → SUATTDRO 06:16 → N.EDINP 06:16 → N.CC 06:42 → N.TELES 07-03 10:18
PROVIDERS: ADMIT Internal Medicine; ATTEND Family Medicine

== ENCOUNTER 2017-08-11 17:43 | Inpatient (IN) ==
[2017-08-11 18:57] LABS: Basophils % 0.6 % (0.0-0.8); Eosinophils # 0.3 10*3/uL (0.0-0.87); Eosinophils % 4.2 % (0.00-10.9); Hematocrit 34.7 VOL% (42.0-52.0); Hemoglobin 11.4 GM/DL (14.0-18.0); Immature Granulocytes % 0.8 %; Immature Granulocytes Absolute 0.05 #; Lymphocytes % 16.6 % (21.2-54.2); Mean Corpuscular HGB Conc 32.9 GM/DL (32-36); Mean Corpuscular Hemoglobin 30 PG (27-34); Mean Corpuscular Volume 89.7 FL (87-102); Monocytes # 0.7 10*3/uL (0.11-0.8); Monocytes % 11.2 % (1.7-12.7); Neutrophils # 4.2 10*3/uL (1.4-7.4); Neutrophils % 66.6 % (38.7-73.9); Platelet Count 126 T/CUMM (130-400); Red Blood Count 3.87 MC/CUMM (3.8-5.5); Red Cell Distribution Width 21.2 % (9.3-17.3); White Blood Count 6.3 T/CUMM (4-12)
[2017-08-11 19:02] LABS: Apearance,Urine CLEAR (Clear); Bacteria,Urine Occasional /HPF (Few); Bilirubin,Urine Negative (Negative); Blood, Urine Negative (Negative); Glucose,Urine (UA) Negative (Negative); Hyaline Casts,Urine 8 /LPF (0-3); Ketones,Urine Negative (Negative); Mucus,Urine Occasional /LPF (Occasional); Nitrite,Urine Negative (Negative); Protein,Urine Negative; RBC,Urine <1 /HPF (0-4); Urine Color Yellow (Yellow); Urine Specific Gravity 1.008 (1.001-1.035); Urine Urobilinogen < 2.0 EU/DL (0.2-1.0); WBC,Urine <1 /HPF (0-6)
[2017-08-11 19:07] LABS: INR 1.1; Partial Thromboplastin Time 27.3 SECS (0-40)
[2017-08-11] MEDS ORDERED: FUROSEMIDE 40 MG/4 ML VIAL IV STA (19:43)
[2017-08-11 20:30] LABS: Alanine Aminotransferase 15 U/L (16-61); Albumin 3.9 G/DL (3.4-5.0); Alkaline Phosphatase 95 U/L (45-117); Aspartate Amino Transferase 20 U/L (0-37); Blood Urea Nitrogen 25 MG/DL (7-18); Calcium 8.8 MG/DL (8.5-10.1); Glucose 82 MG/DL (74-106); Osmolality,Calculated 285.1 MOS/KG (273-304); Potassium 4.2 MMOL/L (3.5-5.1); Sodium 142 MMOL/L (136-145); Total Protein 7.3 G/DL (6.4-8.3); Troponin I Only < 0.015 NG/ML (0.00-0.045)
[2017-08-11] MEDS ORDERED: FUROSEMIDE 40 MG/4 ML VIAL ONE (20:30)
[2017-08-11] MEDS ORDERED: DEXTROSE 50% 25 GM/50 ML VIAL IV PRN (22:16)
[2017-08-11] MEDS ORDERED: ACETAMINOPHEN 325 MG TABLET PO PRN (22:16)
[2017-08-11] MEDS ORDERED: ONDANSETRON 4 MG/2 ML VIAL IV PRN (22:16)
[2017-08-11] MEDS ORDERED: GLUCAGON 1 MG VIAL IM PRN (22:16)
[2017-08-11] MEDS ORDERED: ALBUTEROL/IPRATROPIUM 3 ML NEB RESP TX PRN (22:31)
[2017-08-12] MEDS ORDERED: APIXABAN 5 MG TABLET ONE ×2 (00:49→09:22)
[2017-08-12] MEDS: APIXABAN 5 MG TABLET PO SCH ×3 (01:13→20:54)
[2017-08-12] MEDS: SERTRALINE 50 MG TABLET PO SCH ×2 (01:13→20:54)
[2017-08-12] MEDS: traZODone 50 MG TABLET PO SCH ×2 (01:13→20:54)
[2017-08-12 03:48] LABS: Basophils % 0.3 % (0.0-0.8); Eosinophils # 0.3 10*3/uL (0.0-0.87); Eosinophils % 4.7 % (0.00-10.9); Hematocrit 32.3 VOL% (42.0-52.0); Hemoglobin 10.2 GM/DL (14.0-18.0); Immature Granulocytes % 0.8 %; Immature Granulocytes Absolute 0.05 #; Lymphocytes # 1.1 10*3/uL (1.4-4.0); Lymphocytes % 17.3 % (21.2-54.2); Mean Corpuscular HGB Conc 31.6 GM/DL (32-36); Mean Corpuscular Hemoglobin 29 PG (27-34); Mean Corpuscular Volume 91.2 FL (87-102); Mean Platelet Volume 11.6 FL (9.6-12.0); Monocytes # 0.7 10*3/uL (0.11-0.8); Monocytes % 10.7 % (1.7-12.7); Neutrophils # 4.2 10*3/uL (1.4-7.4); Neutrophils % 66.2 % (38.7-73.9); Platelet Count 126 T/CUMM (130-400); Red Blood Count 3.54 MC/CUMM (3.8-5.5); White Blood Count 6.4 T/CUMM (4-12)
[2017-08-12 04:02] LABS: Calcium 8.5 MG/DL (8.5-10.1); Potassium 3.8 MMOL/L (3.5-5.1)
[2017-08-12] MEDS ORDERED: ENOXAPARIN 40 MG/0.4 ML SYRINGE SUBCUT SCH (09:00)
[2017-08-12] MEDS: INSULIN LISPRO 100 UNIT/ML SUBCUT SCH ×4 (09:17→20:54)
[2017-08-12] MEDS ORDERED: POTASSIUM CHLORIDE 20 MEQ TABLET PO ONE (09:22)
[2017-08-12] MEDS ORDERED: PANTOPRAZOLE 40 MG TABLET PO ONE (09:22)
[2017-08-12] MEDS ORDERED: FUROSEMIDE 40 MG/4 ML VIAL ONE (09:22)
[2017-08-12] MEDS ORDERED: amLODIPine 10 MG TABLET ONE (09:22)
[2017-08-12] MEDS: amLODIPine 10 MG TABLET PO SCH (09:24)
[2017-08-12] MEDS: POTASSIUM CHLORIDE 20 MEQ TABLET PO SCH (09:25)
[2017-08-12] MEDS: PANTOPRAZOLE 40 MG TABLET PO SCH (09:25)
[2017-08-12] MEDS: CARVEDILOL 25 MG TABLET PO SCH ×2 (09:26→16:27)
[2017-08-12] MEDS: ASPIRIN EC 81 MG TABLET PO SCH (09:27)
[2017-08-12] MEDS: FUROSEMIDE 40 MG/4 ML VIAL IV SCH ×2 (09:32→16:28)
[2017-08-12] MEDS ORDERED: ZALEPLON 5 MG CAPSULE PO PRN (17:23)
[2017-08-12] MEDS: OLOPATADINE 0.1% OPH SOLN 5 ML BOTTLE BOTH EYES SCH (20:54)
[2017-08-13] MEDS: INSULIN LISPRO 100 UNIT/ML SUBCUT SCH ×4 (08:01→20:18)
[2017-08-13] MEDS: OLOPATADINE 0.1% OPH SOLN 5 ML BOTTLE BOTH EYES SCH ×2 (08:13→20:18)
[2017-08-13] MEDS: FUROSEMIDE 40 MG/4 ML VIAL IV SCH ×2 (08:13→17:49)
[2017-08-13] MEDS: CARVEDILOL 25 MG TABLET PO SCH ×2 (08:14→17:48)
[2017-08-13] MEDS: amLODIPine 10 MG TABLET PO SCH (08:14)
[2017-08-13] MEDS: ASPIRIN EC 81 MG TABLET PO SCH (08:14)
[2017-08-13] MEDS: PANTOPRAZOLE 40 MG TABLET PO SCH (08:14)
[2017-08-13] MEDS: POTASSIUM CHLORIDE 20 MEQ TABLET PO SCH (08:14)
[2017-08-13] MEDS: APIXABAN 5 MG TABLET PO SCH ×2 (08:14→20:17)
[2017-08-13] MEDS: traZODone 50 MG TABLET PO SCH (20:17)
[2017-08-13] MEDS: SERTRALINE 50 MG TABLET PO SCH (20:17)
[2017-08-13] MEDS ORDERED: MELATONIN 3 MG TABLET PO PRN (21:00)
[2017-08-14 08:09] VITALS: BP 140/67
[2017-08-14] MEDS: APIXABAN 5 MG TABLET PO SCH (08:36)
[2017-08-14] MEDS: ASPIRIN EC 81 MG TABLET PO SCH (08:36)
[2017-08-14] MEDS: FUROSEMIDE 40 MG/4 ML VIAL IV SCH (08:36)
[2017-08-14] MEDS: CARVEDILOL 25 MG TABLET PO SCH (08:36)
[2017-08-14] MEDS: INSULIN LISPRO 100 UNIT/ML SUBCUT SCH (08:37)
[2017-08-14] MEDS: POTASSIUM CHLORIDE 20 MEQ TABLET PO SCH (08:37)
[2017-08-14] MEDS: PANTOPRAZOLE 40 MG TABLET PO SCH (08:37)
[2017-08-14] MEDS: amLODIPine 10 MG TABLET PO SCH (08:37)
[2017-08-14] MEDS: OLOPATADINE 0.1% OPH SOLN 5 ML BOTTLE BOTH EYES SCH (08:38)
== END 2017-08-14 13:05 | disposition home health service (06) | DRG 293 ==
LOC: EDBD → EDUNIT# → N.ED 17:43 → N.EDINP 21:01 → N.TELES 08-12 11:30
PROVIDERS: ADMIT Hospitalist; ATTEND Hospitalist

== ENCOUNTER 2017-08-23 16:40 | Inpatient (IN) ==
[2017-08-23] MEDS ORDERED: FUROSEMIDE 100 MG/10 ML VIAL IV STA (16:59)
[2017-08-23] MEDS ORDERED: ALBUTEROL 2.5 MG/3 ML NEB RESP TX SCH (17:00)
[2017-08-23] MEDS ORDERED: FUROSEMIDE 100 MG/10 ML VIAL ONE (17:20)
[2017-08-23 17:30] LABS: Basophils # 0.1 10*3/uL (0.0-0.2); Basophils % 0.7 % (0.0-0.8); Eosinophils # 0.2 10*3/uL (0.0-0.87); Hematocrit 35.4 VOL% (42.0-52.0); Hemoglobin 11.1 GM/DL (14.0-18.0); Immature Granulocytes % 0.6 %; Immature Granulocytes Absolute 0.04 #; Lymphocytes # 0.8 10*3/uL (1.4-4.0); Lymphocytes % 10.8 % (21.2-54.2); Mean Corpuscular HGB Conc 31.4 GM/DL (32-36); Mean Corpuscular Hemoglobin 30 PG (27-34); Mean Corpuscular Volume 94.1 FL (87-102); Mean Platelet Volume 12.3 FL (9.6-12.0); Monocytes # 0.6 10*3/uL (0.11-0.8); Monocytes % 8.9 % (1.7-12.7); Neutrophils # 5.5 10*3/uL (1.4-7.4); Platelet Count 183 T/CUMM (130-400); Red Blood Count 3.76 MC/CUMM (3.8-5.5); Red Cell Distribution Width 19.3 % (9.3-17.3); White Blood Count 7.2 T/CUMM (4-12)
[2017-08-23 17:45] LABS: INR 1.2; PT Patient Result 12.7 SECS; Partial Thromboplastin Time 28.6 SECS (0-40)
[2017-08-23 17:51] LABS: Alanine Aminotransferase 16 U/L (16-61); Albumin 4.3 G/DL (3.4-5.0); Alkaline Phosphatase 98 U/L (45-117); Aspartate Amino Transferase 20 U/L (0-37); Blood Urea Nitrogen 44 MG/DL (7-18); Calcium 9.3 MG/DL (8.5-10.1); Glucose 98 MG/DL (74-106); Potassium 4.7 MMOL/L (3.5-5.1); Sodium 143 MMOL/L (136-145); Total Protein 7.9 G/DL (6.4-8.3); Troponin I Only < 0.015 NG/ML (0.00-0.045)
[2017-08-23] MEDS ORDERED: hydrALAZINE 20 MG/1 ML VIAL IV STA (18:06)
[2017-08-23] MEDS ORDERED: hydrALAZINE 20 MG/1 ML VIAL ONE (18:06)
[2017-08-23] MEDS ORDERED: LORazepam 2 MG/1 ML VIAL ONE ×2 (18:18→19:13)
[2017-08-23] MEDS ORDERED: FUROSEMIDE 40 MG/4 ML VIAL IV STA (18:27)
[2017-08-23] MEDS ORDERED: LORazepam 2 MG/1 ML VIAL IV STA ×2 (18:29→19:16)
[2017-08-23] MEDS ORDERED: FUROSEMIDE 40 MG/4 ML VIAL ONE (19:09)
[2017-08-23 19:14] LABS: Apearance,Urine CLEAR (Clear); Bacteria,Urine Occasional /HPF (Few); Bilirubin,Urine Negative (Negative); Blood, Urine Negative (Negative); Glucose,Urine (UA) Negative (Negative); Ketones,Urine Negative (Negative); Mucus,Urine Occasional /LPF (Occasional); Nitrite,Urine Negative (Negative); Protein,Urine Negative; RBC,Urine <1 /HPF (0-4); Urine Color Yellow (Yellow); Urine Specific Gravity 1.009 (1.001-1.035); Urine Urobilinogen < 2.0 EU/DL (0.2-1.0); WBC,Urine 1 /HPF (0-6)
[2017-08-23] MEDS ORDERED: ACETAMINOPHEN 325 MG TABLET PO PRN (19:19)
[2017-08-23] MEDS ORDERED: ENOXAPARIN 40 MG/0.4 ML SYRINGE SUBCUT SCH (19:30)
[2017-08-23 20:41] LABS: ABG Base Excess -2.9 MMOL/L (-2.5-2.5); ABG HCO3 22.6 MMOL/L (20-26); ABG Oxygen Saturation 88.6 % (95-100); ABG PCO2 41.6 MM HG (35-48); ABG PH 7.352 (7.35-7.45); ABG PO2 59.4 MM HG (80-95); ABG TCO2 23.8 MMOL/L (23-27)
[2017-08-23] MEDS ORDERED: GLUCAGON 1 MG VIAL IM PRN (23:42)
[2017-08-23] MEDS ORDERED: DEXTROSE 50% 25 GM/50 ML VIAL IV PRN (23:42)
[2017-08-24] MEDS: ALBUTEROL/IPRATROPIUM 3 ML NEB RESP TX SCH ×4 (00:18→20:10)
[2017-08-24] MEDS: traZODone 50 MG TABLET PO SCH ×2 (01:10→21:44)
[2017-08-24] MEDS: SERTRALINE 50 MG TABLET PO SCH ×2 (01:10→21:44)
[2017-08-24] MEDS: APIXABAN 5 MG TABLET PO SCH ×3 (01:10→21:44)
[2017-08-24] MEDS: methylPREDNISolone SOD SUC 40 MG/1 ML VIAL IV SCH ×3 (01:13→23:19)
[2017-08-24] MEDS: INSULIN LISPRO 100 UNIT/ML SUBCUT SCH ×5 (01:17→21:45)
[2017-08-24 05:22] LABS: Basophils % 0.3 % (0.0-0.8); Eosinophils % 0.3 % (0.00-10.9); Hematocrit 33.9 VOL% (42.0-52.0); Hemoglobin 10.8 GM/DL (14.0-18.0); Immature Granulocytes % 0.8 %; Immature Granulocytes Absolute 0.07 #; Lymphocytes # 0.3 10*3/uL (1.4-4.0); Lymphocytes % 3.4 % (21.2-54.2); Mean Corpuscular HGB Conc 31.9 GM/DL (32-36); Mean Corpuscular Hemoglobin 30 PG (27-34); Mean Corpuscular Volume 92.6 FL (87-102); Monocytes # 0.2 10*3/uL (0.11-0.8); Monocytes % 2.5 % (1.7-12.7); Neutrophils # 8.2 10*3/uL (1.4-7.4); Neutrophils % 92.7 % (38.7-73.9); Platelet Count 163 T/CUMM (130-400); Red Blood Count 3.66 MC/CUMM (3.8-5.5); Red Cell Distribution Width 19.6 % (9.3-17.3); White Blood Count 8.9 T/CUMM (4-12)
[2017-08-24 05:54] LABS: Calcium 8.9 MG/DL (8.5-10.1); Osmolality,Calculated 292.3 MOS/KG (273-304); Potassium 4.4 MMOL/L (3.5-5.1)
[2017-08-24 06:59] LABS: Hypochromasia 2+; Lymphocytes 1 % (20-55); Nucleated Red Blood Cells 1 (0-5); Platelet Estimate Adequate; Polychromasia Slight; Segmented Neutrophils 95 % (50-85); Total Cells Counted 100
[2017-08-24] MEDS: ASPIRIN EC 81 MG TABLET PO SCH (08:15)
[2017-08-24] MEDS: CARVEDILOL 25 MG TABLET PO SCH ×2 (08:15→17:01)
[2017-08-24] MEDS: POTASSIUM CHLORIDE 20 MEQ TABLET PO SCH (08:16)
[2017-08-24] MEDS: amLODIPine 10 MG TABLET PO SCH (08:16)
[2017-08-24] MEDS: FUROSEMIDE 40 MG TABLET PO SCH (08:16)
[2017-08-24] MEDS: metOLazone 2.5 MG TABLET PO SCH (10:49)
[2017-08-24] MEDS: CEFEPIME 1,000 MG in SYRINGE 1 EACH IV SCH ×2 (10:54→21:45)
[2017-08-24 15:04] LABS: Apearance,Urine CLOUDY (Clear); Bilirubin,Urine Negative (Negative); Blood, Urine Moderate mg/dL (Negative); Glucose,Urine (UA) 50 mg/dL (Negative); Ketones,Urine Negative (Negative); Nitrite,Urine Negative (Negative); Protein,Urine 100 MG/DL; RBC,Urine 4037 /HPF (0-4); Squamous Epithelial Cell,Urine Occasional /HPF (0-10); Urine Color Red (Yellow); Urine Specific Gravity 1.012 (1.001-1.035); Urine Urobilinogen < 2.0 EU/DL (0.2-1.0); WBC,Urine 49 /HPF (0-6)
[2017-08-25] MEDS: ZALEPLON 5 MG CAPSULE PO PRN ×2 (01:00→22:50)
[2017-08-25] MEDS: ALBUTEROL/IPRATROPIUM 3 ML NEB RESP TX SCH ×4 (01:05→20:29)
[2017-08-25] MEDS ORDERED: FUROSEMIDE 40 MG/4 ML VIAL ONE (08:50)
[2017-08-25] MEDS ORDERED: ALBUTEROL 1.25 MG/3 ML NEB RESP TX ONE (08:51)
[2017-08-25] MEDS ORDERED: FUROSEMIDE 40 MG/4 ML VIAL IV ONE (08:53)
[2017-08-25] MEDS: INSULIN LISPRO 100 UNIT/ML SUBCUT SCH ×4 (09:02→21:19)
[2017-08-25] MEDS: methylPREDNISolone SOD SUC 40 MG/1 ML VIAL IV SCH (09:19)
[2017-08-25] MEDS: APIXABAN 5 MG TABLET PO SCH ×2 (09:20→21:16)
[2017-08-25] MEDS: FUROSEMIDE 40 MG TABLET PO SCH (09:20)
[2017-08-25] MEDS: amLODIPine 10 MG TABLET PO SCH (09:20)
[2017-08-25] MEDS: CARVEDILOL 25 MG TABLET PO SCH ×2 (09:20→16:21)
[2017-08-25] MEDS: ASPIRIN EC 81 MG TABLET PO SCH (09:20)
[2017-08-25] MEDS: POTASSIUM CHLORIDE 20 MEQ TABLET PO SCH (09:20)
[2017-08-25] MEDS: metOLazone 2.5 MG TABLET PO SCH (09:20)
[2017-08-25] MEDS: CEFEPIME 1,000 MG in SYRINGE 1 EACH IV SCH ×2 (10:27→21:21)
[2017-08-25] MEDS: FUROSEMIDE 40 MG/4 ML VIAL IV SCH (16:20)
[2017-08-25] MEDS: SERTRALINE 50 MG TABLET PO SCH (21:16)
[2017-08-25] MEDS: traZODone 50 MG TABLET PO SCH (21:16)
[2017-08-26] MEDS: ALBUTEROL/IPRATROPIUM 3 ML NEB RESP TX SCH ×4 (02:20→19:30)
[2017-08-26] MEDS ORDERED: MORPHINE 10 MG/1 ML VIAL ONE (03:42)
[2017-08-26] MEDS ORDERED: NITROGLYCERIN SL 0.4 MG TABLET SL ONE (03:42)
[2017-08-26 04:32] LABS: Basophils % 0.1 % (0.0-0.8); Hematocrit 29.6 VOL% (42.0-52.0); Hemoglobin 9.4 GM/DL (14.0-18.0); Immature Granulocytes % 0.5 %; Immature Granulocytes Absolute 0.04 #; Lymphocytes # 0.4 10*3/uL (1.4-4.0); Lymphocytes % 4.3 % (21.2-54.2); Mean Corpuscular HGB Conc 31.8 GM/DL (32-36); Mean Corpuscular Hemoglobin 29 PG (27-34); Mean Corpuscular Volume 91.4 FL (87-102); Monocytes # 0.9 10*3/uL (0.11-0.8); Monocytes % 9.6 % (1.7-12.7); Neutrophils # 7.6 10*3/uL (1.4-7.4); Neutrophils % 85.5 % (38.7-73.9); Platelet Count 149 T/CUMM (130-400); Red Blood Count 3.24 MC/CUMM (3.8-5.5); Red Cell Distribution Width 18.9 % (9.3-17.3); White Blood Count 8.8 T/CUMM (4-12)
[2017-08-26 05:02] LABS: Hypochromasia 1+; Lymphocytes 5 % (20-55); Platelet Estimate Normal; Segmented Neutrophils 84 % (50-85); Total Cells Counted 100
[2017-08-26 05:03] LABS: Giant Platelets Few; Ovalocytes Slight
[2017-08-26 05:04] LABS: Calcium 8.8 MG/DL (8.5-10.1); Potassium 4.3 MMOL/L (3.5-5.1)
[2017-08-26] MEDS: methylPREDNISolone SOD SUC 40 MG/1 ML VIAL IV SCH (08:52)
[2017-08-26] MEDS: POTASSIUM CHLORIDE 20 MEQ TABLET PO SCH (08:53)
[2017-08-26] MEDS: amLODIPine 10 MG TABLET PO SCH (08:53)
[2017-08-26] MEDS: metOLazone 2.5 MG TABLET PO SCH ×2 (08:53→11:09)
[2017-08-26] MEDS: APIXABAN 5 MG TABLET PO SCH ×2 (08:54→21:21)
[2017-08-26] MEDS: CARVEDILOL 25 MG TABLET PO SCH ×2 (08:54→16:29)
[2017-08-26] MEDS: INSULIN LISPRO 100 UNIT/ML SUBCUT SCH ×4 (08:55→22:12)
[2017-08-26] MEDS: CEFEPIME 1,000 MG in SYRINGE 1 EACH IV SCH ×2 (10:26→21:21)
[2017-08-26] MEDS: ASPIRIN EC 81 MG TABLET PO SCH (10:27)
[2017-08-26] MEDS: FUROSEMIDE 40 MG/4 ML VIAL IV SCH (11:10)
[2017-08-26] MEDS ORDERED: ALBUTEROL/IPRATROPIUM 3 ML NEB RESP TX PRN (11:30)
[2017-08-26] MEDS: LORazepam 0.5 MG TABLET PO PRN ×2 (12:42→21:21)
[2017-08-26] MEDS: FUROSEMIDE 40 MG TABLET PO SCH (16:29)
[2017-08-26] MEDS: traZODone 50 MG TABLET PO SCH (21:21)
[2017-08-26] MEDS: SERTRALINE 50 MG TABLET PO SCH (21:21)
[2017-08-27] MEDS: ALBUTEROL/IPRATROPIUM 3 ML NEB RESP TX SCH ×4 (01:00→20:07)
[2017-08-27 05:14] LABS: Basophils % 0.1 % (0.0-0.8); Hematocrit 30.3 VOL% (42.0-52.0); Hemoglobin 9.9 GM/DL (14.0-18.0); Immature Granulocytes % 0.7 %; Immature Granulocytes Absolute 0.06 #; Lymphocytes # 0.5 10*3/uL (1.4-4.0); Lymphocytes % 5.6 % (21.2-54.2); Mean Corpuscular HGB Conc 32.7 GM/DL (32-36); Mean Corpuscular Hemoglobin 30 PG (27-34); Mean Corpuscular Volume 91.5 FL (87-102); Mean Platelet Volume 12.3 FL (9.6-12.0); Monocytes % 11.2 % (1.7-12.7); Neutrophils # 7.1 10*3/uL (1.4-7.4); Neutrophils % 82.4 % (38.7-73.9); Platelet Count 153 T/CUMM (130-400); Red Blood Count 3.31 MC/CUMM (3.8-5.5); Red Cell Distribution Width 18.4 % (9.3-17.3); White Blood Count 8.6 T/CUMM (4-12)
[2017-08-27 05:48] LABS: Calcium 8.6 MG/DL (8.5-10.1); Osmolality,Calculated 296.2 MOS/KG (273-304); Potassium 4.1 MMOL/L (3.5-5.1)
[2017-08-27] MEDS: INSULIN LISPRO 100 UNIT/ML SUBCUT SCH ×4 (08:21→21:38)
[2017-08-27] MEDS: metOLazone 2.5 MG TABLET PO SCH (08:50)
[2017-08-27] MEDS: amLODIPine 10 MG TABLET PO SCH (08:50)
[2017-08-27] MEDS: ASPIRIN EC 81 MG TABLET PO SCH (08:50)
[2017-08-27] MEDS: LORazepam 0.5 MG TABLET PO PRN ×2 (08:50→20:17)
[2017-08-27] MEDS: POTASSIUM CHLORIDE 20 MEQ TABLET PO SCH (08:51)
[2017-08-27] MEDS: FUROSEMIDE 40 MG TABLET PO SCH ×2 (08:51→16:48)
[2017-08-27] MEDS: APIXABAN 5 MG TABLET PO SCH ×2 (08:51→20:17)
[2017-08-27] MEDS: CARVEDILOL 25 MG TABLET PO SCH ×2 (08:51→16:47)
[2017-08-27] MEDS: CEFEPIME 1,000 MG in SYRINGE 1 EACH IV SCH ×2 (09:53→21:49)
[2017-08-27] MEDS: guaiFENesin/CODEINE 5 ML LIQUID PO PRN ×2 (13:53→17:54)
[2017-08-27] MEDS ORDERED: methylPREDNISolone SOD SUC 125 MG/2 ML VIAL IV ONE (15:02)
[2017-08-27] MEDS: BENZONATATE 100 MG CAPSULE PO SCH ×2 (15:10→20:17)
[2017-08-27 15:29] LABS: ABG Base Excess -1.6 MMOL/L (-2.5-2.5); ABG HCO3 22.9 MMOL/L (20-26); ABG Oxygen Saturation 85.9 % (95-100); ABG PCO2 52.4 MM HG (35-48); ABG PH 7.294 (7.35-7.45); ABG PO2 56.1 MM HG (80-95); ABG TCO2 23.5 MMOL/L (23-27)
[2017-08-27] MEDS ORDERED: MORPHINE 4 MG/1 ML VIAL IV PRN (17:04)
[2017-08-27] MEDS: traZODone 50 MG TABLET PO SCH (20:16)
[2017-08-27] MEDS: SERTRALINE 50 MG TABLET PO SCH (20:17)
[2017-08-28] MEDS: ALBUTEROL/IPRATROPIUM 3 ML NEB RESP TX SCH ×4 (01:34→19:14)
[2017-08-28 03:16] LABS: Allen Test Positive; Pt O2 Delivery Device Other
[2017-08-28 03:18] LABS: ABG HCO3 25.9 MMOL/L (20-26); ABG Oxygen Saturation 91.6 % (95-100); ABG PCO2 67.4 MM HG (35-48); ABG PO2 76.2 MM HG (80-95)
[2017-08-28 03:20] LABS: ABG PH 7.203 (7.35-7.45)
[2017-08-28 05:01] LABS: ABG Base Excess -4.7 MMOL/L (-2.5-2.5); ABG HCO3 20.4 MMOL/L (20-26); ABG Oxygen Saturation 86.1 % (95-100); ABG PCO2 67.8 MM HG (35-48); ABG PO2 60.6 MM HG (80-95); ABG TCO2 23.6 MMOL/L (23-27); Allen Test Positive; Pt O2 Delivery Device BIPAP
[2017-08-28 05:06] LABS: ABG PH 7.175 (7.35-7.45)
[2017-08-28] MEDS ORDERED: ETOMIDATE 20 MG/10 ML VIAL IV ONE ×2 (05:19→05:25)
[2017-08-28] MEDS ORDERED: VECURONIUM 10 MG VIAL IV ONE ×2 (05:19→05:25)
[2017-08-28] MEDS: PROPOFOL 1,000 MG/100 ML BOTTLE IV SCH ×2 (05:45→21:45)
[2017-08-28 06:22] LABS: ABG Base Excess -4.1 MMOL/L (-2.5-2.5); ABG Oxygen Saturation 98.5 % (95-100); ABG PCO2 50.3 MM HG (35-48); ABG PH 7.271 (7.35-7.45); ABG TCO2 21.2 MMOL/L (23-27); Allen Test Positive; Pt O2 Delivery Device Ventilator
[2017-08-28 06:24] LABS: Basophils % 0.1 % (0.0-0.8); Hematocrit 33.7 VOL% (42.0-52.0); Hemoglobin 11.1 GM/DL (14.0-18.0); Immature Granulocytes % 1.1 %; Lymphocytes # 0.3 10*3/uL (1.4-4.0); Lymphocytes % 3.5 % (21.2-54.2); Mean Corpuscular HGB Conc 32.9 GM/DL (32-36); Mean Corpuscular Hemoglobin 30 PG (27-34); Mean Corpuscular Volume 90.8 FL (87-102); Mean Platelet Volume 12.4 FL (9.6-12.0); Monocytes # 0.2 10*3/uL (0.11-0.8); Monocytes % 1.9 % (1.7-12.7); Neutrophils # 8.2 10*3/uL (1.4-7.4); Neutrophils % 93.4 % (38.7-73.9); Platelet Count 149 T/CUMM (130-400); Red Blood Count 3.71 MC/CUMM (3.8-5.5); Red Cell Distribution Width 18.2 % (9.3-17.3); White Blood Count 8.8 T/CUMM (4-12)
[2017-08-28] MEDS ORDERED: FUROSEMIDE 40 MG/4 ML VIAL IV ONE (06:30)
[2017-08-28 06:48] LABS: Band Neutrophils 1 % (0-10); Giant Platelets Few; Hypochromasia 1+; Lymphocytes 6 % (20-55); Ovalocytes Slight; Platelet Estimate Normal; Segmented Neutrophils 91 % (50-85); Total Cells Counted 100
[2017-08-28 06:53] LABS: Calcium 8.7 MG/DL (8.5-10.1); Osmolality,Calculated 293.1 MOS/KG (273-304); Potassium 5.2 MMOL/L (3.5-5.1)
[2017-08-28] MEDS: methylPREDNISolone SOD SUC 40 MG/1 ML VIAL IV SCH ×3 (06:56→21:45)
[2017-08-28] MEDS: CLINDAMYCIN INJ 600 MG in PREMIX 1 EACH IV SCH ×3 (07:11→21:44)
[2017-08-28] MEDS: INSULIN LISPRO 100 UNIT/ML SUBCUT SCH ×3 (09:03→19:05)
[2017-08-28] MEDS: CEFEPIME 1,000 MG in SYRINGE 1 EACH IV SCH ×2 (10:03→21:44)
[2017-08-28] MEDS: BENZONATATE 100 MG CAPSULE PO SCH ×2 (10:22→20:49)
[2017-08-28] MEDS: CARVEDILOL 25 MG TABLET PO SCH ×2 (10:23→16:38)
[2017-08-28] MEDS: FUROSEMIDE 40 MG TABLET PO SCH ×2 (10:24→16:38)
[2017-08-28] MEDS: ASPIRIN EC 81 MG TABLET PO SCH (10:24)
[2017-08-28] MEDS: amLODIPine 10 MG TABLET PO SCH (10:24)
[2017-08-28] MEDS: POTASSIUM CHLORIDE 20 MEQ TABLET PO SCH (10:24)
[2017-08-28] MEDS: SERTRALINE 50 MG TABLET PO SCH (20:49)
[2017-08-28] MEDS: traZODone 50 MG TABLET PO SCH (20:49)
[2017-08-29] MEDS: INSULIN LISPRO 100 UNIT/ML SUBCUT SCH ×5 (00:19→23:52)
[2017-08-29] MEDS: ALBUTEROL/IPRATROPIUM 3 ML NEB RESP TX SCH ×4 (00:58→19:22)
[2017-08-29 03:42] LABS: ABG Base Excess -2.5 MMOL/L (-2.5-2.5); ABG HCO3 22.3 MMOL/L (20-26); ABG Oxygen Saturation 97.7 % (95-100); ABG PH 7.263 (7.35-7.45); ABG TCO2 23.3 MMOL/L (23-27); Allen Test Positive; Pt O2 Delivery Device Ventilator
[2017-08-29] MEDS: PROPOFOL 1,000 MG/100 ML BOTTLE IV SCH ×3 (04:28→10:02)
[2017-08-29] MEDS: CLINDAMYCIN INJ 600 MG in PREMIX 1 EACH IV SCH ×3 (05:33→22:02)
[2017-08-29] MEDS: methylPREDNISolone SOD SUC 40 MG/1 ML VIAL IV SCH ×3 (05:34→22:00)
[2017-08-29 06:13] LABS: Hematocrit 28.4 VOL% (42.0-52.0); Hemoglobin 9.6 GM/DL (14.0-18.0); Immature Granulocytes % 0.6 %; Immature Granulocytes Absolute 0.04 #; Lymphocytes # 0.3 10*3/uL (1.4-4.0); Mean Corpuscular HGB Conc 33.8 GM/DL (32-36); Mean Corpuscular Hemoglobin 29 PG (27-34); Mean Corpuscular Volume 87.1 FL (87-102); Mean Platelet Volume 12.4 FL (9.6-12.0); Monocytes # 0.4 10*3/uL (0.11-0.8); Neutrophils # 5.5 10*3/uL (1.4-7.4); Neutrophils % 88.4 % (38.7-73.9); Platelet Count 139 T/CUMM (130-400); Red Blood Count 3.26 MC/CUMM (3.8-5.5); Red Cell Distribution Width 17.5 % (9.3-17.3); White Blood Count 6.3 T/CUMM (4-12)
[2017-08-29 06:30] LABS: Calcium 8.4 MG/DL (8.5-10.1); Osmolality,Calculated 302.8 MOS/KG (273-304); Potassium 4.4 MMOL/L (3.5-5.1)
[2017-08-29 06:43] LABS: Prealbumin 25.1 MG/DL (20-40)
[2017-08-29 06:48] LABS: Giant Platelets Few; Hypochromasia 1+; Lymphocytes 4 % (20-55); Ovalocytes Slight; Platelet Estimate Normal; Segmented Neutrophils 87 % (50-85); Total Cells Counted 100
[2017-08-29 08:11] LABS: ABG Base Excess -1.2 MMOL/L (-2.5-2.5); ABG HCO3 25.5 MMOL/L (20-26); ABG Oxygen Saturation 91.9 % (95-100); ABG PCO2 52.2 MM HG (35-48); ABG PH 7.307 (7.35-7.45); ABG PO2 71.4 MM HG (80-95); ABG TCO2 27.1 MMOL/L (23-27); Allen Test Positive; Pt O2 Delivery Device Ventilator
[2017-08-29] MEDS: POTASSIUM CHLORIDE 20 MEQ TABLET PO SCH (08:45)
[2017-08-29] MEDS: FUROSEMIDE 40 MG/4 ML VIAL IV SCH ×2 (08:46→18:45)
[2017-08-29] MEDS: CARVEDILOL 25 MG TABLET PO SCH ×2 (08:46→18:45)
[2017-08-29] MEDS ORDERED: APIXABAN 5 MG TABLET PO SCH (09:00)
[2017-08-29] MEDS: BENZONATATE 100 MG CAPSULE PO SCH ×2 (09:22→21:11)
[2017-08-29] MEDS: amLODIPine 10 MG TABLET PO SCH (09:54)
[2017-08-29] MEDS: CEFEPIME 1,000 MG in SYRINGE 1 EACH IV SCH ×2 (09:56→21:57)
[2017-08-29] MEDS: ASPIRIN CHEW 81 MG TABLET PO SCH (10:56)
[2017-08-29] MEDS: DEXTROMETHORPHAN ER 6 MG/ML 90 ML/BOTTLE PO SCH ×2 (10:56→21:14)
[2017-08-29 13:38] LABS: Apearance,Urine Cloudy (Clear); Glucose,Urine (UA) Negative (Negative); Ketones,Urine Negative (Negative); Nitrite,Urine Negative (Negative); Protein,Urine 100 MG/DL; Urine Color Red (Yellow); Urine Specific Gravity 1.015 (1.001-1.035)
[2017-08-29 13:39] LABS: Bilirubin,Urine Negative (Negative); Blood, Urine Small mg/dL (Negative); Urine Urobilinogen 0.2 EU/DL (0.2-1.0)
[2017-08-29 13:56] LABS: Hyaline Casts,Urine 0-3 /LPF (0-3); RBC,Urine TNTC /HPF (0-4); Squamous Epithelial Cell,Urine Few /HPF (0-10)
[2017-08-29] MEDS: SERTRALINE 50 MG TABLET PO SCH (21:11)
[2017-08-29] MEDS: ROSUVASTATIN 10 MG TABLET PO SCH (21:13)
[2017-08-29] MEDS: traZODone 50 MG TABLET PO SCH (21:14)
[2017-08-30] MEDS: ALBUTEROL/IPRATROPIUM 3 ML NEB RESP TX SCH ×4 (00:50→19:57)
[2017-08-30 04:24] LABS: Hematocrit 27.7 VOL% (42.0-52.0); Hemoglobin 9.5 GM/DL (14.0-18.0); Immature Granulocytes % 0.7 %; Immature Granulocytes Absolute 0.06 #; Lymphocytes # 0.2 10*3/uL (1.4-4.0); Lymphocytes % 2.1 % (21.2-54.2); Mean Corpuscular HGB Conc 34.3 GM/DL (32-36); Mean Corpuscular Hemoglobin 30 PG (27-34); Mean Corpuscular Volume 86.3 FL (87-102); Mean Platelet Volume 13.1 FL (9.6-12.0); Monocytes # 0.5 10*3/uL (0.11-0.8); Monocytes % 6.6 % (1.7-12.7); NRBC # 0.03 10*3/uL; Neutrophils # 7.5 10*3/uL (1.4-7.4); Neutrophils % 90.6 % (38.7-73.9); Platelet Count 155 T/CUMM (130-400); Red Blood Count 3.21 MC/CUMM (3.8-5.5); Red Cell Distribution Width 17.4 % (9.3-17.3); White Blood Count 8.2 T/CUMM (4-12)
[2017-08-30 05:00] LABS: Albumin 3.4 G/DL (3.4-5.0); Bilirubin,Direct 0.4 MG/DL (0.0-0.20); Bilirubin,Indirect 0.2 MG/DL (0.0-1.0); Bilirubin,Total 0.6 MG/DL (0.2-1.0); Calcium 8.4 MG/DL (8.5-10.1); Osmolality,Calculated 313.4 MOS/KG (273-304); Potassium 4.2 MMOL/L (3.5-5.1); Total Protein 6.1 G/DL (6.4-8.3)
[2017-08-30 05:51] LABS: Band Neutrophils 2 % (0-10); Lymphocytes 5 % (20-55); Platelet Estimate Normal; Segmented Neutrophils 93 % (50-85); Total Cells Counted 100
[2017-08-30] MEDS: PROPOFOL 1,000 MG/100 ML BOTTLE IV SCH ×5 (06:20→22:39)
[2017-08-30] MEDS: CLINDAMYCIN INJ 600 MG in PREMIX 1 EACH IV SCH ×3 (06:21→21:52)
[2017-08-30] MEDS: INSULIN LISPRO 100 UNIT/ML SUBCUT SCH ×4 (06:21→23:46)
[2017-08-30] MEDS: methylPREDNISolone SOD SUC 40 MG/1 ML VIAL IV SCH ×3 (06:21→22:49)
[2017-08-30] MEDS: CARVEDILOL 25 MG TABLET PO SCH ×2 (08:31→17:23)
[2017-08-30] MEDS: POTASSIUM CHLORIDE 20 MEQ TABLET PO SCH (08:31)
[2017-08-30] MEDS: amLODIPine 10 MG TABLET PO SCH (08:31)
[2017-08-30] MEDS: FUROSEMIDE 40 MG/4 ML VIAL IV SCH (08:31)
[2017-08-30] MEDS: ASPIRIN CHEW 81 MG TABLET PO SCH (08:31)
[2017-08-30] MEDS: CEFEPIME 1,000 MG in SYRINGE 1 EACH IV SCH ×2 (11:58→22:38)
[2017-08-30] MEDS: ENOXAPARIN 30 MG/0.3 ML SYRINGE SUBCUT SCH (11:58)
[2017-08-30] MEDS: DEXTROMETHORPHAN ER 6 MG/ML 90 ML/BOTTLE PO SCH ×2 (11:58→21:46)
[2017-08-30] MEDS: BENZONATATE 100 MG CAPSULE PO SCH ×2 (12:34→21:46)
[2017-08-30] MEDS: traZODone 50 MG TABLET PO SCH (21:45)
[2017-08-30] MEDS: ROSUVASTATIN 10 MG TABLET PO SCH (21:46)
[2017-08-30] MEDS: SERTRALINE 50 MG TABLET PO SCH (21:46)
[2017-08-31] MEDS: ALBUTEROL/IPRATROPIUM 3 ML NEB RESP TX SCH ×4 (00:18→20:04)
[2017-08-31] MEDS: PROPOFOL 1,000 MG/100 ML BOTTLE IV SCH ×6 (02:02→21:51)
[2017-08-31 04:50] LABS: ABG Base Excess 4.4 MMOL/L (-2.5-2.5); ABG HCO3 28.4 MMOL/L (20-26); ABG Oxygen Saturation 99.2 % (95-100); ABG PH 7.468 (7.35-7.45); ABG TCO2 24.7 MMOL/L (23-27); Allen Test Positive; Pt O2 Delivery Device Ventilator
[2017-08-31 05:30] LABS: Hematocrit 27.8 VOL% (42.0-52.0); Hemoglobin 9.6 GM/DL (14.0-18.0); Immature Granulocytes % 1.2 %; Immature Granulocytes Absolute 0.08 #; Lymphocytes # 0.2 10*3/uL (1.4-4.0); Lymphocytes % 2.8 % (21.2-54.2); Mean Corpuscular HGB Conc 34.5 GM/DL (32-36); Mean Corpuscular Hemoglobin 29 PG (27-34); Mean Corpuscular Volume 84.5 FL (87-102); Mean Platelet Volume 12.5 FL (9.6-12.0); Monocytes # 0.6 10*3/uL (0.11-0.8); Monocytes % 9.5 % (1.7-12.7); NRBC # 0.02 10*3/uL; Neutrophils # 5.7 10*3/uL (1.4-7.4); Neutrophils % 86.5 % (38.7-73.9); Platelet Count 145 T/CUMM (130-400); Red Blood Count 3.29 MC/CUMM (3.8-5.5); Red Cell Distribution Width 17.9 % (9.3-17.3); White Blood Count 6.5 T/CUMM (4-12)
[2017-08-31] MEDS: methylPREDNISolone SOD SUC 40 MG/1 ML VIAL IV SCH ×3 (05:49→21:55)
[2017-08-31] MEDS: INSULIN LISPRO 100 UNIT/ML SUBCUT SCH ×3 (05:49→18:05)
[2017-08-31] MEDS: CLINDAMYCIN INJ 600 MG in PREMIX 1 EACH IV SCH ×3 (05:49→21:54)
[2017-08-31 05:58] LABS: Calcium 8.8 MG/DL (8.5-10.1); Osmolality,Calculated 314.4 MOS/KG (273-304); Potassium 3.6 MMOL/L (3.5-5.1)
[2017-08-31 06:09] LABS: Hypochromasia 1+; Lymphocytes 4 % (20-55); Platelet Estimate Normal; Segmented Neutrophils 88 % (50-85); Total Cells Counted 100
[2017-08-31] MEDS: FUROSEMIDE 40 MG/4 ML VIAL IV SCH (08:33)
[2017-08-31] MEDS: amLODIPine 10 MG TABLET PO SCH (08:33)
[2017-08-31] MEDS: ASPIRIN CHEW 81 MG TABLET PO SCH (08:33)
[2017-08-31] MEDS: CARVEDILOL 25 MG TABLET PO SCH ×2 (08:33→17:18)
[2017-08-31] MEDS: POTASSIUM CHLORIDE 20 MEQ TABLET PO SCH (08:33)
[2017-08-31] MEDS: BENZONATATE 100 MG CAPSULE PO SCH ×2 (09:02→21:55)
[2017-08-31] MEDS: DEXTROMETHORPHAN ER 6 MG/ML 90 ML/BOTTLE PO SCH ×2 (09:36→21:56)
[2017-08-31] MEDS: ENOXAPARIN 30 MG/0.3 ML SYRINGE SUBCUT SCH (09:36)
[2017-08-31] MEDS: CEFEPIME 1,000 MG in SYRINGE 1 EACH IV SCH ×2 (09:36→21:54)
[2017-08-31] MEDS: METOCLOPRAMIDE 10 MG/10 ML UDCUP PER TUBE SCH ×2 (15:24→21:55)
[2017-08-31] MEDS: ROSUVASTATIN 10 MG TABLET PO SCH (21:55)
[2017-08-31] MEDS: traZODone 50 MG TABLET PO SCH (21:55)
[2017-08-31] MEDS: SERTRALINE 50 MG TABLET PO SCH (21:56)
[2017-09-01] MEDS: INSULIN LISPRO 100 UNIT/ML SUBCUT SCH ×5 (00:24→23:20)
[2017-09-01] MEDS: ALBUTEROL/IPRATROPIUM 3 ML NEB RESP TX SCH ×4 (01:28→19:32)
[2017-09-01] MEDS: PROPOFOL 1,000 MG/100 ML BOTTLE IV SCH ×4 (02:31→18:36)
[2017-09-01] MEDS: METOCLOPRAMIDE 10 MG/10 ML UDCUP PER TUBE SCH ×4 (03:08→21:56)
[2017-09-01 04:38] LABS: ABG Base Excess 6.5 MMOL/L (-2.5-2.5); ABG HCO3 29.3 MMOL/L (20-26); ABG PO2 84.5 MM HG (80-95); ABG TCO2 30.3 MMOL/L (23-27); Allen Test Positive; Pt O2 Delivery Device Ventilator
[2017-09-01 05:54] LABS: Hematocrit 29.3 VOL% (42.0-52.0); Hemoglobin 10.5 GM/DL (14.0-18.0); Immature Granulocytes % 0.8 %; Immature Granulocytes Absolute 0.05 #; Lymphocytes # 0.2 10*3/uL (1.4-4.0); Lymphocytes % 3.3 % (21.2-54.2); Mean Corpuscular HGB Conc 35.8 GM/DL (32-36); Mean Corpuscular Hemoglobin 30 PG (27-34); Mean Corpuscular Volume 82.3 FL (87-102); Mean Platelet Volume 12.2 FL (9.6-12.0); Monocytes # 0.6 10*3/uL (0.11-0.8); Monocytes % 9.9 % (1.7-12.7); Neutrophils # 5.5 10*3/uL (1.4-7.4); Platelet Count 155 T/CUMM (130-400); Red Blood Count 3.56 MC/CUMM (3.8-5.5); Red Cell Distribution Width 17.8 % (9.3-17.3); White Blood Count 6.4 T/CUMM (4-12)
[2017-09-01] MEDS: CLINDAMYCIN INJ 600 MG in PREMIX 1 EACH IV SCH ×3 (05:59→23:10)
[2017-09-01 06:17] LABS: Calcium 8.9 MG/DL (8.5-10.1); Osmolality,Calculated 319.8 MOS/KG (273-304); Potassium 3.6 MMOL/L (3.5-5.1)
[2017-09-01 06:22] LABS: Prealbumin 34.3 MG/DL (20-40)
[2017-09-01 06:39] LABS: Band Neutrophils 3 % (0-10); Lymphocytes 12 % (20-55); Platelet Estimate Normal; Segmented Neutrophils 83 % (50-85); Total Cells Counted 100
[2017-09-01] MEDS: CEFEPIME 1,000 MG in SYRINGE 1 EACH IV SCH ×2 (09:09→21:50)
[2017-09-01] MEDS: FUROSEMIDE 40 MG/4 ML VIAL IV SCH (09:10)
[2017-09-01] MEDS: methylPREDNISolone SOD SUC 40 MG/1 ML VIAL IV SCH ×2 (09:10→21:50)
[2017-09-01] MEDS: ENOXAPARIN 30 MG/0.3 ML SYRINGE SUBCUT SCH (09:10)
[2017-09-01] MEDS: CARVEDILOL 25 MG TABLET PO SCH ×2 (09:11→17:04)
[2017-09-01] MEDS: amLODIPine 10 MG TABLET PO SCH (09:11)
[2017-09-01] MEDS: BENZONATATE 100 MG CAPSULE PO SCH ×2 (09:11→21:50)
[2017-09-01] MEDS: POTASSIUM CHLORIDE 20 MEQ TABLET PO SCH (09:11)
[2017-09-01] MEDS: ASPIRIN CHEW 81 MG TABLET PO SCH (09:11)
[2017-09-01] MEDS: DEXTROMETHORPHAN ER 6 MG/ML 90 ML/BOTTLE PO SCH ×2 (09:37→23:21)
[2017-09-01] MEDS: PANTOPRAZOLE 40 MG VIAL IV SCH (13:47)
[2017-09-01] MEDS: traZODone 50 MG TABLET PO SCH (21:49)
[2017-09-01] MEDS: ROSUVASTATIN 10 MG TABLET PO SCH (21:49)
[2017-09-01] MEDS: SERTRALINE 50 MG TABLET PO SCH (21:49)
[2017-09-02] MEDS: PROPOFOL 1,000 MG/100 ML BOTTLE IV SCH ×2 (02:00→07:44)
[2017-09-02 03:43] LABS: ABG Base Excess 9.3 MMOL/L (-2.5-2.5); ABG HCO3 33.1 MMOL/L (20-26); ABG Oxygen Saturation 98.8 % (95-100); ABG PCO2 38.5 MM HG (35-48); ABG PH 7.537 (7.35-7.45); ABG TCO2 29.4 MMOL/L (23-27)
[2017-09-02] MEDS: METOCLOPRAMIDE 10 MG/10 ML UDCUP PER TUBE SCH ×4 (03:45→21:54)
[2017-09-02] MEDS: INSULIN LISPRO 100 UNIT/ML SUBCUT SCH ×3 (05:39→18:14)
[2017-09-02 05:43] LABS: Hematocrit 30.3 VOL% (42.0-52.0); Hemoglobin 10.5 GM/DL (14.0-18.0); Immature Granulocytes % 0.9 %; Immature Granulocytes Absolute 0.05 #; Lymphocytes # 0.2 10*3/uL (1.4-4.0); Mean Corpuscular HGB Conc 34.7 GM/DL (32-36); Mean Corpuscular Hemoglobin 29 PG (27-34); Mean Corpuscular Volume 84.2 FL (87-102); Mean Platelet Volume 12.3 FL (9.6-12.0); Monocytes # 0.8 10*3/uL (0.11-0.8); Monocytes % 12.9 % (1.7-12.7); Neutrophils # 4.8 10*3/uL (1.4-7.4); Neutrophils % 82.2 % (38.7-73.9); Platelet Count 168 T/CUMM (130-400); Red Cell Distribution Width 17.8 % (9.3-17.3); White Blood Count 5.8 T/CUMM (4-12)
[2017-09-02 06:02] LABS: Calcium 9.2 MG/DL (8.5-10.1); Osmolality,Calculated 322.4 MOS/KG (273-304); Potassium 3.4 MMOL/L (3.5-5.1)
[2017-09-02 06:04] LABS: Hypochromasia 1+; Lymphocytes 12 % (20-55); Microcytosis 1+; Ovalocytes Slight; Segmented Neutrophils 76 % (50-85); Total Cells Counted 100
[2017-09-02 06:05] LABS: Platelet Estimate Adequate; Polychromasia Slight
[2017-09-02] MEDS: CLINDAMYCIN INJ 600 MG in PREMIX 1 EACH IV SCH ×3 (06:30→23:35)
[2017-09-02] MEDS: ALBUTEROL/IPRATROPIUM 3 ML NEB RESP TX SCH ×4 (07:42→19:22)
[2017-09-02] MEDS: methylPREDNISolone SOD SUC 40 MG/1 ML VIAL IV SCH (07:52)
[2017-09-02] MEDS: CARVEDILOL 25 MG TABLET PO SCH ×2 (07:54→18:22)
[2017-09-02] MEDS: BENZONATATE 100 MG CAPSULE PO SCH ×2 (08:00→21:53)
[2017-09-02] MEDS: ASPIRIN CHEW 81 MG TABLET PO SCH (08:00)
[2017-09-02] MEDS: amLODIPine 10 MG TABLET PO SCH (08:00)
[2017-09-02] MEDS: LORazepam 0.5 MG TABLET PO PRN ×2 (08:01→14:56)
[2017-09-02] MEDS: POTASSIUM CHLORIDE 20 MEQ TABLET PO SCH (08:01)
[2017-09-02] MEDS: PANTOPRAZOLE 40 MG VIAL IV SCH (08:03)
[2017-09-02] MEDS: FUROSEMIDE 40 MG/4 ML VIAL IV SCH (08:16)
[2017-09-02] MEDS: ENOXAPARIN 30 MG/0.3 ML SYRINGE SUBCUT SCH (10:00)
[2017-09-02 10:21] LABS: ABG Base Excess 11.1 MMOL/L (-2.5-2.5); ABG HCO3 36.3 MMOL/L (20-26); ABG Oxygen Saturation 95.7 % (95-100); ABG PCO2 51.1 MM HG (35-48); ABG PH 7.469 (7.35-7.45); ABG PO2 89.4 MM HG (80-95); ABG TCO2 37.8 MMOL/L (23-27)
[2017-09-02] MEDS: CEFEPIME 1,000 MG in SYRINGE 1 EACH IV SCH ×2 (11:03→21:52)
[2017-09-02 12:12] LABS: ABG Base Excess 10.8 MMOL/L (-2.5-2.5); ABG HCO3 35.2 MMOL/L (20-26); ABG Oxygen Saturation 97.3 % (95-100); ABG PCO2 45.9 MM HG (35-48); ABG PH 7.502 (7.35-7.45); ABG PO2 105.8 MM HG (80-95); ABG TCO2 36.6 MMOL/L (23-27)
[2017-09-02] MEDS: DEXTROMETHORPHAN ER 6 MG/ML 90 ML/BOTTLE PO SCH ×2 (13:48→23:44)
[2017-09-02] MEDS: SERTRALINE 50 MG TABLET PO SCH (21:53)
[2017-09-02] MEDS: ROSUVASTATIN 10 MG TABLET PO SCH (21:53)
[2017-09-02] MEDS: traZODone 50 MG TABLET PO SCH (21:53)
[2017-09-03] MEDS: ALBUTEROL/IPRATROPIUM 3 ML NEB RESP TX SCH ×4 (00:06→19:11)
[2017-09-03] MEDS: INSULIN LISPRO 100 UNIT/ML SUBCUT SCH ×4 (00:53→18:06)
[2017-09-03 04:11] LABS: ABG Base Excess 9.9 MMOL/L (-2.5-2.5); ABG HCO3 33.6 MMOL/L (20-26); ABG Oxygen Saturation 93.7 % (95-100); ABG PCO2 54.3 MM HG (35-48); ABG PH 7.429 (7.35-7.45); ABG PO2 70.6 MM HG (80-95); ABG TCO2 32.7 MMOL/L (23-27); Allen Test Positive
[2017-09-03] MEDS: METOCLOPRAMIDE 10 MG/10 ML UDCUP PER TUBE SCH ×4 (04:16→21:46)
[2017-09-03 05:49] LABS: Eosinophils % 0.1 % (0.00-10.9); Hematocrit 31.7 VOL% (42.0-52.0); Hemoglobin 10.3 GM/DL (14.0-18.0); Immature Granulocytes % 0.9 %; Immature Granulocytes Absolute 0.08 #; Lymphocytes # 0.7 10*3/uL (1.4-4.0); Lymphocytes % 8.6 % (21.2-54.2); Mean Corpuscular HGB Conc 32.5 GM/DL (32-36); Mean Corpuscular Hemoglobin 29 PG (27-34); Mean Corpuscular Volume 88.1 FL (87-102); Mean Platelet Volume 12.6 FL (9.6-12.0); Monocytes # 1.8 10*3/uL (0.11-0.8); Monocytes % 21.5 % (1.7-12.7); Neutrophils # 5.8 10*3/uL (1.4-7.4); Neutrophils % 68.9 % (38.7-73.9); Platelet Count 158 T/CUMM (130-400); Red Cell Distribution Width 17.9 % (9.3-17.3); White Blood Count 8.5 T/CUMM (4-12)
[2017-09-03 06:09] LABS: Eosinophils 1 % (0-10); Giant Platelets Few; Hypochromasia 1+; Lymphocytes 11 % (20-55); Platelet Estimate Normal; Segmented Neutrophils 70 % (50-85); Total Cells Counted 100
[2017-09-03 06:10] LABS: Microcytosis 1+; Osmolality,Calculated 322.1 MOS/KG (273-304); Potassium 3.6 MMOL/L (3.5-5.1)
[2017-09-03] MEDS: CLINDAMYCIN INJ 600 MG in PREMIX 1 EACH IV SCH (06:25)
[2017-09-03] MEDS: methylPREDNISolone SOD SUC 40 MG/1 ML VIAL IV SCH (08:14)
[2017-09-03] MEDS: PANTOPRAZOLE 40 MG VIAL IV SCH (08:14)
[2017-09-03] MEDS: FUROSEMIDE 40 MG/4 ML VIAL IV SCH (08:14)
[2017-09-03] MEDS: ASPIRIN CHEW 81 MG TABLET PO SCH (08:15)
[2017-09-03] MEDS: POTASSIUM CHLORIDE 20 MEQ TABLET PO SCH (08:15)
[2017-09-03] MEDS: amLODIPine 10 MG TABLET PO SCH (08:15)
[2017-09-03] MEDS: CARVEDILOL 25 MG TABLET PO SCH ×2 (08:15→16:42)
[2017-09-03] MEDS: CEFUROXIME 250 MG TABLET PO SCH ×2 (08:22→21:46)
[2017-09-03] MEDS: ENOXAPARIN 30 MG/0.3 ML SYRINGE SUBCUT SCH (10:19)
[2017-09-03] MEDS: DEXTROMETHORPHAN ER 6 MG/ML 90 ML/BOTTLE PO SCH ×2 (10:19→21:52)
[2017-09-03] MEDS: traZODone 50 MG TABLET PO SCH (21:46)
[2017-09-03] MEDS: SERTRALINE 50 MG TABLET PO SCH (21:47)
[2017-09-03] MEDS: ROSUVASTATIN 10 MG TABLET PO SCH (21:47)
[2017-09-04] MEDS: ALBUTEROL/IPRATROPIUM 3 ML NEB RESP TX SCH ×3 (00:04→12:52)
[2017-09-04] MEDS: METOCLOPRAMIDE 10 MG/10 ML UDCUP PER TUBE SCH ×3 (02:41→16:00)
[2017-09-04] MEDS: INSULIN LISPRO 100 UNIT/ML SUBCUT SCH ×3 (06:21→12:11)
[2017-09-04] MEDS: methylPREDNISolone SOD SUC 40 MG/1 ML VIAL IV SCH (06:30)
[2017-09-04] MEDS ORDERED: FUROSEMIDE 40 MG TABLET PO SCH (09:00)
[2017-09-04] MEDS ORDERED: predniSONE 20 MG TABLET PO SCH (09:00)
[2017-09-04] MEDS: amLODIPine 10 MG TABLET PO SCH (09:12)
[2017-09-04] MEDS: ASPIRIN CHEW 81 MG TABLET PO SCH (09:13)
[2017-09-04] MEDS: POTASSIUM CHLORIDE 20 MEQ TABLET PO SCH (09:13)
[2017-09-04] MEDS: CARVEDILOL 25 MG TABLET PO SCH (09:13)
[2017-09-04] MEDS: CEFUROXIME 250 MG TABLET PO SCH (09:13)
[2017-09-04] MEDS: ENOXAPARIN 30 MG/0.3 ML SYRINGE SUBCUT SCH (09:14)
[2017-09-04] MEDS: PANTOPRAZOLE 40 MG VIAL IV SCH (09:14)
[2017-09-04] MEDS: FUROSEMIDE 40 MG/4 ML VIAL IV SCH (09:15)
[2017-09-04] MEDS: DEXTROMETHORPHAN ER 6 MG/ML 90 ML/BOTTLE PO SCH (10:10)
[2017-09-04 12:07] VITALS: BP 149/84
== END 2017-09-04 16:16 | DRG 291 ==
LOC: EDUNIT# → EDBD → N.ED 16:40 → N.EDINP 18:33 → SUATTDRO 18:33 → N.TELEN 19:26 → N.ICU 08-27 16:18 → N.TELEN 09-03 10:51
PROVIDERS: ADMIT Internal Medicine Geriatric Medicine; ATTEND Family Medicine